=== PATIENT | male | born 1935 | race Two or more races ===

== ENCOUNTER 2017-09-08 12:07 | Inpatient (IN) | payer MEDICARE, MEDICAID ==
[~2017-09-08] VITALS: Ht 182.9 cm; Wt 78.0 kg
[2017-09-08] MEDS ORDERED: Piperacillin/Tazobactam 3.375 GM in NS 110 ML IVPB ONE (12:30)
[2017-09-08 12:42] LABS: BASOPHILS % (AUTO) 0.6 % (0.0-2.0); EOSINOPHILS % (AUTO) 4.1 % (0.0-3.0); HEMATOCRIT 33.1 % (42.0-52.0); HEMOGLOBIN 10.4 G/DL (14.2-18.0); LYMPHOCYTES % (AUTO) 12.7 % (20.0-45.0); MEAN CORPUSCULAR VOLUME 94 FL (80-99); MONOCYTES % (AUTO) 5.7 % (1.0-10.0); NEUTROPHILS % (AUTO) 76.9 % (45.0-75.0); PLATELET COUNT 241 K/UL (150-450); RED BLOOD COUNT 3.51 M/UL (4.70-6.10); RED CELL DISTRIBUTION WIDTH 15.9 % (11.6-14.8); WHITE BLOOD COUNT 9.9 K/UL (4.8-10.8)
[2017-09-08 12:59] LABS: APPEARANCE,URINE CLOUDY; BILIRUBIN, URINE NEGATIVE (NEGATIVE); GLUCOSE, URINE (UA) NEGATIVE (NEGATIVE); KETONES,URINE NEGATIVE (NEGATIVE); LEUKOCYTE ESTERASE ,URINE 3+ (NEGATIVE); NITRITE,URINE POSITIVE (NEGATIVE); PH,URINE 8 (4.5-8.0); PROTEIN,URINE 3+ (NEGATIVE); UROBILINOGEN,URINE 1 MG/DL (0.0-1.0)
[2017-09-08 13:02] VITALS: BP 112/76
[2017-09-08 13:06] LABS: ANION GAP 10 mmol/L (5-15); BLOOD UREA NITROGEN 50 mg/dL (7-18); CALCIUM 8.8 MG/DL (8.5-10.1); CARBON DIOXIDE 27 MMOL/L (21-32); CHLORIDE 118 MMOL/L (98-107); CREATININE 0.8 MG/DL (0.55-1.30); POTASSIUM 4.3 MMOL/L (3.5-5.1); SODIUM 155 MMOL/L (136-145)
[2017-09-08 13:11] LABS: INR 1.1 (0.9-1.1)
[2017-09-08 13:14] LABS: COLOR,URINE YELLOW
[2017-09-08 13:29] LABS: ALANINE AMINOTRANSFERASE 93 U/L (12-78); ALBUMIN/GLOBULIN RATIO 0.4 (1.0-2.7); ALKALINE PHOSPHATASE 81 U/L (46-116); ASPARTATE AMINO TRANSFERASE 56 U/L (15-37); BILIRUBIN,TOTAL 0.3 MG/DL (0.2-1.0); CKMB < 0.5 NG/ML (0.0-3.6); CREATINE KINASE 49 U/L (26-308)
--- NOTE | 2017-09-08 13:52 | Emergency Room Report ---
History of Present Illness General Chief Complaint: Dyspnea/Respdistress Source: EMS Present Illness HPI Patient presents from nursing facility with possible difficulty breathing Patient himself is nonverbal History of present illness is significantly limited Unknown regarding acute fever patient has had multiple hospitalizations for CHF and nonhealing decubitus ulcer Upon arrival the patient was found to be hypoxic by paramedics Unknown regarding vomiting or diarrhea Allergies: Coded Allergies: No Known Allergies (Unverified , 09/08/17) Patient History Limited by: medical condition Past Medical History: see triage record Pertinent Family History: unable to obtain Reviewed Nursing Documentation: PMH: Agreed; PSxH: Agreed Nursing Documentation-PMH Hx Cardiac Problems: Yes - A-FIB HEART FAILURE Hx Hypertension: Yes Hx Gastrointestinal Problems: Yes - G-TUBE Hx Neurological Problems: Yes - PARKINSONS Hx Seizures: No - HYPOTHYROIDISM ANEMIA DEMENTIA BPH Review of Systems All Other Systems: limited - Other than the ones mentioned in the history of present illness all others are reviewed however they do stay limited due to the patient's mental status Physical Exam Vital Signs Date Time Temp Pulse Resp B/P (MAP) Pulse Ox O2 Delivery O2 Flow Rate FiO2 09/08/17 11:59 100.8 74 24 112/76 95 Simple Mask 15.0 100.8 Sp02 EP Interpretation: reviewed, normal General Appearance: mild distress - Appeared mildly short of breath Head: normocephalic, atraumatic Eyes: bilateral eye PERRL ENT: dry mucus membranes Neck: supple, thyroid normal Respiratory: no respiratory distress, no retraction, crackles - Both lower lobes Cardiovascular #1: regular rate, rhythm, no edema Gastrointestinal: non tender, soft - Feeding tube in place Musculoskeletal: other - Patient chronically debilitated, flexed at the legs, not following commands Neurologic: responsive - To physical stimuli Skin: other - Multiple skin breakdowns including decubitus ulcer on the right side also wounds on the lower extremity Lymphatic: no adenopathy Medical Decision Making Diagnostic Impression: Primary Impression: Sepsis Additional Impressions: UTI (urinary tract infection) CHF (congestive heart failure) Hypernatremia ER Course Patient is a fairly complex patient with multiple differential to consideration including but not limited to cardiac cardiopulmonary and vascular emergencies Patient's urine sample also shows infectious pathology Given the concerns of CHF 30 mL/kg fluid is not provided patient however is given hydration Broad-spectrum antibiotics initiated Patient also requiring diuretics for the pulmonary congestion Patient is a complex case with mixed picture of CHF and infection requiring higher level of care admission Labs Test 09/08/17 12:15 09/08/17 12:35 White Blood Count 9.9 K/UL (4.8-10.8) Red Blood Count 3.51 M/UL (4.70-6.10) Hemoglobin 10.4 G/DL (14.2-18.0) Hematocrit 33.1 % (42.0-52.0) Mean Corpuscular Volume 94 FL (80-99) Mean Corpuscular Hemoglobin 29.6 PG (27.0-31.0) Mean Corpuscular Hemoglobin Concent 31.4 G/DL (32.0-36.0) Red Cell Distribution Width 15.9 % (11.6-14.8) Platelet Count 241 K/UL (150-450) Mean Platelet Volume 8.0 FL (6.5-10.1) Neutrophils (%) (Auto) 76.9 % (45.0-75.0) Lymphocytes (%) (Auto) 12.7 % (20.0-45.0) Monocytes (%) (Auto) 5.7 % (1.0-10.0) Eosinophils (%) (Auto) 4.1 % (0.0-3.0) Basophils (%) (Auto) 0.6 % (0.0-2.0) Prothrombin Time 11.0 SEC (9.30-11.50) Prothromb Time International Ratio 1.1 (0.9-1.1) Activated Partial Thromboplast Time 27 SEC (23-33) Urine Color Yellow Urine Appearance Cloudy Urine pH 8 (4.5-8.0) Urine Specific M[place]od 1.015 (1.005-1.035) Urine Protein 3+ (NEGATIVE) Urine Glucose (UA) Negative (NEGATIVE) Urine Ketones Negative (NEGATIVE) Urine Occult Blood 2+ (NEGATIVE) Urine Nitrite Positive (NEGATIVE) Urine Bilirubin Negative (NEGATIVE) Urine Urobilinogen 1 MG/DL (0.0-1.0) Urine Leukocyte Esterase 3+ (NEGATIVE) Urine RBC 5-10 /HPF (0 - 0) Urine WBC 20-30 /HPF (0 - 0) Urine Squamous Epithelial Cells Occasional /LPF Urine Triple Phosphate Crystals Few /LPF (NONE) Urine Bacteria Moderate /HPF (NONE) Sodium Level 155 MMOL/L (136-145) Potassium Level 4.3 MMOL/L (3.5-5.1) Chloride Level 118 MMOL/L (98-107) Carbon Dioxide Level 27 MMOL/L (21-32) Anion Gap 10 mmol/L (5-15) Blood Urea Nitrogen 50 mg/dL (7-18) Creatinine 0.8 MG/DL (0.55-1.30) Estimat Glomerular Filtration Rate mL/min (>60) Glucose Level 138 MG/DL (74-106) Lactic Acid Level 1.00 mmol/L (0.4-2.0) Calcium Level 8.8 MG/DL (8.5-10.1) Total Bilirubin 0.3 MG/DL (0.2-1.0) Aspartate Amino Transf (AST/SGOT) 56 U/L (15-37) Alanine Aminotransferase (ALT/SGPT) 93 U/L (12-78) Alkaline Phosphatase 81 U/L (46-116) Total Creatine Kinase 49 U/L (26-308) Creatine Kinase MB < 0.5 NG/ML (0.0-3.6) Creatine Kinase MB Relative Index Troponin I 0.000 ng/mL (0.000-0.056) Pro-B-Type Natriuretic Peptide 229 pg/mL (0-125) Total Protein 7.7 G/DL (6.4-8.2) Albumin 2.0 G/DL (3.4-5.0) Globulin 5.7 g/dL Albumin/Globulin Ratio 0.4 (1.0-2.7) Lipase 169 U/L (73-393) Arterial Blood pH 7.530 (7.350-7.450) Arterial Blood Partial Pressure CO2 32.9 mmHg (35.0-45.0) Arterial Blood Partial Pressure O2 76.3 mmHg (75.0-100.0) Arterial Blood HCO3 27.0 mmol/L (22.0-26.0) Arterial Blood Oxygen Saturation 95.4 % (92.0-98.0) Arterial Blood Base Excess 4.4 Andrew Test Positive Rhythm Strip Diag. Results EP Interpretation: yes Rate: 78 Rhythm: NSR, no PVC's, no ectopy Chest X-Ray Diagnostic Results Chest X-Ray Diagnostic Results : Chest X-Ray Ordered: Yes # of Views/Limited/Complete: 1 View Indication: Chest Pain EP Interpretation: Yes Interpretation: no pneumothorax, other - Pulmonary congestion, no acute bony abnormalities Impression: Other - Pulmonary congestion Electronically Signed by: Laurent Goldman DO Last Vital Signs Date Time Temp Pulse Resp B/P (MAP) Pulse Ox O2 Delivery O2 Flow Rate FiO2 09/08/17 13:02 100.8 24 112/76 95 Simple Mask 15.0 100.8 09/08/17 13:02 74 Status: improved Disposition: ADMITTED INPATIENT Condition: Serious Referrals: Joanne Desir MD (PCP) Laurent Goldman DO Sep 08, 2017 13:52
[2017-09-08 14:32] VITALS: BP 126/79
[2017-09-08] MEDS ORDERED: SYNTHROID100 MCG GT (14:48)
[2017-09-08] MEDS ORDERED: FEOSOL1 TAB ORAL (14:48)
[2017-09-08] MEDS ORDERED: SYNTHROID50 MCG ORAL (14:48)
[2017-09-08] MEDS ORDERED: GABAPENTIN100 MG ORAL (14:48)
[2017-09-08] MEDS ORDERED: FOLIC ACID1 M1 PO (14:48)
[2017-09-08] MEDS ORDERED: TAMSULOSIN HCL0.4 MG GT (14:52)
[2017-09-08] MEDS ORDERED: SINEMET 25-1001 EAC1 GT ×2 (14:52→19:27)
--- NOTE | 2017-09-08 15:53 | Diagnostic Imaging Report ---
Indication: Shortness of breath Technique: One view of the chest Comparison: none Findings: Patient's chin obscures the upper mediastinum. Hazy opacities are seen in the mid and upper lungs bilaterally. The heart size is normal there are degenerative changes of the left shoulder Impression: Hazy mid and upper lung opacities bilaterally, infiltrates versus edema
[2017-09-08 16:00] VITALS: BP 141/66
[2017-09-08] MEDS ORDERED: NYSTATIN500000 UNI GT (19:27)
[2017-09-08] MEDS ORDERED: NORCO 5-325 TA1 EACH GT (19:27)
[2017-09-08] MEDS ORDERED: HEPARIN SO5000 UNIT5 SQ (19:27)
[2017-09-08] MEDS ORDERED: ASCORBIC ACID500 MG GT (19:27)
[2017-09-08] MEDS ORDERED: NAMENDA5 MG ORAL (19:27)
[2017-09-08] MEDS ORDERED: CHILDREN'S15 MG/1 M2 GT (19:27)
[2017-09-08] MEDS ORDERED: MULTIVITAMINS1 EAC8 GT (19:27)
[2017-09-08 20:00] VITALS: BP 118/64
[2017-09-08] MEDS ORDERED: Acetaminophen 650mg/20.3ml GT PRN (20:45)
[2017-09-08] MEDS ORDERED: Memantine 5 MG TAB ORAL SCH (21:00)
[2017-09-08] MEDS: Vancomycin 1250mg/D5W 250ml IVPB SCH (21:52)
[2017-09-08] MEDS: Tamsulosin 0.4mg cap ORAL SCH (21:53)
[2017-09-08] MEDS: Memantine 5 MG TAB GT SCH (21:53)
[2017-09-08] MEDS: Heparin 5000 units/ml inj SUBQ SCH (21:54)
[2017-09-08] MEDS ORDERED: Piperacillin/Tazobactam 2.25 GM in D5W 55 ML IVPB SCH (22:00)
[2017-09-08] MEDS: Piperacillin/Tazobactam 3.375 GM in D5W 110 ML IVPB SCH (23:30)
[2017-09-08] MEDS: Norco 5mg/325mg tab GT PRN (23:31)
[2017-09-09] VITALS (7 sets, daily range): BP systolic 98–119; BP diastolic 50–68
[2017-09-09 04:47] LABS: BASOPHILS % (AUTO) 0.8 % (0.0-2.0); EOSINOPHILS % (AUTO) 2.9 % (0.0-3.0); HEMATOCRIT 32.9 % (42.0-52.0); HEMOGLOBIN 10.9 G/DL (14.2-18.0); LYMPHOCYTES % (AUTO) 14.1 % (20.0-45.0); MEAN CORPUSCULAR VOLUME 95 FL (80-99); NEUTROPHILS % (AUTO) 77.2 % (45.0-75.0); PLATELET COUNT 252 K/UL (150-450); RED BLOOD COUNT 3.45 M/UL (4.70-6.10); RED CELL DISTRIBUTION WIDTH 15.7 % (11.6-14.8); WHITE BLOOD COUNT 6.5 K/UL (4.8-10.8)
[2017-09-09 04:52] LABS: BLOOD UREA NITROGEN 50 mg/dL (7-18); CALCIUM 8.7 MG/DL (8.5-10.1); CARBON DIOXIDE 29 MMOL/L (21-32); CREATININE 1.1 MG/DL (0.55-1.30)
[2017-09-09] MEDS: Piperacillin/Tazobactam 3.375 GM in D5W 110 ML IVPB SCH ×3 (05:58→22:59)
[2017-09-09 06:05] LABS: CHLORIDE 118 MMOL/L (98-107); POTASSIUM 3.9 MMOL/L (3.5-5.1); SODIUM 156 MMOL/L (136-145)
[2017-09-09] MEDS: Ascorbic Acid 500mg tab GT SCH ×2 (09:48→18:11)
[2017-09-09] MEDS: Ferrous Sulfate 300 MG/5 ML UDC GT SCH ×2 (09:48→18:11)
[2017-09-09] MEDS: Levodopa/Carbidopa 25/100 tab GT SCH ×3 (09:48→18:11)
[2017-09-09] MEDS: Multivitamins W/Minerals 15 ML UDC GT SCH (09:49)
[2017-09-09] MEDS: Gabapentin 300 MG/6 ML Soln GT SCH ×3 (09:49→18:11)
[2017-09-09] MEDS: Heparin 5000 units/ml inj SUBQ SCH ×2 (09:52→21:07)
--- NOTE | 2017-09-09 12:12 | Cardiology Report ---
APPROVED REPORT EKG Measurement Heart [id number] Sinus rhythm Low voltage QRS Abnormal ECG
[2017-09-09] MEDS: D5W w/KCl 20mEq 1,000 ML IV SCH (13:14)
[2017-09-09] MEDS ORDERED: NS 500ML ONE (13:51)
[2017-09-09] MEDS ORDERED: Tubing IV Secondary IV ONE (13:51)
--- NOTE | 2017-09-09 13:59 | Consultation ---
History of Present Illness General Chief Complaint: Dyspnea/Respdistress Reason for Consultation: multiple wounds Present Illness HPI 82[facility] resident was found to have respiratory difficulty and UTI. Currently admitted for medical care and management. On initial evaluation found to have multiple wounds. Surgery called to evaluate and assist with wound care Allergies: Coded Allergies: No Known Allergies (Unverified , 09/08/17) Medication History Scheduled Ascorbic Acid* (Ascorbic Acid*), 500 MG GT TWICE A DAY, (Reported) Carbidopa/Levodopa 25-100 Mg* (Sinemet 25-100 Mg Tablet*), 1 TAB GT THREE TIMES A DAY, (Reported) Carbidopa/Levodopa 25-100 Mg* (Sinemet 25-100 Mg Tablet*), 1 TAB GT TWICE A DAY, (Reported) Ferrous Sulfate (Ferrous Sulfate), 1 TAB ORAL TWICE A DAY, (Reported) Ferrous Sulfate (Ferrous Sulfate), 15 MG GT BID, (Reported) Gabapentin* (Gabapentin*), 100 MG ORAL THREE TIMES A DAY, (Reported) Heparin Sodium,Porcine (Heparin Sodium), 5,000 UNIT SQ EVERY 12 HOURS, (Reported ) Levothyroxine Sodium* (Synthroid*), 100 MCG GT DAILY, (Reported) Memantine Hcl* (Namenda*), 5 MG ORAL BEDTIME, (Reported) Multivitamin With Minerals (Multivitamins With Minerals*), 1 TAB GT DAILY, ( Reported) Nystatin (Nystatin), 500,000 UNIT GT TID, (Reported) Tamsulosin Hcl (Tamsulosin Hcl*), 0.4 MG GT BEDTIME, (Reported) Scheduled PRN Hydrocodone Bit/Acetaminophen 5-325* (Durant 5-325*), 1 TAB GT Q6H PRN for Moderate Pain (Pain Scale 4-6), (Reported) Miscellaneous Medications Folic Acid (Folic Acid), 1 MG PO, (Reported) Discontinued Medications Levothyroxine Sodium (Synthroid), 50 MCG ORAL DAILY, (Reported) Discontinued Reason: Medication dose changed Patient History Limited by: medical condition History Provided By: Medical Record, PMD Healthcare decision maker Resuscitation status Full Code Advanced Directive on File No Past Medical/Surgical History Past Medical/Surgical History: (1) Sacral decubitus ulcer (2) Heel ulcer (3) Wounds, multiple open, lower extremity (4) CHF (congestive heart failure) (5) Hypernatremia (6) Sepsis (7) UTI (urinary tract infection) Review of Systems ROS Narrative cannot obtain given patients medial condition Physical Exam General Appearance: no apparent distress HEENT: mucous membranes moist Neck: normal inspection Respiratory/Chest: no respiratory distress, no accessory muscle use Cardiovascular/Chest: tachycardia Abdomen: soft, no organomegaly, no mass Extremities: other - wounds Skin Exam: warm/dry Neurologic: unresponsiveness Last 24 Hour Vital Signs Date Time Temp Pulse Resp B/P (MAP) Pulse Ox O2 Delivery O2 Flow Rate FiO2 09/09/17 09:19 98.6 64 18 119/63 97 Nasal Cannula 2.0 98.6 09/09/17 08:00 62 09/09/17 04:00 99.0 62 19 98/50 96 Nasal Cannula 2.0 99.0 09/09/17 03:36 67 09/09/17 00:30 98.2 09/09/17 00:00 98.2 74 20 103/50 96 Nasal Cannula 2.0 98.2 09/08/17 23:31 98.6 09/08/17 21:00 71 09/08/17 20:00 98.6 77 20 118/64 97 Nasal Cannula 2.0 98.6 09/08/17 16:52 69 09/08/17 16:21 98.8 24 126/79 100 Simple Mask 15.0 98.8 09/08/17 16:00 98.0 20 141/66 97 Nasal Cannula 2.0 98.0 09/08/17 15:21 118 09/08/17 14:32 98.8 24 126/79 100 Simple Mask 15.0 98.8 Intake and Output 09/08/17 09/09/17 19:00 07:00 Intake Total 0 ml 570.000 ml Output Total 1000 ml Balance -1000 ml 570.000 ml Intake Oral 0 ml IV Total 360.000 ml Tube Feeding 210 ml Output Urine Total 1000 ml Laboratory Tests Test 09/09/17 03:41 White Blood Count 6.5 K/UL (4.8-10.8) Red Blood Count 3.45 M/UL (4.70-6.10) L Hemoglobin 10.9 G/DL (14.2-18.0) L Hematocrit 32.9 % (42.0-52.0) L Mean Corpuscular Volume 95 FL (80-99) Mean Corpuscular Hemoglobin 31.7 PG (27.0-31.0) H Mean Corpuscular Hemoglobin Concent 33.2 G/DL (32.0-36.0) Red Cell Distribution Width 15.7 % (11.6-14.8) H Platelet Count 252 K/UL (150-450) Mean Platelet Volume 7.2 FL (6.5-10.1) Neutrophils (%) (Auto) 77.2 % (45.0-75.0) H Lymphocytes (%) (Auto) 14.1 % (20.0-45.0) L Monocytes (%) (Auto) 5.0 % (1.0-10.0) Eosinophils (%) (Auto) 2.9 % (0.0-3.0) Basophils (%) (Auto) 0.8 % (0.0-2.0) Sodium Level 156 MMOL/L (136-145) H Potassium Level 3.9 MMOL/L (3.5-5.1) Chloride Level 118 MMOL/L (98-107) H Carbon Dioxide Level 29 MMOL/L (21-32) Blood Urea Nitrogen 50 mg/dL (7-18) H Creatinine 1.1 MG/DL (0.55-1.30) Estimat Glomerular Filtration Rate mL/min (>60) Glucose Level 129 MG/DL (74-106) H Calcium Level 8.7 MG/DL (8.5-10.1) Height (Feet): 6 Height (Inches): 0.00 Weight (Pounds): 140 Medications Current Medications Medications (Trade) Dose Ordered Sig/Adrian Route PRN Reason Start Time Stop Time Status Last Admin Dose Admin Acetaminophen (Tylenol) 650 mg Q4H PRN GT Mild Pain/Temp > 100.5 09/08/17 20:45 10/08/17 20:44 Acetaminophen/ Hydrocodone Bitart ([place] 5/325) 1 tab Q6H PRN GT Moderate Pain (Pain Scale 4-6) 09/08/17 20:15 09/15/17 20:14 09/08/17 23:31 Ascorbic Acid (Vitamin C) 500 mg TWICE A DAY GT 09/09/17 09:00 10/09/17 08:59 09/09/17 09:48 Carbidopa/Levodopa (Sinemet 25/100) 1 tab THREE TIMES A DAY GT 09/09/17 09:00 10/09/17 08:59 09/09/17 13:14 Dextrose/ Electrolytes 1,000 ml @ 75 mls/hr [id number] IV 09/09/17 11:00 10/09/17 10:59 09/09/17 13:14 Ferrous Sulfate (Feosol) 300 mg TWICE A DAY GT 09/09/17 09:00 10/09/17 08:59 09/09/17 09:48 Folic Acid (Folate) 1 mg BID GT 09/09/17 09:00 10/09/17 08:59 09/09/17 09:49 Gabapentin (Neurontin) 100 mg THREE TIMES A DAY GT 09/09/17 09:00 10/09/17 08:59 09/09/17 13:14 Heparin Sodium (Porcine) (Heparin 5000 units/ml) 5,000 units EVERY 12 HOURS SUBQ 09/08/17 21:00 10/08/17 20:59 09/09/17 09:52 Levothyroxine Sodium (Synthroid) 100 mcg ACBREAKFAST GT 09/09/17 06:30 10/09/17 08:59 09/09/17 05:59 Memantine (Namenda) 5 mg BEDTIME GT 09/08/17 21:00 10/08/17 20:59 09/08/17 21:53 Multivitamins (Multivitamins W/ Minerals 15ml Liquid) 15 ml DAILY GT 09/09/17 09:00 10/09/17 08:59 09/09/17 09:49 Piperacillin Sod/ Tazobactam Sod 3.375 gm/Dextrose 110 ml @ 27.5 mls/hr Q8H IVPB 09/08/17 22:30 09/15/17 22:29 09/09/17 13:37 Tamsulosin HCl (Flomax) 0.4 mg BEDTIME ORAL 09/08/17 21:00 10/08/17 20:59 09/08/17 21:53 Vancomycin HCl (Vanco rx to dose) 1 ea DAILY PRN MISC Per rx protocol 09/08/17 20:00 10/08/17 19:59 Vancomycin HCl/ Dextrose 250 ml @ 166.667 mls/hr Q24H IVPB 6/15/18 21:00 09/13/17 20:59 09/08/17 21:52 Assessment/Plan Problem List: (1) Wounds, multiple open, lower extremity ICD Codes: S81.809A - Unspecified open wound, unspecified lower leg, initial encounter SNOMED: 73170103 Qualifiers: (2) Sacral decubitus ulcer ICD Codes: L89.159 - Pressure ulcer of sacral region, unspecified stage SNOMED: 754490654 Qualifiers: Qualified Codes: L89.151 - Pressure ulcer of sacral region, stage 1 (3) Heel ulcer ICD Codes: L97.409 - Non-pressure chronic ulcer of unspecified heel and midfoot with unspecified severity SNOMED: 682258075 Qualifiers: Status: unchanged Assessment/Plan 82M with multiple wounds that were present on admission. Sacral decubitus ulcer stage I -keep off wound, skin protectant, foam dressing, air mattress bilateral heel ulcers - pressure ulcers -heel protectors, keep off wounds 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 no signs of infection. no odor. no need for debridement at this time. thank you for this consultation. Zafar Echeverria Sep 09, 2017 13:59
--- NOTE | 2017-09-09 16:30 | History and Physical Report ---
DATE OF ADMISSION: 09/08/2017 CHIEF COMPLAINT: Altered level of consciousness. HISTORY OF PRESENT ILLNESS: This is an 82-year-old male from [facility]. The patient was transferred to this hospital via 911 due to altered level of consciousness. His main complaint as noted by the nursing was shortness of breath. The patient has multiple medical problems as listed below. PAST MEDICAL HISTORY: 1. Organic brain syndrome. 2. Multiple decubitus ulcers, status post extensive debridement done in [facility] about a month ago. 3. Benign prostatic hypertrophy. 4. Hypothyroidism. 5. Calorie protein malnutrition. 6. Status post gastrostomy insertion. 7. Diastolic heart failure. 8. Chronic atrial fibrillation. MEDICATIONS: 1. Tube feeding. 2. Oral nystatin. 3. Sinemet. 4. Vitamin D3. 5. Multivitamins. 6. Tylenol p.r.n . 7. Bruno p.r.n. 8. Oral iron via G tube. 9. Neurontin. 10. Subcutaneous heparin. 11. Synthroid. 12. Namenda. 13. Tamsulosin. ALLERGIES: No known drug allergies. FAMILY HISTORY: Unable to obtain due to his mental status. SOCIAL HISTORY: Unable to obtain due to his mental status. REVIEW OF SYSTEMS: Unable to obtain due to his mental status. PHYSICAL EXAMINATION: GENERAL: This is an elderly cachectic male, who is in no acute distress. VITAL SIGNS: Blood pressure is 119/63, pulse 64 and regular, respirations 18, and temperature is 98.6 degrees. HEENT: The head is normocephalic and atraumatic. Pupils are equal, round, and reactive to light condition consensually. He has oral thrush. NECK: Supple. Trachea midline. There was no lymphadenopathy or thyromegaly. LUNGS: Clear to auscultation and percussion. HEART: Irregularly irregular. ABDOMEN: Soft and nontender. He has a G-tube. SKIN: He has multiple decubitus ulcers, which include stage II sacral, stage III left foot, a stage III right leg, stage IV left heel, stage III left foot and a large first 5 cm diameter greater right hip, which debrided recently at [facility] and looks essentially clean. NEUROLOGIC: The patient is alert, but disoriented. He has multiple contractures. There were no lateralizing signs. LABORATORY AND ANCILLARY DATA: His hematocrit 32.9 and WBC 6.5. Chemistry, sodium 156, chloride 118, BUN 50, creatinine 1.1, and glucose 129. Urinalysis positive nitrites, 20 to 30 white blood cells, and moderate amount of bacteria. Chest x-ray, hazy and suspected infiltrates bilaterally. ASSESSMENT: 1. Bilateral pneumonia. 2. Urosepsis. 3. Rule out infected decubitus ulcers, doubt since the wounds were debrided recently and they look clean. 4. Hypernatremia and volume repletion. 5. Organic brain syndrome. 6. Multiple decubitus ulcers, status post extensive debridement done in [facility] about a month ago. 7. Benign prostatic hypertrophy. 8. Hypothyroidism. 9. Calorie protein malnutrition. 10. Status post gastrostomy insertion. 11. Diastolic heart failure. 12. Chronic atrial fibrillation. PLAN: 1. Switch IV fluid to free water. 2. IV antibiotics. 3. General surgery to examine the wounds. 4. ID consult. Joanne Desir M.D. DR: LÁZARO JOB#: [id number] CC:
--- NOTE | 2017-09-09 16:57 | Infectious Diseases Prog Note ---
Assessment/Plan Assessment/Plan Full consult dictated: A) 1) sepsis, gram + bacteremia, ? sbe, ? skin source, gram neg uti, fevers, multiple wounds noted, ams, pneumonia 2) pmh noted 3) allergies - negative P) 1) vancomycin and zosyn 2) check cultures, labs, chest x-ray, echo 3) orders entered 4) thank you Subjective Allergies: Coded Allergies: No Known Allergies (Unverified , 09/08/17) Objective Vital Signs Last 24 Hour Vital Signs Date Time Temp Pulse Resp B/P (MAP) Pulse Ox O2 Delivery O2 Flow Rate FiO2 09/09/17 12:00 62 09/09/17 12:00 98.8 64 20 108/64 96 Nasal Cannula 2.0 98.8 09/09/17 09:19 98.6 64 18 119/63 97 Nasal Cannula 2.0 98.6 09/09/17 08:00 98.6 64 18 119/63 97 Nasal Cannula 2.0 98.6 09/09/17 08:00 62 09/09/17 04:00 99.0 62 19 98/50 96 Nasal Cannula 2.0 99.0 09/09/17 03:36 67 09/09/17 00:30 98.2 09/09/17 00:00 98.2 74 20 103/50 96 Nasal Cannula 2.0 98.2 09/08/17 23:31 98.6 09/08/17 21:00 71 09/08/17 20:00 98.6 77 20 118/64 97 Nasal Cannula 2.0 98.6 Height (Feet): 6 Height (Inches): 0.00 Weight (Pounds): 140 Microbiology Date/Time Source Procedure Growth Status 09/08/17 12:15 Blood Blood Culture - Preliminary Resulted 09/08/17 12:15 Blood Blood Culture - Preliminary Resulted 09/08/17 12:15 Urine,Clean Catch Urine Culture - Preliminary Gram Negative Bacillus 1 Resulted Laboratory Tests Test 09/09/17 03:41 White Blood Count 6.5 K/UL (4.8-10.8) Red Blood Count 3.45 M/UL (4.70-6.10) L Hemoglobin 10.9 G/DL (14.2-18.0) L Hematocrit 32.9 % (42.0-52.0) L Mean Corpuscular Volume 95 FL (80-99) Mean Corpuscular Hemoglobin 31.7 PG (27.0-31.0) H Mean Corpuscular Hemoglobin Concent 33.2 G/DL (32.0-36.0) Red Cell Distribution Width 15.7 % (11.6-14.8) H Platelet Count 252 K/UL (150-450) Mean Platelet Volume 7.2 FL (6.5-10.1) Neutrophils (%) (Auto) 77.2 % (45.0-75.0) H Lymphocytes (%) (Auto) 14.1 % (20.0-45.0) L Monocytes (%) (Auto) 5.0 % (1.0-10.0) Eosinophils (%) (Auto) 2.9 % (0.0-3.0) Basophils (%) (Auto) 0.8 % (0.0-2.0) Sodium Level 156 MMOL/L (136-145) H Potassium Level 3.9 MMOL/L (3.5-5.1) Chloride Level 118 MMOL/L (98-107) H Carbon Dioxide Level 29 MMOL/L (21-32) Blood Urea Nitrogen 50 mg/dL (7-18) H Creatinine 1.1 MG/DL (0.55-1.30) Estimat Glomerular Filtration Rate mL/min (>60) Glucose Level 129 MG/DL (74-106) H Calcium Level 8.7 MG/DL (8.5-10.1) Current Medications Medications (Trade) Dose Ordered Sig/Adrian Route PRN Reason Start Time Stop Time Status Last Admin Dose Admin Acetaminophen (Tylenol) 650 mg Q4H PRN GT Mild Pain/Temp > 100.5 09/08/17 20:45 10/08/17 20:44 Acetaminophen/ Hydrocodone Bitart ([place] 5/325) 1 tab Q6H PRN GT Moderate Pain (Pain Scale 4-6) 09/08/17 20:15 09/15/17 20:14 09/08/17 23:31 Ascorbic Acid (Vitamin C) 500 mg TWICE A DAY GT 09/09/17 09:00 10/09/17 08:59 09/09/17 09:48 Carbidopa/Levodopa (Sinemet 25/100) 1 tab THREE TIMES A DAY GT 09/09/17 09:00 10/09/17 08:59 09/09/17 13:14 Dextrose/ Electrolytes 1,000 ml @ 75 mls/hr [id number] IV 09/09/17 11:00 10/09/17 10:59 09/09/17 13:14 Ferrous Sulfate (Feosol) 300 mg TWICE A DAY GT 09/09/17 09:00 10/09/17 08:59 09/09/17 09:48 Folic Acid (Folate) 1 mg BID GT 09/09/17 09:00 10/09/17 08:59 09/09/17 09:49 Gabapentin (Neurontin) 100 mg THREE TIMES A DAY GT 09/09/17 09:00 10/09/17 08:59 09/09/17 13:14 Heparin Sodium (Porcine) (Heparin 5000 units/ml) 5,000 units EVERY 12 HOURS SUBQ 09/08/17 21:00 10/08/17 20:59 09/09/17 09:52 Levothyroxine Sodium (Synthroid) 100 mcg ACBREAKFAST GT 09/09/17 06:30 10/09/17 08:59 09/09/17 05:59 Memantine (Namenda) 5 mg BEDTIME GT 09/08/17 21:00 10/08/17 20:59 09/08/17 21:53 Multivitamins (Multivitamins W/ Minerals 15ml Liquid) 15 ml DAILY GT 09/09/17 09:00 10/09/17 08:59 09/09/17 09:49 Piperacillin Sod/ Tazobactam Sod 3.375 gm/Dextrose 110 ml @ 27.5 mls/hr Q8H IVPB 09/08/17 22:30 09/15/17 22:29 09/09/17 13:37 Tamsulosin HCl (Flomax) 0.4 mg BEDTIME ORAL 09/08/17 21:00 10/08/17 20:59 09/08/17 21:53 Vancomycin HCl (Vanco rx to dose) 1 ea DAILY PRN MISC Per rx protocol 09/08/17 20:00 10/08/17 19:59 Vancomycin HCl/ Dextrose 250 ml @ 166.667 mls/hr Q24H IVPB 09/08/17 21:00 09/13/17 20:59 09/08/17 21:52 Junior Loza MD Sep 09, 2017 16:57
[2017-09-09] MEDS: Nystatin Susp 500,000 units/5ml ORAL SCH ×2 (18:11→21:06)
--- NOTE | 2017-09-09 19:00 | Consultation ---
DATE OF CONSULTATION: 09/09/2017 INFECTIOUS DISEASES CONSULTATION CONSULTING PHYSICIAN: Junior Loza M.D. ATTENDING PHYSICIAN: Joanne Desir M.D. REFERRING PHYSICIAN: Joanne Desir M.D. REASON FOR CONSULTATION: Sepsis, gram-negative UTI, gram-positive bacteremia, possible infected wounds, pneumonia. CHIEF COMPLAINT: The patient's chief complaint coming into the hospital is sepsis. HISTORY OF PRESENT ILLNESS: The patient is an 82-year-old male, who comes to [facility] with fevers, altered mental status, and sepsis. Workup shows that he has gram-positive bacteremia. The patient has multiple wounds that were recently debrided per the records. The patient was seen by surgery and at this time conservative local care is recommended. The patient also has a gram-negative urinary tract infection and looks like he also had possible pneumonia. He is at high risk for aspiration healthcare-acquired pneumonia. Infectious Diseases consultation requested for antibiotic management. He is currently on vancomycin and Zosyn. Final cultures are pending. MAR was noted. Orders were noted. Notes were reviewed. Case was discussed with RN and communicated with microbiology. Notes and records were noted. We will continue vancomycin and Zosyn for now. PAST MEDICAL HISTORY: The patient's past medical history includes history of the following, obtained from the records. The patient has history of multiple wounds status post debridement, extensive debridement per the records. Other past medical history, he has history of gastrostomy status. The patient does have dysphagia and G-tube. He has history of Parkinson disease, weakness, poorly responsive, history of heart failure, history of atrial fibrillation, essential hypertension, BPH. He has history of dementia, history of polyneuropathy, hypothyroidism, history of anemia, history of GERD and esophagitis, history of wounds. He is anemic. He has history of organic brain syndrome, malnutrition, diastolic heart failure. MEDICATIONS: Upon reviewing the MAR, the patient is on following medications, he is on IV fluids, carbidopa, ferrous sulfate, folic acid, multivitamin, levothyroxine, gabapentin, Zosyn and vancomycin. He is on heparin, tamsulosin, memantine or Namenda, hydrocodone. Outside medications noted and reconciliated. ALLERGIES: No known drug allergies. No antibiotic allergies. SOCIAL HISTORY: Negative for smoking, alcohol, or drug abuse. FAMILY HISTORY: Noncontributory. No mention of exposure to tuberculosis or cancer. REVIEW OF SYSTEMS: CONSTITUTIONAL: The patient denies generalized fatigue and weakness. He is poorly responsive, lethargic, altered mental status. He has Roman. I do not believe he has a central line. He is not a hemodialysis patient. He has generalized weakness and fatigue, poorly responsive. HEAD AND NECK: Could not really assess. CARDIAC: No pressors. GASTROINTESTINAL: No nausea, vomiting, or diarrhea. GENITOURINARY: Has a Roman. PULMONARY: Congestion is noted. No significant secretions or hemoptysis. SKIN: He has multiple wounds. NEUROLOGIC: Seizures and generalized weakness. He came in with fevers. PHYSICAL EXAMINATION: VITAL SIGNS: T-max 100.8, currently, temperature is 98.8, pulse rate 64, respiratory rate 20, blood pressure 108/64, saturation 96% on admission. Pulse rate as high as 118 and respiratory rate as high as 24. T-max 100.8. GENERAL: Lethargic, weak, mild congestion noted. HEAD AND NECK: Oral exam, no thrush. Eye exam, no icterus. Normocephalic. Neck is supple. HEART: Occasionally regular. No obvious gallop or murmur. ABDOMEN: Soft. Positive bowel sounds. Cannot assess tenderness. He has a G-tube. LUNGS: Bilateral rhonchi and rales. SKIN: He has multiple wounds, most prominent with left foot and right hip, look fairly clean. No obvious cellulitis surrounding it. No other rash noted. MUSCULOSKELETAL: No effusions. Possible contractures. Legs are without cellulitis. PERIPHERAL VASCULAR: No cyanosis or gangrene. GENITOURINARY: Has a Roman. Urine is cloudy. LINE SITES: Without phlebitis. NEUROLOGIC: Poorly responsive, lethargic weak. LABORATORY AND DIAGNOSTIC DATA: Laboratory data follows, white count 6.5 and hemoglobin 10.9. creatinine 1.1. LFTs mildly elevated and noted. Alkaline phosphatase normal. UA had 3+ leukocyte esterase, 20 to 30 white blood cells, moderate bacteria. Chest x-ray showed hazy mid and upper lung opacities bilaterally, edema versus infiltrates. Urine culture greater than 100,000 negative rods or bacilli. Blood cultures 4/4 gram-positive cocci and clusters. ASSESSMENT: 1. The patient has gram-positive bacteremia and sepsis. He also has gram-negative urinary tract infection questionable. Questionable skin source of bacteremia versus endocarditis. The patient has fevers, multiple wounds, looks like he has an aspiration versus healthcare-acquired pneumonia versus both. He has altered mental status, encephalopathy, SIRS criteria. Continue vancomycin and Zosyn to cover sepsis, gram-negative urinary tract infection, gram-positive bacteremia, pneumonia. Check cultures, laboratories, chest x-ray. Check echocardiogram. Check surveillance blood cultures. Continue wound care per protocol and surgery. At this point, no debridement was mentioned. Continue vancomycin and Zosyn. Pending workup, urine cultures, laboratories and imaging studies. Again deferential diagnosis for sepsis includes gram-positive bacteremia, rule out endocarditis, gram-negative urinary tract infection, and possible wound source with gram-positive bacteremia. Continue Zosyn and vancomycin for now. 2. The patient has anemia. 3. History of multiple wounds status post debridement in the past. 4. The patient has history of G-tube and dysphagia. 5. Parkinson disease. 6. Dementia. 7. Aspiration risk. 8. Atrial fibrillation. 9. Hypothyroidism. 10. Hypertension. 11. BPH 12. Hypothyroidism treatment per primary. 13. Polyneuropathy. 14. GERD. 15. Esophagitis. 16. Past medical history noted. 17. No known allergies. 18. Social history is negative. 19. Family history is noncontributory. 20. MAR was noted. 21. Case discussed with RN. 22. Continue treatment per primary consultants. 23. Notes and records were noted. 24. Orders were entered. Junior Loza M.D. DR: Leni JOB#: [id number] CC:
[2017-09-09] MEDS: Tamsulosin 0.4mg cap ORAL SCH (21:06)
[2017-09-09] MEDS: Memantine 5 MG TAB GT SCH (21:06)
[2017-09-09] MEDS: Vancomycin 1250mg/D5W 250ml IVPB SCH (21:08)
--- NOTE | 2017-09-09 21:59 | Consultation ---
DATE OF CONSULTATION: 09/09/2017 ADDENDUM The most prominent wounds, when I reviewed the wounds over the right hip and left foot, again look fairly clean, however, they could be also wound infection in these areas of the right hip and left foot. Again, wound care per Surgery. It is unclear if the skin is the source of gram-positive bacteremia. We will also check out the 00:36 endocarditis and get the identification of blood cultures and also get surveillance blood cultures. Continue Zosyn and vancomycin for the other processes including sepsis, gram-negative UTI, and pneumonia. Junior Loza M.D. DR: Dahlia JOB#: [id number] CC:
[2017-09-10] VITALS: BP 111/61
[2017-09-10] MEDS: Norco 5mg/325mg tab GT PRN (00:21)
[2017-09-10] MEDS: D5W w/KCl 20mEq 1,000 ML IV SCH ×3 (00:21→21:08)
[2017-09-10 04:00] VITALS: BP 105/61
[2017-09-10 04:44] LABS: BASOPHILS % (AUTO) 0.4 % (0.0-2.0); EOSINOPHILS % (AUTO) 5.2 % (0.0-3.0); HEMATOCRIT 33.5 % (42.0-52.0); HEMOGLOBIN 10.5 G/DL (14.2-18.0); LYMPHOCYTES % (AUTO) 14.5 % (20.0-45.0); MEAN CORPUSCULAR VOLUME 94 FL (80-99); MONOCYTES % (AUTO) 3.6 % (1.0-10.0); NEUTROPHILS % (AUTO) 76.3 % (45.0-75.0); PLATELET COUNT 252 K/UL (150-450); RED BLOOD COUNT 3.56 M/UL (4.70-6.10); RED CELL DISTRIBUTION WIDTH 14.9 % (11.6-14.8); WHITE BLOOD COUNT 8.9 K/UL (4.8-10.8)
[2017-09-10] MEDS: Piperacillin/Tazobactam 3.375 GM in D5W 110 ML IVPB SCH ×2 (06:30→14:59)
[2017-09-10 08:00] VITALS: BP 130/65
[2017-09-10 08:23] LABS: ALANINE AMINOTRANSFERASE 65 U/L (12-78); ALBUMIN 1.8 G/DL (3.4-5.0); ALBUMIN/GLOBULIN RATIO 0.3 (1.0-2.7); ALKALINE PHOSPHATASE 68 U/L (46-116); ANION GAP 12 mmol/L (5-15); ASPARTATE AMINO TRANSFERASE 46 U/L (15-37); BILIRUBIN,TOTAL 0.5 MG/DL (0.2-1.0); BLOOD UREA NITROGEN 41 mg/dL (7-18); CALCIUM 8.4 MG/DL (8.5-10.1); CARBON DIOXIDE 24 MMOL/L (21-32); CHLORIDE 114 MMOL/L (98-107); CREATININE 1.1 MG/DL (0.55-1.30); POTASSIUM 3.9 MMOL/L (3.5-5.1); SODIUM 150 MMOL/L (136-145)
[2017-09-10] MEDS: Heparin 5000 units/ml inj SUBQ SCH ×2 (09:27→21:13)
[2017-09-10] MEDS: Nystatin Susp 500,000 units/5ml ORAL SCH ×4 (09:28→21:02)
[2017-09-10] MEDS: Ascorbic Acid 500mg tab GT SCH ×2 (09:28→18:10)
[2017-09-10] MEDS: Gabapentin 300 MG/6 ML Soln GT SCH ×3 (09:28→18:10)
[2017-09-10] MEDS: Multivitamins W/Minerals 15 ML UDC GT SCH (09:28)
[2017-09-10] MEDS: Ferrous Sulfate 300 MG/5 ML UDC GT SCH ×2 (09:28→18:11)
[2017-09-10] MEDS: Levodopa/Carbidopa 25/100 tab GT SCH ×3 (09:28→18:10)
--- NOTE | 2017-09-10 10:01 | Diagnostic Imaging Report ---
EXAM: XR Chest, 1 View CLINICAL HISTORY: INFECT TECHNIQUE: Frontal view of the chest. COMPARISON: Chest x-ray 09/08/17 1225 FINDINGS: Lungs: Bilateral airspace opacities and interstitial thickening, slightly worsened in the left mid to lower lung. Hypoventilatory lungs. Pleural space: Unremarkable. No pneumothorax. Heart: Unremarkable. No cardiomegaly. Mediastinum: Unremarkable. Bones/joints: Unremarkable. IMPRESSION: Bilateral airspace opacities and interstitial thickening, slightly worsened in the left mid to lower lung.
[2017-09-10 12:00] VITALS: BP 102/59
--- NOTE | 2017-09-10 12:22 | General Progress Note ---
Assessment/Plan Assessment/Plan Pre Renal Azotemia - resolving with hypotonic IVF. GPC r/o SBE!!! R/O Urosepsis. Check Renal US r/o stones. Subjective Allergies: Coded Allergies: No Known Allergies (Unverified , 09/08/17) Subjective No new c/o Objective Last 24 Hour Vital Signs Date Time Temp Pulse Resp B/P (MAP) Pulse Ox O2 Delivery O2 Flow Rate FiO2 09/10/17 08:00 99.7 65 26 130/65 96 Nasal Cannula 2.0 99.7 09/10/17 08:00 74 09/10/17 04:00 98.8 65 20 105/61 95 Nasal Cannula 2.0 98.8 09/10/17 04:00 64 09/10/17 01:20 98.0 09/10/17 00:21 98.0 09/10/17 00:00 97.9 62 21 111/61 97 Nasal Cannula 2.0 97.9 09/10/17 00:00 76 09/09/17 20:00 76 09/09/17 20:00 98.0 64 19 108/59 96 Nasal Cannula 2.0 98.0 09/09/17 16:00 61 09/09/17 16:00 97.8 63 20 114/68 96 Nasal Cannula 2.0 97.8 Intake and Output 09/09/17 09/10/17 19:00 07:00 Intake Total 1045 ml 2298.000 ml Output Total 750 ml 700 ml Balance 295 ml 1598.000 ml Free Water 200 ml 300 ml IV Total 75 ml 1258.000 ml Tube Feeding 620 ml 680 ml Other 150 ml 60 ml Output Urine Total 750 ml 700 ml # Bowel Movements 2 1 Laboratory Tests 09/10/17 04:10: White Blood Count 8.9, Red Blood Count 3.56L, Hemoglobin 10.5L, Hematocrit 33.5L , Mean Corpuscular Volume 94, Mean Corpuscular Hemoglobin 29.5, Mean Corpuscular Hemoglobin Concent 31.3L, Red Cell Distribution Width 14.9H, Platelet Count 252, Mean Platelet Volume 7.7, Neutrophils (%) (Auto) 76.3H, Lymphocytes (%) (Auto) 14.5L, Monocytes (%) (Auto) 3.6, Eosinophils (%) (Auto) 5.2H, Basophils (%) (Auto) 0.4, Sodium Level 150H, Potassium Level 3.9, Chloride Level 114H, Carbon Dioxide Level 24, Anion Gap 12, Blood Urea Nitrogen 41H, Creatinine 1.1, Estimat Glomerular Filtration Rate , Glucose Level 113H, Calcium Level 8.4L, Total Bilirubin 0.5, Aspartate Amino Transf (AST/SGOT) 46H, Alanine Aminotransferase (ALT/SGPT) 65, Alkaline Phosphatase 68, Total Protein 7.1, Albumin 1.8L, Globulin 5.3, Albumin/Globulin Ratio 0.3L Height (Feet): 6 Height (Inches): 0.00 Weight (Pounds): 140 Objective Cv RR Lungs CTA Abd SNT. BS + . PEG OK. Skin Multiple decub ulcers as documented - see H+P. None of them show signs of active infection. Multiple contractures. Joanne Desir MD Sep 10, 2017 12:22
[2017-09-10 16:00] VITALS: BP 107/50
[2017-09-10 20:00] VITALS: BP 98/32
[2017-09-10] MEDS ORDERED: Norco 5mg/325mg tab GT PRN (20:15)
[2017-09-10] MEDS ORDERED: Acetaminophen 650mg/20.3ml GT PRN (20:45)
[2017-09-10] MEDS ORDERED: Vancomycin 1250mg/D5W 250ml 250 ML IVPB SCH (21:00)
[2017-09-10] MEDS: Memantine 5 MG TAB GT SCH (21:01)
[2017-09-10] MEDS: Tamsulosin 0.4mg cap ORAL SCH (21:02)
[2017-09-10] MEDS: Piperacillin/Tazobactam 3.375 GM in NS 110 ML IVPB SCH (22:24)
[2017-09-10] MEDS ORDERED: Piperacillin/Tazobactam 3.375 GM in NS 110 ML IVPB SCH (22:30)
[2017-09-11] VITALS: BP 92/49
[2017-09-11 04:00] VITALS: BP 95/53
[2017-09-11] MEDS: Piperacillin/Tazobactam 3.375 GM in NS 110 ML IVPB SCH ×3 (07:02→23:06)
[2017-09-11 08:00] VITALS: BP 90/67
[2017-09-11] MEDS: Nystatin Susp 500,000 units/5ml ORAL SCH ×4 (09:12→21:07)
[2017-09-11] MEDS: Multivitamins W/Minerals 15 ML UDC GT SCH (09:12)
[2017-09-11] MEDS: Ferrous Sulfate 300 MG/5 ML UDC GT SCH ×2 (09:12→16:42)
[2017-09-11] MEDS: D5W w/KCl 20mEq 1,000 ML IV SCH ×2 (09:12→23:25)
[2017-09-11] MEDS: Levodopa/Carbidopa 25/100 tab GT SCH ×3 (09:13→16:42)
[2017-09-11] MEDS: Ascorbic Acid 500mg tab GT SCH ×2 (09:13→16:42)
[2017-09-11] MEDS: Heparin 5000 units/ml inj SUBQ SCH ×2 (09:15→21:09)
[2017-09-11] MEDS: Gabapentin 300 MG/6 ML Soln GT SCH ×3 (09:27→16:43)
--- NOTE | 2017-09-11 10:06 | Cardiology Report ---
APPROVED REPORT EXAM: Two-dimensional and M-mode echocardiogram with Doppler and color Doppler. INDICATION Veg[place] M-Mode DIMENSIONS IVSd1.7 (0.7-1.1cm)Left Atrium (MM)4.6 (1.6-4.0cm) LVDd3.6 (3.5-5.6cm)Aortic Root3.5 (2.0-3.7cm) PWd1.1 (0.7-1.1cm)Aortic Cusp Exc.1.8 (1.5-2.0cm) LVDs1.2 (2.5-4.0cm) PWs1.7 cm Technically difficult study because patient was contracted. Study quality precludes accurate assessment of regional wall motion. Normal left ventricular chamber size, systolic function and wall motion. Left ventricular ejection fraction estimated to be 65-70 %. Mild left ventricular hypertrophy. No evidence of pericardial effusion. Mild right ventricular enlargement. Left atrial chamber sizes is within normal limits. Right atrial chamber sizes is within normal limits. Mild focal aortic valve sclerosis with adequate cusp excursion. Thickened mitral valve leaflets with normal excursion. Mild mitral annulus and aortic root calcification. Pulmonic valve not well visualized. Normal tricuspid valve structure. Subcostal views not obtainable due to GI Tube. A color flow and spectral Doppler study was performed and revealed: Trace aortic insufficiency. Mild to moderate mitral regurgitation. Mitral diastolic velocities suggest mild left ventricular diastolic dysfunction (Grade I). Mild tricuspid regurgitation. Tricuspid systolic velocities suggests peak right ventricular systolic pressure of 37 mmHg, consistent with mild pulmonary hypertension. No pulmonic regurgitation present.
[2017-09-11 12:00] VITALS: BP 96/55
--- NOTE | 2017-09-11 14:56 | General Progress Note ---
Assessment/Plan Assessment/Plan Pre Renal Azotemia - resolving with hypotonic IVF. GPC r/o SBE!!! R/O Urosepsis. Check Renal US r/o stones. Subjective Allergies: Coded Allergies: No Known Allergies (Unverified , 09/08/17) Subjective No new c/o Objective Last 24 Hour Vital Signs Date Time Temp Pulse Resp B/P (MAP) Pulse Ox O2 Delivery O2 Flow Rate FiO2 09/11/17 12:00 98.0 63 18 96/55 97 Nasal Cannula 2.0 98.0 09/11/17 12:00 63 09/11/17 08:00 98.2 82 18 90/67 97 Nasal Cannula 2.0 98.2 09/11/17 08:00 75 09/11/17 04:00 75 09/11/17 04:00 97.8 62 20 95/53 97 Nasal Cannula 2.0 97.8 09/11/17 00:00 97.9 69 21 92/49 95 Nasal Cannula 2.0 97.9 09/10/17 20:00 73 09/10/17 20:00 98.4 68 22 98/32 95 Nasal Cannula 2.0 98.4 09/10/17 16:00 98.2 65 20 107/50 65 Nasal Cannula 2.0 98.2 09/10/17 16:00 61 Intake and Output 09/10/17 09/11/17 19:00 07:00 Intake Total 1485 ml Output Total 501 ml Balance 984 ml Free Water 300 ml Tube Feeding 825 ml Other 360 ml Output Urine Total 500 ml Stool Total 1 ml # Bowel Movements 2 Height (Feet): 6 Height (Inches): 0.00 Weight (Pounds): 140 Objective Cv RR Lungs CTA Abd SNT. BS + . PEG OK. Skin Multiple decub ulcers as documented - see H+P. None of them show signs of active infection. Multiple contractures. Joanne Desir MD Sep 11, 2017 14:56
--- NOTE | 2017-09-11 15:14 | Infectious Diseases Prog Note ---
Assessment/Plan Assessment/Plan ASSESSMENT: 1. staph aureus/conduit installer bacteremia, ? skin source, wounds noted, providencia/ enterobacter uti, sepsis, fevers, ? aspiration pna/hcap - continue zosyn and vancomycin - surveillance blood cultures negative - less likely endocarditis with staph aureus in one bottle only - monitor labs - wound care per surgery, no debridement at this time 2. The patient has anemia. 3. History of multiple wounds status post debridement in the past. 4. The patient has history of G-tube and dysphagia. 5. Parkinson disease. 6. Dementia. 7. Aspiration risk. 8. Atrial fibrillation. 9. Hypothyroidism. 10. Hypertension. 11. BPH 12. Hypothyroidism treatment per primary. 13. Polyneuropathy. 14. GERD. 15. Esophagitis. 16. Past medical history noted. 17. No known allergies. 18. Social history is negative. 19. Family history is noncontributory. 20. MAR was noted. 21. Case discussed with RN. 22. Continue treatment per primary consultants. 23. Notes and records were noted. 24. Orders were entered. Subjective Constitutional: Reports: fatigue, other - moer alert ; Denies: fever HEENT: Denies: congestion Respiratory: Denies: shortness of breath Cardiovascular: Reports: palpitations; Denies: chest pain Gastrointestinal/Abdominal: Reports: bloating, other - f; Denies: nausea, vomiting, diarrhea Genitourinary: Reports: other - + garcia Neurologic: Denies: headache Psychiatric: Denies: depression Hematologic: Denies: bleeding Musculoskeletal: Denies: pain Allergies: Coded Allergies: No Known Allergies (Unverified , 09/08/17) Objective Vital Signs Last 24 Hour Vital Signs Date Time Temp Pulse Resp B/P (MAP) Pulse Ox O2 Delivery O2 Flow Rate FiO2 09/11/17 12:00 98.0 63 18 96/55 97 Nasal Cannula 2.0 98.0 09/11/17 12:00 63 09/11/17 08:00 98.2 82 18 90/67 97 Nasal Cannula 2.0 98.2 09/11/17 08:00 75 09/11/17 04:00 75 09/11/17 04:00 97.8 62 20 95/53 97 Nasal Cannula 2.0 97.8 09/11/17 00:00 97.9 69 21 92/49 95 Nasal Cannula 2.0 97.9 6/17/18 20:00 73 09/10/17 20:00 98.4 68 22 98/32 95 Nasal Cannula 2.0 98.4 09/10/17 16:00 98.2 65 20 107/50 65 Nasal Cannula 2.0 98.2 09/10/17 16:00 61 Height (Feet): 6 Height (Inches): 0.00 Weight (Pounds): 140 General Appearance: no acute distress HEENT: normocephalic, atraumatic, anicteric, mucous membranes moist Respiratory/Chest: no respiratory distress, no accessory muscle use, crackles/ rales, rhonchi - bilaterally Cardiovascular: normal rate, regular rhythm, no gallop/murmur, no JVD Abdomen: soft, non tender, no organomegaly, non distended Genitourinary: other - + garcia - urine slt cloudy Extremities: no cyanosis Skin: no rash, ulcers, other - wounds covered Neurologic/Psychiatric: emergency manager II-XII grossly normal, alert, responsive Lymphatic: no neck adenopathy Musculoskeletal: no effusion Objective 09/10 - chest x-ray - COMPARISON: Chest x-ray 09/08/17 1225 FINDINGS: Lungs: Bilateral airspace opacities and interstitial thickening, slightly worsened in the left mid to lower lung. Hypoventilatory lungs. Pleural space: Unremarkable. No pneumothorax. Heart: Unremarkable. No cardiomegaly. Mediastinum: Unremarkable. Bones/joints: Unremarkable. IMPRESSION: Bilateral airspace opacities and interstitial thickening, slightly worsened in the left mid to lower lung. 2-D echo - no vegetation mentioned (report noted) Microbiology Date/Time Source Procedure Growth Status 09/10/17 04:15 Blood Blood Culture - Preliminary NO GROWTH AFTER 24 HOURS Resulted 09/10/17 04:10 Blood Blood Culture - Preliminary NO GROWTH AFTER 24 HOURS Resulted 09/11/17 02:30 Sputum Induced Gram Stain - Final Resulted 09/11/17 02:30 Sputum Induced Sputum Culture Pending Resulted 09/10/17 12:00 Sputum Induced Gram Stain - Final Resulted 09/10/17 12:00 Sputum Induced Sputum Culture Pending Resulted 09/09/17 03:00 Hip Right Gram Stain - Final Resulted 09/09/17 03:00 Wound Culture - Preliminary Escherichia Coli - Esbl Gram Negative Bacillus 2 Diphtheroids Resulted Labs Test 09/09/17 03:41 6/17/18 04:10 White Blood Count 6.5 K/UL (4.8-10.8) 8.9 K/UL (4.8-10.8) Red Blood Count 3.45 M/UL (4.70-6.10) 3.56 M/UL (4.70-6.10) Hemoglobin 10.9 G/DL (14.2-18.0) 10.5 G/DL (14.2-18.0) Hematocrit 32.9 % (42.0-52.0) 33.5 % (42.0-52.0) Mean Corpuscular Volume 95 FL (80-99) 94 FL (80-99) Mean Corpuscular Hemoglobin 31.7 PG (27.0-31.0) 29.5 PG (27.0-31.0) Mean Corpuscular Hemoglobin Concent 33.2 G/DL (32.0-36.0) 31.3 G/DL (32.0-36.0) Red Cell Distribution Width 15.7 % (11.6-14.8) 14.9 % (11.6-14.8) Platelet Count 252 K/UL (150-450) 252 K/UL (150-450) Mean Platelet Volume 7.2 FL (6.5-10.1) 7.7 FL (6.5-10.1) Neutrophils (%) (Auto) 77.2 % (45.0-75.0) 76.3 % (45.0-75.0) Lymphocytes (%) (Auto) 14.1 % (20.0-45.0) 14.5 % (20.0-45.0) Monocytes (%) (Auto) 5.0 % (1.0-10.0) 3.6 % (1.0-10.0) Eosinophils (%) (Auto) 2.9 % (0.0-3.0) 5.2 % (0.0-3.0) Basophils (%) (Auto) 0.8 % (0.0-2.0) 0.4 % (0.0-2.0) Sodium Level 156 MMOL/L (136-145) 150 MMOL/L (136-145) Potassium Level 3.9 MMOL/L (3.5-5.1) 3.9 MMOL/L (3.5-5.1) Chloride Level 118 MMOL/L (98-107) 114 MMOL/L (98-107) Carbon Dioxide Level 29 MMOL/L (21-32) 24 MMOL/L (21-32) Blood Urea Nitrogen 50 mg/dL (7-18) 41 mg/dL (7-18) Creatinine 1.1 MG/DL (0.55-1.30) 1.1 MG/DL (0.55-1.30) Estimat Glomerular Filtration Rate mL/min (>60) mL/min (>60) Glucose Level 129 MG/DL (74-106) 113 MG/DL (74-106) Calcium Level 8.7 MG/DL (8.5-10.1) 8.4 MG/DL (8.5-10.1) Anion Gap 12 mmol/L (5-15) Total Bilirubin 0.5 MG/DL (0.2-1.0) Aspartate Amino Transf (AST/SGOT) 46 U/L (15-37) Alanine Aminotransferase (ALT/SGPT) 65 U/L (12-78) Alkaline Phosphatase 68 U/L (46-116) Total Protein 7.1 G/DL (6.4-8.2) Albumin 1.8 G/DL (3.4-5.0) Globulin 5.3 g/dL Albumin/Globulin Ratio 0.3 (1.0-2.7) Current Medications Medications (Trade) Dose Ordered Sig/Adrian Route PRN Reason Start Time Stop Time Status Last Admin Dose Admin Acetaminophen (Tylenol) 650 mg Q4H PRN GT Mild Pain/Temp > 100.5 09/10/17 20:45 10/08/17 20:44 Acetaminophen/ Hydrocodone Bitart ([place] 5/325) 1 tab Q6H PRN GT Moderate Pain (Pain Scale 4-6) 09/10/17 20:15 09/15/17 20:14 Ascorbic Acid (Vitamin C) 500 mg TWICE A DAY GT 09/11/17 09:00 10/09/17 08:59 09/11/17 09:13 Carbidopa/Levodopa (Sinemet 25/100) 1 tab THREE TIMES A DAY GT 09/11/17 09:00 10/09/17 08:59 09/11/17 13:38 Dextrose/ Electrolytes 1,000 ml @ 75 mls/hr [id number] IV 09/10/17 21:00 10/09/17 20:59 09/11/17 09:12 Ferrous Sulfate (Feosol) 300 mg TWICE A DAY GT 09/11/17 09:00 10/09/17 08:59 09/11/17 09:12 Folic Acid (Folate) 1 mg BID GT 09/11/17 09:00 10/09/17 08:59 09/11/17 09:26 Gabapentin (Neurontin) 100 mg THREE TIMES A DAY GT 09/11/17 09:00 10/09/17 08:59 09/11/17 13:38 Heparin Sodium (Porcine) (Heparin 5000 units/ml) 5,000 units EVERY 12 HOURS SUBQ 09/10/17 21:00 10/08/17 20:59 09/11/17 09:15 Levothyroxine Sodium (Synthroid) 100 mcg ACBREAKFAST GT 09/11/17 06:30 10/09/17 08:59 09/11/17 06:18 Memantine (Namenda) 5 mg BEDTIME GT 09/10/17 21:00 10/08/17 20:59 09/10/17 21:01 Multivitamins (Multivitamins W/ Minerals 15ml Liquid) 15 ml DAILY GT 09/11/17 09:00 10/09/17 08:59 09/11/17 09:12 Nystatin (Nystatin) 5 ml QID ORAL 09/10/17 21:00 09/16/17 17:59 09/11/17 13:38 Piperacillin Sod/ Tazobactam Sod 3.375 gm/Sodium Chloride 110 ml @ 27.5 mls/hr Q8H IVPB 09/10/17 22:30 09/15/17 23:59 09/11/17 13:38 Tamsulosin HCl (Flomax) 0.4 mg BEDTIME ORAL 09/10/17 21:00 10/08/17 20:59 09/10/17 21:02 Vancomycin HCl (Vanco rx to dose) 1 ea DAILY PRN MISC Per rx protocol 09/11/17 09:00 10/08/17 19:59 Vancomycin HCl/ Dextrose 250 ml @ 166.667 mls/hr Q24H IVPB 09/10/17 21:00 09/13/17 20:59 09/10/17 21:09 Junior Loza MD Sep 11, 2017 15:14
--- NOTE | 2017-09-11 15:54 | General Surgery Progress Note ---
General Surgery-Progress Note Subjective Additional Comments no acute events. bacteremia Objective Last 24 Hour Vital Signs Date Time Temp Pulse Resp B/P (MAP) Pulse Ox O2 Delivery O2 Flow Rate FiO2 09/11/17 12:00 98.0 63 18 96/55 97 Nasal Cannula 2.0 98.0 09/11/17 12:00 63 09/11/17 08:00 98.2 82 18 90/67 97 Nasal Cannula 2.0 98.2 09/11/17 08:00 75 09/11/17 04:00 75 09/11/17 04:00 97.8 62 20 95/53 97 Nasal Cannula 2.0 97.8 09/11/17 00:00 97.9 69 21 92/49 95 Nasal Cannula 2.0 97.9 09/10/17 20:00 73 09/10/17 20:00 98.4 68 22 98/32 95 Nasal Cannula 2.0 98.4 09/10/17 16:00 98.2 65 20 107/50 65 Nasal Cannula 2.0 98.2 09/10/17 16:00 61 I&O Intake and Output 09/10/17 09/11/17 19:00 07:00 Intake Total 1485 ml Output Total 501 ml Balance 984 ml Free Water 300 ml Tube Feeding 825 ml Other 360 ml Output Urine Total 500 ml Stool Total 1 ml # Bowel Movements 2 Wound: clean Drains: none Cardiovascular: RSR Respiratory: clear Abdomen: soft, flat Extremities: edema, no tenderness Plan Problems: (1) Wounds, multiple open, lower extremity Assessment & Plan: 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 no signs of infection. no odor. no need for debridement at this time. (2) Sacral decubitus ulcer Assessment & Plan: Sacral decubitus ulcer stage I -keep off wound, skin protectant, foam dressing, air mattress all wounds present on admission. no signs of infection. no odor. no need for debridement at this time. (3) Heel ulcer Assessment & Plan: bilateral heel ulcers - pressure ulcers -heel protectors, keep off wounds all wounds present on admission. no signs of infection. no odor. no need for debridement at this time. Zafar Echeverria Sep 11, 2017 15:54
[2017-09-11 16:00] VITALS: BP 88/53
--- NOTE | 2017-09-11 19:23 | Diagnostic Imaging Report ---
Indication: Shortness of breath, abdominal pain. Abnormal LFTs. Technique: US ABD Complete Comparison: None Findings: Pancreas is obscured by overlying bowel gas. Evaluation of this area also limited due to overlying bandages. Liver appears normal ending contour. Right lobe is normal in size. No definite focal hepatic mass lesion is appreciated sonographically. Main portal vein appears patent. Some sludge is noted within the gallbladder. There is no gallbladder wall thickening or pericholecystic fluid. No biliary ductal dilatation. The common bile duct measures 6 mm. There is slightly increased renal echogenicity bilaterally. The lateral simple appearing cysts are noted in the kidneys, with a large cyst in the left kidney measuring up to 10 cm in diameter. Spleen is normal in size and appearance. Imaged portions of the abdominal aorta normal in caliber. No appreciable ascites. IMPRESSION: Limited exam with lack of visualization's of the pancreas and left hepatic lobe overlying bowel gas and bandages. * Gallbladder sludge. No associated gallbladder wall thickening or pericholecystic fluid. * Question mild increased renal echogenicity. Correlate for medical renal disease. * Bilateral simple appearing renal cysts.
[2017-09-11 20:00] VITALS: BP 103/54
[2017-09-11] MEDS ORDERED: Vancomycin 1250mg/D5W 250ml 250 ML IVPB SCH (21:00)
[2017-09-11] MEDS: Memantine 5 MG TAB GT SCH (21:07)
[2017-09-11] MEDS: Tamsulosin 0.4mg cap ORAL SCH (21:07)
[2017-09-11] MEDS ORDERED: Vancomycin 1.5 GM/D5W 250ML IVPB SCH (22:00)
[2017-09-12] VITALS: BP 115/69
[2017-09-12 04:00] VITALS: BP 111/67
[2017-09-12] MEDS: Piperacillin/Tazobactam 3.375 GM in NS 110 ML IVPB SCH ×3 (06:33→23:22)
[2017-09-12 07:08] LABS: BASOPHILS % (AUTO) 0.3 % (0.0-2.0); EOSINOPHILS % (AUTO) 5.5 % (0.0-3.0); HEMATOCRIT 27.2 % (42.0-52.0); HEMOGLOBIN 8.7 G/DL (14.2-18.0); LYMPHOCYTES % (AUTO) 13.1 % (20.0-45.0); MEAN CORPUSCULAR VOLUME 92 FL (80-99); MONOCYTES % (AUTO) 4.4 % (1.0-10.0); NEUTROPHILS % (AUTO) 76.7 % (45.0-75.0); PLATELET COUNT 232 K/UL (150-450); RED BLOOD COUNT 2.95 M/UL (4.70-6.10); RED CELL DISTRIBUTION WIDTH 14.5 % (11.6-14.8)
[2017-09-12 07:23] LABS: ANION GAP 6 mmol/L (5-15); BLOOD UREA NITROGEN 20 mg/dL (7-18); CALCIUM 8.2 MG/DL (8.5-10.1); CARBON DIOXIDE 27 MMOL/L (21-32); CHLORIDE 106 MMOL/L (98-107); CREATININE 0.9 MG/DL (0.55-1.30); POTASSIUM 4.1 MMOL/L (3.5-5.1); SODIUM 139 MMOL/L (136-145)
[2017-09-12 08:00] VITALS: BP 118/65
[2017-09-12] MEDS: Ferrous Sulfate 300 MG/5 ML UDC GT SCH ×2 (08:35→17:29)
[2017-09-12] MEDS: Levodopa/Carbidopa 25/100 tab GT SCH ×3 (08:35→17:29)
[2017-09-12] MEDS: Nystatin Susp 500,000 units/5ml ORAL SCH ×4 (08:36→21:25)
[2017-09-12] MEDS: Ascorbic Acid 500mg tab GT SCH ×2 (08:36→17:29)
[2017-09-12] MEDS: Multivitamins W/Minerals 15 ML UDC GT SCH (08:36)
[2017-09-12] MEDS: Heparin 5000 units/ml inj SUBQ SCH ×2 (08:37→21:27)
[2017-09-12] MEDS: Gabapentin 300 MG/6 ML Soln GT SCH ×3 (08:40→17:30)
--- NOTE | 2017-09-12 09:44 | General Surgery Progress Note ---
General Surgery-Progress Note Subjective Additional Comments no acute events. ultrasound with gallbladder sludge but no thickening or perichole fluid. wounds stable Objective Last 24 Hour Vital Signs Date Time Temp Pulse Resp B/P (MAP) Pulse Ox O2 Delivery O2 Flow Rate FiO2 09/12/17 08:00 98.2 61 19 118/65 99 Nasal Cannula 2.0 98.2 09/12/17 04:00 98.2 71 19 111/67 98 Nasal Cannula 2.0 98.2 09/12/17 04:00 68 09/12/17 00:00 70 09/12/17 00:00 98.9 72 17 115/69 99 Nasal Cannula 2.0 98.9 09/11/17 20:00 60 09/11/17 20:00 98.3 60 17 103/54 99 Nasal Cannula 2.0 98.3 09/11/17 19:04 68 22 Nasal Cannula 2.0 28 09/11/17 19:04 Nasal Cannula 2.0 28 09/11/17 16:00 98.1 69 16 88/53 96 Nasal Cannula 2.0 98.1 09/11/17 16:00 65 09/11/17 12:00 98.0 63 18 96/55 97 Nasal Cannula 2.0 98.0 09/11/17 12:00 63 I&O Intake and Output 09/11/17 09/12/17 19:00 07:00 Intake Total 750 ml Output Total 950 ml 2000 ml Balance -200 ml -2000 ml IV Total 750 ml Output Urine Total 950 ml 2000 ml # Bowel Movements 1 Cardiovascular: RSR Respiratory: clear Abdomen: soft, flat, present bowel sounds Extremities: other - see wound care photos Laboratory Tests Test 09/11/17 20:00 09/12/17 06:00 Vancomycin Level Trough 13.0 ug/mL (5.0-12.0) H White Blood Count 9.0 K/UL (4.8-10.8) Red Blood Count 2.95 M/UL (4.70-6.10) L Hemoglobin 8.7 G/DL (14.2-18.0) L Hematocrit 27.2 % (42.0-52.0) L Mean Corpuscular Volume 92 FL (80-99) Mean Corpuscular Hemoglobin 29.7 PG (27.0-31.0) Mean Corpuscular Hemoglobin Concent 32.1 G/DL (32.0-36.0) Red Cell Distribution Width 14.5 % (11.6-14.8) Platelet Count 232 K/UL (150-450) Mean Platelet Volume 7.9 FL (6.5-10.1) Neutrophils (%) (Auto) 76.7 % (45.0-75.0) H Lymphocytes (%) (Auto) 13.1 % (20.0-45.0) L Monocytes (%) (Auto) 4.4 % (1.0-10.0) Eosinophils (%) (Auto) 5.5 % (0.0-3.0) H Basophils (%) (Auto) 0.3 % (0.0-2.0) Sodium Level 139 MMOL/L (136-145) Potassium Level 4.1 MMOL/L (3.5-5.1) Chloride Level 106 MMOL/L (98-107) Carbon Dioxide Level 27 MMOL/L (21-32) Anion Gap 6 mmol/L (5-15) Blood Urea Nitrogen 20 mg/dL (7-18) H Creatinine 0.9 MG/DL (0.55-1.30) Estimat Glomerular Filtration Rate mL/min (>60) Glucose Level 163 MG/DL (74-106) H Calcium Level 8.2 MG/DL (8.5-10.1) L Plan Problems: (1) Wounds, multiple open, lower extremity Assessment & Plan: 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 no signs of infection. no odor. no need for debridement at this time. (2) Sacral decubitus ulcer Assessment & Plan: Sacral decubitus ulcer stage I -keep off wound, skin protectant, foam dressing, air mattress all wounds present on admission. no signs of infection. no odor. no need for debridement at this time. (3) Heel ulcer Assessment & Plan: bilateral heel ulcers - pressure ulcers -heel protectors, keep off wounds all wounds present on admission. no signs of infection. no odor. no need for debridement at this time. Additional Comments from report, wounds have recently had excisional debridement at outside facility. currently wounds clean and not likely to be etiology of bacteremia Zafar Echeverria Sep 12, 2017 09:44
--- NOTE | 2017-09-12 11:26 | General Progress Note ---
Assessment/Plan Assessment/Plan Pre Renal Azotemia - resolving with hypotonic IVF. GPC r/o SBE!!! R/O Urosepsis. Check Renal US r/o stones. Subjective Allergies: Coded Allergies: No Known Allergies (Unverified , 09/08/17) Subjective No new c/o Objective Last 24 Hour Vital Signs Date Time Temp Pulse Resp B/P (MAP) Pulse Ox O2 Delivery O2 Flow Rate FiO2 09/12/17 08:00 98.2 61 19 118/65 99 Nasal Cannula 2.0 98.2 09/12/17 08:00 61 09/12/17 04:00 98.2 71 19 111/67 98 Nasal Cannula 2.0 98.2 09/12/17 04:00 68 09/12/17 00:00 70 09/12/17 00:00 98.9 72 17 115/69 99 Nasal Cannula 2.0 98.9 09/11/17 20:00 60 09/11/17 20:00 98.3 60 17 103/54 99 Nasal Cannula 2.0 98.3 09/11/17 19:04 68 22 Nasal Cannula 2.0 28 09/11/17 19:04 Nasal Cannula 2.0 28 09/11/17 16:00 98.1 69 16 88/53 96 Nasal Cannula 2.0 98.1 09/11/17 16:00 65 09/11/17 12:00 98.0 63 18 96/55 97 Nasal Cannula 2.0 98.0 09/11/17 12:00 63 Intake and Output 09/11/17 09/12/17 19:00 07:00 Intake Total 750 ml Output Total 950 ml 2000 ml Balance -200 ml -2000 ml IV Total 750 ml Output Urine Total 950 ml 2000 ml # Bowel Movements 1 Laboratory Tests 09/11/17 20:00: Vancomycin Level Trough 13.0H 09/12/17 06:00: White Blood Count 9.0, Red Blood Count 2.95L, Hemoglobin 8.7L, Hematocrit 27.2L , Mean Corpuscular Volume 92, Mean Corpuscular Hemoglobin 29.7, Mean Corpuscular Hemoglobin Concent 32.1, Red Cell Distribution Width 14.5, Platelet Count 232, Mean Platelet Volume 7.9, Neutrophils (%) (Auto) 76.7H, Lymphocytes ( %) (Auto) 13.1L, Monocytes (%) (Auto) 4.4, Eosinophils (%) (Auto) 5.5H, Basophils (%) (Auto) 0.3, Sodium Level 139, Potassium Level 4.1, Chloride Level 106, Carbon Dioxide Level 27, Anion Gap 6, Blood Urea Nitrogen 20H, Creatinine 0.9, Estimat Glomerular Filtration Rate , Glucose Level 163H, Calcium Level 8.2L Height (Feet): 6 Height (Inches): 0.00 Weight (Pounds): 140 Objective Cv RR Lungs CTA Abd SNT. BS + . PEG OK. Skin Multiple decub ulcers as documented - see H+P. None of them show signs of active infection. Multiple contractures. Joanne Desir MD Sep 12, 2017 11:26
[2017-09-12 12:00] VITALS: BP 94/59
[2017-09-12] MEDS: D5W w/KCl 20mEq 1,000 ML IV SCH (13:31)
[2017-09-12 16:00] VITALS: BP 117/62
[2017-09-12 20:00] VITALS: BP 125/72
[2017-09-12] MEDS: Tamsulosin 0.4mg cap ORAL SCH (21:24)
[2017-09-12] MEDS: Vancomycin 1.5 GM/D5W 250ML IVPB SCH (21:25)
[2017-09-12] MEDS: Memantine 5 MG TAB GT SCH (21:25)
[2017-09-13] VITALS: BP 120/73
[2017-09-13] MEDS: D5W w/KCl 20mEq 1,000 ML IV SCH ×2 (01:40→15:27)
[2017-09-13 04:00] VITALS: BP 106/61
[2017-09-13] MEDS: Piperacillin/Tazobactam 3.375 GM in NS 110 ML IVPB SCH ×2 (05:30→14:15)
[2017-09-13 06:37] LABS: BASOPHILS % (AUTO) 0.4 % (0.0-2.0); EOSINOPHILS % (AUTO) 4.7 % (0.0-3.0); HEMATOCRIT 30.6 % (42.0-52.0); HEMOGLOBIN 9.9 G/DL (14.2-18.0); LYMPHOCYTES % (AUTO) 15.8 % (20.0-45.0); MEAN CORPUSCULAR VOLUME 92 FL (80-99); MONOCYTES % (AUTO) 4.7 % (1.0-10.0); NEUTROPHILS % (AUTO) 74.4 % (45.0-75.0); PLATELET COUNT 231 K/UL (150-450); RED BLOOD COUNT 3.31 M/UL (4.70-6.10); RED CELL DISTRIBUTION WIDTH 14.3 % (11.6-14.8)
[2017-09-13 06:50] LABS: ANION GAP 3 mmol/L (5-15); BLOOD UREA NITROGEN 15 mg/dL (7-18); CALCIUM 8.5 MG/DL (8.5-10.1); CARBON DIOXIDE 28 MMOL/L (21-32); CHLORIDE 106 MMOL/L (98-107); CREATININE 0.9 MG/DL (0.55-1.30); POTASSIUM 3.8 MMOL/L (3.5-5.1); SODIUM 137 MMOL/L (136-145)
[2017-09-13 08:00] VITALS: BP 124/70
[2017-09-13] MEDS: Nystatin Susp 500,000 units/5ml ORAL SCH ×4 (09:17→20:59)
[2017-09-13] MEDS: Multivitamins W/Minerals 15 ML UDC GT SCH (09:17)
[2017-09-13] MEDS: Ferrous Sulfate 300 MG/5 ML UDC GT SCH ×2 (09:17→18:33)
[2017-09-13] MEDS: Ascorbic Acid 500mg tab GT SCH ×2 (09:17→18:33)
[2017-09-13] MEDS: Levodopa/Carbidopa 25/100 tab GT SCH ×3 (09:17→18:33)
[2017-09-13] MEDS: Heparin 5000 units/ml inj SUBQ SCH ×2 (09:18→21:01)
[2017-09-13] MEDS: Gabapentin 300 MG/6 ML Soln GT SCH ×3 (09:38→18:33)
--- NOTE | 2017-09-13 10:07 | Diagnostic Imaging Report ---
Indication: Shortness of breath Technique: One view of the chest Comparison: 09/10/2017 Findings: Interim development of infiltrates in the right mid and lower lung periphery and left retrocardiac region. Of previously demonstrated left midlung periphery infiltrates appear improved, as this previously demonstrated right perihilar disease. The heart is upper limits of normal in size. There are degenerative changes of both shoulders Impression: Shifting infiltrates or edema, as described
[2017-09-13 12:00] VITALS: BP 113/85
--- NOTE | 2017-09-13 14:15 | Infectious Diseases Prog Note ---
Assessment/Plan Assessment/Plan ASSESSMENT: 1. 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 skin source, wounds noted, providencia/ enterobacter uti, sepsis, fevers, ? aspiration pna/hcap, sc-nf - continue zosyn and vancomycin - day # 5 abx - will need 2 weeks of iv vancomycin followed by 2 weeks keflex po - give zosyn for 10 days total - surveillance blood cultures negative - less likely endocarditis with staph aureus in one bottle only - monitor labs and chest x-ray - wound care per surgery, no debridement at this time 2. The patient has anemia. 3. History of multiple wounds status post debridement in the past. 4. The patient has history of G-tube and dysphagia. 5. Parkinson disease. 6. Dementia. 7. Aspiration risk. 8. Atrial fibrillation. 9. Hypothyroidism. 10. Hypertension. 11. BPH 12. Hypothyroidism treatment per primary. 13. Polyneuropathy. 14. GERD. 15. Esophagitis. 16. Past medical history noted. 17. No known allergies. 18. Social history is negative. 19. Family history is noncontributory. 20. MAR was noted. 21. Case discussed with RN. 22. Continue treatment per primary consultants. 23. Notes and records were noted. 24. Orders were entered. Subjective Constitutional: Reports: fatigue, other - more alert ; Denies: fever HEENT: Denies: congestion Respiratory: Denies: shortness of breath Cardiovascular: Denies: chest pain Gastrointestinal/Abdominal: Denies: nausea, vomiting, diarrhea Genitourinary: Reports: other - + garcia Neurologic: Denies: headache Psychiatric: Denies: depression Skin: Denies: rash Hematologic: Denies: bleeding Musculoskeletal: Denies: pain Allergies: Coded Allergies: No Known Allergies (Unverified , 09/08/17) Objective Vital Signs Last 24 Hour Vital Signs Date Time Temp Pulse Resp B/P (MAP) Pulse Ox O2 Delivery O2 Flow Rate FiO2 09/13/17 12:00 97.5 67 22 113/85 93 Nasal Cannula 2.0 97.5 09/13/17 12:00 65 09/13/17 08:00 97.7 70 24 124/70 96 Nasal Cannula 2.0 97.7 09/13/17 08:00 64 09/13/17 04:00 58 09/13/17 04:00 97.4 60 20 106/61 98 97.4 09/13/17 00:00 97.9 67 20 120/73 98 97.9 09/13/17 00:00 61 09/12/17 20:00 97.9 60 18 125/72 99 97.9 09/12/17 20:00 60 09/12/17 19:46 Nasal Cannula 2.0 28 09/12/17 19:45 63 18 Nasal Cannula 2.0 28 09/12/17 16:00 59 09/12/17 16:00 97.6 67 18 117/62 94 97.6 Height (Feet): 6 Height (Inches): 0.00 Weight (Pounds): 172 General Appearance: no acute distress HEENT: normocephalic, atraumatic, anicteric, mucous membranes moist, EOMI, pharynx normal, supple, no JVD Respiratory/Chest: crackles/rales, rhonchi - bilaterally Cardiovascular: normal rate, regular rhythm, no gallop/murmur, no JVD Abdomen: normal bowel sounds, soft, non tender, no organomegaly, non distended Genitourinary: other - + garcia - urine cloudy Extremities: no cyanosis Skin: no rash 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 Hypoventilatory lungs. Pleural space: Unremarkable. No pneumothorax. Heart: Unremarkable. No cardiomegaly. Mediastinum: Unremarkable. Bones/joints: Unremarkable. IMPRESSION: Bilateral airspace opacities and interstitial thickening, slightly worsened in the left mid to lower lung. 2-D echo - no vegetation mentioned (report noted) 09/13/17 - Procedure: XRAY Chest 1v Indication: Shortness of breath Technique: One view of the chest Comparison: 09/10/2017 Findings: Interim development of infiltrates in the right mid and lower lung periphery and left retrocardiac region. Of previously demonstrated left midlung periphery infiltrates appear improved, as this previously demonstrated right perihilar disease. The heart is upper limits of normal in size. There are degenerative changes of both shoulders Impression: Shifting infiltrates or edema, as described Microbiology Date/Time Source Procedure Growth Status 09/10/17 04:15 Blood Blood Culture - Preliminary NO GROWTH AFTER 72 HOURS Resulted 09/11/17 02:30 Sputum Induced Gram Stain - Final Complete 09/11/17 02:30 Sputum Induced Sputum Culture - Final NORMAL UPPER RESPIRATORY LOBO PRESENT Complete 09/08/17 12:15 Urine,Clean Catch Urine Culture - Final Providencia Rettgeri Enterobacter Cloacae Complex Complete 09/09/17 03:00 Hip Right Gram Stain - Final Complete 09/09/17 03:00 Wound Culture - Final Escherichia Coli - Esbl Proteus Mirabilis Diphtheroids Complete Microbiology Date/Time Source Procedure Growth Status 09/11/17 02:30 Sputum Induced Gram Stain - Final Complete 09/11/17 02:30 Sputum Induced Sputum Culture - Final NORMAL UPPER RESPIRATORY LOBO PRESENT Complete Laboratory Tests Test 09/13/17 06:05 White Blood Count 7.0 K/UL (4.8-10.8) Red Blood Count 3.31 M/UL (4.70-6.10) L Hemoglobin 9.9 G/DL (14.2-18.0) L Hematocrit 30.6 % (42.0-52.0) L Mean Corpuscular Volume 92 FL (80-99) Mean Corpuscular Hemoglobin 29.9 PG (27.0-31.0) Mean Corpuscular Hemoglobin Concent 32.4 G/DL (32.0-36.0) Red Cell Distribution Width 14.3 % (11.6-14.8) Platelet Count 231 K/UL (150-450) Mean Platelet Volume 7.8 FL (6.5-10.1) Neutrophils (%) (Auto) 74.4 % (45.0-75.0) Lymphocytes (%) (Auto) 15.8 % (20.0-45.0) L Monocytes (%) (Auto) 4.7 % (1.0-10.0) Eosinophils (%) (Auto) 4.7 % (0.0-3.0) H Basophils (%) (Auto) 0.4 % (0.0-2.0) Sodium Level 137 MMOL/L (136-145) Potassium Level 3.8 MMOL/L (3.5-5.1) Chloride Level 106 MMOL/L (98-107) Carbon Dioxide Level 28 MMOL/L (21-32) Anion Gap 3 mmol/L (5-15) L Blood Urea Nitrogen 15 mg/dL (7-18) Creatinine 0.9 MG/DL (0.55-1.30) Estimat Glomerular Filtration Rate mL/min (>60) Glucose Level 141 MG/DL (74-106) H Calcium Level 8.5 MG/DL (8.5-10.1) Current Medications Medications (Trade) Dose Ordered Sig/Adrian Route PRN Reason Start Time Stop Time Status Last Admin Dose Admin Acetaminophen (Tylenol) 650 mg Q4H PRN GT Mild Pain/Temp > 100.5 09/10/17 20:45 10/08/17 20:44 Acetaminophen/ Hydrocodone Bitart ([place] 5/325) 1 tab Q6H PRN GT Moderate Pain (Pain Scale 4-6) 09/10/17 20:15 09/15/17 20:14 Ascorbic Acid (Vitamin C) 500 mg TWICE A DAY GT 09/11/17 09:00 10/09/17 08:59 09/13/17 09:17 Carbidopa/Levodopa (Sinemet 25/100) 1 tab THREE TIMES A DAY GT 09/11/17 09:00 10/09/17 08:59 09/13/17 12:55 Dextrose/ Electrolytes 1,000 ml @ 75 mls/hr [id number] IV 09/10/17 21:00 10/09/17 20:59 09/13/17 01:40 Ferrous Sulfate (Feosol) 300 mg TWICE A DAY GT 09/11/17 09:00 10/09/17 08:59 09/13/17 09:17 Folic Acid (Folate) 1 mg BID GT 09/11/17 09:00 10/09/17 08:59 09/13/17 09:17 Gabapentin (Neurontin) 100 mg THREE TIMES A DAY GT 09/11/17 09:00 10/09/17 08:59 09/13/17 12:55 Heparin Sodium (Porcine) (Heparin 5000 units/ml) 5,000 units EVERY 12 HOURS SUBQ 09/10/17 21:00 10/08/17 20:59 09/13/17 09:18 Levothyroxine Sodium (Synthroid) 100 mcg ACBREAKFAST GT 09/11/17 06:30 10/09/17 08:59 09/13/17 05:30 Memantine (Namenda) 5 mg BEDTIME GT 09/10/17 21:00 10/08/17 20:59 09/12/17 21:25 Multivitamins (Multivitamins W/ Minerals 15ml Liquid) 15 ml DAILY GT 09/11/17 09:00 10/09/17 08:59 09/13/17 09:17 Nystatin (Nystatin) 5 ml QID ORAL 09/10/17 21:00 09/16/17 17:59 09/13/17 12:55 Piperacillin Sod/ Tazobactam Sod 3.375 gm/Sodium Chloride 110 ml @ 27.5 mls/hr Q8H IVPB 09/10/17 22:30 09/15/17 23:59 09/13/17 05:30 Tamsulosin HCl (Flomax) 0.4 mg BEDTIME ORAL 09/10/17 21:00 10/08/17 20:59 09/12/17 21:24 Vancomycin HCl (Vanco rx to dose) 1 ea DAILY PRN MISC Per rx protocol 09/11/17 09:00 10/08/17 19:59 09/11/17 23:03 Vancomycin HCl/ Dextrose 250 ml @ 125 mls/hr Q24H IVPB 09/12/17 21:00 09/17/17 20:59 09/12/17 21:25 Junior Loza MD Sep 13, 2017 14:15
[2017-09-13 16:00] VITALS: BP 121/62
--- NOTE | 2017-09-13 18:18 | General Progress Note ---
Assessment/Plan Assessment/Plan Pre Renal Azotemia - resolving with hypotonic IVF. GPC r/o SBE!!! R/O Urosepsis. Check Renal US no stones Subjective Allergies: Coded Allergies: No Known Allergies (Unverified , 09/08/17) Subjective No new c/o Objective Last 24 Hour Vital Signs Date Time Temp Pulse Resp B/P (MAP) Pulse Ox O2 Delivery O2 Flow Rate FiO2 09/13/17 16:00 97.7 68 20 121/62 98 Nasal Cannula 2.0 97.7 09/13/17 16:00 67 09/13/17 12:00 97.5 67 22 113/85 93 Nasal Cannula 2.0 97.5 09/13/17 12:00 65 09/13/17 08:00 97.7 70 24 124/70 96 Nasal Cannula 2.0 97.7 09/13/17 08:00 64 09/13/17 04:00 58 09/13/17 04:00 97.4 60 20 106/61 98 97.4 09/13/17 00:00 97.9 67 20 120/73 98 97.9 09/13/17 00:00 61 09/12/17 20:00 97.9 60 18 125/72 99 97.9 09/12/17 20:00 60 09/12/17 19:46 Nasal Cannula 2.0 28 09/12/17 19:45 63 18 Nasal Cannula 2.0 28 Intake and Output 09/12/17 09/13/17 19:00 07:00 Intake Total 1165.0 ml 950 ml Output Total 2500 ml Balance 1165.0 ml -1550 ml Free Water 80 ml IV Total 465.0 ml 900 ml Tube Feeding 620 ml 50 ml Output Urine Total 2500 ml Laboratory Tests 09/13/17 06:05: White Blood Count 7.0, Red Blood Count 3.31L, Hemoglobin 9.9L, Hematocrit 30.6L , Mean Corpuscular Volume 92, Mean Corpuscular Hemoglobin 29.9, Mean Corpuscular Hemoglobin Concent 32.4, Red Cell Distribution Width 14.3, Platelet Count 231, Mean Platelet Volume 7.8, Neutrophils (%) (Auto) 74.4, Lymphocytes (% ) (Auto) 15.8L, Monocytes (%) (Auto) 4.7, Eosinophils (%) (Auto) 4.7H, Basophils (%) (Auto) 0.4, Sodium Level 137, Potassium Level 3.8, Chloride Level 106, Carbon Dioxide Level 28, Anion Gap 3L, Blood Urea Nitrogen 15, Creatinine 0.9, Estimat Glomerular Filtration Rate , Glucose Level 141H, Calcium Level 8.5 Height (Feet): 6 Height (Inches): 0.00 Weight (Pounds): 172 Objective Cv RR Lungs CTA Abd SNT. BS + . PEG OK. Skin Multiple decub ulcers as documented - see H+P. None of them show signs of active infection. Multiple contractures. Joanne Desir MD Sep 13, 2017 18:18
[2017-09-13 20:00] VITALS: BP 114/64
[2017-09-13] MEDS: Memantine 5 MG TAB GT SCH (20:58)
[2017-09-13] MEDS: Tamsulosin 0.4mg cap ORAL SCH (20:58)
[2017-09-13] MEDS: Vancomycin 1.5 GM/D5W 250ML IVPB SCH (20:59)
[2017-09-13] MEDS ORDERED: Piperacillin/Tazobactam 3.375 GM in NS 110 ML IVPB SCH (22:30)
[2017-09-14] VITALS: BP 110/69
[2017-09-14] MEDS: Piperacillin/Tazobactam 3.375 GM in NS 110 ML IVPB SCH ×2 (00:23→08:30)
[2017-09-14 04:00] VITALS: BP 108/57
[2017-09-14] MEDS: D5W w/KCl 20mEq 1,000 ML IV SCH (05:01)
[2017-09-14 07:47] LABS: BASOPHILS % (AUTO) 0.2 % (0.0-2.0); EOSINOPHILS % (AUTO) 3.2 % (0.0-3.0); HEMATOCRIT 27.8 % (42.0-52.0); HEMOGLOBIN 9.1 G/DL (14.2-18.0); LYMPHOCYTES % (AUTO) 16.5 % (20.0-45.0); MEAN CORPUSCULAR VOLUME 93 FL (80-99); MONOCYTES % (AUTO) 5.2 % (1.0-10.0); NEUTROPHILS % (AUTO) 74.8 % (45.0-75.0); PLATELET COUNT 224 K/UL (150-450); RED BLOOD COUNT 2.99 M/UL (4.70-6.10); RED CELL DISTRIBUTION WIDTH 14.4 % (11.6-14.8); WHITE BLOOD COUNT 7.2 K/UL (4.8-10.8)
[2017-09-14 08:00] VITALS: BP 109/56
[2017-09-14 08:19] LABS: ANION GAP 8 mmol/L (5-15); BLOOD UREA NITROGEN 12 mg/dL (7-18); CALCIUM 8.4 MG/DL (8.5-10.1); CARBON DIOXIDE 23 MMOL/L (21-32); CHLORIDE 106 MMOL/L (98-107); CREATININE 0.8 MG/DL (0.55-1.30); POTASSIUM 3.9 MMOL/L (3.5-5.1); SODIUM 137 MMOL/L (136-145)
[2017-09-14] MEDS: Nystatin Susp 500,000 units/5ml ORAL SCH ×2 (08:19→13:11)
[2017-09-14] MEDS: Ferrous Sulfate 300 MG/5 ML UDC GT SCH (08:19)
[2017-09-14] MEDS: Levodopa/Carbidopa 25/100 tab GT SCH ×2 (08:20→13:11)
[2017-09-14] MEDS: Ascorbic Acid 500mg tab GT SCH (08:20)
[2017-09-14] MEDS: Multivitamins W/Minerals 15 ML UDC GT SCH (08:20)
[2017-09-14] MEDS: Heparin 5000 units/ml inj SUBQ SCH (08:21)
[2017-09-14] MEDS: Gabapentin 300 MG/6 ML Soln GT SCH ×2 (08:32→13:11)
[2017-09-14 11:45] VITALS: BP 109/54
--- NOTE | 2017-09-14 13:46 | General Progress Note ---
Assessment/Plan Assessment/Plan Pre Renal Azotemia - resolved with hypotonic IVF. GPC on IV Abx. Resolving. DC to SNF. Subjective Allergies: Coded Allergies: No Known Allergies (Unverified , 09/08/17) Subjective No new c/o Objective Last 24 Hour Vital Signs Date Time Temp Pulse Resp B/P (MAP) Pulse Ox O2 Delivery O2 Flow Rate FiO2 09/14/17 11:45 97.9 62 22 109/54 95 Nasal Cannula 2.0 97.9 09/14/17 08:00 61 09/14/17 08:00 96.4 61 20 109/56 95 Nasal Cannula 2.0 96.4 09/14/17 04:00 98.1 60 20 108/57 94 Nasal Cannula 2.0 98.1 09/14/17 04:00 61 09/14/17 00:00 65 09/14/17 00:00 98.2 64 20 110/69 94 Nasal Cannula 2.0 98.2 09/13/17 20:50 96 Nasal Cannula 2.0 28 09/13/17 20:50 Nasal Cannula 2.0 28 09/13/17 20:00 63 09/13/17 20:00 97.5 61 24 114/64 95 Nasal Cannula 2.0 97.5 09/13/17 18:45 136 09/13/17 16:00 97.7 68 20 121/62 98 Nasal Cannula 2.0 97.7 09/13/17 16:00 67 Intake and Output 09/13/17 09/14/17 19:00 07:00 Intake Total 975 ml 1859.0 ml Output Total 1300 ml 1600 ml Balance -325 ml 259.0 ml Free Water 100 ml 200 ml IV Total 525 ml 1259.0 ml Tube Feeding 350 ml 400 ml Output Urine Total 1300 ml 1600 ml # Bowel Movements 1 1 Laboratory Tests 09/13/17 21:20: Vancomycin Level Trough 14.2H 09/14/17 06:00: White Blood Count 7.2, Red Blood Count 2.99L, Hemoglobin 9.1L, Hematocrit 27.8L , Mean Corpuscular Volume 93, Mean Corpuscular Hemoglobin 30.4, Mean Corpuscular Hemoglobin Concent 32.7, Red Cell Distribution Width 14.4, Platelet Count 224, Mean Platelet Volume 7.4, Neutrophils (%) (Auto) 74.8, Lymphocytes (% ) (Auto) 16.5L, Monocytes (%) (Auto) 5.2, Eosinophils (%) (Auto) 3.2H, Basophils (%) (Auto) 0.2, Sodium Level 137, Potassium Level 3.9, Chloride Level 106, Carbon Dioxide Level 23, Anion Gap 8, Blood Urea Nitrogen 12, Creatinine 0.8, Estimat Glomerular Filtration Rate , Glucose Level 128H, Calcium Level 8.4L Height (Feet): 6 Height (Inches): 0.00 Weight (Pounds): 172 Objective Cv RR Lungs CTA Abd SNT. BS + . PEG OK. Skin Multiple decub ulcers as documented - see H+P. None of them show signs of active infection. Multiple contractures. Joanne Desir MD Sep 14, 2017 13:46
[2017-09-14] MEDS ORDERED: FLOMAX0.4 MG ORAL (13:51)
[2017-09-14] MEDS ORDERED: Levodopa/Carbidopa 25/100 GT (13:51)
[2017-09-14] MEDS ORDERED: SYNTHROID100 MCG GT (13:51)
[2017-09-14] MEDS ORDERED: NYSTATIN100000 UN1 ORAL (13:51)
[2017-09-14] MEDS ORDERED: NAMENDA10 MG GT (13:51)
[2017-09-14] MEDS ORDERED: ASCORBIC ACID500 M4 GT (13:51)
[2017-09-14] MEDS ORDERED: FERROUS SU300 MG/5 M GT (13:51)
[2017-09-14] MEDS ORDERED: Acetaminophen GT (13:51)
[2017-09-14] MEDS ORDERED: NORCO 5-325 TA1 EACH GT (13:51)
[2017-09-14] MEDS ORDERED: HEPARIN SO5000 UNIT2 SUBQ (13:51)
[2017-09-14] MEDS ORDERED: MULTIVITAM9 MG/15 M1 GT (13:51)
--- NOTE | 2017-09-14 15:36 | General Surgery Progress Note ---
General Surgery-Progress Note Subjective Additional Comments no acute events. Objective Last 24 Hour Vital Signs Date Time Temp Pulse Resp B/P (MAP) Pulse Ox O2 Delivery O2 Flow Rate FiO2 09/14/17 11:45 97.9 62 22 109/54 95 Nasal Cannula 2.0 97.9 09/14/17 08:00 61 09/14/17 08:00 96.4 61 20 109/56 95 Nasal Cannula 2.0 96.4 09/14/17 04:00 98.1 60 20 108/57 94 Nasal Cannula 2.0 98.1 09/14/17 04:00 61 09/14/17 00:00 65 09/14/17 00:00 98.2 64 20 110/69 94 Nasal Cannula 2.0 98.2 09/13/17 20:50 96 Nasal Cannula 2.0 28 09/13/17 20:50 Nasal Cannula 2.0 28 09/13/17 20:00 63 09/13/17 20:00 97.5 61 24 114/64 95 Nasal Cannula 2.0 97.5 09/13/17 18:45 136 09/13/17 16:00 97.7 68 20 121/62 98 Nasal Cannula 2.0 97.7 09/13/17 16:00 67 I&O Intake and Output 09/13/17 09/14/17 19:00 07:00 Intake Total 975 ml 1859.0 ml Output Total 1300 ml 1600 ml Balance -325 ml 259.0 ml Free Water 100 ml 200 ml IV Total 525 ml 1259.0 ml Tube Feeding 350 ml 400 ml Output Urine Total 1300 ml 1600 ml # Bowel Movements 1 1 Wound: clean, dry Drains: none Cardiovascular: RSR Respiratory: clear Abdomen: soft, flat, present bowel sounds Extremities: other - see photos Laboratory Tests Test 09/13/17 21:20 09/14/17 06:00 Vancomycin Level Trough 14.2 ug/mL (5.0-12.0) H White Blood Count 7.2 K/UL (4.8-10.8) Red Blood Count 2.99 M/UL (4.70-6.10) L Hemoglobin 9.1 G/DL (14.2-18.0) L Hematocrit 27.8 % (42.0-52.0) L Mean Corpuscular Volume 93 FL (80-99) Mean Corpuscular Hemoglobin 30.4 PG (27.0-31.0) Mean Corpuscular Hemoglobin Concent 32.7 G/DL (32.0-36.0) Red Cell Distribution Width 14.4 % (11.6-14.8) Platelet Count 224 K/UL (150-450) Mean Platelet Volume 7.4 FL (6.5-10.1) Neutrophils (%) (Auto) 74.8 % (45.0-75.0) Lymphocytes (%) (Auto) 16.5 % (20.0-45.0) L Monocytes (%) (Auto) 5.2 % (1.0-10.0) Eosinophils (%) (Auto) 3.2 % (0.0-3.0) H Basophils (%) (Auto) 0.2 % (0.0-2.0) Sodium Level 137 MMOL/L (136-145) Potassium Level 3.9 MMOL/L (3.5-5.1) Chloride Level 106 MMOL/L (98-107) Carbon Dioxide Level 23 MMOL/L (21-32) Anion Gap 8 mmol/L (5-15) Blood Urea Nitrogen 12 mg/dL (7-18) Creatinine 0.8 MG/DL (0.55-1.30) Estimat Glomerular Filtration Rate mL/min (>60) Glucose Level 128 MG/DL (74-106) H Calcium Level 8.4 MG/DL (8.5-10.1) L Plan Problems: (1) Wounds, multiple open, lower extremity Assessment & Plan: 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 no signs of infection. no odor. no need for debridement at this time. (2) Sacral decubitus ulcer Assessment & Plan: Sacral decubitus ulcer stage I -keep off wound, skin protectant, foam dressing, air mattress all wounds present on admission. no signs of infection. no odor. no need for debridement at this time. (3) Heel ulcer Assessment & Plan: bilateral heel ulcers - pressure ulcers -heel protectors, keep off wounds all wounds present on admission. no signs of infection. no odor. no need for debridement at this time. Zafar Echeverria Sep 14, 2017 15:36
[2017-09-14 16:00] VITALS: BP 115/57
--- NOTE | 2017-09-15 10:43 | Discharge Summary ---
Discharge Summary Discharge Summary _ DATE OF ADMISSION: 09/08/2017 DATE OF DISCHARGE: 09/14/2017 REASON FOR ADMISSION: 82 years old male, [facility], with past medical history significant for hypertension ,Parkinson disease, dysphagia, G-tube , dementia, BPH chronic atrial fibrillation, heart failure, hypothyroidism, was sent from the [facility] facility for evaluation due to difficulty breathing. Patient was found in emergency department to be hypoxic and initially required placement on 15 L oxygen via face mask. v\ Vital signs were significant for fever. No leukocytosis Urinalysis was consistent with UTI Anemia noted with hemoglobin 10.4 hematocrit 33.1. BUN 50 ,creatinine 0.8, lactic acid 1.0 Troponin negative , [id number] Sodium 155 EKG revealed normal sinus rhythm, no acute ischemic changes. Chest x-ray showed hazy mid and upper lung opacities bilaterally, infiltrates versus edema. Patient admitted with diagnosis of sepsis, bilateral pneumonia, UTI , congestive heart failure, hypernatremia secondary to volume repletion , multiply pressure ulcers present on admission, rule out infective decubitus ulcers. CONSULTANTS: ID specialist surgery Dr. Echeverria [facility] COURSE: Patient admitted. Infectious disease, consult was requested. p Patient was started on IV fluids and empiric antibiotics. With hypotonic solution , hypernatremia resolved along with prerenal azotemia. Sodium prior to discharge 137, BUN12, creatinine 0.8 . Infectious disease specialist closely followed. Blood culture revealed Staph aureus, Staph epidermidis and staph warneri . Surveillance blood cultures were negative Per infectious disease specialist, unlikely endocarditis given that Staph aureus was only in one bottle. Echocardiogram revealed no evidence of vegetation, ejection fraction of 65-70% and [id number] mitral regurgitation Urine culture grew Providencia and Enterobacter. Repeated blood culture were negative. Sputum culture was negative. IV antibiotics administered as per infectious disease doctor recommendations. Patient with high aspiration risk, likely aspiration pneumonia, even though sputum culture was negative. Patient will need to continue antibiotics in the [facility] facility to complete the course as per ID recommendations. Supplemental oxygen titrated to keep pulse oximetry above 92%. Patient was able to be weaned from the face mask Prior to discharge, patient was on the oxygen via nasal cannula, pulse oximetry was stable. Pulmonary toilet provided as needed with bronchodilator. Patient was followed up with chest x-ray. Strict aspiration precautions were maintained. Patient was able to tolerate tube feeding. Surgeon closely followed for multiply pressure ulcers present for admission, including left lower extremity ulcer stage IV, sacral decubitus stage I, bilateral heel ulcer. Wound culture revealed Escherichia coli ESBL and Proteus, likely colonized since there was no evidence of infection Patient recently was debrided. According to the surgeon , no surgical intervention was necessary at this time , and there was no acute evidence of infection. SNF medications resumed ,including Sinemet, levothyroxine, Namenda, Flomax. DVT prophylaxis provided. Hemoglobin and hematocrit were closely monitored. Iron supplement and folic acid were continued. Blood pressure was closely monitored , no need for antihypertensive at this time . Patient remained normotensive. Patient clinically stabilized . No fever, no leukocytosis, pulse oximetry stable on oxygen 2 L via nasal cannula, no signs of respiratory distress , Patient was stable for discharge to back to [facility] facility for continuation of care FINAL DIAGNOSES: Sepsis Bacteremia with Staph aureus. 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 Dysphagia G-tube Aspiration risk Parkinson disease Dementia Anemia History of hypertension BPH Hypothyroidism DISCHARGE MEDICATIONS: See Medication Reconciliation list. DISCHARGE INSTRUCTIONS: Patient was discharged to [facility] facility. Follow up with medical doctor at the facility. I have been assigned to dictate discharge summary for this account. I was not involved in the patient's management. Chela Banuelos NP Sep 15, 2017 10:43
== END 2017-09-14 18:35 | DRG 871 ==
LOC: EDBD 12:07 → EMR 12:40 → 2W 12:50 → EDBEDREQ 13:48 → 2W 17:00 → 2E 09-10 19:00
DX: A41.9 Sepsis, unspecified organism (principal); L89.893 Pressure ulcer of other site, stage 3; L89.624 Pressure ulcer of left heel, stage 4; J69.0 Pneumonitis due to inhalation of food and vomit; N39.0 Urinary tract infection, site not specified; E46 Unspecified protein-calorie malnutrition; Z43.1 Encounter for attention to gastrostomy; I50.30 Unspecified diastolic (congestive) heart failure; E87.1 Hypo-osmolality and hyponatremia; Z68.1 Body mass index [BMI] 19.9 or less, adult; L89.152 Pressure ulcer of sacral region, stage 2; L89.211 Pressure ulcer of right hip, stage 1; F09 Unspecified mental disorder due to known physiological condition; N40.0 Benign prostatic hyperplasia without lower urinary tract symptoms; E03.9 Hypothyroidism, unspecified; I48.2 Chronic atrial fibrillation; I11.0 Hypertensive heart disease with heart failure; D64.9 Anemia, unspecified; B96.89 Other specified bacterial agents as the cause of diseases classified elsewhere; E86.0 Dehydration; G20 Parkinson's disease; F02.80 Dementia in other diseases classified elsewhere, unspecified severity, without behavioral disturbance, psychotic disturbance, mood disturbance, and anxiety; G62.9 Polyneuropathy, unspecified; K21.9 Gastro-esophageal reflux disease without esophagitis; K20.9 Esophagitis, unspecified
CPT/HCPCS: 36415; 36600; 71045; 76700; 80048; 80053; 80202; 81003; 82550; 82553; 82803; 83605; 83690; 83880; 84484; 85025; 85610; 85730; 87040; 87070; 87081; 87086; 87181; 87205; 93005; 93306; 94664; 94760; 99285

== ENCOUNTER 2017-12-11 00:50 | Inpatient (IN) | payer MEDICARE, MEDICAID ==
[~2017-12-11] VITALS: Ht 177.8 cm; Wt 73.0 kg
[~2017-12-11 00:50] MED LIST: ASCORBIC ACID500 M4 GT; ASCORBIC ACID500 MG GT; Acetaminophen GT; CHILDREN'S15 MG/1 M2 GT; FEOSOL1 TAB ORAL; FERROUS SU300 MG/5 M GT; FLOMAX0.4 MG ORAL; FOLIC ACID1 M1 PO; GABAPENTIN100 MG ORAL; HEPARIN SO5000 UNIT2 SUBQ; HEPARIN SO5000 UNIT5 SQ; Levodopa/Carbidopa 25/100 GT; MULTIVITAM9 MG/15 M1 GT; MULTIVITAMINS1 EAC8 GT; NAMENDA10 MG GT; NAMENDA5 MG ORAL; NORCO 5-325 TA1 EACH GT; NYSTATIN100000 UN1 ORAL; NYSTATIN500000 UNI GT; SINEMET 25-1001 EAC1 GT; SYNTHROID100 MCG GT; SYNTHROID50 MCG ORAL; TAMSULOSIN HCL0.4 MG GT
[2017-12-11 01:10] VITALS: BP 116/71
[2017-12-11 01:55] LABS: BASOPHILS % (AUTO) 0.6 % (0.0-2.0); EOSINOPHILS % (AUTO) 2.3 % (0.0-3.0); HEMATOCRIT 32.5 % (42.0-52.0); HEMOGLOBIN 10.8 G/DL (14.2-18.0); LYMPHOCYTES % (AUTO) 16.5 % (20.0-45.0); MEAN CORPUSCULAR VOLUME 92 FL (80-99); MONOCYTES % (AUTO) 7.6 % (1.0-10.0); PLATELET COUNT 252 K/UL (150-450); RED BLOOD COUNT 3.55 M/UL (4.70-6.10); RED CELL DISTRIBUTION WIDTH 13.8 % (11.6-14.8)
[2017-12-11 01:56] LABS: APPEARANCE,URINE CLOUDY; BILIRUBIN, URINE NEGATIVE (NEGATIVE); GLUCOSE, URINE (UA) NEGATIVE (NEGATIVE); KETONES,URINE NEGATIVE (NEGATIVE); LEUKOCYTE ESTERASE ,URINE 3+ (NEGATIVE); NITRITE,URINE POSITIVE (NEGATIVE); PH,URINE 7 (4.5-8.0); PROTEIN,URINE 2+ (NEGATIVE); UROBILINOGEN,URINE NORMAL MG/DL (0.0-1.0)
[2017-12-11 02:00] LABS: COLOR,URINE YELLOW
[2017-12-11 02:02] LABS: INR 1.1 (0.9-1.1)
[2017-12-11 02:03] LABS: ANION GAP 5 mmol/L (5-15); BLOOD UREA NITROGEN 29 mg/dL (7-18); CARBON DIOXIDE 30 MMOL/L (21-32); CHLORIDE 102 MMOL/L (98-107); CREATININE 0.8 MG/DL (0.55-1.30); POTASSIUM 4.3 MMOL/L (3.5-5.1); SODIUM 137 MMOL/L (136-145)
[2017-12-11 02:14] LABS: ALANINE AMINOTRANSFERASE 19 U/L (12-78); ALBUMIN 2.8 G/DL (3.4-5.0); ALBUMIN/GLOBULIN RATIO 0.6 (1.0-2.7); ALKALINE PHOSPHATASE 74 U/L (46-116); ASPARTATE AMINO TRANSFERASE 18 U/L (15-37); BILIRUBIN,TOTAL 0.4 MG/DL (0.2-1.0); CREATINE KINASE 32 U/L (26-308)
--- NOTE | 2017-12-11 02:22 | Emergency Room Report ---
History of Present Illness General Chief Complaint: Male Urogenital Problems Source: Patient, EMS Present Illness HPI Patient presents with turbid urine and penile swelling. It's uncertain how long this is been going on. He also complains about a cough. Denies any chest pain. He denies any fevers or chills. EMS states that he has dementia and has asked them the same question 5 times. The patient has an indwelling Roman. The patient denies other symptoms although complains about some pain in his lower back from being on a hard bed. G tube. Parkinson's. Prior A fib Allergies: Coded Allergies: No Known Allergies (Unverified , 09/08/17) Patient History Limited by: medical condition Past Medical History: see triage record, old chart reviewed Social History: Denies: smoking, alcohol use Social History Narrative from SNF - born in [facility] Reviewed Nursing Documentation: PMH: Agreed; PSxH: Agreed Nursing Documentation-PMH Hx Cardiac Problems: Yes - HF,A-FIB Hx Hypertension: Yes Hx Cancer: No Hx Gastrointestinal Problems: Yes - G-tube,BPH History Of Psychiatric Problem: Yes Hx Neurological Problems: Yes - Parkinsons,dEMENTIA Hx Dementia: Yes Hx Parkinson's Disease: Yes Hx Seizures: No - HYPOTHYROIDISM ANEMIA DEMENTIA BPH Review of Systems All Other Systems: limited - dementia - denies most Physical Exam Vital Signs Date Time Temp Pulse Resp B/P (MAP) Pulse Ox O2 Delivery O2 Flow Rate FiO2 12/11/17 00:54 98.3 65 20 105/62 95 Room Air 98.2 Sp02 EP Interpretation: reviewed, abnormal - interpreted as slightly low by me General Appearance: no apparent distress, alert, non-toxic, Chronically Ill Head: normocephalic Eyes: bilateral eye normal inspection, bilateral eye PERRL ENT: moist mucus membranes Neck: supple Respiratory: lungs clear, normal breath sounds, no respiratory distress Cardiovascular #1: regular rate, rhythm, edema - pedal L Cardiovascular #2: 2+ radial (R) Gastrointestinal: normal inspection, normal bowel sounds, non tender, no mass, non-distended, other - g tube Genitourinary: no CVA tenderness, other - swelling of penis, min blood at meatus, hypospadeus, turbid urine Musculoskeletal: back normal, no calf tenderness, other - LE rigidity with flexor contractures Neurologic: alert, motor weakness - LE with rigidity, UE moves bilat arms, oriented - X2 Psychiatric: other - poor recent memory, distant memory good Skin: warm/dry, other - decubiti - Stage 4 R hip, bilateral heals Medical Decision Making Diagnostic Impression: Primary Impression: NSTEMI (non-ST elevated myocardial infarction) Additional Impressions: UTI (urinary tract infection) Qualified Codes: N39.0 - Urinary tract infection, site not specified; R31.9 - Hematuria, unspecified lung infiltrates Parkinson's disease Dementia Qualified Codes: F02.80 - Dementia in other diseases classified elsewhere without behavioral disturbance Decubitus ulcer of right hip, stage 4 multiple pressure ulcer wounds Balanitis Gastrostomy tube in place ER Course Patient presents with pedal pain and dysuria. Patient has indwelling Roman. Differential includes UTI, pyelonephritis, balanitis, Pankaj's gangrene ( doubted) amongst others. In addition to that he's complaining about a cough and we need to exclude acute myocardial infarction, pneumonia and bronchitis. He is in no respiratory distress at this time however needs to get evaluated with EKG, chest x-ray and labs. The urine is turbid and antibiotics will be started. EKG with sinus rhythm and first-degree AV block no injury, chest x-ray patchy infiltrates bilaterally slightly different than Marita x-ray. Labs with normal white count and CMP. Troponin is elevated. Aspirin is given. Due to HR and BP, nitrates and metoprolol held. Because of the pulmonary infiltrates Levaquin is added. Because of the positive troponin the patient was admitted to stepdown unit. Dr. Greene was contacted and the patient was discussed. Patient improved but serious. Laboratory Tests Test 12/11/17 01:35 White Blood Count 9.0 K/UL (4.8-10.8) Red Blood Count 3.55 M/UL (4.70-6.10) L Hemoglobin 10.8 G/DL (14.2-18.0) L Hematocrit 32.5 % (42.0-52.0) L Mean Corpuscular Volume 92 FL (80-99) Mean Corpuscular Hemoglobin 30.5 PG (27.0-31.0) Mean Corpuscular Hemoglobin Concent 33.3 G/DL (32.0-36.0) Red Cell Distribution Width 13.8 % (11.6-14.8) Platelet Count 252 K/UL (150-450) Mean Platelet Volume 7.2 FL (6.5-10.1) Neutrophils (%) (Auto) 73.0 % (45.0-75.0) Lymphocytes (%) (Auto) 16.5 % (20.0-45.0) L Monocytes (%) (Auto) 7.6 % (1.0-10.0) Eosinophils (%) (Auto) 2.3 % (0.0-3.0) Basophils (%) (Auto) 0.6 % (0.0-2.0) Prothrombin Time 11.4 SEC (9.30-11.50) Prothrombin Time INR 1.1 (0.9-1.1) PTT 30 SEC (23-33) Urine Color Yellow Urine Appearance Cloudy Urine pH 7 (4.5-8.0) Urine Specific [place] 1.010 (1.005-1.035) Urine Protein 2+ (NEGATIVE) H Urine Glucose (UA) Negative (NEGATIVE) Urine Ketones Negative (NEGATIVE) Urine Blood 5+ (NEGATIVE) H Urine Nitrite Positive (NEGATIVE) H Urine Bilirubin Negative (NEGATIVE) Urine Urobilinogen Normal MG/DL (0.0-1.0) Urine Leukocyte Esterase 3+ (NEGATIVE) H Urine RBC 5-10 /HPF (0 - 0) H Urine WBC Tntc /HPF (0 - 0) H Urine Squamous Epithelial Cells Occasional /LPF Urine Bacteria Moderate /HPF (NONE) H Urine Mucus Few /LPF (NONE/OCC) H Sodium Level 137 MMOL/L (136-145) Potassium Level 4.3 MMOL/L (3.5-5.1) Chloride Level 102 MMOL/L (98-107) Carbon Dioxide Level 30 MMOL/L (21-32) Anion Gap 5 mmol/L (5-15) Blood Urea Nitrogen 29 mg/dL (7-18) H Creatinine 0.8 MG/DL (0.55-1.30) Estimate Glomerular Filtration Rate mL/min (>60) Glucose Level 101 MG/DL (74-106) Lactic Acid Level 0.80 mmol/L (0.4-2.0) Calcium Level 9.0 MG/DL (8.5-10.1) Total Bilirubin 0.4 MG/DL (0.2-1.0) Aspartate Amino Transferase (AST) 18 U/L (15-37) Alanine Aminotransferase (ALT) 19 U/L (12-78) Alkaline Phosphatase 74 U/L (46-116) Total Creatine Kinase 32 U/L (26-308) Troponin I 0.148 ng/mL (0.000-0.056) Pro-B-Type Natriuretic Peptide 154 pg/mL (0-125) H Total Protein 7.4 G/DL (6.4-8.2) Albumin 2.8 G/DL (3.4-5.0) L Globulin 4.6 g/dL Albumin/Globulin Ratio 0.6 (1.0-2.7) L Lipase 148 U/L (73-393) EKG Diagnostic Results Rate: normal Rhythm: NSR ST Segments: no acute changes ASA given to the pt in ED: Yes Rhythm Strip Diag. Results EP Interpretation: yes Rhythm: NSR, no PVC's, no ectopy Chest X-Ray Diagnostic Results Chest X-Ray Diagnostic Results : Chest X-Ray Ordered: Yes # of Views/Limited/Complete: 1 View Indication: Other EP Interpretation: Yes Interpretation: no effusion, no pneumothorax, other - patchy infiltrates bilaterally Impression: Other Electronically Signed by: Electronically signed by Julio Baker MD Last Vital Signs Date Time Temp Pulse Resp B/P (MAP) Pulse Ox O2 Delivery O2 Flow Rate FiO2 12/11/17 01:10 98.2 68 20 116/71 95 Room Air 98.2 Status: improved Disposition: ADMITTED INPATIENT Condition: Serious Referrals: Joanne Desir MD (PCP) Julio Baker M.D. Dec 11, 2017 02:21
[2017-12-11] MEDS ORDERED: Piperacillin/Tazobactam 3.375 GM in NS 110 ML IVPB ONE (02:30)
[2017-12-11 07:05] VITALS: BP 154/83
[2017-12-11] MEDS ORDERED: ACETAMINOPHEN325 M1 ORAL (09:16)
[2017-12-11] MEDS ORDERED: Norco 5mg/325mg tab GT PRN (11:45)
[2017-12-11 12:00] VITALS: BP 141/93
--- NOTE | 2017-12-11 12:28 | Diagnostic Imaging Report ---
Indication: Altered level of consciousness Technique: XRAY Chest 1v Comparison: 09/13/2017 Findings: Low lung volumes. Heart size and mediastinal contours are stable. There is central pulmonary vascular congestion with patchy bilateral airspace opacities, with a right infrahilar opacity and right mid/upper lung opacity. There is a somewhat linear left basilar opacity. Costophrenic sulci appear sharp. There is osteopenia, scoliosis and degenerative change of the spine. Healed rib fractures again noted. Generative change of the shoulders noted. IMPRESSION: Hazy bilateral airspace opacities, infiltrates versus edema. Clinical correlation/follow-up recommended. This corresponds with the preliminary interpretation of the treating ER clinician, as documented in the electronic medical record. Study obtained via the emergency department however patient admitted to the hospital at time of dictation of the final report.
[2017-12-11] MEDS ORDERED: Acetaminophen 650mg/20.3ml GT PRN (13:00)
[2017-12-11] MEDS: Levodopa/Carbidopa 25/100 tab GT SCH ×2 (13:58→17:55)
[2017-12-11] MEDS: Potassium Chloride 20 MEQ in 1/2 NS 1000ml 1,000 ML IV SCH (13:59)
[2017-12-11] MEDS ORDERED: Piperacillin/Tazobactam 2.25 GM in D5W 55 ML IVPB SCH (14:00)
[2017-12-11] MEDS: Piperacillin/Tazobactam 3.375 GM in D5W 110 ML IVPB SCH ×2 (15:31→21:10)
[2017-12-11 16:00] VITALS: BP 137/79
[2017-12-11] MEDS ORDERED: NS 500ML ONE (17:51)
[2017-12-11] MEDS ORDERED: Tubing IV Secondary IV ONE (17:51)
[2017-12-11] MEDS: Ascorbic Acid 500mg tab GT SCH (17:55)
[2017-12-11] MEDS: Ferrous Sulfate 300 MG/5 ML UDC GT SCH (17:55)
[2017-12-11 20:00] VITALS: BP 145/78
[2017-12-11] MEDS: Tamsulosin 0.4mg cap ORAL SCH (21:09)
[2017-12-11] MEDS: Memantine 5 MG TAB ORAL SCH (21:09)
[2017-12-11] MEDS: Heparin 5000 units/ml inj SUBQ SCH (21:13)
--- NOTE | 2017-12-11 22:30 | History and Physical Report ---
DATE OF ADMISSION: 12/11/2017 CHIEF COMPLAINT: Scrotal edema. HISTORY OF PRESENT ILLNESS: This is an 82-year-old male from a [place] [facility], who was sent to the hospital due worsening scrotal edema. The patient is nonverbal and unable to give any detailed information. PAST MEDICAL HISTORY: 1. Organic brain syndrome. 2. Multiple decubitus ulcers including sacral ulcers, heel ulcers and hip ulcers. 3. Parkinson disease. 4. Anemia of chronic disease. 5. Hypothyroidism. 6. Status post gastrostomy tube. MEDICATIONS: Tylenol p.r.n., ascorbic acid, multivitamins, Sinemet, oral iron, folic acid, Neurontin, subcutaneous heparin, Synthroid, Namenda, nystatin, tamsulosin, and Flomax. ALLERGIES: No known drug allergies. FAMILY HISTORY: Unable to obtain secondary to mental status. SOCIAL HISTORY: Unable to obtain secondary to mental status. REVIEW OF SYSTEMS: Unable to obtain secondary to mental status. PHYSICAL EXAMINATION: GENERAL: This is an elderly male who is in no acute distress. VITAL SIGNS: Blood pressure 141/93, pulse 55 and regular, respirations 20, and temperature 97.8 degrees. HEENT: The head is normocephalic and atraumatic. Pupils are equal, round, and reactive to light and accommodation consensually. SKIN: He has multiple decubitus ulcers on his hip, sacral area and heels. NECK: Supple. Trachea midline. There was no lymphadenopathy or thyromegaly. LUNGS: Clear to auscultation and percussion. HEART: Regular rate and rhythm without rubs, murmurs, or gallops. ABDOMEN: Soft and nontender. Bowel sounds are active. Scrotal area, he has large scrotal edema. NEUROLOGICAL: He is confused. There were no gross focal findings. LABORATORY AND ANCILLARY DATA: CBC, hemoglobin 10.8, otherwise within normal limits. Serum chemistry, albumin 2.8. Troponin level 0.148, otherwise within normal limits. Urinalysis, 2+ protein, 5 to 10 rbc's, and too numerous to count white blood cells. Chest x-ray showed hazy bilateral opacities, infiltrates versus edema. ASSESSMENT: 1. Multifactorial scrotal edema, most likely due to malnutrition as well as proteinuria as well as decubitus position. 2. UTI. 3. Pneumonia. 4. Organic brain syndrome. 5. Multiple decubitus ulcers including sacral ulcers, heel ulcers and hip ulcers. 6. Parkinson disease. 7. Anemia of chronic disease. 8. Hypothyroidism. 9. Status post gastrostomy tube. PLAN: 1. Continue [facility] medications. 2. IV antibiotics. 3. Consider Cardiology consult. 4. Consider Urology consult. Joanne Desir M.D. DR: LÁZARO JOB#: [id number] CC:
[2017-12-12] VITALS: BP 125/73
--- NOTE | 2017-12-12 01:29 | Diagnostic Imaging Report ---
APPROVED REPORT CPT Code: 37580 Present Symptoms Comments: BILATERAL LEGS PAIN. RIGHT LEG: Venous imaging reveals a patent deep venous system. There is no evidence of thrombus within the femoral, popliteal or tibial segments. The greater saphenous vein is also within normal limits. Doppler indicates normal spontaneous flow within these segments. LEFT LEG: Venous imaging reveals a patent deep venous system. There is no evidence of thrombus within the femoral, popliteal veins. The greater saphenous vein is also within normal limits. Doppler indicates normal spontaneous flow within these segments.Calf veins not visualized due to patient's contracture position.
[2017-12-12 04:00] VITALS: BP 127/89
[2017-12-12] MEDS: Piperacillin/Tazobactam 3.375 GM in D5W 110 ML IVPB SCH ×3 (05:41→21:13)
[2017-12-12 08:00] VITALS: BP 136/62
[2017-12-12] MEDS: Ferrous Sulfate 300 MG/5 ML UDC GT SCH ×2 (08:29→17:57)
[2017-12-12] MEDS: Multivitamins W/Minerals 15 ML UDC GT SCH (08:29)
[2017-12-12] MEDS: Levodopa/Carbidopa 25/100 tab GT SCH ×3 (08:30→17:57)
[2017-12-12] MEDS: Ascorbic Acid 500mg tab GT SCH ×2 (08:31→17:57)
[2017-12-12] MEDS: Heparin 5000 units/ml inj SUBQ SCH ×2 (08:33→21:11)
--- NOTE | 2017-12-12 09:33 | General Progress Note ---
Assessment/Plan Assessment/Plan Improved AMS Urosepsis - Urine C+S GNR - on IV Abx. NSTEMI -min. Check 2D Echo. Decubs - GS to advise. Subjective Allergies: Coded Allergies: No Known Allergies (Unverified , 09/08/17) Subjective More alert Objective Last 24 Hour Vital Signs Date Time Temp Pulse Resp B/P (MAP) Pulse Ox O2 Delivery O2 Flow Rate FiO2 12/12/17 09:15 62 12/12/17 08:30 60 136/62 12/12/17 08:00 97.9 60 16 136/62 (86) 98 97.9 12/12/17 04:44 62 12/12/17 04:00 Nasal Cannula 2.0 12/12/17 04:00 98.2 85 20 127/89 (102) 98 98.2 12/12/17 00:00 98.8 60 16 125/73 (90) 97 98.8 12/12/17 00:00 Room Air 12/11/17 23:43 65 12/11/17 20:00 60 12/11/17 20:00 98.1 58 18 145/78 (100) 98 98.1 12/11/17 20:00 Room Air 12/11/17 16:00 98.2 60 20 137/79 (98) 99 98.2 12/11/17 16:00 59 12/11/17 16:00 Room Air 12/11/17 12:00 97.8 68 20 141/93 (109) 97 97.8 12/11/17 12:00 55 12/11/17 12:00 Room Air Intake and Output 12/11/17 12/12/17 18:59 06:59 Intake Total 338.75 ml 908.25 ml Output Total 1000 ml 1850 ml Balance -661.25 ml -941.75 ml Free Water 30 ml 30 ml IV Total 268.75 ml 606.25 ml Tube Feeding 40 ml 272 ml Output Urine Total 1000 ml 1850 ml Laboratory Tests 12/12/17 04:28: Troponin I 0.089H Height (Feet): 5 Height (Inches): 10.00 Weight (Pounds): 160 Objective CV RR Lungs CTA Abd SNT. BS + E No CCE Skin - multiple decubs Joanne Desir MD Dec 12, 2017 09:33
[2017-12-12] MEDS: Potassium Chloride 20 MEQ in 1/2 NS 1000ml 1,000 ML IV SCH (09:56)
[2017-12-12 12:00] VITALS: BP 127/67
--- NOTE | 2017-12-12 12:56 | Cardiology Report ---
APPROVED REPORT EXAM: Two-dimensional and M-mode echocardiogram with Doppler and color Doppler. INDICATION Congestive Heart Failure M-Mode DIMENSIONS IVSd2.2 (0.7-1.1cm)Left Atrium (MM)4.5 (1.6-4.0cm) LVDd4.5 (3.5-5.6cm)Aortic Root3.5 (2.0-3.7cm) PWd2.2 (0.7-1.1cm)Aortic Cusp Exc.1.9 (1.5-2.0cm) IVSs2.1 cm LVDs3.2 (2.5-4.0cm) PWs2.3 cm Technically difficult study due to poor acoustical windows . Normal left ventricular chamber size, systolic function and wall motion to extent visualized. Left ventricular ejection fraction estimated to be 60-65 %. No evidence of left ventricular hypertrophy. No evidence of pericardial effusion. Mild left atrial enlargement. Right cardiac chamber sizes are within normal limits. Focal aortic valve sclerosis with adequate cusp excursion. Thickened mitral valve leaflets with normal excursion. Mitral annulus and aortic root calcification. Pulmonic valve not well visualized. Normal tricuspid valve structure. Sbcostal views are not obtained due to IG- tube . A color flow and spectral Doppler study was performed and revealed: Mild aortic regurgitation. Mild mitral regurgitation. Mitral diastolic velocities suggest reduced left ventricular relaxation c/w mild LV diastolic dysfunction (Grade I ) Mild tricuspid regurgitation. Tricuspid systolic velocities suggests peak right ventricular systolic pressure of 26 mmHg.
--- NOTE | 2017-12-12 14:24 | Cardiology Report ---
APPROVED REPORT EKG Measurement Heart [id number] MD [id number] Sinus rhythm with 1st degree AV block Otherwise normal ECG
[2017-12-12 15:46] VITALS: BP 116/68
--- NOTE | 2017-12-12 17:07 | Consultation ---
History of Present Illness General Date patient seen: Dec 12, 2017 Chief Complaint: Male Urogenital Problems Reason for Consultation: hip wound Present Illness HPI 82M multiple medical comorbidities admitted from SNF for care of worsening scrotal edema. Upon admission noted to have right hip wound stage IV that would need evaluation and care. Surgery called to evaluate. patient seen, chart reviewed, patient examined. Allergies: Coded Allergies: No Known Allergies (Unverified , 09/08/17) Medication History Scheduled Ascorbic Acid* (Ascorbic Acid*), 500 MG GT TWICE A DAY, (Reported) Ascorbic Acid* (Ascorbic Acid*), 500 MG GT TWICE A DAY Carbidopa/Levodopa 25-100 Mg* (Sinemet 25-100 Mg Tablet*), 1 TAB GT THREE TIMES A DAY, (Reported) Carbidopa/Levodopa 25-100 Mg* (Sinemet 25-100 Mg Tablet*), 1 TAB GT TWICE A DAY, (Reported) Ferrous Sulfate (Ferrous Sulfate), 1 TAB ORAL TWICE A DAY, (Reported) Ferrous Sulfate (Ferrous Sulfate), 15 MG GT BID, (Reported) Ferrous Sulfate (Ferrous Sulfate), 300 MG GT TWICE A DAY Gabapentin* (Gabapentin*), 100 MG ORAL THREE TIMES A DAY, (Reported) Heparin Sod (Porcine) (Heparin Sodium*), 5,000 UNITS SUBQ EVERY 12 HOURS Heparin Sodium,Porcine (Heparin Sodium), 5,000 UNIT SQ EVERY 12 HOURS, (Reported ) Levothyroxine Sodium* (Synthroid*), 100 MCG GT DAILY, (Reported) Levothyroxine Sodium* (Synthroid*), 100 MCG GT ACBREAKFAST Memantine Hcl* (Namenda*), 5 MG ORAL BEDTIME, (Reported) Memantine Hcl* (Namenda*), 5 MG GT BEDTIME Multivitamin With Minerals (Multivitamins With Minerals*), 1 TAB GT DAILY, ( Reported) Multivits W-Min/Ferrous Gluc (Multivitamin-Mineral Liquid), 15 ML GT DAILY Nystatin (Nystatin), 500,000 UNIT GT TID, (Reported) Nystatin* (Nystatin*), 5 ML ORAL QID Tamsulosin HCl (Flomax), 0.4 MG ORAL BEDTIME Tamsulosin Hcl (Tamsulosin Hcl*), 0.4 MG GT BEDTIME, (Reported) [Levodopa/Carbidopa 25/100], 1 TAB GT THREE TIMES A DAY Scheduled PRN Hydrocodone Bit/Acetaminophen 5-325* ([place] 5-325*), 1 TAB GT Q6H PRN for Moderate Pain (Pain Scale 4-6), (Reported) Hydrocodone Bit/Acetaminophen 5-325* ([place] 5-325*), 1 TAB GT Q6H PRN [Acetaminophen], 650 MG GT Q4H PRN Miscellaneous Medications Folic Acid (Folic Acid), 1 MG PO, (Reported) Discontinued Medications Acetaminophen* (Acetaminophen 325MG Tablet*), 650 MG ORAL Q4H, (Reported) Discontinued Reason: Medication dose changed Patient History History Provided By: Medical Record, PMD Healthcare decision maker Resuscitation status Full Code Advanced Directive on File No Past Medical/Surgical History Past Medical/Surgical History: (1) Heel ulcer (2) Sacral decubitus ulcer (3) Wounds, multiple open, lower extremity (4) multiple pressure ulcer wounds (5) Balanitis (6) Decubitus ulcer of right hip, stage 4 (7) Gastrostomy tube in place (8) Dementia (9) UTI (urinary tract infection) (10) Parkinson's disease (11) NSTEMI (non-ST elevated myocardial infarction) Review of Systems All Other Systems: negative except mentioned in HPI Physical Exam General Appearance: no apparent distress Lines, tubes and drains: other HEENT: atraumatic Neck: supple Respiratory/Chest: lungs clear, normal breath sounds, no respiratory distress, no accessory muscle use Cardiovascular/Chest: normal rate, regular rhythm Abdomen: soft, no organomegaly, no mass Extremities: other Skin Exam: other Last 24 Hour Vital Signs Date Time Temp Pulse Resp B/P (MAP) Pulse Ox O2 Delivery O2 Flow Rate FiO2 12/12/17 16:09 59 12/12/17 15:46 98.2 59 18 116/68 (84) 98 98.2 12/12/17 12:00 Nasal Cannula 2.0 12/12/17 12:00 97.7 63 19 127/67 (87) 98 97.7 12/12/17 12:00 59 12/12/17 09:15 62 12/12/17 08:30 60 136/62 12/12/17 08:00 Nasal Cannula 2.0 12/12/17 08:00 97.9 60 16 136/62 (86) 98 97.9 12/12/17 04:44 62 12/12/17 04:00 Nasal Cannula 2.0 12/12/17 04:00 98.2 85 20 127/89 (102) 98 98.2 12/12/17 00:00 98.8 60 16 125/73 (90) 97 98.8 12/12/17 00:00 Room Air 12/11/17 23:43 65 12/11/17 20:00 60 12/11/17 20:00 98.1 58 18 145/78 (100) 98 98.1 12/11/17 20:00 Room Air Intake and Output 12/11/17 12/12/17 19:00 07:00 Intake Total 403.25 ml 991.25 ml Output Total 1000 ml 1850 ml Balance -596.75 ml -858.75 ml Free Water 60 ml 30 ml IV Total 301.25 ml 651.25 ml Tube Feeding 42 ml 310 ml Output Urine Total 1000 ml 1850 ml Laboratory Tests Test 12/12/17 04:28 Troponin I 0.089 ng/mL (0.000-0.056) Height (Feet): 5 Height (Inches): 10.00 Weight (Pounds): 160 Medications Current Medications Medications (Trade) Dose Ordered Sig/Adrian Route PRN Reason Start Time Stop Time Status Last Admin Dose Admin Acetaminophen (Tylenol) 650 mg Q4H PRN GT Mild Pain (Pain Scale 1-3) 12/11/17 13:00 01/10/18 12:59 Acetaminophen/ Hydrocodone Bitart ([place] 5/325) 1 tab Q6H PRN GT Moderate Pain (Pain Scale 4-6) 12/11/17 11:45 12/18/17 11:44 Amlodipine Besylate (Norvasc) 5 mg DAILY GT 12/12/17 09:00 01/11/18 08:59 12/12/17 08:30 Ascorbic Acid (Vitamin C) 500 mg TWICE A DAY GT 12/11/17 18:00 01/10/18 17:59 12/12/17 08:31 Carbidopa/Levodopa (Sinemet 25/100) 1 tab THREE TIMES A DAY GT 12/11/17 13:00 01/10/18 12:59 12/12/17 12:14 Ferrous Sulfate (Feosol) 300 mg TWICE A DAY GT 12/11/17 18:00 01/10/18 17:59 12/12/17 08:29 Heparin Sodium (Porcine) (Heparin 5000 units/ml) 5,000 units EVERY 12 HOURS SUBQ 12/11/17 21:00 01/10/18 20:59 12/12/17 08:33 Levofloxacin 50 ml @ 50 mls/hr Q24H IVPB 12/12/17 10:00 12/19/17 09:59 12/12/17 09:57 Memantine (Namenda) 5 mg BEDTIME ORAL 12/11/17 21:00 01/10/18 20:59 12/11/17 21:09 Multivitamins (Multivitamins W/ Minerals 15ml Liquid) 15 ml DAILY GT 12/12/17 09:00 01/11/18 08:59 12/12/17 08:29 Piperacillin Sod/ Tazobactam Sod 3.375 gm/Dextrose 110 ml @ 27.5 mls/hr EVERY 8 HOURS IVPB 12/11/17 14:00 12/16/17 13:59 12/12/17 14:31 Potassium Chloride 20 meq/ Sodium Chloride 1,010 ml @ 50 mls/hr [id number] IV 12/11/17 13:00 01/10/18 12:59 12/12/17 09:56 Tamsulosin HCl (Flomax) 0.4 mg BEDTIME ORAL 12/11/17 21:00 01/10/18 20:59 12/11/17 21:09 Assessment/Plan Problem List: (1) Decubitus ulcer of right hip, stage 4 Assessment & Plan: Stage IV full thickness pressure injury R hip (L)3.5cm x (W) 3.7cm x(D)1cm with undermining 2-5o'clock by 3cm at 20'clock ,Tunneling @6o' clock by 5.4cm Wound bed granular with trace Biofilm and moist. Brown borders.Periwound intact without erythema or induration. Partial thickness pressure injury medial R heel .Wound bed pink but edges of partial thickness pressure injury dry .Periwound is intact but boggy. Both heels non-blanchable and boggy.Pt verbalized tenderness when both heels minimally palpated. Dry scab noted to L malleolus without erythema to borders or josé luis-area. Dry scab noted to lateral L foot without erythema to josé luis-area. Sacrum and L hip without redness or signs of skin breakdown. R elbow red and dry without tenderness when palpated. Erythema and swelling noted to scrotum. All wounds present upon admission and will be cared for during entire hospital stay. Cleanse wound R Hip with Saline. Loosely pack with Hydrogel impregnated soft shyann .Cavilon Wipes to Borders and cover with Biatain drsg Daily and prn. Cleanse Medial R heel with Saline.Cavilon wipe to borders and cover with Biatain drsg daily and prn. Cavilon wipe to Both Heels daily. Surface Support Mattress overlay on bed. Off-load Heels with Pillow. Turn L Side to Back at least every 2hours as tolerated. Maintain Biatain Foam drsg to L Hipm and change PRN. ICD Codes: L89.214 - Pressure ulcer of right hip, stage 4 SNOMED: [id number], [id number] Status: stable Zafar Echeverria Dec 12, 2017 17:07
[2017-12-12 20:00] VITALS: BP 125/65
[2017-12-12] MEDS: Tamsulosin 0.4mg cap ORAL SCH (21:11)
[2017-12-12] MEDS: Memantine 5 MG TAB ORAL SCH (21:11)
[2017-12-13] VITALS: BP 130/66
[2017-12-13 04:00] VITALS: BP 118/67
[2017-12-13] MEDS: Piperacillin/Tazobactam 3.375 GM in D5W 110 ML IVPB SCH ×3 (05:39→21:11)
[2017-12-13] MEDS: Potassium Chloride 20 MEQ in 1/2 NS 1000ml 1,000 ML IV SCH (05:39)
[2017-12-13 08:00] VITALS: BP 140/69
[2017-12-13] MEDS: Ferrous Sulfate 300 MG/5 ML UDC GT SCH ×2 (08:37→17:30)
[2017-12-13] MEDS: Levodopa/Carbidopa 25/100 tab GT SCH ×3 (08:37→17:29)
[2017-12-13] MEDS: Ascorbic Acid 500mg tab GT SCH ×2 (08:37→17:29)
[2017-12-13] MEDS: Multivitamins W/Minerals 15 ML UDC GT SCH (08:37)
[2017-12-13] MEDS: Heparin 5000 units/ml inj SUBQ SCH ×2 (08:39→21:11)
--- NOTE | 2017-12-13 09:40 | General Progress Note ---
Assessment/Plan Assessment/Plan 1) Decubiti ulcers 2) UTI due to citrobacter 3) Parkinson 4) Dementia Plan: Change Levaquin to Cetriaxone ? need for debridment of decubiti wounds Subjective Allergies: Coded Allergies: No Known Allergies (Unverified , 09/08/17) Subjective He is not in distress, no c/p or sob Objective Last 24 Hour Vital Signs Date Time Temp Pulse Resp B/P (MAP) Pulse Ox O2 Delivery O2 Flow Rate FiO2 12/13/17 08:37 56 140/69 12/13/17 08:00 98.1 56 20 140/69 (92) 100 98.1 12/13/17 08:00 Nasal Cannula 2.0 12/13/17 08:00 54 12/13/17 04:29 53 12/13/17 04:00 97.7 59 20 118/67 (84) 98 97.7 12/13/17 04:00 Nasal Cannula 2.0 12/13/17 00:00 98.0 57 17 130/66 (87) 98 98.0 12/13/17 00:00 Nasal Cannula 2.0 12/12/17 23:33 57 12/12/17 20:00 98.1 57 16 125/65 (85) 98 98.1 12/12/17 20:00 Nasal Cannula 2.0 12/12/17 19:27 58 12/12/17 16:09 59 12/12/17 16:00 Nasal Cannula 2.0 12/12/17 15:46 98.2 59 18 116/68 (84) 98 98.2 12/12/17 12:00 Nasal Cannula 2.0 12/12/17 12:00 97.7 63 19 127/67 (87) 98 97.7 12/12/17 12:00 59 Intake and Output 12/12/17 12/13/17 19:00 07:00 Intake Total 1338.75 ml 1294.5 ml Output Total 650 ml 1550 ml Balance 688.75 ml -255.5 ml Free Water 90 ml 30 ml IV Total 828.75 ml 714.5 ml Tube Feeding 420 ml 550 ml Output Urine Total 650 ml 1550 ml # Bowel Movements 2 Height (Feet): 5 Height (Inches): 10.00 Weight (Pounds): 161 General Appearance: WD/WN, no apparent distress, alert EENT: PERRL/EOMI Neck: non-tender Cardiovascular: normal rate, regular rhythm Respiratory/Chest: lungs clear Abdomen: normal bowel sounds, non tender Neurologic: electro mechanical technologist II-XII grossly normal, disoriented Eliud Torres MD Dec 13, 2017 09:40
[2017-12-13] MEDS ORDERED: cefTRIAXone 1 GM in D5W 55 ML IVPB SCH (09:45)
[2017-12-13 12:00] VITALS: BP 126/70
[2017-12-13 16:00] VITALS: BP 107/61
[2017-12-13] MEDS ORDERED: Acetaminophen 650mg/20.3ml GT PRN (17:00)
[2017-12-13] MEDS ORDERED: 1/2NS w/KCl 20mEq 1000ml 1,000 ML IV SCH (17:30)
[2017-12-13] MEDS ORDERED: Norco 5mg/325mg tab GT PRN (17:45)
[2017-12-13 20:00] VITALS: BP 103/56
[2017-12-13] MEDS ORDERED: Memantine 5 MG TAB ORAL SCH (21:00)
[2017-12-13] MEDS ORDERED: Tamsulosin 0.4mg cap ORAL SCH (21:00)
[2017-12-14] VITALS: BP 113/67
[2017-12-14 04:00] VITALS: BP 125/71
[2017-12-14] MEDS: Piperacillin/Tazobactam 3.375 GM in D5W 110 ML IVPB SCH (06:22)
[2017-12-14 08:00] VITALS: BP 123/64
--- NOTE | 2017-12-14 08:31 | General Progress Note ---
Assessment/Plan Assessment/Plan Improved AMS Urosepsis - Urine C+S Citrobacter - on IV Abx. NSTEMI -min. Check 2D Echo. Decubs - GS to advise noted No need for surgery. DC to SNF. Subjective Allergies: Coded Allergies: No Known Allergies (Unverified , 09/08/17) Subjective More alert Objective Last 24 Hour Vital Signs Date Time Temp Pulse Resp B/P (MAP) Pulse Ox O2 Delivery O2 Flow Rate FiO2 12/14/17 08:00 98.1 52 20 123/64 (83) 95 98.1 12/14/17 04:00 52 12/14/17 04:00 97.7 51 20 125/71 (89) 95 97.7 12/14/17 00:00 99.5 52 20 113/67 (82) 97 99.5 12/14/17 00:00 53 12/13/17 21:00 Nasal Cannula 2.0 12/13/17 20:00 58 12/13/17 20:00 97.0 55 20 103/56 (72) 98 97.0 12/13/17 16:00 59 12/13/17 16:00 97.7 68 18 107/61 (76) 100 97.7 12/13/17 16:00 Nasal Cannula 2.0 12/13/17 12:00 56 12/13/17 12:00 98.2 57 20 126/70 (88) 100 98.2 12/13/17 12:00 Nasal Cannula 2.0 12/13/17 08:37 56 140/69 Intake and Output 12/13/17 12/14/17 19:00 07:00 Intake Total 1283.5 ml 1387.4 ml Output Total 1000 ml 1000 ml Balance 283.5 ml 387.4 ml Free Water 120 ml 150 ml IV Total 503.5 ml 727.4 ml Tube Feeding 660 ml 510 ml Output Urine Total 1000 ml 1000 ml # Bowel Movements 3 Height (Feet): 5 Height (Inches): 10.00 Weight (Pounds): 161 Objective CV RR Lungs CTA Abd SNT. BS + E No CCE Skin - multiple decubs Joanne Desir MD Dec 14, 2017 08:31
[2017-12-14] MEDS ORDERED: Multivitamins W/Minerals 15 ML UDC GT SCH (09:00)
[2017-12-14] MEDS: Ascorbic Acid 500mg tab GT SCH (09:20)
[2017-12-14] MEDS: Ferrous Sulfate 300 MG/5 ML UDC GT SCH (09:20)
[2017-12-14] MEDS: Levodopa/Carbidopa 25/100 tab GT SCH (09:20)
[2017-12-14] MEDS: Heparin 5000 units/ml inj SUBQ SCH (09:23)
[2017-12-14 12:00] VITALS: BP 127/71
[2017-12-14] MEDS ORDERED: NS 500ML ONE (14:29)
--- NOTE | 2017-12-15 12:24 | Discharge Summary ---
Discharge Summary Discharge Summary _ DATE OF ADMISSION: 12/11/2017 DATE OF DISCHARGE: 12/14/2017 CONSULTANTS: Dr. Zafar Echeverria BRIEF HOSPITAL COURSE: Patient is an 82-year-old male from [facility] was sent to the hospital due to worsening scrotal edema. Patient was nonverbal and unable to give any detailed information. He has medical history significant for organic brain syndrome, multiple decubiti ulcers in the sacral, heel and hip region, history of Parkinson's disease, hypothyroidism, anemia of chronic disease, status post G -tube. On evaluation at ED, vital signs were stable. Blood work showed normal white count and CMP. Troponin was elevated to 0.148. EKG was in normal sinus rhythm with no acute ST segment changes. He was given aspirin. Urinalysis showed 2+ protein, 5+ blood, positive nitrite, 3+ leukocyte esterase, 5-10 RBC, too many to count WBC, moderate bacteria. Chest x-ray showed patchy infiltrates bilaterally. He was then admitted for evaluation of multifactorial scrotal edema, most likely due to malnutrition as well as proteinuria and decubitus position. assisted medications were continued. He was started on Zosyn and Levaquin. He was placed on heparin for DVT prophylaxis. Venous duplex of lower extremity was negative for acute DVT. He had an echocardiogram that showed normal ejection fraction. Cardiac troponins down trended. He came in with multiple decubiti pressure ulcer. Surgery was called in to assess and evaluate the wounds. Patient came in with stage IV right hip full thickness pressure injury; partial thickness pressure injury right medial heel; dry scab left malleolus; dry scab lateral left foot; right elbow redness and erythema and swelling noted on the scrotum. He was given wound care. He was given support mattress overlay. With frequent offloading and turning/ positioning. Urine culture showed growth of Citrobacter. Antibiotic was switched to ceftriaxone. Blood culture with coagulase staph possibly contaminant. He was eventually cleared for discharge back to [facility]. FINAL DIAGNOSES: Sepsis secondary to urine infection Citrobacter UTI Non-ST elevated [place] Decubitus pressure ulcer, present on admission Parkinson's Dementia DISPOSITION: Patient was discharged to [facility]. DISCHARGE MEDICATIONS: Refer to Discharge Medication List. I have been assigned to dictate discharge summary on this account, and I was not involved in the patient's management. Rocio Lyn NP Dec 15, 2017 12:24
== END 2017-12-14 14:30 | DRG 280 ==
LOC: EDBD 00:50 → EDUNIT# 00:50 → EMR 01:09 → 2W 02:05 → EDBEDREQSVC 02:20 → EDBEDREQ 02:20 → 2E 12-13 16:20
DX: I21.4 Non-ST elevation (NSTEMI) myocardial infarction (principal); L89.214 Pressure ulcer of right hip, stage 4; N39.0 Urinary tract infection, site not specified; E46 Unspecified protein-calorie malnutrition; G20 Parkinson's disease; E03.9 Hypothyroidism, unspecified; Z68.23 Body mass index [BMI] 23.0-23.9, adult; F09 Unspecified mental disorder due to known physiological condition; Z93.1 Gastrostomy status; D63.8 Anemia in other chronic diseases classified elsewhere; B96.89 Other specified bacterial agents as the cause of diseases classified elsewhere; F02.80 Dementia in other diseases classified elsewhere, unspecified severity, without behavioral disturbance, psychotic disturbance, mood disturbance, and anxiety; N50.89 Other specified disorders of the male genital organs; L89.612 Pressure ulcer of right heel, stage 2; L89.159 Pressure ulcer of sacral region, unspecified stage
CPT/HCPCS: 36415; 51702; 71045; 80053; 81003; 82550; 83605; 83690; 83880; 84484; 85025; 85610; 85730; 87040; 87070; 87081; 87086; 87181; 87205; 93005; 93306; 93970; 96365; 96367; 99285

== ENCOUNTER 2018-01-24 18:53 | Inpatient (IN) | payer MEDICARE, MEDICAID ==
[~2018-01-24] VITALS: Ht 175.3 cm; Wt 71.7 kg
[2018-01-24 18:53] VITALS: BP 134/73
[~2018-01-24 18:53] MED LIST changes: +ACETAMINOPHEN325 M1 ORAL; +GABAPENTIN100 MG GT; -GABAPENTIN100 MG ORAL
[2018-01-24] MEDS ORDERED: ISOSOURCE GT (19:02)
[2018-01-24] MEDS ORDERED: ACETAMINOPHEN325 M1 GT (19:02)
[2018-01-24] MEDS ORDERED: PRO-STAT LIQUID30 ML GT (19:02)
[2018-01-24] MEDS ORDERED: FEROSUL220 MG/5 M GT (19:02)
--- NOTE | 2018-01-24 19:22 | Emergency Room Report ---
History of Present Illness General Chief Complaint: General Complaint Source: Patient, Medical Record, EMS Present Illness HPI Patient sent in for evaluation of right hip decubitus. Apparently he's been bleeding and also had some drainage. The patient denies any pain there. He has dementia. Said strokes in the past and is unable to communicate. He denies almost all symptomatology. The POLT has full CPR/treatment. He was seen in November for UTI with an indwelling Roman. The patient suffers from Parkinson's disease. He's also had paroxysmal atrial fibrillation, hypothyroidism, anemia, contractions and weakness. Allergies: Coded Allergies: No Known Allergies (Unverified , 09/08/17) Patient History Past Medical History: see triage record Social History Narrative [facility] - He was born in [facility] Reviewed Nursing Documentation: PMH: Agreed; PSxH: Agreed Nursing Documentation-PMH Past Medical History: No History, Except For Hx Hypertension: Yes Hx Cancer: No Hx Gastrointestinal Problems: No - g-tube, BPH Hx Neurological Problems: Yes - POLYNEUROPATHY (UNSPECIFIED), OTHER D/O PNS Hx Dementia: Yes Hx Parkinson's Disease: Yes Hx Seizures: No - HYPOTHYROIDISM ANEMIA DEMENTIA BPH Review of Systems All Other Systems: negative except mentioned in HPI Physical Exam Vital Signs Date Time Temp Pulse Resp B/P (MAP) Pulse Ox O2 Delivery O2 Flow Rate FiO2 01/24/18 18:50 99.1 64 18 134/73 97 Room Air Sp02 EP Interpretation: reviewed, normal General Appearance: no apparent distress, GCS 15, other - flat affect, Chronically Ill Head: normocephalic Eyes: bilateral eye normal inspection, bilateral eye PERRL ENT: moist mucus membranes Neck: supple Respiratory: lungs clear, normal breath sounds Cardiovascular #1: regular rate, rhythm Cardiovascular #2: 2+ radial (R) Gastrointestinal: normal inspection, normal bowel sounds, non tender, no mass, non-distended Musculoskeletal: back normal, other - flexor contractions L hand > R hand. Atrophy LE. Neurologic: alert, clam digger III-XII nml as tested, DTRs symmetric, sensory intact, motor weakness - LE > UE, other - cogwheel, oriented - X2 Psychiatric: depressed affect Skin: warm/dry, other - stage 3 decubitus R hip Medical Decision Making Diagnostic Impression: Primary Impression: UTI (urinary tract infection) Qualified Codes: N39.0 - Urinary tract infection, site not specified Additional Impressions: Decubitus ulcer, stage 3 Qualified Codes: L89.213 - Pressure ulcer of right hip, stage 3 Parkinsons ER Course Patient presents with evaluation of hip decubitus. Differential includes cellulitis, chronically inflamed decubitus, other possible infectious source. The patient is afebrile and in no distress at this time. Labs and EKG will be obtained. A wound culture will be obtained. EKG without injury. CXR clear. CBC with elevated WBC. UA with pyuria. Antibiotics begun. Patient more conversant. States he has had multiple UTIs in the past. Discussed with Dr. Desir who requests admission. Admit medical floor. Laboratory Tests Test 01/24/18 20:05 White Blood Count 14.0 K/UL (4.8-10.8) H Red Blood Count 4.19 M/UL (4.70-6.10) L Hemoglobin 12.8 G/DL (14.2-18.0) L Hematocrit 38.6 % (42.0-52.0) L Mean Corpuscular Volume 92 FL (80-99) Mean Corpuscular Hemoglobin 30.5 PG (27.0-31.0) Mean Corpuscular Hemoglobin Concent 33.1 G/DL (32.0-36.0) Red Cell Distribution Width 12.9 % (11.6-14.8) Platelet Count 302 K/UL (150-450) Mean Platelet Volume 6.3 FL (6.5-10.1) L Neutrophils (%) (Auto) 83.9 % (45.0-75.0) H Lymphocytes (%) (Auto) 9.4 % (20.0-45.0) L Monocytes (%) (Auto) 4.2 % (1.0-10.0) Eosinophils (%) (Auto) 2.1 % (0.0-3.0) Basophils (%) (Auto) 0.4 % (0.0-2.0) Prothrombin Time 10.4 SEC (9.30-11.50) Prothrombin Time INR 1.0 (0.9-1.1) PTT 29 SEC (23-33) Urine Color Brown Urine Appearance Cloudy Urine pH 8 (4.5-8.0) Urine Specific [place] 1.010 (1.005-1.035) Urine Protein 3+ (NEGATIVE) H Urine Glucose (UA) Negative (NEGATIVE) Urine Ketones 1+ (NEGATIVE) H Urine Blood 5+ (NEGATIVE) H Urine Nitrite Positive (NEGATIVE) H Urine Bilirubin Negative (NEGATIVE) Urine Urobilinogen 1 MG/DL (0.0-1.0) H Urine Leukocyte Esterase 3+ (NEGATIVE) H Urine RBC 5-10 /HPF (0 - 0) H Urine WBC Tntc /HPF (0 - 0) H Urine Squamous Epithelial Cells None /LPF (NONE/OCC) Urine Bacteria Many /HPF (NONE) H Sodium Level 142 MMOL/L (136-145) Potassium Level 4.1 MMOL/L (3.5-5.1) Chloride Level 105 MMOL/L (98-107) Carbon Dioxide Level 31 MMOL/L (21-32) Anion Gap 6 mmol/L (5-15) Blood Urea Nitrogen 40 mg/dL (7-18) H Creatinine 1.0 MG/DL (0.55-1.30) Estimate Glomerular Filtration Rate mL/min (>60) Glucose Level 95 MG/DL (74-106) Lactic Acid Level 1.70 mmol/L (0.4-2.0) Calcium Level 9.5 MG/DL (8.5-10.1) Magnesium Level 2.1 MG/DL (1.8-2.4) Total Bilirubin 0.3 MG/DL (0.2-1.0) Aspartate Amino Transferase (AST) 17 U/L (15-37) Alanine Aminotransferase (ALT) 22 U/L (12-78) Alkaline Phosphatase 87 U/L (46-116) Total Creatine Kinase 21 U/L (26-308) L Troponin I 0.000 ng/mL (0.000-0.056) Pro-B-Type Natriuretic Peptide 291 pg/mL (0-125) H Total Protein 8.6 G/DL (6.4-8.2) H Albumin 2.9 G/DL (3.4-5.0) L Globulin 5.7 g/dL Albumin/Globulin Ratio 0.5 (1.0-2.7) L EKG Diagnostic Results Rate: normal Rhythm: NSR ST Segments: no acute changes Rhythm Strip Diag. Results EP Interpretation: yes Rhythm: NSR, no PVC's, no ectopy Chest X-Ray Diagnostic Results Chest X-Ray Diagnostic Results : Chest X-Ray Ordered: Yes # of Views/Limited/Complete: 1 View Indication: Other EP Interpretation: Yes Interpretation: no consolidation, no effusion, no pneumothorax Impression: No acute disease Electronically Signed by: Wilfredo Baker MD Last Vital Signs Date Time Temp Pulse Resp B/P (MAP) Pulse Ox O2 Delivery O2 Flow Rate FiO2 01/24/18 19:45 99.2 67 20 134/65 98 Room Air 67 Status: improved Disposition: ADMITTED INPATIENT Condition: Serious Julio Baker MD Jan 24, 2018 19:22
[2018-01-24 19:45] VITALS: BP 134/65
[2018-01-24 20:45] LABS: APPEARANCE,URINE CLOUDY; BILIRUBIN, URINE NEGATIVE (NEGATIVE); COLOR,URINE BROWN; GLUCOSE, URINE (UA) NEGATIVE (NEGATIVE); KETONES,URINE 1+ (NEGATIVE); LEUKOCYTE ESTERASE ,URINE 3+ (NEGATIVE); NITRITE,URINE POSITIVE (NEGATIVE); PH,URINE 8 (4.5-8.0); PROTEIN,URINE 3+ (NEGATIVE); UROBILINOGEN,URINE 1 MG/DL (0.0-1.0)
[2018-01-24 20:46] LABS: BASOPHILS % (AUTO) 0.4 % (0.0-2.0); EOSINOPHILS % (AUTO) 2.1 % (0.0-3.0); HEMATOCRIT 38.6 % (42.0-52.0); HEMOGLOBIN 12.8 G/DL (14.2-18.0); LYMPHOCYTES % (AUTO) 9.4 % (20.0-45.0); MEAN CORPUSCULAR VOLUME 92 FL (80-99); MONOCYTES % (AUTO) 4.2 % (1.0-10.0); NEUTROPHILS % (AUTO) 83.9 % (45.0-75.0); PLATELET COUNT 302 K/UL (150-450); RED BLOOD COUNT 4.19 M/UL (4.70-6.10); RED CELL DISTRIBUTION WIDTH 12.9 % (11.6-14.8)
[2018-01-24 20:55] LABS: ANION GAP 6 mmol/L (5-15); BLOOD UREA NITROGEN 40 mg/dL (7-18); CALCIUM 9.5 MG/DL (8.5-10.1); CARBON DIOXIDE 31 MMOL/L (21-32); CHLORIDE 105 MMOL/L (98-107); POTASSIUM 4.1 MMOL/L (3.5-5.1); SODIUM 142 MMOL/L (136-145)
[2018-01-24 21:05] LABS: ALANINE AMINOTRANSFERASE 22 U/L (12-78); ALBUMIN 2.9 G/DL (3.4-5.0); ALBUMIN/GLOBULIN RATIO 0.5 (1.0-2.7); ALKALINE PHOSPHATASE 87 U/L (46-116); ASPARTATE AMINO TRANSFERASE 17 U/L (15-37); BILIRUBIN,TOTAL 0.3 MG/DL (0.2-1.0); CREATINE KINASE 21 U/L (26-308)
[2018-01-24] MEDS ORDERED: cefTRIAXone 1 GM in NS 55 ML IVPB ONE (21:45)
[2018-01-25] VITALS (7 sets, daily range): BP systolic 105–142; BP diastolic 59–77
[2018-01-25] MEDS ORDERED: Acetaminophen 650mg/20.3ml GT PRN (00:45)
[2018-01-25] MEDS ORDERED: Norco 5mg/325mg tab GT PRN (00:45)
[2018-01-25] MEDS: 1/2NS w/KCl 20mEq 1000ml 1,000 ML IV SCH ×2 (02:23→17:13)
[2018-01-25] MEDS: Vancomycin 1gm in D5W 275ml IVPB SCH ×2 (02:24→14:18)
[2018-01-25] MEDS ORDERED: Piperacillin/Tazobactam 2.25 GM in D5W 55 ML IVPB SCH (06:00)
[2018-01-25 07:37] LABS: BASOPHILS % (AUTO) 0.6 % (0.0-2.0); EOSINOPHILS % (AUTO) 1.8 % (0.0-3.0); HEMATOCRIT 35.5 % (42.0-52.0); HEMOGLOBIN 11.5 G/DL (14.2-18.0); LYMPHOCYTES % (AUTO) 11.3 % (20.0-45.0); MEAN CORPUSCULAR VOLUME 93 FL (80-99); NEUTROPHILS % (AUTO) 81.3 % (45.0-75.0); PLATELET COUNT 227 K/UL (150-450); RED BLOOD COUNT 3.81 M/UL (4.70-6.10); RED CELL DISTRIBUTION WIDTH 13.6 % (11.6-14.8); WHITE BLOOD COUNT 11.6 K/UL (4.8-10.8)
[2018-01-25 07:49] LABS: ANION GAP 8 mmol/L (5-15); BLOOD UREA NITROGEN 33 mg/dL (7-18); CALCIUM 8.8 MG/DL (8.5-10.1); CARBON DIOXIDE 26 MMOL/L (21-32); CHLORIDE 108 MMOL/L (98-107); CREATININE 0.9 MG/DL (0.55-1.30); POTASSIUM 4.2 MMOL/L (3.5-5.1); SODIUM 142 MMOL/L (136-145)
--- NOTE | 2018-01-25 09:13 | Diagnostic Imaging Report ---
Indication: Chest pain Technique: One view of the chest Comparison: 12/11/2017 Findings: Bilateral mostly interstitial disease appears overall similar to the previous study. There may be a patchy opacity in the right lower lung periphery which is not evident previously. The left costophrenic sulcus is not well-demonstrated, small effusion not excludable. The heart is mildly enlarged. Impression: Bilateral mostly interstitial disease with small right peripheral airspace opacity. This could represent mild pulmonary edema. However, a chronic component is also possible.
[2018-01-25] MEDS: Ferrous Sulfate 300 MG/5 ML UDC GT SCH ×2 (09:49→18:05)
[2018-01-25] MEDS: Levodopa/Carbidopa 25/100 tab GT SCH ×3 (09:49→18:05)
[2018-01-25] MEDS: Multivitamins W/Minerals 15 ML UDC GT SCH (09:49)
[2018-01-25] MEDS: Ascorbic Acid 500mg tab GT SCH ×2 (09:49→18:05)
[2018-01-25] MEDS: Zoysn 3.37gm in NS 100ML IVPB SCH ×2 (09:50→18:05)
[2018-01-25] MEDS: Heparin 5000 units/ml inj SUBQ SCH ×2 (09:51→21:04)
--- NOTE | 2018-01-25 16:04 | Consultation ---
History of Present Illness General Date patient seen: Jan 25, 2018 Chief Complaint: General Complaint Reason for Consultation: Right hip ulceration/ leukocytosis Present Illness HPI 82 year old male with multiple medical comorbidities who is a senior care resident presented with worsening right hip ulceration with drainage, leukocytosis. Patient prior stoke and currently sometimes responsive. PEG tube for feeds. Cannot recall information regarding wound. From report wound recently with more foul odor output and possibly blood. Admitted for care and management. surgery called to evaluate and assist with care/management. patient seen, chart reviewed, patient examined. Allergies: Coded Allergies: No Known Allergies (Unverified , 09/08/17) Medication History Scheduled Amino Acids/Protein Hydrolys (Pro-Stat Liquid), 30 ML GT DAILY, (Reported) Ascorbic Acid* (Ascorbic Acid*), 500 MG GT TWICE A DAY, (Reported) Ascorbic Acid* (Ascorbic Acid*), 500 MG GT TWICE A DAY Carbidopa/Levodopa 25-100 Mg* (Sinemet 25-100 Mg Tablet*), 1 TAB GT THREE TIMES A DAY, (Reported) Carbidopa/Levodopa 25-100 Mg* (Sinemet 25-100 Mg Tablet*), 1 TAB GT TID, ( Reported) Ferrous Sulfate (Ferrous Sulfate), 1 TAB ORAL TWICE A DAY, (Reported) Ferrous Sulfate (Ferrous Sulfate), 15 MG GT BID, (Reported) Ferrous Sulfate (Ferrous Sulfate), 300 MG GT TWICE A DAY Ferrous Sulfate (Ferosul), 7.5 ML GT BID, (Reported) Folic Acid (Folic Acid), 1 MG PO DAILY, (Reported) Gabapentin* (Gabapentin*), 100 MG GT THREE TIMES A DAY, (Reported) Heparin Sod (Porcine) (Heparin Sodium*), 5,000 UNITS SUBQ EVERY 12 HOURS Heparin Sodium,Porcine (Heparin Sodium), 5,000 UNIT SQ EVERY 12 HOURS, (Reported ) Levothyroxine Sodium* (Synthroid*), 100 MCG GT DAILY, (Reported) Levothyroxine Sodium* (Synthroid*), 100 MCG GT ACBREAKFAST Memantine Hcl* (Namenda*), 5 MG ORAL BEDTIME, (Reported) Memantine Hcl* (Namenda*), 5 MG GT BEDTIME Multivitamin With Minerals (Multivitamins With Minerals*), 1 TAB GT DAILY, ( Reported) Multivits W-Min/Ferrous Gluc (Multivitamin-Mineral Liquid), 15 ML GT DAILY Nystatin (Nystatin), 500,000 UNIT GT TID, (Reported) Nystatin* (Nystatin*), 5 ML ORAL QID Tamsulosin HCl (Flomax), 0.4 MG ORAL BEDTIME Tamsulosin Hcl (Tamsulosin Hcl*), 0.4 MG GT BEDTIME, (Reported) [Levodopa/Carbidopa 25/100], 1 TAB GT THREE TIMES A DAY Scheduled PRN Acetaminophen* (Acetaminophen 325MG Tablet*), 650 MG GT Q4H PRN for For Pain, ( Reported) Hydrocodone Bit/Acetaminophen 5-325* ([place] 5-325*), 1 TAB GT Q6H PRN for Moderate Pain (Pain Scale 4-6), (Reported) Hydrocodone Bit/Acetaminophen 5-325* ([place] 5-325*), 1 TAB GT Q6H PRN [Acetaminophen], 650 MG GT Q4H PRN Miscellaneous Medications Lactose-Reduced Food/Fiber (Isosource 1.5 Pietro Liquid), 240 ML GT, (Reported) Patient History Limited by: medical condition History Provided By: Patient, Medical Record, PMD Healthcare decision maker Resuscitation status Full Code Advanced Directive on File Yes Past Medical/Surgical History Past Medical/Surgical History: (1) Heel ulcer (2) Sacral decubitus ulcer (3) Wounds, multiple open, lower extremity (4) Parkinsons (5) UTI (urinary tract infection) (6) The administrative codes within the IMO content you are accessing may have as of 12/25/2017. Please contact your IT Dept/Help Desk and request the latest Regulatory release be installed. IT Dept/Help Desk- Please refer to our FAQ page ([email or web address]) or contact [employer] Customer Support at [email or web address] (7) Decubitus ulcer, stage 3 (8) Encounter for generalized patient complaints Review of Systems All Other Systems: negative except mentioned in HPI Physical Exam General Appearance: no apparent distress, alert Lines, tubes and drains: peripheral HEENT: atraumatic, mucous membranes moist Neck: normal inspection Respiratory/Chest: normal breath sounds, no respiratory distress, no accessory muscle use Cardiovascular/Chest: regular rhythm Abdomen: soft, no organomegaly, no mass, feeding tube Extremities: other Skin Exam: other Neurologic: alert Last 24 Hour Vital Signs Date Time Temp Pulse Resp B/P (MAP) Pulse Ox O2 Delivery O2 Flow Rate FiO2 01/25/18 12:00 98.7 60 20 105/59 (74) 95 01/25/18 09:00 Room Air 01/25/18 08:00 97.7 64 19 115/66 (82) 94 01/25/18 04:00 98.5 74 20 136/77 (96) 98 01/25/18 01:53 Room Air 01/25/18 00:30 99.9 68 20 138/72 (94) 97 01/25/18 00:10 99.2 67 20 134/65 98 Room Air 67 01/24/18 19:45 99.2 67 20 134/65 98 Room Air 67 01/24/18 19:04 64 18 01/24/18 18:53 99.1 64 18 134/73 97 Room Air 01/24/18 18:50 99.1 64 18 134/73 97 Room Air Intake and Output 01/24/18 01/25/18 19:00 07:00 Intake Total 1170.000 ml Output Total 0 ml Balance 1170.000 ml Intake Free Water 250 ml IV Total 500.000 ml Tube Feeding 420 ml Output Urine Total 0 ml # Bowel Movements 1 Laboratory Tests Test 01/24/18 20:05 01/25/18 07:05 White Blood Count 14.0 K/UL (4.8-10.8) H 11.6 K/UL (4.8-10.8) H Red Blood Count 4.19 M/UL (4.70-6.10) L 3.81 M/UL (4.70-6.10) L Hemoglobin 12.8 G/DL (14.2-18.0) L 11.5 G/DL (14.2-18.0) L Hematocrit 38.6 % (42.0-52.0) L 35.5 % (42.0-52.0) L Mean Corpuscular Volume 92 FL (80-99) 93 FL (80-99) Mean Corpuscular Hemoglobin 30.5 PG (27.0-31.0) 30.2 PG (27.0-31.0) Mean Corpuscular Hemoglobin Concent 33.1 G/DL (32.0-36.0) 32.4 G/DL (32.0-36.0) Red Cell Distribution Width 12.9 % (11.6-14.8) 13.6 % (11.6-14.8) Platelet Count 302 K/UL (150-450) 227 K/UL (150-450) Mean Platelet Volume 6.3 FL (6.5-10.1) L 7.4 FL (6.5-10.1) Neutrophils (%) (Auto) 83.9 % (45.0-75.0) H 81.3 % (45.0-75.0) H Lymphocytes (%) (Auto) 9.4 % (20.0-45.0) L 11.3 % (20.0-45.0) L Monocytes (%) (Auto) 4.2 % (1.0-10.0) 5.0 % (1.0-10.0) Eosinophils (%) (Auto) 2.1 % (0.0-3.0) 1.8 % (0.0-3.0) Basophils (%) (Auto) 0.4 % (0.0-2.0) 0.6 % (0.0-2.0) Prothrombin Time 10.4 SEC (9.30-11.50) Prothromb Time International Ratio 1.0 (0.9-1.1) Activated Partial Thromboplast Time 29 SEC (23-33) Urine Color Brown Urine Appearance Cloudy Urine pH 8 (4.5-8.0) Urine Specific [place] 1.010 (1.005-1.035) Urine Protein 3+ (NEGATIVE) H Urine Glucose (UA) Negative (NEGATIVE) Urine Ketones 1+ (NEGATIVE) H Urine Blood 5+ (NEGATIVE) H Urine Nitrite Positive (NEGATIVE) H Urine Bilirubin Negative (NEGATIVE) Urine Urobilinogen 1 MG/DL (0.0-1.0) H Urine Leukocyte Esterase 3+ (NEGATIVE) H Urine RBC 5-10 /HPF (0 - 0) H Urine WBC Tntc /HPF (0 - 0) H Urine Squamous Epithelial Cells None /LPF (NONE/OCC) Urine Bacteria Many /HPF (NONE) H Sodium Level 142 MMOL/L (136-145) 142 MMOL/L (136-145) Potassium Level 4.1 MMOL/L (3.5-5.1) 4.2 MMOL/L (3.5-5.1) Chloride Level 105 MMOL/L (98-107) 108 MMOL/L (98-107) H Carbon Dioxide Level 31 MMOL/L (21-32) 26 MMOL/L (21-32) Anion Gap 6 mmol/L (5-15) 8 mmol/L (5-15) Blood Urea Nitrogen 40 mg/dL (7-18) H 33 mg/dL (7-18) H Creatinine 1.0 MG/DL (0.55-1.30) 0.9 MG/DL (0.55-1.30) Estimat Glomerular Filtration Rate mL/min (>60) mL/min (>60) Glucose Level 95 MG/DL (74-106) 121 MG/DL (74-106) H Lactic Acid Level 1.70 mmol/L (0.4-2.0) Calcium Level 9.5 MG/DL (8.5-10.1) 8.8 MG/DL (8.5-10.1) Magnesium Level 2.1 MG/DL (1.8-2.4) 1.9 MG/DL (1.8-2.4) Total Bilirubin 0.3 MG/DL (0.2-1.0) Aspartate Amino Transf (AST/SGOT) 17 U/L (15-37) Alanine Aminotransferase (ALT/SGPT) 22 U/L (12-78) Alkaline Phosphatase 87 U/L (46-116) Total Creatine Kinase 21 U/L (26-308) L Troponin I 0.000 ng/mL (0.000-0.056) Pro-B-Type Natriuretic Peptide 291 pg/mL (0-125) H Total Protein 8.6 G/DL (6.4-8.2) H Albumin 2.9 G/DL (3.4-5.0) L Globulin 5.7 g/dL Albumin/Globulin Ratio 0.5 (1.0-2.7) L Microbiology Date/Time Source Procedure Growth Status 01/24/18 20:05 Urine,Clean Catch Urine Culture - Preliminary Gram Negative Bacillus 1 Resulted 01/25/18 01:00 Hip Right Gram Stain - Final Resulted 01/25/18 01:00 Hip Right Wound Culture Pending Resulted 01/24/18 23:30 Rectum Received Height (Feet): 5 Height (Inches): 9.00 Weight (Pounds): 158 Medications Current Medications Medications (Trade) Dose Ordered Sig/Adrian Route PRN Reason Start Time Stop Time Status Last Admin Dose Admin Acetaminophen (Tylenol) 650 mg Q4H PRN GT Mild Pain/Temp > 100.5 01/25/18 00:45 02/24/18 00:44 Acetaminophen/ Hydrocodone Bitart ([place] 5/325) 1 tab Q6H PRN GT For Pain 01/25/18 00:45 02/01/18 00:44 Ascorbic Acid (Vitamin C) 500 mg TWICE A DAY GT 01/25/18 09:00 02/24/18 08:59 01/25/18 09:49 Carbidopa/Levodopa (Sinemet 25/100) 1 tab TID GT 01/25/18 09:00 02/24/18 08:59 01/25/18 14:18 Ferrous Sulfate (Feosol) 300 mg BID GT 01/25/18 09:00 02/24/18 08:59 01/25/18 09:49 Folic Acid (Folate) 1 mg DAILY GT 01/25/18 09:00 02/24/18 08:59 01/25/18 09:53 Gabapentin (Neurontin) 100 mg THREE TIMES A DAY GT 01/25/18 09:00 02/24/18 08:59 01/25/18 14:18 Heparin Sodium (Porcine) (Heparin 5000 units/ml) 5,000 units EVERY 12 HOURS SUBQ 01/25/18 09:00 02/24/18 08:59 01/25/18 09:51 Levothyroxine Sodium (Synthroid) 100 mcg ACBREAKFAST GT 01/25/18 06:30 02/24/18 06:29 01/25/18 06:33 Memantine (Namenda) 5 mg BEDTIME GT 01/25/18 21:00 02/24/18 20:59 Multivitamins (Multivitamins W/ Minerals 15ml Liquid) 15 ml DAILY GT 01/25/18 09:00 02/24/18 08:59 01/25/18 09:49 Piperacillin Sod/ Tazobactam Sod 3.375 gm/Sodium Chloride 110 ml @ 27.5 mls/hr Q8H IVPB 01/25/18 10:00 02/01/18 09:59 01/25/18 09:50 Sodium 1,000 ml @ 75 mls/hr [id number] IV 01/25/18 00:45 02/24/18 00:44 01/25/18 02:23 Tamsulosin HCl (Flomax) 0.4 mg BEDTIME ORAL 01/25/18 21:00 02/24/18 20:59 Vancomycin HCl (Vanco rx to dose) 1 ea DAILY PRN MISC Per rx protocol 01/25/18 00:45 02/24/18 00:44 Vancomycin HCl 1 gm/Dextrose 275 ml @ 183.708 mls/hr Q12H IVPB 01/25/18 02:00 01/30/18 01:59 01/25/18 14:18 Assessment/Plan Problem List: (1) Leukocytosis ICD Codes: D72.829 - Elevated white blood cell count, unspecified SNOMED: [id number], [id number] Qualifiers: Qualified Codes: D72.829 - Elevated white blood cell count, unspecified (2) Decubitus ulcer Assessment & Plan: Pt presents with full thickness pressure injury to R hip (L) 4cm x (W)2.8cm x (D)2cm with tunneling 1-5 by 8cm at 4o'clock.wound bed pink with trace slough ,(+) maceration at borders.Small amt non-odorous serous exudate. DTPI noted to L lateral Malleolus (L)3cm x (W)3.2cm.Wound bed maroon with red borders. DTPI noted to lateral L foot (L)1cm x (W)1.2cm wound purple centrally with red borders.Wound bed is boggy. L heel boggy with non-blanchable erythema. DTPI noted to medial R heel.Wound fluctuant with maroon discoloration centrally with red borders.Non-blanchable erythema noted to R heel and lateral aspect and site is fluctuant. Pt has F/c cath and tear noted to meatus without exudate. Tx.Plan: Cleanse with Saline.Loosely pack with hydrogel impregnated Kerlix.Cavilon wipe to borders and cover with Optifoam Drsg Daily and prn. Apply Cavilon wipes to areas of pressure, L lat malleolus,Lateral L foot and bilat heels .Change every 7 days and prn. Air Fluidized mattress. Reposition L side to Back at least every 2hours or as tolerated. Off-load heels with pillow Pillow between knees. ICD Codes: L89.90 - Pressure ulcer of unspecified site, unspecified stage SNOMED: [id number] Qualifiers: Qualified Codes: L89.214 - Pressure ulcer of right hip, stage 4 Status: stable Zafar Echeverria Jan 25, 2018 16:04
[2018-01-25] MEDS: Memantine 5 MG TAB GT SCH (20:55)
[2018-01-25] MEDS: Tamsulosin 0.4mg cap ORAL SCH (20:55)
--- NOTE | 2018-01-25 23:00 | History and Physical Report ---
DATE OF ADMISSION: 01/24/2018 CHIEF COMPLAINT: Altered level of consciousness and right hip decubitus ulcer, out of control. HISTORY OF PRESENT ILLNESS: This is an 82-year-old male from a [facility], who has right hip decubitus ulcer. The patient was admitted to this hospital previously, who is bleeding from his right hip pain and drainage from the right hip decubitus ulcer. PAST MEDICAL HISTORY: 1. Organic brain syndrome. 2. Parkinson disease. 3. Paroxysmal atrial fibrillation. 4. Hypothyroidism. 5. Anemia of chronic disease. 6. Multiple decubitus ulcers. MEDICATIONS: Tylenol, vitamin C, oral iron, folic acid, Neurontin, heparin subcutaneous, [place] p.r.n., carbidopa, Synthroid, Namenda, and Flomax. ALLERGIES: No known drug allergies. FAMILY HISTORY: Unable to obtain due to mental status. SOCIAL HISTORY: Unable to obtain due to mental status. REVIEW OF SYSTEMS: Unable to obtain due to mental status. PHYSICAL EXAMINATION: GENERAL: This is an elderly male, who is in no acute distress. VITAL SIGNS: Blood pressure 115/64, pulse 60 and regular, respirations 20, and temperature 98.7 Fahrenheit axillary. HEENT: Head is normocephalic and atraumatic. Pupils are equal, round, and reactive to light and accommodation consensually. NECK: Supple. Trachea midline. There was no lymphadenopathy or thyromegaly. LUNGS: Clear to auscultation and percussion. HEART: Regular rate and rhythm without rubs, murmurs, or gallops. ABDOMEN: Soft and nontender. Bowel sounds were active. SKIN: He has multiple decubitus ulcers mainly in the sacral area, ankle areas, and hip areas. NEUROLOGIC: He is confused. He has increased tone in all four extremities. He has tremor. LABORATORY AND ANCILLARY DATA: CBC initially, white count 14,000, today 11,600, and hematocrit 35.5. Serum chemistry essentially BUN 33, glucose 121, otherwise within normal limits. Urinalysis, positive nitrites, sediment shows 5 to 10 rbc's, too numerous to count white blood cells, and many bacteria. IMAGING STUDIES: Chest x-ray, bilateral interstitial disease. ASSESSMENT: Recurrent septicemia with multiple sources including urinary tract infection, pneumonia, and infected decubitus ulcers. PLAN: 1. Polymicrobial coverage with broad-spectrum IV antibiotics. 2. Wound debridement by General Surgery. 3. Continue skilled nursing medications. Joanne Desir M.D. DR: BRANDON JOB#: [id number] CC:
[2018-01-26] MEDS: Zoysn 3.37gm in NS 100ML IVPB SCH ×3 (01:51→17:38)
[2018-01-26] MEDS: Vancomycin 1gm in D5W 275ml IVPB SCH ×2 (01:51→14:51)
[2018-01-26] MEDS: 1/2NS w/KCl 20mEq 1000ml 1,000 ML IV SCH ×2 (03:15→14:50)
[2018-01-26 04:00] VITALS: BP 127/77
[2018-01-26 06:43] LABS: BASOPHILS % (AUTO) 0.4 % (0.0-2.0); EOSINOPHILS % (AUTO) 5.5 % (0.0-3.0); HEMATOCRIT 31.3 % (42.0-52.0); HEMOGLOBIN 10.3 G/DL (14.2-18.0); LYMPHOCYTES % (AUTO) 17.3 % (20.0-45.0); MEAN CORPUSCULAR VOLUME 91 FL (80-99); NEUTROPHILS % (AUTO) 69.8 % (45.0-75.0); PLATELET COUNT 246 K/UL (150-450); RED BLOOD COUNT 3.43 M/UL (4.70-6.10); RED CELL DISTRIBUTION WIDTH 13.1 % (11.6-14.8); WHITE BLOOD COUNT 8.6 K/UL (4.8-10.8)
[2018-01-26 06:47] LABS: ALANINE AMINOTRANSFERASE 23 U/L (12-78); ALBUMIN 2.2 G/DL (3.4-5.0); ALBUMIN/GLOBULIN RATIO 0.5 (1.0-2.7); ALKALINE PHOSPHATASE 67 U/L (46-116); ANION GAP 8 mmol/L (5-15); ASPARTATE AMINO TRANSFERASE 16 U/L (15-37); BILIRUBIN,TOTAL 0.4 MG/DL (0.2-1.0); BLOOD UREA NITROGEN 26 mg/dL (7-18); CALCIUM 8.6 MG/DL (8.5-10.1); CARBON DIOXIDE 26 MMOL/L (21-32); CHLORIDE 106 MMOL/L (98-107); CREATININE 0.9 MG/DL (0.55-1.30); INR 1.1 (0.9-1.1); POTASSIUM 3.6 MMOL/L (3.5-5.1); SODIUM 140 MMOL/L (136-145)
[2018-01-26 08:00] VITALS: BP 128/69
--- NOTE | 2018-01-26 08:05 | General Progress Note ---
Assessment/Plan Assessment/Plan R/O infected decubs - Dr. Echeverria to advise. R/O Urosepsis - follow cultures. On empiric IV Abx, IVF. Subjective Allergies: Coded Allergies: No Known Allergies (Unverified , 09/08/17) Subjective No new c/o Objective Last 24 Hour Vital Signs Date Time Temp Pulse Resp B/P (MAP) Pulse Ox O2 Delivery O2 Flow Rate FiO2 01/26/18 04:00 99.3 92 20 127/77 (94) 95 01/25/18 23:36 98.9 59 20 126/66 (86) 96 01/25/18 21:00 Room Air 01/25/18 20:00 97.8 83 18 142/68 (92) 96 01/25/18 16:00 98.7 60 20 115/64 (81) 96 01/25/18 12:00 98.7 60 20 105/59 (74) 95 01/25/18 09:00 Room Air Intake and Output 01/25/18 01/26/18 18:59 06:59 Intake Total 1680.000 ml 1464.916 ml Output Total 1000 ml 450 ml Balance 680.000 ml 1014.916 ml Intake Free Water 300 ml 560 ml IV Total 610.000 ml 449.916 ml Tube Feeding 770 ml 455 ml Output Urine Total 1000 ml 450 ml Laboratory Tests 01/26/18 05:20: White Blood Count 8.6, Red Blood Count 3.43L, Hemoglobin 10.3L, Hematocrit 31.3L , Mean Corpuscular Volume 91, Mean Corpuscular Hemoglobin 30.1, Mean Corpuscular Hemoglobin Concent 33.0, Red Cell Distribution Width 13.1, Platelet Count 246, Mean Platelet Volume 6.5, Neutrophils (%) (Auto) 69.8, Lymphocytes (% ) (Auto) 17.3L, Monocytes (%) (Auto) 7.0, Eosinophils (%) (Auto) 5.5H, Basophils (%) (Auto) 0.4, Erythrocyte Sedimentation Rate [Pending], Prothrombin Time 11.4, Prothromb Time International Ratio 1.1, Activated Partial Thromboplast Time 33, Sodium Level 140, Potassium Level 3.6, Chloride Level 106 , Carbon Dioxide Level 26, Anion Gap 8, Blood Urea Nitrogen 26H, Creatinine 0.9 , Estimat Glomerular Filtration Rate , Glucose Level 132H, Calcium Level 8.6, Total Bilirubin 0.4, Aspartate Amino Transf (AST/SGOT) 16, Alanine Aminotransferase (ALT/SGPT) 23, Alkaline Phosphatase 67, C-Reactive Protein, Quantitative 7.3H, Total Protein 6.6, Albumin 2.2L, Globulin 4.4, Albumin/ Globulin Ratio 0.5L Height (Feet): 5 Height (Inches): 9.00 Weight (Pounds): 158 Objective CV RR Lungs CTA Abd SNT. BS + E no CCE Skin - multiple decubs Joanne Desir MD Jan 26, 2018 08:05
[2018-01-26] MEDS: Ferrous Sulfate 300 MG/5 ML UDC GT SCH ×2 (09:07→17:38)
[2018-01-26] MEDS: Ascorbic Acid 500mg tab GT SCH ×2 (09:07→17:38)
[2018-01-26] MEDS: Heparin 5000 units/ml inj SUBQ SCH ×2 (09:07→21:03)
[2018-01-26] MEDS: Levodopa/Carbidopa 25/100 tab GT SCH ×3 (09:08→17:38)
[2018-01-26] MEDS: Multivitamins W/Minerals 15 ML UDC GT SCH (09:08)
--- NOTE | 2018-01-26 11:15 | Consultation ---
DATE OF CONSULTATION: 01/26/2018 INFECTIOUS DISEASES CONSULTATION: CONSULTING PHYSICIAN: Luis Bravo M.D. REFERRING PHYSICIAN: Joanne Desir M.D. REASON FOR CONSULTATION: Urinary tract infection. HISTORY OF PRESENTING ILLNESS: This is an 82-year-old gentleman with history of Parkinson disease, hypothyroidism, and decubitus ulcers who was transferred from a [facility] facility with a right hip decubitus ulcer drainage. He was also found to have a urinary tract infection and an Infectious Diseases consultation has been obtained for antibiotics. PAST MEDICAL HISTORY: 1. History of Parkinson disease. 2. Organic brain syndrome. 3. Atrial fibrillation. 4. Hypothyroidism. 5. Anemia. 6. Decubitus ulcers. SOCIAL HISTORY: Unknown. FAMILY HISTORY: Unknown. REVIEW OF SYSTEMS: Unable to obtain currently. MEDICATIONS: As an inpatient, he is on Namenda, Flomax, Zosyn, ascorbic acid, Sinemet, gabapentin, subcutaneous heparin, multivitamin, ferrous sulfate, folic acid, levothyroxine, IV vancomycin, [place], and Tylenol. ALLERGIES: No known drug allergies. PHYSICAL EXAMINATION: VITAL SIGNS: Temperature of 97.3, T-max of 99.9, pulse of 54, respiratory rate of 19, blood pressure 128/69, and O2 saturation of 96%. HEENT: Pupils equally reactive to light and accommodation. Mouth appears clean without thrush. NECK: Supple. No adenopathy. No JVD. CARDIOVASCULAR: Regular rate and rhythm. No murmurs. LUNGS: Clear to auscultation bilaterally. No crackles. No wheezes. ABDOMEN: Soft and nontender. No organomegaly. EXTREMITIES: No cyanosis, no clubbing, no edema. Right hip decubitus ulcer noted, which is clean. LABORATORY AND DIAGNOSTIC DATA: White count of 14 on 01/24/2018, white count of 8.6 today, hemoglobin 10.3, hematocrit 31.3, MCV 91, and platelet count of 246 with neutrophils of 69%. Sodium 140, potassium 3.6, chloride 106, bicarb 26, BUN 26, creatinine 0.9, glucose 132, and calcium 8.6. Total bilirubin 0.4, AST 16, ALT 23, and alkaline phosphatase 67. C-reactive protein 7.3. Total protein 6.6. Albumin 2.2. UA showing too numerous to count white cells. Urine culture is growing E. coli, which is piperacillin/tazobactam susceptible, ertapenem susceptible, gentamicin susceptible, Tigecycline susceptible. Wound cultures are pending from the right hip. Chest x-ray showing bilateral mostly interstitial disease with small right basilar airspace opacity, could represent mild pulmonary edema. ASSESSMENT: This is an 82-year-old gentleman with history of dementia and Parkinson disease who comes in with. 1. Urinary tract infection with E. coli. 2. Right hip decubitus ulcer appears to be clean. 3. Parkinson disease. 4. Dementia. PLAN: 1. Continue IV vancomycin and Zosyn. 2. Plan has been seen by Surgery. 3. We will follow up cultures and adjust antibiotics accordingly. I would like to thank, Dr. Deisr, for this consultation. Luis Bravo M.D. DR: JUAN JOB#: [id number] CC: Joanne Desir M.D.; Fax#: [phone]
--- NOTE | 2018-01-26 11:19 | Diagnostic Imaging Report ---
Indication:Elevated Bun and Creatinine. Technique: Grayscale and duplex Doppler imaging of the kidneys performed. Comparison: None Findings: Kidneys a slightly echogenic. There is mild right hydronephrosis demonstrated. There are multiple cysts within both kidneys the largest is exophytic lateral to the left kidney measuring 8 to 9 cm. There is thickening of the wall the urinary bladder. Correlate for cystitis. The Roman balloon is noted and appears fairly low in location, partially within the prostate gland. If the patient has had a prior TURP the balloon may be within the TURP defect. Prostate is mildly enlarged with a 60 cc volume. Incidental gallstones demonstrated. The right kidney measures 11.8 cm. Left kidney is 13.7 cm in length. IMPRESSION: Mild right hydronephrosis. Slightly increased cortical echogenicity of the kidneys. Medical renal disease may be present. Bilateral renal cysts. Query positioning of the Roman balloon which may partially be within the prostate gland. Query previous TURP. Thickening of the bladder wall consistent with cystitis. Correlate clinically
--- NOTE | 2018-01-26 11:42 | General Surgery Progress Note ---
General Surgery-Progress Note Subjective Symptoms: improved Additional Comments leukocytosis resolved. stable otherwise Objective Last 24 Hour Vital Signs Date Time Temp Pulse Resp B/P (MAP) Pulse Ox O2 Delivery O2 Flow Rate FiO2 01/26/18 09:00 Room Air 01/26/18 08:00 97.3 54 19 128/69 (88) 96 01/26/18 04:00 99.3 92 20 127/77 (94) 95 01/25/18 23:36 98.9 59 20 126/66 (86) 96 01/25/18 21:00 Room Air 01/25/18 20:00 97.8 83 18 142/68 (92) 96 01/25/18 16:00 98.7 60 20 115/64 (81) 96 01/25/18 12:00 98.7 60 20 105/59 (74) 95 I&O Intake and Output 01/25/18 01/26/18 19:00 07:00 Intake Total 1675.000 ml 1429.916 ml Output Total 1000 ml 450 ml Balance 675.000 ml 979.916 ml Intake Free Water 300 ml 560 ml IV Total 535.000 ml 449.916 ml Tube Feeding 840 ml 420 ml Output Urine Total 1000 ml 450 ml Dressing: saturated Wound: other Drains: other Cardiovascular: RSR Respiratory: clear Abdomen: soft, flat, non-tender, present bowel sounds Extremities: edema, no cyanosis Laboratory Tests Test 01/26/18 05:20 White Blood Count 8.6 K/UL (4.8-10.8) Red Blood Count 3.43 M/UL (4.70-6.10) L Hemoglobin 10.3 G/DL (14.2-18.0) L Hematocrit 31.3 % (42.0-52.0) L Mean Corpuscular Volume 91 FL (80-99) Mean Corpuscular Hemoglobin 30.1 PG (27.0-31.0) Mean Corpuscular Hemoglobin Concent 33.0 G/DL (32.0-36.0) Red Cell Distribution Width 13.1 % (11.6-14.8) Platelet Count 246 K/UL (150-450) Mean Platelet Volume 6.5 FL (6.5-10.1) Neutrophils (%) (Auto) 69.8 % (45.0-75.0) Lymphocytes (%) (Auto) 17.3 % (20.0-45.0) L Monocytes (%) (Auto) 7.0 % (1.0-10.0) Eosinophils (%) (Auto) 5.5 % (0.0-3.0) H Basophils (%) (Auto) 0.4 % (0.0-2.0) Erythrocyte Sedimentation Rate 94 MM/HR (0-20) H Prothrombin Time 11.4 SEC (9.30-11.50) Prothromb Time International Ratio 1.1 (0.9-1.1) Activated Partial Thromboplast Time 33 SEC (23-33) Sodium Level 140 MMOL/L (136-145) Potassium Level 3.6 MMOL/L (3.5-5.1) Chloride Level 106 MMOL/L (98-107) Carbon Dioxide Level 26 MMOL/L (21-32) Anion Gap 8 mmol/L (5-15) Blood Urea Nitrogen 26 mg/dL (7-18) H Creatinine 0.9 MG/DL (0.55-1.30) Estimat Glomerular Filtration Rate mL/min (>60) Glucose Level 132 MG/DL (74-106) H Calcium Level 8.6 MG/DL (8.5-10.1) Total Bilirubin 0.4 MG/DL (0.2-1.0) Aspartate Amino Transf (AST/SGOT) 16 U/L (15-37) Alanine Aminotransferase (ALT/SGPT) 23 U/L (12-78) Alkaline Phosphatase 67 U/L (46-116) C-Reactive Protein, Quantitative 7.3 mg/dL (0.00-0.90) H Total Protein 6.6 G/DL (6.4-8.2) Albumin 2.2 G/DL (3.4-5.0) L Globulin 4.4 g/dL Albumin/Globulin Ratio 0.5 (1.0-2.7) L Plan Problems: (1) Leukocytosis Assessment & Plan: leukocytosis resolved possibly related to ulcer will monitor for now cont with wound care as below (2) Decubitus ulcer Assessment & Plan: Pt presents with full thickness pressure injury to R hip (L) 4cm x (W)2.8cm x (D)2cm with tunneling 1-5 by 8cm at 4o'clock.wound bed pink with trace slough ,(+) maceration at borders.Small amt non-odorous serous exudate. DTPI noted to L lateral Malleolus (L)3cm x (W)3.2cm.Wound bed maroon with red borders. DTPI noted to lateral L foot (L)1cm x (W)1.2cm wound purple centrally with red borders.Wound bed is boggy. L heel boggy with non-blanchable erythema. DTPI noted to medial R heel.Wound fluctuant with maroon discoloration centrally with red borders.Non-blanchable erythema noted to R heel and lateral aspect and site is fluctuant. Pt has F/c cath and tear noted to meatus without exudate. Tx.Plan: Cleanse with Saline.Loosely pack with hydrogel impregnated Kerlix.Cavilon wipe to borders and cover with Optifoam Drsg Daily and prn. Apply Cavilon wipes to areas of pressure, L lat malleolus,Lateral L foot and bilat heels .Change every 7 days and prn. Air Fluidized mattress. Reposition L side to Back at least every 2hours or as tolerated. Off-load heels with pillow Pillow between knees. Zafar Echeverria Jan 26, 2018 11:42
[2018-01-26 12:00] VITALS: BP 121/71
[2018-01-26 16:00] VITALS: BP 136/73
[2018-01-26 20:00] VITALS: BP_SYST 116; BP_SYST 126; BP_DIAS 65; BP_DIAS 85
[2018-01-26] MEDS: Tamsulosin 0.4mg cap ORAL SCH (21:03)
[2018-01-26] MEDS: Memantine 5 MG TAB GT SCH (21:03)
[2018-01-27] VITALS: BP 129/69
[2018-01-27] MEDS: Vancomycin 1gm in D5W 275ml IVPB SCH ×2 (01:17→14:06)
[2018-01-27] MEDS: Zoysn 3.37gm in NS 100ML IVPB SCH ×3 (02:42→18:10)
[2018-01-27 04:00] VITALS: BP 123/57
[2018-01-27] MEDS: 1/2NS w/KCl 20mEq 1000ml 1,000 ML IV SCH ×2 (05:26→18:11)
[2018-01-27 08:00] VITALS: BP 150/69
[2018-01-27] MEDS: Levodopa/Carbidopa 25/100 tab GT SCH ×3 (09:24→18:10)
[2018-01-27] MEDS: Multivitamins W/Minerals 15 ML UDC GT SCH (09:24)
[2018-01-27] MEDS: Ferrous Sulfate 300 MG/5 ML UDC GT SCH ×2 (09:24→18:10)
[2018-01-27] MEDS: Ascorbic Acid 500mg tab GT SCH ×2 (09:24→18:10)
[2018-01-27] MEDS: Heparin 5000 units/ml inj SUBQ SCH ×2 (09:26→21:10)
--- NOTE | 2018-01-27 09:30 | General Surgery Progress Note ---
General Surgery-Progress Note Subjective Symptoms: improved, tolerating diet, BM Additional Comments no acute events. comfortable Objective Last 24 Hour Vital Signs Date Time Temp Pulse Resp B/P (MAP) Pulse Ox O2 Delivery O2 Flow Rate FiO2 01/27/18 08:00 96.0 51 19 150/69 (96) 96 01/27/18 04:00 98.1 53 19 123/57 (79) 96 01/27/18 00:00 97.9 52 19 129/69 (89) 96 01/26/18 21:00 Room Air 01/26/18 20:00 96.9 54 19 116/65 (82) 99 01/26/18 16:00 96.8 56 20 136/73 (94) 97 01/26/18 12:00 97.2 55 21 121/71 (88) 97 I&O Intake and Output 01/26/18 01/27/18 18:59 06:59 Intake Total 1990.000 ml 1417.500 ml Output Total 1100 ml 1900 ml Balance 890.000 ml -482.500 ml Intake Free Water 500 ml 500 ml IV Total 685.000 ml 357.500 ml Tube Feeding 805 ml 560 ml Output Urine Total 1100 ml 1900 ml # Bowel Movements 1 1 Dressing: saturated Wound: other Drains: other Cardiovascular: RSR Respiratory: clear Abdomen: soft, flat, non-tender, present bowel sounds Extremities: other Laboratory Tests Test 01/26/18 13:20 Vancomycin Level Trough 14.2 ug/mL (5.0-12.0) H Plan Problems: (1) Leukocytosis Assessment & Plan: leukocytosis resolved possibly related to ulcer will monitor for now cont with wound care as below (2) Decubitus ulcer Assessment & Plan: Pt presents with full thickness pressure injury to R hip (L) 4cm x (W)2.8cm x (D)2cm with tunneling 1-5 by 8cm at 4o'clock.wound bed pink with trace slough ,(+) maceration at borders.Small amt non-odorous serous exudate. DTPI noted to L lateral Malleolus (L)3cm x (W)3.2cm.Wound bed maroon with red borders. DTPI noted to lateral L foot (L)1cm x (W)1.2cm wound purple centrally with red borders.Wound bed is boggy. L heel boggy with non-blanchable erythema. DTPI noted to medial R heel.Wound fluctuant with maroon discoloration centrally with red borders.Non-blanchable erythema noted to R heel and lateral aspect and site is fluctuant. Pt has F/c cath and tear noted to meatus without exudate. Tx.Plan: Cleanse with Saline.Loosely pack with hydrogel impregnated Kerlix.Cavilon wipe to borders and cover with Optifoam Drsg Daily and prn. Apply Cavilon wipes to areas of pressure, L lat malleolus,Lateral L foot and bilat heels .Change every 7 days and prn. Air Fluidized mattress. Reposition L side to Back at least every 2hours or as tolerated. Off-load heels with pillow Pillow between knees. Zafar Echeverria Jan 27, 2018 09:30
[2018-01-27 12:00] VITALS: BP 131/69
[2018-01-27] MEDS ORDERED: Sterile Water Irrig 1000ml IRRIG ONE (13:12)
--- NOTE | 2018-01-27 14:50 | General Progress Note ---
Assessment/Plan Assessment/Plan R/O infected decubs - Dr. Echeverria to advise. R/O Urosepsis - follow cultures. On empiric IV Abx, IVF. Subjective Allergies: Coded Allergies: No Known Allergies (Unverified , 09/08/17) Subjective No new c/o Objective Last 24 Hour Vital Signs Date Time Temp Pulse Resp B/P (MAP) Pulse Ox O2 Delivery O2 Flow Rate FiO2 01/27/18 12:00 97.7 56 21 131/69 (89) 96 01/27/18 09:00 Room Air 01/27/18 08:00 96.0 51 19 150/69 (96) 96 01/27/18 04:00 98.1 53 19 123/57 (79) 96 01/27/18 00:00 97.9 52 19 129/69 (89) 96 01/26/18 21:00 Room Air 01/26/18 20:00 96.9 54 19 116/65 (82) 99 01/26/18 16:00 96.8 56 20 136/73 (94) 97 Intake and Output 01/26/18 01/27/18 19:00 07:00 Intake Total 1950.000 ml 1347.500 ml Output Total 1100 ml 1900 ml Balance 850.000 ml -552.500 ml Intake Free Water 500 ml 500 ml IV Total 610.000 ml 357.500 ml Tube Feeding 840 ml 490 ml Output Urine Total 1100 ml 1900 ml # Bowel Movements 1 1 Height (Feet): 5 Height (Inches): 9.00 Weight (Pounds): 158 Objective CV RR Lungs CTA Abd SNT. BS + E no CCE Skin - multiple decubs Joanne Desir MD Jan 27, 2018 14:50
[2018-01-27 15:50] VITALS: BP_SYST 140; BP_DIAS 69; BP_DIAS 70
[2018-01-27 20:00] VITALS: BP 108/69
[2018-01-27] MEDS: Tamsulosin 0.4mg cap ORAL SCH (21:10)
[2018-01-27] MEDS: Memantine 5 MG TAB GT SCH (21:10)
[2018-01-28] VITALS: BP 139/82
[2018-01-28] MEDS: Vancomycin 1gm in D5W 275ml IVPB SCH (01:38)
[2018-01-28] MEDS: Zoysn 3.37gm in NS 100ML IVPB SCH ×2 (02:12→10:34)
[2018-01-28 04:00] VITALS: BP 138/73
[2018-01-28 08:00] VITALS: BP 119/68
[2018-01-28] MEDS ORDERED: Tubing IV Secondary IV ONE (08:42)
[2018-01-28] MEDS ORDERED: NS 275ml ONE (08:42)
[2018-01-28] MEDS: 1/2NS w/KCl 20mEq 1000ml 1,000 ML IV SCH ×2 (08:45→21:04)
--- NOTE | 2018-01-28 10:22 | Infectious Diseases Prog Note ---
Assessment/Plan Assessment/Plan A; E. coli UTI R hip pressure ulcer Anemia Parkinson's disease Dementia P; Continue Zosyn Discontinue Vancomycin Subjective ROS Limited/Unobtainable: Yes Respiratory: Reports: no symptoms Gastrointestinal/Abdominal: Reports: no symptoms Musculoskeletal: Reports: no symptoms Allergies: Coded Allergies: No Known Allergies (Unverified , 09/08/17) Objective Vital Signs Last 24 Hour Vital Signs Date Time Temp Pulse Resp B/P (MAP) Pulse Ox O2 Delivery O2 Flow Rate FiO2 01/28/18 08:00 97.6 57 16 119/68 (85) 97 01/28/18 04:00 96.3 55 20 138/73 (94) 98 01/28/18 00:00 97.7 74 18 139/82 (101) 96 01/27/18 21:00 Room Air 01/27/18 20:00 97.3 60 18 108/69 (82) 95 01/27/18 15:50 96.4 54 18 140/70 (93) 95 01/27/18 15:50 96.4 54 21 140/69 (92) 96 01/27/18 12:00 97.7 56 21 131/69 (89) 96 Height (Feet): 5 Height (Inches): 9.00 Weight (Pounds): 158 HEENT: mucous membranes moist Respiratory/Chest: lungs clear Cardiovascular: normal rate Abdomen: soft, non tender, other - GT feeding Extremities: no edema Skin: ulcers, other - R hip Neurologic/Psychiatric: alert, responsive Current Medications Medications (Trade) Dose Ordered Sig/Adrian Route PRN Reason Start Time Stop Time Status Last Admin Dose Admin Acetaminophen (Tylenol) 650 mg Q4H PRN GT Mild Pain/Temp > 100.5 01/25/18 00:45 02/24/18 00:44 Acetaminophen/ Hydrocodone Bitart ([place] 5/325) 1 tab Q6H PRN GT For Pain 01/25/18 00:45 02/01/18 00:44 01/28/18 06:26 Ascorbic Acid (Vitamin C) 500 mg TWICE A DAY GT 01/25/18 09:00 02/24/18 08:59 01/27/18 18:10 Carbidopa/Levodopa (Sinemet 25/100) 1 tab TID GT 01/25/18 09:00 02/24/18 08:59 01/27/18 18:10 Ferrous Sulfate (Feosol) 300 mg BID GT 01/25/18 09:00 02/24/18 08:59 01/27/18 18:10 Folic Acid (Folate) 1 mg DAILY GT 01/25/18 09:00 02/24/18 08:59 01/27/18 09:24 Gabapentin (Neurontin) 100 mg THREE TIMES A DAY GT 01/25/18 09:00 02/24/18 08:59 01/27/18 18:10 Heparin Sodium (Porcine) (Heparin 5000 units/ml) 5,000 units EVERY 12 HOURS SUBQ 01/25/18 09:00 02/24/18 08:59 01/27/18 21:10 Levothyroxine Sodium (Synthroid) 100 mcg ACBREAKFAST GT 01/25/18 06:30 02/24/18 06:29 01/28/18 06:25 Memantine (Namenda) 5 mg BEDTIME GT 01/25/18 21:00 02/24/18 20:59 01/27/18 21:10 Multivitamins (Multivitamins W/ Minerals 15ml Liquid) 15 ml DAILY GT 01/25/18 09:00 02/24/18 08:59 01/27/18 09:24 Piperacillin Sod/ Tazobactam Sod 3.375 gm/Sodium Chloride 110 ml @ 27.5 mls/hr Q8H IVPB 01/25/18 10:00 02/01/18 09:59 01/28/18 02:12 Sodium 1,000 ml @ 75 mls/hr [id number] IV 01/25/18 00:45 02/24/18 00:44 01/27/18 18:11 Tamsulosin HCl (Flomax) 0.4 mg BEDTIME ORAL 01/25/18 21:00 02/24/18 20:59 01/27/18 21:10 Vancomycin HCl (Vanco rx to dose) 1 ea DAILY PRN MISC Per rx protocol 01/25/18 00:45 02/24/18 00:44 Vancomycin HCl 1 gm/Dextrose 275 ml @ 183.708 mls/hr Q12H IVPB 01/25/18 02:00 01/30/18 01:59 01/28/18 01:38 Bj Moya MD Jan 28, 2018 10:22
[2018-01-28] MEDS: Ascorbic Acid 500mg tab GT SCH ×2 (10:29→17:40)
[2018-01-28] MEDS: Multivitamins W/Minerals 15 ML UDC GT SCH (10:29)
[2018-01-28] MEDS: Ferrous Sulfate 300 MG/5 ML UDC GT SCH ×2 (10:29→17:40)
[2018-01-28] MEDS: Levodopa/Carbidopa 25/100 tab GT SCH ×3 (10:29→17:40)
[2018-01-28] MEDS: Heparin 5000 units/ml inj SUBQ SCH ×2 (10:33→21:01)
[2018-01-28 12:00] VITALS: BP 123/72
--- NOTE | 2018-01-28 12:27 | General Progress Note ---
Assessment/Plan Assessment/Plan R/O infected decubs - Dr. Echeverria rec. noted. E. Coli UTI on Zosy. DC to SNF. Subjective Allergies: Coded Allergies: No Known Allergies (Unverified , 09/08/17) Subjective No new c/o Objective Last 24 Hour Vital Signs Date Time Temp Pulse Resp B/P (MAP) Pulse Ox O2 Delivery O2 Flow Rate FiO2 01/28/18 12:00 97.2 62 19 123/72 (89) 96 01/28/18 09:00 Room Air 01/28/18 08:00 97.6 57 16 119/68 (85) 97 01/28/18 04:00 96.3 55 20 138/73 (94) 98 01/28/18 00:00 97.7 74 18 139/82 (101) 96 01/27/18 21:00 Room Air 01/27/18 20:00 97.3 60 18 108/69 (82) 95 01/27/18 15:50 96.4 54 18 140/70 (93) 95 01/27/18 15:50 96.4 54 21 140/69 (92) 96 Intake and Output 01/27/18 01/28/18 18:59 06:59 Intake Total 770 ml 390 ml Output Total 1600 ml 500 ml Balance -830 ml -110 ml Intake Free Water 250 ml Tube Feeding 770 ml 140 ml Output Urine Total 1600 ml 500 ml # Bowel Movements 2 1 Height (Feet): 5 Height (Inches): 9.00 Weight (Pounds): 158 Objective CV RR Lungs CTA Abd SNT. BS + E no CCE Skin - multiple decubs Joanne Desir MD Jan 28, 2018 12:27
--- NOTE | 2018-01-28 12:37 | General Surgery Progress Note ---
General Surgery-Progress Note Subjective Additional Comments no acute events. wound cultures noted. on IV Abx Objective Last 24 Hour Vital Signs Date Time Temp Pulse Resp B/P (MAP) Pulse Ox O2 Delivery O2 Flow Rate FiO2 01/28/18 12:00 97.2 62 19 123/72 (89) 96 01/28/18 09:00 Room Air 01/28/18 08:00 97.6 57 16 119/68 (85) 97 01/28/18 04:00 96.3 55 20 138/73 (94) 98 01/28/18 00:00 97.7 74 18 139/82 (101) 96 01/27/18 21:00 Room Air 01/27/18 20:00 97.3 60 18 108/69 (82) 95 01/27/18 15:50 96.4 54 18 140/70 (93) 95 01/27/18 15:50 96.4 54 21 140/69 (92) 96 I&O Intake and Output 01/27/18 01/28/18 18:59 06:59 Intake Total 770 ml 390 ml Output Total 1600 ml 500 ml Balance -830 ml -110 ml Intake Free Water 250 ml Tube Feeding 770 ml 140 ml Output Urine Total 1600 ml 500 ml # Bowel Movements 2 1 Dressing: saturated Wound: other Drains: other Cardiovascular: RSR Respiratory: clear Abdomen: soft, distended, present bowel sounds Extremities: other Plan Problems: (1) Leukocytosis Assessment & Plan: leukocytosis resolved possibly related to ulcer will monitor for now cont with wound care as below (2) Decubitus ulcer Assessment & Plan: Pt presents with full thickness pressure injury to R hip (L) 4cm x (W)2.8cm x (D)2cm with tunneling 1-5 by 8cm at 4o'clock.wound bed pink with trace slough ,(+) maceration at borders.Small amt non-odorous serous exudate. DTPI noted to L lateral Malleolus (L)3cm x (W)3.2cm.Wound bed maroon with red borders. DTPI noted to lateral L foot (L)1cm x (W)1.2cm wound purple centrally with red borders.Wound bed is boggy. L heel boggy with non-blanchable erythema. DTPI noted to medial R heel.Wound fluctuant with maroon discoloration centrally with red borders.Non-blanchable erythema noted to R heel and lateral aspect and site is fluctuant. Pt has F/c cath and tear noted to meatus without exudate. Tx.Plan: Cleanse with Saline.Loosely pack with hydrogel impregnated Kerlix.Cavilon wipe to borders and cover with Optifoam Drsg Daily and prn. Apply Cavilon wipes to areas of pressure, L lat malleolus,Lateral L foot and bilat heels .Change every 7 days and prn. Air Fluidized mattress. Reposition L side to Back at least every 2hours or as tolerated. Off-load heels with pillow Pillow between knees. Zafar Echeverria Jan 28, 2018 12:37
[2018-01-28] MEDS ORDERED: INVANZ1 GM IVPB (15:07)
[2018-01-28 16:00] VITALS: BP 133/79
[2018-01-28] MEDS ORDERED: Ertapenem 1 GM in NS 55 ML IVPB SCH (18:00)
[2018-01-28 20:00] VITALS: BP 111/69
[2018-01-28] MEDS: Tamsulosin 0.4mg cap ORAL SCH (20:59)
[2018-01-28] MEDS: Memantine 5 MG TAB GT SCH (20:59)
[2018-01-29] VITALS: BP 149/71
[2018-01-29 04:00] VITALS: BP 121/62
[2018-01-29 08:00] VITALS: BP 123/66
[2018-01-29] MEDS: Multivitamins W/Minerals 15 ML UDC GT SCH (09:57)
[2018-01-29] MEDS: Ferrous Sulfate 300 MG/5 ML UDC GT SCH (09:57)
[2018-01-29] MEDS: Levodopa/Carbidopa 25/100 tab GT SCH (09:57)
[2018-01-29] MEDS: Heparin 5000 units/ml inj SUBQ SCH (09:59)
[2018-01-29] MEDS: Ascorbic Acid 500mg tab GT SCH (10:01)
--- NOTE | 2018-01-29 11:18 | Infectious Diseases Prog Note ---
Assessment/Plan Assessment/Plan antibiotics ; ertapenem A 1. e.coli UTI 2. right hip decubitus ulcer 3. atrial fibrillation 4. leucocytosis resolved P 1. continue ertapenem 2 more days 2. will follow up cultures Subjective ROS Limited/Unobtainable: Yes Allergies: Coded Allergies: No Known Allergies (Unverified , 09/08/17) Objective Vital Signs Last 24 Hour Vital Signs Date Time Temp Pulse Resp B/P (MAP) Pulse Ox O2 Delivery O2 Flow Rate FiO2 01/29/18 08:00 98.3 67 18 123/66 (85) 97 01/29/18 04:00 97.2 65 17 121/62 (81) 96 01/29/18 00:00 96.8 62 17 149/71 (97) 97 01/28/18 21:00 Room Air 01/28/18 20:00 97.0 65 17 111/69 (83) 95 01/28/18 16:00 97.2 63 16 133/79 (97) 97 01/28/18 12:00 97.2 62 19 123/72 (89) 96 Height (Feet): 5 Height (Inches): 9.00 Weight (Pounds): 158 Respiratory/Chest: lungs clear Cardiovascular: normal rate, regular rhythm, no gallop/murmur Abdomen: soft, non tender, other - GT Extremities: no edema Current Medications Medications (Trade) Dose Ordered Sig/Adrian Route PRN Reason Start Time Stop Time Status Last Admin Dose Admin Acetaminophen (Tylenol) 650 mg Q4H PRN GT Mild Pain/Temp > 100.5 01/25/18 00:45 02/24/18 00:44 Acetaminophen/ Hydrocodone Bitart ([place] 5/325) 1 tab Q6H PRN GT For Pain 01/25/18 00:45 02/01/18 00:44 01/28/18 06:26 Ascorbic Acid (Vitamin C) 500 mg TWICE A DAY GT 01/25/18 09:00 02/24/18 08:59 01/29/18 10:01 Carbidopa/Levodopa (Sinemet 25/100) 1 tab TID GT 01/25/18 09:00 02/24/18 08:59 01/29/18 09:57 Ertapenem 1 gm/ Sodium Chloride 55 ml @ 110 mls/hr Q24H IVPB 01/28/18 18:00 02/02/18 17:59 01/28/18 17:40 Ferrous Sulfate (Feosol) 300 mg BID GT 01/25/18 09:00 02/24/18 08:59 01/29/18 09:57 Folic Acid (Folate) 1 mg DAILY GT 01/25/18 09:00 02/24/18 08:59 01/29/18 09:57 Gabapentin (Neurontin) 100 mg THREE TIMES A DAY GT 01/25/18 09:00 02/24/18 08:59 01/29/18 09:57 Heparin Sodium (Porcine) (Heparin 5000 units/ml) 5,000 units EVERY 12 HOURS SUBQ 01/25/18 09:00 02/24/18 08:59 01/29/18 09:59 Levothyroxine Sodium (Synthroid) 100 mcg ACBREAKFAST GT 01/25/18 06:30 02/24/18 06:29 01/29/18 06:01 Memantine (Namenda) 5 mg BEDTIME GT 01/25/18 21:00 02/24/18 20:59 01/28/18 20:59 Multivitamins (Multivitamins W/ Minerals 15ml Liquid) 15 ml DAILY GT 01/25/18 09:00 02/24/18 08:59 01/29/18 09:57 Sodium 1,000 ml @ 75 mls/hr [id number] IV 01/25/18 00:45 02/24/18 00:44 01/28/18 21:04 Tamsulosin HCl (Flomax) 0.4 mg BEDTIME ORAL 01/25/18 21:00 02/24/18 20:59 01/28/18 20:59 Luis Bravo MD Jan 29, 2018 11:18
[2018-01-29] MEDS: 1/2NS w/KCl 20mEq 1000ml 1,000 ML IV SCH (11:25)
[2018-01-29 11:35] VITALS: BP 120/63
--- NOTE | 2018-01-31 12:21 | Discharge Summary ---
Discharge Summary Discharge Summary _ DATE OF ADMISSION: 01/24/2018 DATE OF DISCHARGE: 01/29/2018 REASON FOR ADMISSION: 82 years old male with past medical history of Parkinson disease, paroxysmal atrial fibrillation, hypothyroidism, BPH, anemia of chronic disease, organic brain syndrome, multiply decubitus ulcers, resented for evaluation of right hip decubitus ulcer. Patient was noted to have some drainage and bleeding from the right hip decubitus. Upon evaluation vital signs were stable. Laboratory workup revealed leukocytosis WBC 14; hemoglobin 12.8 and hematocrit 30.6 BUN 40 , creatine 1. Urinalysis with evidence of UTI. Chest x-ray revealed bilateral interstitial disease with small right peripheral airspace opacity; possibly representing mild pulmonary edema. Chronic compartment was also possible. Patient admitted with diagnosis of recurrent septicemia with multiply sources including UTI, pneumonia, multiply decubitus ulcers. CONSULTANTS: ID specialist Dr. Bravo surgery Dr. Echeverria [facility] COURSE: Patient admitted. Patient started on the IV fluids and broad-spectrum antibiotics. ID specialist and surgery consults requested. Urine culture revealed Escherichia coli. Blood culture were negative. Antibiotic regimen optimized as per infectious disease specialist recommendations. Patient will need to complete additional 2 days of Ertapenem at the [facility] facility as per ID recommendations. Leukocytosis resolved, no fevers. Surgeon seen and evaluated patient. Wound care provided as per surgical recommendation. No need for acute surgical intervention at this time. Renal parameters and electrolytes were closely monitored. Renal ultrasound revealed slightly increased cortical echogenicity of the kidneys, possible medical renal disease. Bilateral renal cysts. Electrolytes were closely monitored and corrected as needed. Nephrotoxins were avoided. Prior to discharge BUN down to 26 from 40 , creatine 0.9. Home medications were resumed, including Sinemet ,Flomax, levothyroxine, and iron supplement. DVT prophylaxis provided. Bowel regimen instituted. Strict aspiration precautions were maintained G tube feeding was continued with close monitoring of patient's tolerance. Nutritional recommendation implemented in plan of care. Patient clinically stabilized. Leukocytosis resolved . Patient was stable for discharge back to [facility] facility for continuation of care. FINAL DIAGNOSES: UTI with Escherichia coli Right hip decubitus ulcer stage III, present on admission Leukocytosis- resolved Parkinson disease Dementia DISCHARGE MEDICATIONS: See Medication Reconciliation list. DISCHARGE INSTRUCTIONS: Patient was discharged to the [facility] facility. Follow up with medical doctor at the facility. I have been assigned to dictate discharge summary for this account. I was not involved in the patient's management. Chela Banuelos NP Jan 31, 2018 12:21
== END 2018-01-29 12:11 | DRG 689 ==
LOC: EDBD 18:53 → EMR 19:18 → EDBEDREQ 21:36 → 4E 21:52 → EDBEDREQ 22:10 → 4E 01-25 22:15
DX: N39.0 Urinary tract infection, site not specified (principal); L89.213 Pressure ulcer of right hip, stage 3; F09 Unspecified mental disorder due to known physiological condition; G20 Parkinson's disease; I48.0 Paroxysmal atrial fibrillation; E03.9 Hypothyroidism, unspecified; B96.20 Unspecified Escherichia coli [E. coli] as the cause of diseases classified elsewhere; F02.80 Dementia in other diseases classified elsewhere, unspecified severity, without behavioral disturbance, psychotic disturbance, mood disturbance, and anxiety; D63.8 Anemia in other chronic diseases classified elsewhere
CPT/HCPCS: 36415; 71045; 76770; 80048; 80053; 80202; 81003; 82550; 83605; 83735; 83880; 84484; 85025; 85610; 85651; 85730; 86140; 87070; 87081; 87086; 87181; 87205; 93005; 96365; 96367; 99285

== ENCOUNTER 2018-05-11 15:37 | Inpatient (IN) | payer MEDICARE, MEDICAID ==
[~2018-05-11] VITALS: Ht 172.7 cm; Wt 87.1 kg
[~2018-05-11 15:37] MED LIST changes: +ACETAMINOPHEN325 M1 GT; +FEROSUL220 MG/5 M GT; +INVANZ1 GM IVPB; +ISOSOURCE GT; +PRO-STAT LIQUID30 ML GT
[2018-05-11 15:48] VITALS: BP 116/69
--- NOTE | 2018-05-11 15:48 | NUR ---
ED Nurse Note: Pt brought in by ambulance from [facility] due to Jaundice x 1 day. No hx of liver problems. Pt is non verbal and EMS states its the pt's baseline. Pt is awake but non verbal, unable to follow commands. G tube in place. No signs of infection. Noted wound dressing on right buttock. Also noted contractures on all extremities. Skin is hot to touch.
--- NOTE | 2018-05-11 15:48 | NUR ---
ED Nurse Note: Noted wound dressing on right buttocks. ER camera unavailable at this time.
--- NOTE | 2018-05-11 16:00 | NUR ---
ED Nurse Note: Rectal temp 100.3, Dr Villanueva notified.
--- NOTE | 2018-05-11 16:22 | Emergency Room Report ---
History of Present Illness General Chief Complaint: General Complaint Source: Patient, Medical Record Present Illness HPI Patient is a 82-year-old male brought in by EMS from nursing facility. Patient was noted to have increased generalized weakness. Patient reportedly had become more jaundiced. He was noted to be warm to the touch. Patient had prior history of dementia. Patient reportedly was at his baseline mental status. Patient was noted to have some jaundice. Allergies: Coded Allergies: No Known Allergies (Unverified , 09/08/17) Patient History Reviewed Nursing Documentation: PMH: Agreed; PSxH: Agreed Nursing Documentation-PMH Past Medical History: No History, Except For Hx Hypertension: Yes Hx Cancer: No Hx Gastrointestinal Problems: No - g-tube, BPH Hx Neurological Problems: Yes - POLYNEUROPATHY (UNSPECIFIED), OTHER D/O PNS Hx Dementia: Yes Hx Parkinson's Disease: Yes Hx Seizures: No - HYPOTHYROIDISM ANEMIA DEMENTIA BPH Review of Systems All Other Systems: limited - by mental status Physical Exam Vital Signs Date Time Temp Pulse Resp B/P (MAP) Pulse Ox O2 Delivery O2 Flow Rate FiO2 05/11/18 15:38 98.6 67 21 116/69 94 Nasal Cannula 4.0 General Appearance: lethargic, Chronically Ill Eyes: bilateral eye other ENT: dry mucus membranes Neck: limited range of motion Respiratory: normal inspection, lungs clear Cardiovascular #1: normal inspection Gastrointestinal: other - gtube, nondistended Neurologic: motor weakness, other - contracted aphasic Psychiatric: depressed affect Medical Decision Making Diagnostic Impression: Primary Impression: Altered mental status Additional Impressions: Decubitus skin ulcer Urinary tract infection Cholelithiasis ER Course Patient presented for generalized weakness. Differential diagnosis included was not limited to anemia, urinary tract infection, electrolyte abnormality, hypothyroidism, myocardial infarction, myasthenia gravis, dehydration, among others. Because of complexity of patient's case laboratory testing and imaging studies were ordered.Patient was noted to have been prior history of some baseline dementia. Patient was noted to have some fever as well as increased jaundice. Patient was given IV antibiotics. CT imaging of the abdomen and pelvis showed cholelithiasis with a mildly distended gallbladder and nonspecific mild prominence of the gallbladder wall there is a left inguinal hernia containing nonobstructed sigmoid colon Dr. De Anda is contacted for inpatient management Labs Test 05/11/18 16:35 Urine Color Yellow Urine Appearance Slightly cloudy Urine pH 6 (4.5-8.0) Urine Specific [place] 1.010 (1.005-1.035) Urine Protein 3+ (NEGATIVE) Urine Glucose (UA) Negative (NEGATIVE) Urine Ketones Negative (NEGATIVE) Urine Blood 5+ (NEGATIVE) Urine Nitrite Negative (NEGATIVE) Urine Bilirubin 1+ (NEGATIVE) Urine Urobilinogen 1 MG/DL (0.0-1.0) Urine Leukocyte Esterase 3+ (NEGATIVE) EKG Diagnostic Results Rate: normal - 66 Rhythm: NSR ST Segments: no acute changes Last Vital Signs Date Time Temp Pulse Resp B/P (MAP) Pulse Ox O2 Delivery O2 Flow Rate FiO2 05/11/18 15:48 67 21 Nasal Cannula 2.0 05/11/18 15:48 100.3 116/69 98 Status: unchanged Disposition: ADMITTED INPATIENT Condition: Serious Theo Villanueva MD May 11, 2018 16:22
--- NOTE | 2018-05-11 16:57 | NUR ---
ED Nurse Note: Urine sent.
[2018-05-11 17:14] LABS: APPEARANCE,URINE SLIGHTLY CLOUDY; BILIRUBIN, URINE 1+ (NEGATIVE); GLUCOSE, URINE (UA) NEGATIVE (NEGATIVE); KETONES,URINE NEGATIVE (NEGATIVE); LEUKOCYTE ESTERASE ,URINE 3+ (NEGATIVE); NITRITE,URINE NEGATIVE (NEGATIVE); PH,URINE 6 (4.5-8.0); PROTEIN,URINE 3+ (NEGATIVE); UROBILINOGEN,URINE 1 MG/DL (0.0-1.0)
[2018-05-11] MEDS: Ampicillin/Sulbactam Sod 3 GM in NS 110 ML IV SCH ×2 (17:14→22:25)
[2018-05-11 17:15] LABS: COLOR,URINE YELLOW
[2018-05-11 17:24] LABS: ANION GAP 9 mmol/L (5-15); BLOOD UREA NITROGEN 45 mg/dL (7-18); CALCIUM 8.9 MG/DL (8.5-10.1); CARBON DIOXIDE 28 MMOL/L (21-32); CHLORIDE 105 MMOL/L (98-107); CREATININE 1.2 MG/DL (0.55-1.30); POTASSIUM 3.9 MMOL/L (3.5-5.1); SODIUM 142 MMOL/L (136-145)
[2018-05-11 17:25] LABS: BASOPHILS % (AUTO) 0.6 % (0.0-2.0); EOSINOPHILS % (AUTO) 1.1 % (0.0-3.0); HEMATOCRIT 35.6 % (42.0-52.0); HEMOGLOBIN 11.7 G/DL (14.2-18.0); LYMPHOCYTES % (AUTO) 8.1 % (20.0-45.0); MEAN CORPUSCULAR VOLUME 94 FL (80-99); MONOCYTES % (AUTO) 7.3 % (1.0-10.0); PLATELET COUNT 169 K/UL (150-450); RED BLOOD COUNT 3.78 M/UL (4.70-6.10); RED CELL DISTRIBUTION WIDTH 14.1 % (11.6-14.8); WHITE BLOOD COUNT 9.4 K/UL (4.8-10.8)
[2018-05-11 17:38] LABS: ALANINE AMINOTRANSFERASE 175 U/L (12-78); ALBUMIN 2.3 G/DL (3.4-5.0); ALBUMIN/GLOBULIN RATIO 0.5 (1.0-2.7); ALKALINE PHOSPHATASE 320 U/L (46-116); ASPARTATE AMINO TRANSFERASE 72 U/L (15-37); BILIRUBIN,TOTAL 3.6 MG/DL (0.2-1.0); CKMB < 0.5 NG/ML (0.0-3.6); CREATINE KINASE 9 U/L (26-308); PHOSPHORUS 2.8 MG/DL (2.5-4.9)
[2018-05-11 17:39] LABS: BILIRUBIN,DIRECT 3.1 MG/DL (0.0-0.3)
--- NOTE | 2018-05-11 19:20 | NUR ---
HAND-OFF: Report given to Michelle MARQUEZ.
[2018-05-11 19:45] VITALS: BP 104/53
--- NOTE | 2018-05-11 19:46 | NUR ---
ED Nurse Note: temp was checked and revealed 98.9F. asa given per suppository. pt noted to have wound on the right pelvic area. pt vital sign with in normal limit. pt is non verbal. will continue to monitor
--- NOTE | 2018-05-11 20:35 | NUR ---
ED Nurse Note: admitting md called to notify for admitting order to [phone] and has no avail. tried 3 time but still no avail. will follow up.
--- NOTE | 2018-05-11 21:30 | NUR ---
ED Nurse Note: plating technician on bedside.
[2018-05-11 21:32] VITALS: BP 103/60
[2018-05-11 22:36] VITALS: BP 98/65
--- NOTE | 2018-05-11 23:02 | NUR ---
ED Nurse Note: pt was admitted to hospital. report given to stephie kohler
[2018-05-11] MEDS ORDERED: ZOFRAN4 M1 GT (23:14)
[2018-05-11 23:15] VITALS: BP 144/68
--- NOTE | 2018-05-11 23:15 | NUR ---
NURSE NOTES: Received report from Michelle RN, pt. brought up by trav from ER, pt. is Alert to name- able to nod his head for communication, cardiac monitoring placed on pt.- and pt. is sinus rhythm on monitor, no signs or symptoms of acute cardiac or respiratory distress noted, bed in lowest position and call light within easy reach, bed alarm on, side rails up x's3 and safety brakes engaged, pt. appears to be sating well on 2L NC at 99%- no distress noted, pt. comfort measures done, pt. appears to be resting comfortably, G tube intact and clamped, full body assessment done- open wound noted to Rt. side hip area- cleansed wound and dressing applied, pt. teaching done and pt. oriented to room, Rt. arm 20G IV intact and patent, safety measures continued, will continue with plan of care.
--- NOTE | 2018-05-11 23:55 | NUR ---
NURSE NOTES: paged DR. Desir for admission orders- waiting for call back from doctor.
[2018-05-12] VITALS: BP 144/68
--- NOTE | 2018-05-12 01:40 | NUR ---
NURSE NOTES: left msg for DR. Desir for admission orders again-waiting for call back from doctor.
--- NOTE | 2018-05-12 02:04 | NUR ---
Notifed, powerhouse engineer Ty- unable to reach doctor for admission orders- per Ty to page doctor three times in a row- left msg for DR. Desir for admission orders again-waiting for call back from doctor.
[2018-05-12] MEDS ORDERED: Acetaminophen 650mg/20.3ml GT PRN ×2 (03:45→14:30)
[2018-05-12] MEDS ORDERED: Zosyn 3.375gm inj ONE (04:16)
[2018-05-12] MEDS: Piperacillin/Tazobactam 3.375 GM in D5W 110 ML IVPB SCH ×3 (05:26→21:59)
--- NOTE | 2018-05-12 07:00 | NUR ---
HAND-OFF: Report given to melina Díaz, pt. remains stable and no signs of distress noted. Aware to f/u on prison meds. Addendum: 05/12/18 at 0712 by ADEBAYO PEÑA RN RN hand off nurse aware to follow up on wound care nurse to be assigned.
[2018-05-12] MEDS: Heparin 5000 units/ml inj SUBQ SCH ×2 (08:19→22:00)
--- NOTE | 2018-05-12 09:23 | NUR ---
NURSE NOTES: Dr. Desir at nurse station, inquired from MD if they would like to start patient on tube feeding. Dr. Desir ordered to keep patient NPO as that patient per Dr. Desir may have "obstructive jaundice". Noted. Will keep patient NPO until further instructions. Patient is currently on IV fluids for hydration. Noted. Will continue to monitor patient.
[2018-05-12 09:32] LABS: BASOPHILS % (AUTO) 0.5 % (0.0-2.0); EOSINOPHILS % (AUTO) 2.6 % (0.0-3.0); HEMATOCRIT 36.5 % (42.0-52.0); HEMOGLOBIN 11.8 G/DL (14.2-18.0); LYMPHOCYTES % (AUTO) 10.7 % (20.0-45.0); MEAN CORPUSCULAR VOLUME 96 FL (80-99); NEUTROPHILS % (AUTO) 79.2 % (45.0-75.0); PLATELET COUNT 187 K/UL (150-450); RED BLOOD COUNT 3.81 M/UL (4.70-6.10); RED CELL DISTRIBUTION WIDTH 14.6 % (11.6-14.8); WHITE BLOOD COUNT 8.7 K/UL (4.8-10.8)
[2018-05-12 10:15] LABS: ALANINE AMINOTRANSFERASE 162 U/L (12-78); ALBUMIN 2.3 G/DL (3.4-5.0); ALKALINE PHOSPHATASE 312 U/L (46-116); ANION GAP 8 mmol/L (5-15); ASPARTATE AMINO TRANSFERASE 65 U/L (15-37); BILIRUBIN,DIRECT 3.7 MG/DL (0.0-0.3); BILIRUBIN,TOTAL 4.2 MG/DL (0.2-1.0); BLOOD UREA NITROGEN 48 mg/dL (7-18); CARBON DIOXIDE 30 MMOL/L (21-32); CHLORIDE 107 MMOL/L (98-107); CREATININE 1.1 MG/DL (0.55-1.30); POTASSIUM 3.6 MMOL/L (3.5-5.1); SODIUM 145 MMOL/L (136-145)
--- NOTE | 2018-05-12 11:21 | NUR ---
CASE MANAGEMENT: INITIAL REVIEW 82 YO M TINY FROM [facility] CC: JAUNDICE PMHx: HTN. GTUBE. BPH. DEMENTIA. SI:SEPSIS. T 98.6 HR 67 RR 21 B/P 116/69 SATS 94% ON 4L/NC BUN 45 GLU 117 TBILI 3.6 DBILI 3.1 AST 72 ALT 175 ALP 320 TOTAL CK: 9 TROPONIN 0.261 IS: UNASYN IV X1 PATIENT ADMITTED TO [facility] 05/11/2018 @ 1810 DCP: PATIENT TO BE DISCHARGED TO SNF ONCE MEDICALLY CLEARED. PLAN OF CARE: WOUND CARE IV ANTIBx
[2018-05-12 12:00] VITALS: BP 110/52
--- NOTE | 2018-05-12 12:45 | NUR ---
NURSE NOTES: Dr. Colin at nurse station, reviewed patient's abdominal ultra sound and abdominal CT. Dr. Colin acknowledged and ordered MRI abdomen no contrast. Order entered, noted, and carried out. Will continue to monitor patient.
[2018-05-12] MEDS ORDERED: Norco 5mg/325mg tab GT PRN (14:30)
--- NOTE | 2018-05-12 14:46 | NUR ---
NURSE NOTES: Contacted and informed Dr. Colin that per MRI departmen STAT MRI abdomen no contrast cannot be done over the weekend as that no one will be able to come in and do it. Dr. Colin acknowledged and ordered to change status to ROUTINE MRI abdomen no contrast and is okay for MRI abdomen no contrast to be done on 05/14/18. Noted. Order entered, noted, and carried out. Will continue to monitor patient.
--- NOTE | 2018-05-12 14:52 | NUR ---
NURSE NOTES: Called and informed client technical professional that Dr. Colin has changed STAT MRI abdomen no contrast to ROUTINE MRI abdomen no contrast and can be done on 05/14/18. client technical professional acknowledged. Will continue to monitor patient.
[2018-05-12 16:00] VITALS: BP 117/61
--- NOTE | 2018-05-12 16:30 | Consultation ---
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 In ED noted to have elevated lft's. Admitted for care and management. surgery called to evaluate. patient seen, chart reviewed, patient examined. Allergies: Coded Allergies: No Known Allergies (Unverified , 09/08/17) Medication History Scheduled Amino Acids/Protein Hydrolys (Pro-Stat Liquid), 30 ML GT DAILY, (Reported) Ascorbic Acid* (Ascorbic Acid*), 500 MG GT TWICE A DAY Carbidopa/Levodopa 25-100 Mg* (Sinemet 25-100 Mg Tablet*), 1 TAB GT TID, ( Reported) Ertapenem Sodium* (INVanz*), 1 GM IVPB Q24H, (Reported) Ferrous Sulfate (Ferrous Sulfate), 1 TAB ORAL TWICE A DAY, (Reported) Ferrous Sulfate (Ferrous Sulfate), 300 MG GT TWICE A DAY Folic Acid (Folic Acid), 1 MG PO DAILY, (Reported) Heparin Sod (Porcine) (Heparin Sodium*), 5,000 UNITS SUBQ EVERY 12 HOURS Levothyroxine Sodium* (Synthroid*), 100 MCG GT ACBREAKFAST Memantine Hcl* (Namenda*), 5 MG ORAL BEDTIME, (Reported) Memantine Hcl* (Namenda*), 5 MG GT BEDTIME Multivits W-Min/Ferrous Gluc (Multivitamin-Mineral Liquid), 15 ML GT DAILY Nystatin* (Nystatin*), 5 ML ORAL QID Tamsulosin HCl (Flomax), 0.4 MG ORAL BEDTIME [Levodopa/Carbidopa 25/100], 1 TAB GT THREE TIMES A DAY Scheduled PRN Acetaminophen* (Acetaminophen 325MG Tablet*), 650 MG GT Q4H PRN for For Pain, ( Reported) Hydrocodone Bit/Acetaminophen 5-325* (Bush 5-325*), 1 TAB GT Q6H PRN Ondansetron (Zofran), 4 MG GT Q6H PRN for Nausea & Vomiting, (Reported) [Acetaminophen], 650 MG GT Q4H PRN Miscellaneous Medications Lactose-Reduced Food/Fiber (Isosource 1.5 Pietro Liquid), 240 ML GT, (Reported) Patient History Limited by: medical condition History Provided By: Medical Record, PMD Healthcare decision maker Resuscitation status Advanced Directive on File Past Medical/Surgical History Past Medical/Surgical History: (1) Encounter for generalized patient complaints (2) The administrative codes within the IMO content you are accessing may have as of 12/25/2017. Please contact your IT Dept/Help Desk and request the latest Regulatory release be installed. IT Dept/Help Desk- Please refer to our FAQ page ([email or web address] or contact [facility] Customer Support at [email or web address] (3) Heel ulcer (4) Sacral decubitus ulcer (5) Wounds, multiple open, lower extremity (6) Leukocytosis (7) Decubitus ulcer (8) Sepsis (9) Cholelithiasis (10) Urinary tract infection (11) Decubitus skin ulcer (12) Altered mental status Review of Systems ROS Narrative cannot obtain Physical Exam General Appearance: no apparent distress Lines, tubes and drains: peripheral HEENT: normocephalic, mucous membranes moist Neck: normal inspection Respiratory/Chest: no respiratory distress, no accessory muscle use Cardiovascular/Chest: regular rhythm Abdomen: soft, no organomegaly, no mass Extremities: normal inspection Skin Exam: other Neurologic: other Last 24 Hour Vital Signs Date Time Temp Pulse Resp B/P (MAP) Pulse Ox O2 Delivery O2 Flow Rate FiO2 05/12/18 12:00 58 05/12/18 12:00 Nasal Cannula 2.0 05/12/18 12:00 98.2 64 16 110/52 (71) 96 64 05/12/18 08:00 56 05/12/18 08:00 Nasal Cannula 2.0 05/12/18 04:00 58 05/12/18 04:00 Nasal Cannula 2.0 05/12/18 00:00 59 05/12/18 00:00 97.9 64 20 144/68 (93) 95 64 05/12/18 00:00 Nasal Cannula 2.0 05/11/18 23:15 Nasal Cannula 2.0 05/11/18 23:15 97.9 64 20 144/68 (93) 95 64 05/11/18 23:02 98.0 66 20 98/65 98 Nasal Cannula 2.0 66 05/11/18 22:36 98.0 66 20 98/65 98 Nasal Cannula 2.0 05/11/18 21:32 99.0 65 23 103/60 99 Nasal Cannula 2.0 05/11/18 19:45 98.9 60 22 104/53 99 Room Air Intake and Output 05/11/18 05/12/18 18:59 06:59 Intake Total 110 ml 262.5 ml Output Total 200 ml Balance 110 ml 62.5 ml Intake IV Total 110 ml 262.5 ml Output Urine Total 200 ml # Voids 1 1 # Bowel Movements 2 Laboratory Tests Test 05/11/18 16:35 05/12/18 06:56 White Blood Count 9.4 K/UL (4.8-10.8) 8.7 K/UL (4.8-10.8) Red Blood Count 3.78 M/UL (4.70-6.10) L 3.81 M/UL (4.70-6.10) L Hemoglobin 11.7 G/DL (14.2-18.0) L 11.8 G/DL (14.2-18.0) L Hematocrit 35.6 % (42.0-52.0) L 36.5 % (42.0-52.0) L Mean Corpuscular Volume 94 FL (80-99) 96 FL (80-99) Mean Corpuscular Hemoglobin 31.0 PG (27.0-31.0) 31.1 PG (27.0-31.0) H Mean Corpuscular Hemoglobin Concent 32.9 G/DL (32.0-36.0) 32.4 G/DL (32.0-36.0) Red Cell Distribution Width 14.1 % (11.6-14.8) 14.6 % (11.6-14.8) Platelet Count 169 K/UL (150-450) 187 K/UL (150-450) Mean Platelet Volume 7.0 FL (6.5-10.1) 7.6 FL (6.5-10.1) Neutrophils (%) (Auto) 83.0 % (45.0-75.0) H 79.2 % (45.0-75.0) H Lymphocytes (%) (Auto) 8.1 % (20.0-45.0) L 10.7 % (20.0-45.0) L Monocytes (%) (Auto) 7.3 % (1.0-10.0) 7.0 % (1.0-10.0) Eosinophils (%) (Auto) 1.1 % (0.0-3.0) 2.6 % (0.0-3.0) Basophils (%) (Auto) 0.6 % (0.0-2.0) 0.5 % (0.0-2.0) Urine Color Yellow Urine Appearance Slightly cloudy Urine pH 6 (4.5-8.0) Urine Specific [place] 1.010 (1.005-1.035) Urine Protein 3+ (NEGATIVE) H Urine Glucose (UA) Negative (NEGATIVE) Urine Ketones Negative (NEGATIVE) Urine Blood 5+ (NEGATIVE) H Urine Nitrite Negative (NEGATIVE) Urine Bilirubin 1+ (NEGATIVE) H Urine Ictotest Positive (NEGATIVE) Urine Urobilinogen 1 MG/DL (0.0-1.0) H Urine Leukocyte Esterase 3+ (NEGATIVE) H Urine RBC 5-10 /HPF (0 - 0) H Urine WBC 5-10 /HPF (0 - 0) H Urine Squamous Epithelial Cells Few /LPF (NONE/OCC) Urine Bacteria Many /HPF (NONE) H Sodium Level 142 MMOL/L (136-145) 145 MMOL/L (136-145) Potassium Level 3.9 MMOL/L (3.5-5.1) 3.6 MMOL/L (3.5-5.1) Chloride Level 105 MMOL/L (98-107) 107 MMOL/L (98-107) Carbon Dioxide Level 28 MMOL/L (21-32) 30 MMOL/L (21-32) Anion Gap 9 mmol/L (5-15) 8 mmol/L (5-15) Blood Urea Nitrogen 45 mg/dL (7-18) H 48 mg/dL (7-18) H Creatinine 1.2 MG/DL (0.55-1.30) 1.1 MG/DL (0.55-1.30) Estimat Glomerular Filtration Rate mL/min (>60) mL/min (>60) Glucose Level 117 MG/DL (74-106) H 78 MG/DL (74-106) Lactic Acid Level 1.10 mmol/L (0.4-2.0) Calcium Level 8.9 MG/DL (8.5-10.1) 9.0 MG/DL (8.5-10.1) Phosphorus Level 2.8 MG/DL (2.5-4.9) Magnesium Level 2.1 MG/DL (1.8-2.4) Total Bilirubin 3.6 MG/DL (0.2-1.0) H 4.2 MG/DL (0.2-1.0) H Direct Bilirubin 3.1 MG/DL (0.0-0.3) H 3.7 MG/DL (0.0-0.3) H Aspartate Amino Transf (AST/SGOT) 72 U/L (15-37) H 65 U/L (15-37) H Alanine Aminotransferase (ALT/SGPT) 175 U/L (12-78) H 162 U/L (12-78) H Alkaline Phosphatase 320 U/L (46-116) H 312 U/L (46-116) H Total Creatine Kinase 9 U/L (26-308) L Creatine Kinase MB < 0.5 NG/ML (0.0-3.6) Creatine Kinase MB Relative Index Troponin I 0.261 ng/mL (0.000-0.056) Total Protein 7.3 G/DL (6.4-8.2) 7.3 G/DL (6.4-8.2) Albumin 2.3 G/DL (3.4-5.0) L 2.3 G/DL (3.4-5.0) L Globulin 5.0 g/dL Albumin/Globulin Ratio 0.5 (1.0-2.7) L Height (Feet): 5 Height (Inches): 8.00 Weight (Pounds): 160 Medications Current Medications Medications (Trade) Dose Ordered Sig/Adrian Route PRN Reason Start Time Stop Time Status Last Admin Dose Admin Acetaminophen (Tylenol) 650 mg Q4H PRN GT Mild Pain/Temp > 100.5 05/12/18 14:30 06/11/18 14:29 Acetaminophen/ Hydrocodone Bitart (Bush 5/325) 1 tab Q6H PRN GT PAIN 4-10 05/12/18 14:30 05/19/18 14:29 Carbidopa/Levodopa (Sinemet 25/100) 1 tab Q8HR GT 05/12/18 22:00 06/11/18 21:59 Ferrous Sulfate (Feosol) 300 mg THREE TIMES A DAY GT 05/12/18 18:00 06/11/18 17:59 Folic Acid (Folate) 1 mg DAILY GT 05/13/18 09:00 06/12/18 08:59 Heparin Sodium (Porcine) (Heparin 5000 units/ml) 5,000 units EVERY 12 HOURS SUBQ 05/12/18 09:00 06/11/18 08:59 05/12/18 08:19 Levothyroxine Sodium (Synthroid) 100 mcg DAILY@0630 GT 05/13/18 06:30 06/12/18 06:29 Ondansetron HCl (Zofran) 4 mg Q6H PRN IVP Nausea & Vomiting 05/12/18 14:30 06/11/18 14:29 Piperacillin Sod/ Tazobactam Sod 3.375 gm/Dextrose 110 ml @ 27.5 mls/hr Q8HR IVPB 05/12/18 14:00 05/19/18 05:59 05/12/18 13:31 Sodium Chloride 1,000 ml @ 65 mls/hr [id number] IV 05/12/18 03:45 06/11/18 03:44 05/12/18 04:09 Tamsulosin HCl (Flomax) 0.4 mg BEDTIME ORAL 05/12/18 21:00 06/11/18 20:59 UNV Assessment/Plan Problem List: (1) Obstructive jaundice Assessment & Plan: Hx of cholelithiasis now with jaundice lfts elevated -npo -iv fluids -iv abx -US ordered -MRCP ordered -trend labs will follow with recs. thank you ICD Codes: K83.8 - Other specified diseases of biliary tract SNOMED: 44331515 (2) Sacral decubitus ulcer Assessment & Plan: R hip (L)3cm x (W)3cm x (D)2cm with tunneling full thickness wound bed pink with trace slough ,(+) maceration at borders.Small amt non-odorous serous exudate. DTPI noted to L lateral Malleolus lateral L foot medial R heel Tx.Plan: Cleanse right hip wound with Saline.Loosely pack with hydrogel impregnated Kerlix.Cavilon wipe to borders and cover with Optifoam Drsg Daily and prn. Apply Cavilon wipes to areas of pressure, L lat malleolus,Lateral L foot and bilat heels .Change every 7 days and prn. Air Fluidized mattress. Reposition L side to Back at least every 2hours or as tolerated. Off-load heels with pillow Pillow between knees. ICD Codes: L89.159 - Pressure ulcer of sacral region, unspecified stage SNOMED: 400336790 Zafar Echeverria May 12, 2018 16:30
[2018-05-12] MEDS: Ferrous Sulfate 300 MG/5 ML UDC GT SCH (17:48)
--- NOTE | 2018-05-12 18:26 | NUR ---
NURSE NOTES: Called [facility], spoke with RN taking care of patient. Per registered nurse, patient refused pneumonia vaccine and flu vaccine in facility. Noted. Will continue to monitor patient.
--- NOTE | 2018-05-12 18:41 | NUR ---
NURSE NOTES: Called and informed Dr. Desir that patient is noted to have 75cc urine output for shift, bladder scan revealed [address] Desir acknowledged and ordered D5 0.45% NS 100 cc/hr IV. Also informed Dr. Desir that pharmacy recommended changing Tamsulosin 0.4 mg QD GT to Finasteride 5 mg GT QD as that Finasteride may be crushed and administered via G-tube per pharmacy. Dr. Desir acknowledged and discontinued Tamsulosin 0.4 mg QD GT to Finasteride 5 mg QD GT. Orders entered, noted, and carried out. Will continue to monitor patient.
[2018-05-12] MEDS: D5 1/2NS 1,000 ML IV SCH (18:46)
--- NOTE | 2018-05-12 19:22 | NUR ---
HAND-OFF: Report given to JIMMY Donahue.
--- NOTE | 2018-05-12 19:42 | NUR ---
NURSE NOTES: Received report from Harjit Goodman RN. Pt in bed asleep but awoken upon hearing voices during bedside report. No distress noted. IVF running at prescribed rate. Day shift RN endorsed NPO status until Monday05/14/18 per MD, when MRI Abdomen is to be performed. Will continue to monitor.
--- NOTE | 2018-05-12 19:45 | History and Physical Report ---
DATE OF ADMISSION: 05/11/2018 CHIEF COMPLAINT: Altered level of consciousness. HISTORY OF PRESENT ILLNESS: This is an 82-year-old male, who I saw yesterday at the half-way facility. The nursing staff luba my attention to this patient, who became unresponsive and pale as well as jaundiced. I instructed the nursing staff to send the patient immediately to this hospital ER. The patient of course is unable to give any further information. PAST MEDICAL HISTORY: 1. Organic brain syndrome. 2. Parkinson disease. 3. Stage IV sacral decubitus ulcer. 4. Chronic kidney disease. 5. Hypothyroidism. 6. Malnutrition. 7. COPD. 8. Benign prostatic hypertrophy. HOME MEDICATIONS: Tylenol, captopril, Sinemet, sodium docusate, folic acid, tube feeding, polyethylene glycol, DuoNeb. The tube feeding is Isosource, Synthroid, Maalox, multivitamins, Namenda, [place] p.r.n., Pro-Stat powder, Protonix, Fleet Enema, Carafate, vitamin C, zinc sulfate, Zofran p.r.n. ALLERGIES: No known drug allergies. FAMILY HISTORY: Unable to obtain due to mental status. SOCIAL HISTORY: Unable to obtain due to mental status. REVIEW OF SYSTEMS: Unable to obtain due to mental status. PHYSICAL EXAMINATION: GENERAL: This is an elderly male, who is in no acute distress. VITAL SIGNS: Blood pressure 144/68, pulse 64 regular, respirations 20, temperature 98, O2 saturation 95% on 2 liters/minute nasal cannula. HEENT: Head is normocephalic and atraumatic. Pupils are equal, round, and reactive to light and accommodation consensually. NECK: Supple. Trachea midline. There was no lymphadenopathy or thyromegaly. LUNGS: Bilateral rhonchi. HEART: Regular rate and rhythm without rubs, murmurs, or gallops. ABDOMEN: Soft. Bowel sounds were active. He has a G-tube. EXTREMITIES: He has bilateral heel ulcers. SKIN: He has huge stage IV sacral decubitus. NEUROLOGICAL: He is obtunded. He has increased alpha rigidity in all four extremities. LABORATORY AND ANCILLARY DATA: CBC; hemoglobin 11.8, otherwise within normal limits. Chemistry, electrolytes within normal limits. BUN 48, creatinine 1.1, direct bilirubin 3.7, total bilirubin 4.2, elevated liver enzymes noted. AST 65, ALT is 162, alkaline phosphatase 312. CT imaging of the abdomen and pelvis showed cholelithiasis with mildly extended gallbladder, nonspecific and mild prominence of the gallbladder wall. There is a left inguinal hernia containing non-obstructed sigmoid colon. ASSESSMENT: 1. Obstructive jaundice, etiology unclear. Rule out malignancy, rule out other etiologies. 2. Organic brain syndrome. 2. Parkinson disease. 3. Stage IV sacral decubitus ulcer. 4. Chronic kidney disease. 5. Hypothyroidism. 6. Malnutrition. 7. COPD. 8. Benign prostatic hypertrophy. PLAN: 1. Obtain MRI of the abdomen. 2. Obtain MRCP. 3. GI consult. 4. General surgery consult. Joanne Desir M.D. DR: SHELLY JOB#: [id number] CC: ROSITA
[2018-05-12 20:00] VITALS: BP 114/66
--- NOTE | 2018-05-12 20:00 | Consultation ---
DATE OF CONSULTATION: 05/12/2018 CONSULTING PHYSICIAN: Aldo Colin M.D. CHIEF COMPLAINT: Abdominal pain, . HISTORY OF PRESENT ILLNESS: Most of history is per chart. This is an 82-year-old [facility] patient, came to the hospital with possible sepsis and jaundice. PAST MEDICAL HISTORY: 1. Organic brain syndrome. 2. Parkinson disease. 3. Paroxysmal atrial fibrillation. 4. Hypothyroidism. 5. Chronic anemia. 6. Multiple ulcerations. ALLERGIES: No known drug allergies. MEDICATIONS: Please see medication reconciliation list. SOCIAL HISTORY: He currently lives in a [facility]iary. No recent history of tobacco, alcohol, or drug abuse. FAMILY HISTORY: Noncontributory. REVIEW OF SYSTEMS: Unable to obtain. PHYSICAL EXAMINATION: VITAL SIGNS: Temperature 97.9, pulse 64, respirations 20, and blood pressure is 144/68. HEENT: Normocephalic and atraumatic. Mild pale conjunctivae. Mild scleral icterus. NECK: Supple. No evidence of lymphadenopathy. CARDIOVASCULAR: Regular rhythm. Plus S1 and S2. ABDOMEN: Soft, nontender. No rebound. No guarding. No peritoneal sign. EXTREMITIES: No cyanosis, no clubbing, no edema. LABORATORY DATA: White count is 8.7, hemoglobin 11.8, hematocrit 36, platelet count is 187,000. Chem-7; sodium 145 potassium 3.6, bilirubin 4.2, direct is 3.7. AST 65, ALT 162, alkaline phosphatase is 312. Abdominal ultrasound showed gallstones, but no obvious cholecystitis, no dilated common bile duct. CT also showed no obvious dilated common bile duct. No pancreatic mass. CT was done without contrast. ASSESSMENT AND PLAN: An 82-year-old male with jaundice, elevated bilirubin, gallstones. There is a question for CBD stones causing the jaundice and sepsis, plan to order an MRCP. MRCP shows common bile duct stone or stricture. We will consider doing ERCP on Monday. Otherwise, the patient might benefit from the endoscopic ultrasound for evaluation because of abnormal liver function test. Meanwhile, the patient to be kept NPO, IV fluids for hydration, antibiotics, follow laboratories, order tumor markers for tomorrow. Aldo Nila Colin DR: FRANSISCO JOB#: [id number] CC:
[2018-05-12] MEDS ORDERED: Tamsulosin 0.4mg cap ORAL SCH (21:00)
[2018-05-12] MEDS: Levodopa/Carbidopa 25/100 tab GT SCH (21:59)
[2018-05-13] VITALS: BP 129/71
[2018-05-13 04:00] VITALS: BP 141/79
[2018-05-13] MEDS: D5 1/2NS 1,000 ML IV SCH ×2 (05:48→14:45)
[2018-05-13] MEDS: Piperacillin/Tazobactam 3.375 GM in D5W 110 ML IVPB SCH (05:48)
[2018-05-13] MEDS: Levodopa/Carbidopa 25/100 tab GT SCH ×3 (05:48→20:58)
--- NOTE | 2018-05-13 07:00 | NUR ---
NURSE NOTES: Pt transfer from [facility], awake/alert in bed, breathing easily on 4 lpm nasal cannula, denies SOB and denies pain at this time. Pt is verbal but delayed. Vital signs stable with SR at 56 on monitor. IV access right forearm with D5 1/2 NS running at 100 ml/hr. Condom cath placed draining clear yellow urine to collection bag at foot of bed. BLE severe contractions. G-tube present, clamped. Oral care/rinse done. Bed left in low position, exit alarm set, side rails up x 3 and call light left near pt's hand.
[2018-05-13 07:56] LABS: BASOPHILS % (AUTO) 0.7 % (0.0-2.0); EOSINOPHILS % (AUTO) 3.8 % (0.0-3.0); HEMOGLOBIN 11.1 G/DL (14.2-18.0); LYMPHOCYTES % (AUTO) 10.3 % (20.0-45.0); MEAN CORPUSCULAR VOLUME 96 FL (80-99); MONOCYTES % (AUTO) 5.3 % (1.0-10.0); PLATELET COUNT 211 K/UL (150-450); RED BLOOD COUNT 3.64 M/UL (4.70-6.10); RED CELL DISTRIBUTION WIDTH 14.6 % (11.6-14.8); WHITE BLOOD COUNT 7.8 K/UL (4.8-10.8)
[2018-05-13 08:00] VITALS: BP 118/64
--- NOTE | 2018-05-13 08:12 | NUR ---
HAND-OFF: Report given to Tab Chisholm RN. Pt stable. Pt transferred from [facility] to tele. Pt belongings list reviewed and signed. Endorsed to machinist 2nd shift RN that pt spoke and asked for orange juice because he was thirsty.
[2018-05-13 08:49] LABS: ALANINE AMINOTRANSFERASE 34 U/L (12-78); ALBUMIN 2.2 G/DL (3.4-5.0); ALBUMIN/GLOBULIN RATIO 0.4 (1.0-2.7); ALKALINE PHOSPHATASE 310 U/L (46-116); ANION GAP 8 mmol/L (5-15); ASPARTATE AMINO TRANSFERASE 54 U/L (15-37); BILIRUBIN,TOTAL 3.8 MG/DL (0.2-1.0); BLOOD UREA NITROGEN 41 mg/dL (7-18); CALCIUM 8.8 MG/DL (8.5-10.1); CARBON DIOXIDE 28 MMOL/L (21-32); CHLORIDE 106 MMOL/L (98-107); CREATININE 1.2 MG/DL (0.55-1.30); POTASSIUM 3.1 MMOL/L (3.5-5.1); SODIUM 142 MMOL/L (136-145)
[2018-05-13 08:51] LABS: BILIRUBIN,DIRECT 3.2 MG/DL (0.0-0.3)
[2018-05-13 08:58] LABS: AMMONIA 57 umol/L (11-32); AMYLASE 72 U/L (25-115)
[2018-05-13] MEDS: Ferrous Sulfate 300 MG/5 ML UDC GT SCH ×3 (09:25→17:54)
[2018-05-13] MEDS: Heparin 5000 units/ml inj SUBQ SCH ×2 (09:26→20:58)
--- NOTE | 2018-05-13 11:50 | General Progress Note ---
Assessment/Plan Problem List: (1) juandice (2) Cholelithiasis ICD Codes: K80.20 - Calculus of gallbladder without cholecystitis without obstruction SNOMED: 061223757 (3) Altered mental status ICD Codes: R41.82 - Altered mental status, unspecified SNOMED: 929169650 Assessment/Plan fu labs npo ivf abx pending MRCP depending on MRCP finding will plan ERCP or EUS fu tumor markers Subjective ROS Limited/Unobtainable: No Allergies: Coded Allergies: No Known Allergies (Unverified , 09/08/17) Objective Last 24 Hour Vital Signs Date Time Temp Pulse Resp B/P (MAP) Pulse Ox O2 Delivery O2 Flow Rate FiO2 05/13/18 09:00 Nasal Cannula 2.0 05/13/18 08:00 97.9 55 20 118/64 (82) 100 05/13/18 08:00 53 05/13/18 04:00 98.1 54 20 141/79 (99) 99 05/13/18 04:00 55 05/13/18 00:00 98.0 56 20 129/71 (90) 99 05/13/18 00:00 56 05/12/18 21:00 Nasal Cannula 2.0 05/12/18 20:00 98.0 60 20 114/66 (82) 98 05/12/18 20:00 54 05/12/18 16:00 98.9 60 24 117/61 (79) 94 60 05/12/18 16:00 56 05/12/18 16:00 Nasal Cannula 2.0 05/12/18 12:00 58 05/12/18 12:00 Nasal Cannula 2.0 05/12/18 12:00 98.2 64 16 110/52 (71) 96 64 Intake and Output 05/12/18 05/13/18 19:00 07:00 Output Total 75 ml 175 ml Balance -75 ml -175 ml Output Urine Total 75 ml 175 ml # Bowel Movements 3 Laboratory Tests 05/13/18 05:26: White Blood Count 7.8, Red Blood Count 3.64L, Hemoglobin 11.1L, Hematocrit 35.0L , Mean Corpuscular Volume 96, Mean Corpuscular Hemoglobin 30.5, Mean Corpuscular Hemoglobin Concent 31.8L, Red Cell Distribution Width 14.6, Platelet Count 211, Mean Platelet Volume 7.0, Neutrophils (%) (Auto) 80.0H, Lymphocytes (%) (Auto) 10.3L, Monocytes (%) (Auto) 5.3, Eosinophils (%) (Auto) 3.8H, Basophils (%) (Auto) 0.7, Prothrombin Time 10.1, Prothromb Time International Ratio 1.0, Sodium Level 142, Potassium Level 3.1L, Chloride Level 106, Carbon Dioxide Level 28, Anion Gap 8, Blood Urea Nitrogen 41H, Creatinine 1.2, Estimat Glomerular Filtration Rate , Glucose Level 129H, Calcium Level 8.8 , Total Bilirubin 3.8H, Direct Bilirubin 3.2H, Aspartate Amino Transf (AST/SGOT ) 54H, Alanine Aminotransferase (ALT/SGPT) 34, Alkaline Phosphatase 310H, Ammonia 57H, Troponin I 0.065H, Total Protein 7.3, Albumin 2.2L, Globulin 5.1, Albumin/Globulin Ratio 0.4L, Amylase Level 72, Lipase 179, CA 19-9 Antigen [ Pending] Height (Feet): 5 Height (Inches): 8.00 Weight (Pounds): 160 General Appearance: no apparent distress EENT: normal ENT inspection Neck: supple Cardiovascular: normal rate Respiratory/Chest: decreased breath sounds Abdomen: normal bowel sounds, non tender, soft Extremities: non-tender Aldo Colin MD May 13, 2018 11:50
[2018-05-13 12:00] VITALS: BP 128/70
--- NOTE | 2018-05-13 13:05 | General Progress Note ---
Assessment/Plan Assessment/Plan Obstructive Jaundice, m/p Pancreatic Tumor - w/u in progress. Urinary ESBL, infected decubiti ID Consult Hypokalemia check Mg Subjective Allergies: Coded Allergies: No Known Allergies (Unverified , 09/08/17) Subjective Confused Objective Last 24 Hour Vital Signs Date Time Temp Pulse Resp B/P (MAP) Pulse Ox O2 Delivery O2 Flow Rate FiO2 05/13/18 09:00 Nasal Cannula 2.0 05/13/18 08:00 97.9 55 20 118/64 (82) 100 05/13/18 08:00 53 05/13/18 04:00 98.1 54 20 141/79 (99) 99 05/13/18 04:00 55 05/13/18 00:00 98.0 56 20 129/71 (90) 99 05/13/18 00:00 56 05/12/18 21:00 Nasal Cannula 2.0 05/12/18 20:00 98.0 60 20 114/66 (82) 98 05/12/18 20:00 54 05/12/18 16:00 98.9 60 24 117/61 (79) 94 60 05/12/18 16:00 56 05/12/18 16:00 Nasal Cannula 2.0 Intake and Output 05/12/18 05/13/18 18:59 06:59 Output Total 75 ml 175 ml Balance -75 ml -175 ml Output Urine Total 75 ml 175 ml # Bowel Movements 3 Laboratory Tests 05/13/18 05:26: White Blood Count 7.8, Red Blood Count 3.64L, Hemoglobin 11.1L, Hematocrit 35.0L , Mean Corpuscular Volume 96, Mean Corpuscular Hemoglobin 30.5, Mean Corpuscular Hemoglobin Concent 31.8L, Red Cell Distribution Width 14.6, Platelet Count 211, Mean Platelet Volume 7.0, Neutrophils (%) (Auto) 80.0H, Lymphocytes (%) (Auto) 10.3L, Monocytes (%) (Auto) 5.3, Eosinophils (%) (Auto) 3.8H, Basophils (%) (Auto) 0.7, Prothrombin Time 10.1, Prothromb Time International Ratio 1.0, Sodium Level 142, Potassium Level 3.1L, Chloride Level 106, Carbon Dioxide Level 28, Anion Gap 8, Blood Urea Nitrogen 41H, Creatinine 1.2, Estimat Glomerular Filtration Rate , Glucose Level 129H, Calcium Level 8.8 , Total Bilirubin 3.8H, Direct Bilirubin 3.2H, Aspartate Amino Transf (AST/SGOT ) 54H, Alanine Aminotransferase (ALT/SGPT) 34, Alkaline Phosphatase 310H, Ammonia 57H, Troponin I 0.065H, Total Protein 7.3, Albumin 2.2L, Globulin 5.1, Albumin/Globulin Ratio 0.4L, Amylase Level 72, Lipase 179, CA 19-9 Antigen [ Pending] Height (Feet): 5 Height (Inches): 8.00 Weight (Pounds): 160 Objective Icteric CV RR Lungs B Ronchi Skin Sacral decub stage 4. B heel decubs. Abd SNT. BS + E No CCE Joanne Desir MD May 13, 2018 13:05
--- NOTE | 2018-05-13 13:32 | Infectious Diseases Prog Note ---
Assessment/Plan Assessment/Plan Full consult dictated: A) 1) esbl e.coli uti, fevers, complicated uti 2) possible cholecystitis/cholangitis, elevated lft's noted 3) right hip wound, ? infected, ? osteomyelitis 4) allergies - nkda 5) pmh noted P) 1) meropenem and vancomycin 2) f/u on cultures, labs and imaging 3) surgery f/u 4) d/w Dr. Desir 5) thank you Subjective Allergies: Coded Allergies: No Known Allergies (Unverified , 09/08/17) Objective Vital Signs Last 24 Hour Vital Signs Date Time Temp Pulse Resp B/P (MAP) Pulse Ox O2 Delivery O2 Flow Rate FiO2 05/13/18 09:00 Nasal Cannula 2.0 05/13/18 08:00 97.9 55 20 118/64 (82) 100 05/13/18 08:00 53 05/13/18 04:00 98.1 54 20 141/79 (99) 99 05/13/18 04:00 55 05/13/18 00:00 98.0 56 20 129/71 (90) 99 05/13/18 00:00 56 05/12/18 21:00 Nasal Cannula 2.0 05/12/18 20:00 98.0 60 20 114/66 (82) 98 05/12/18 20:00 54 05/12/18 16:00 98.9 60 24 117/61 (79) 94 60 05/12/18 16:00 56 05/12/18 16:00 Nasal Cannula 2.0 Height (Feet): 5 Height (Inches): 8.00 Weight (Pounds): 160 Microbiology Date/Time Source Procedure Growth Status 05/11/18 16:45 Blood Blood Culture - Preliminary NO GROWTH AFTER 24 HOURS Resulted 05/11/18 16:35 Blood Blood Culture - Preliminary NO GROWTH AFTER 24 HOURS Resulted 05/11/18 16:10 Nasal Nares MRSA Culture - Final NO METHICILLIN RESISTANT STAPH AUREUS... Complete 05/11/18 16:35 Urine,Clean Catch Urine Culture - Final Escherichia Coli - Esbl Complete 05/12/18 07:10 Hip Right Gram Stain - Final Resulted 05/12/18 07:10 Wound Culture - Preliminary Strep Species, Beta Hemolytic Resulted Laboratory Tests Test 05/13/18 05:26 White Blood Count 7.8 K/UL (4.8-10.8) Red Blood Count 3.64 M/UL (4.70-6.10) L Hemoglobin 11.1 G/DL (14.2-18.0) L Hematocrit 35.0 % (42.0-52.0) L Mean Corpuscular Volume 96 FL (80-99) Mean Corpuscular Hemoglobin 30.5 PG (27.0-31.0) Mean Corpuscular Hemoglobin Concent 31.8 G/DL (32.0-36.0) L Red Cell Distribution Width 14.6 % (11.6-14.8) Platelet Count 211 K/UL (150-450) Mean Platelet Volume 7.0 FL (6.5-10.1) Neutrophils (%) (Auto) 80.0 % (45.0-75.0) H Lymphocytes (%) (Auto) 10.3 % (20.0-45.0) L Monocytes (%) (Auto) 5.3 % (1.0-10.0) Eosinophils (%) (Auto) 3.8 % (0.0-3.0) H Basophils (%) (Auto) 0.7 % (0.0-2.0) Prothrombin Time 10.1 SEC (9.30-11.50) Prothromb Time International Ratio 1.0 (0.9-1.1) Sodium Level 142 MMOL/L (136-145) Potassium Level 3.1 MMOL/L (3.5-5.1) L Chloride Level 106 MMOL/L (98-107) Carbon Dioxide Level 28 MMOL/L (21-32) Anion Gap 8 mmol/L (5-15) Blood Urea Nitrogen 41 mg/dL (7-18) H Creatinine 1.2 MG/DL (0.55-1.30) Estimat Glomerular Filtration Rate mL/min (>60) Glucose Level 129 MG/DL (74-106) H Calcium Level 8.8 MG/DL (8.5-10.1) Magnesium Level Pending Total Bilirubin 3.8 MG/DL (0.2-1.0) H Direct Bilirubin 3.2 MG/DL (0.0-0.3) H Aspartate Amino Transf (AST/SGOT) 54 U/L (15-37) H Alanine Aminotransferase (ALT/SGPT) 34 U/L (12-78) Alkaline Phosphatase 310 U/L (46-116) H Ammonia 57 umol/L (11-32) H Troponin I 0.065 ng/mL (0.000-0.056) Total Protein 7.3 G/DL (6.4-8.2) Albumin 2.2 G/DL (3.4-5.0) L Globulin 5.1 g/dL Albumin/Globulin Ratio 0.4 (1.0-2.7) L Amylase Level 72 U/L (25-115) Lipase 179 U/L (73-393) CA 19-9 Antigen Pending Current Medications Medications (Trade) Dose Ordered Sig/Adrian Route PRN Reason Start Time Stop Time Status Last Admin Dose Admin Acetaminophen (Tylenol) 650 mg Q4H PRN GT Mild Pain/Temp > 100.5 05/12/18 14:30 06/11/18 14:29 Acetaminophen/ Hydrocodone Bitart ([place] 5/325) 1 tab Q6H PRN GT PAIN 4-10 05/12/18 14:30 05/19/18 14:29 Carbidopa/Levodopa (Sinemet 25/100) 1 tab Q8HR GT 05/12/18 22:00 06/11/18 21:59 05/13/18 05:48 Dextrose/Sodium Chloride 1,000 ml @ 100 mls/hr Q10H IV 05/12/18 18:45 06/11/18 18:44 05/13/18 05:48 Ferrous Sulfate (Feosol) 300 mg THREE TIMES A DAY GT 05/12/18 18:00 06/11/18 17:59 05/13/18 09:25 Finasteride (Proscar) 5 mg DAILY ORAL 05/13/18 09:00 06/12/18 08:59 05/13/18 09:25 Folic Acid (Folate) 1 mg DAILY GT 05/13/18 09:00 06/12/18 08:59 05/13/18 09:25 Heparin Sodium (Porcine) (Heparin 5000 units/ml) 5,000 units EVERY 12 HOURS SUBQ 05/12/18 09:00 06/11/18 08:59 05/13/18 09:26 Levothyroxine Sodium (Synthroid) 100 mcg DAILY@0630 GT 05/13/18 06:30 06/12/18 06:29 05/13/18 05:48 Ondansetron HCl (Zofran) 4 mg Q6H PRN IVP Nausea & Vomiting 05/12/18 14:30 06/11/18 14:29 Piperacillin Sod/ Tazobactam Sod 3.375 gm/Dextrose 110 ml @ 27.5 mls/hr Q8HR IVPB 05/12/18 14:00 05/19/18 05:59 05/13/18 05:48 Potassium Chloride (K-Dur) 40 meq ONCE ORAL 05/13/18 14:00 05/13/18 15:00 Junior Loza MD May 13, 2018 13:32
--- NOTE | 2018-05-13 15:43 | Surgery Progress Note ---
Surgery Progress Note Subjective Additional Comments no acute events. Objective Last 24 Hour Vital Signs Date Time Temp Pulse Resp B/P (MAP) Pulse Ox O2 Delivery O2 Flow Rate FiO2 05/13/18 09:00 Nasal Cannula 2.0 05/13/18 08:00 97.9 55 20 118/64 (82) 100 05/13/18 08:00 53 05/13/18 04:00 98.1 54 20 141/79 (99) 99 05/13/18 04:00 55 05/13/18 00:00 98.0 56 20 129/71 (90) 99 05/13/18 00:00 56 05/12/18 21:00 Nasal Cannula 2.0 05/12/18 20:00 98.0 60 20 114/66 (82) 98 05/12/18 20:00 54 05/12/18 16:00 98.9 60 24 117/61 (79) 94 60 05/12/18 16:00 56 05/12/18 16:00 Nasal Cannula 2.0 I&O Intake and Output 05/12/18 05/13/18 18:59 06:59 Output Total 75 ml 175 ml Balance -75 ml -175 ml Output Urine Total 75 ml 175 ml # Bowel Movements 3 Dressing: other Wound: other Drains: none Cardiovascular: RSR Respiratory: clear Abdomen: soft, tenderness, present bowel sounds Extremities: other Laboratory Tests Test 05/13/18 05:26 White Blood Count 7.8 K/UL (4.8-10.8) Red Blood Count 3.64 M/UL (4.70-6.10) L Hemoglobin 11.1 G/DL (14.2-18.0) L Hematocrit 35.0 % (42.0-52.0) L Mean Corpuscular Volume 96 FL (80-99) Mean Corpuscular Hemoglobin 30.5 PG (27.0-31.0) Mean Corpuscular Hemoglobin Concent 31.8 G/DL (32.0-36.0) L Red Cell Distribution Width 14.6 % (11.6-14.8) Platelet Count 211 K/UL (150-450) Mean Platelet Volume 7.0 FL (6.5-10.1) Neutrophils (%) (Auto) 80.0 % (45.0-75.0) H Lymphocytes (%) (Auto) 10.3 % (20.0-45.0) L Monocytes (%) (Auto) 5.3 % (1.0-10.0) Eosinophils (%) (Auto) 3.8 % (0.0-3.0) H Basophils (%) (Auto) 0.7 % (0.0-2.0) Prothrombin Time 10.1 SEC (9.30-11.50) Prothromb Time International Ratio 1.0 (0.9-1.1) Sodium Level 142 MMOL/L (136-145) Potassium Level 3.1 MMOL/L (3.5-5.1) L Chloride Level 106 MMOL/L (98-107) Carbon Dioxide Level 28 MMOL/L (21-32) Anion Gap 8 mmol/L (5-15) Blood Urea Nitrogen 41 mg/dL (7-18) H Creatinine 1.2 MG/DL (0.55-1.30) Estimat Glomerular Filtration Rate mL/min (>60) Glucose Level 129 MG/DL (74-106) H Calcium Level 8.8 MG/DL (8.5-10.1) Magnesium Level 2.3 MG/DL (1.8-2.4) Total Bilirubin 3.8 MG/DL (0.2-1.0) H Direct Bilirubin 3.2 MG/DL (0.0-0.3) H Aspartate Amino Transf (AST/SGOT) 54 U/L (15-37) H Alanine Aminotransferase (ALT/SGPT) 34 U/L (12-78) Alkaline Phosphatase 310 U/L (46-116) H Ammonia 57 umol/L (11-32) H Troponin I 0.065 ng/mL (0.000-0.056) Total Protein 7.3 G/DL (6.4-8.2) Albumin 2.2 G/DL (3.4-5.0) L Globulin 5.1 g/dL Albumin/Globulin Ratio 0.4 (1.0-2.7) L Amylase Level 72 U/L (25-115) Lipase 179 U/L (73-393) CA 19-9 Antigen Pending Plan Problems: (1) Obstructive jaundice Assessment & Plan: Hx of cholelithiasis now with jaundice lfts elevated -npo -iv fluids -iv abx -US ordered -MRCP ordered -trend labs will follow with recs. thank you (2) Sacral decubitus ulcer Assessment & Plan: R hip (L)3cm x (W)3cm x (D)2cm with tunneling full thickness wound bed pink with trace slough ,(+) maceration at borders.Small amt non-odorous serous exudate. DTPI noted to L lateral Malleolus lateral L foot medial R heel Tx.Plan: Cleanse right hip wound with Saline.Loosely pack with hydrogel impregnated Kerlix.Cavilon wipe to borders and cover with Optifoam Drsg Daily and prn. Apply Cavilon wipes to areas of pressure, L lat malleolus,Lateral L foot and bilat heels .Change every 7 days and prn. Air Fluidized mattress. Reposition L side to Back at least every 2hours or as tolerated. Off-load heels with pillow Pillow between knees. Zafar Echeverria May 13, 2018 15:43
[2018-05-13 16:00] VITALS: BP 132/70
--- NOTE | 2018-05-13 16:29 | Cardiology Report ---
APPROVED REPORT EKG Measurement Heart [id number] [place] [id number] [id number] Normal sinus rhythm Cannot rule out Inferior infarct, age undetermined Abnormal ECG
[2018-05-13] MEDS: Vancomycin 1250mg/D5W 275ml IVPB SCH (16:46)
[2018-05-13] MEDS ORDERED: 1/2 NS 1000ml IV ONE (17:20)
[2018-05-13] MEDS ORDERED: Tubing IV Secondary IV ONE (17:20)
[2018-05-13] MEDS ORDERED: D5 1/2NS 1000ml IV ONE (17:20)
[2018-05-13] MEDS ORDERED: Sterile Water Irrig 1000ml IRRIG ONE (17:21)
--- NOTE | 2018-05-13 18:45 | Consultation ---
DATE OF CONSULTATION: 05/13/2018 INFECTIOUS DISEASE CONSULTATION: CONSULTING PHYSICIAN: Junior Loza M.D. ATTENDING PHYSICIAN: Joanne Desir M.D. REFERRING PHYSICIAN: Joanne Desir M.D. REASON FOR CONSULTATION: ESBL E. coli UTI, possible cholecystitis/cholangitis, fevers, possible right hip infected wound. CHIEF COMPLAINT: The patient's chief complaint coming into the hospital is sepsis. HISTORY OF PRESENT ILLNESS: This is a very pleasant 82-year-old male who comes in to [facility] with being jaundiced and pale. The patient was noted to be febrile, had a temperature 100.3. Of concern, the patient was septic because of the fevers. The patient also was noted to have elevated total bilirubin and LFTs including alkaline phosphatase. The patient had a positive urinalysis and has urinary tract infection, which is turned out to be ESBL E. coli urinary tract infection. Likely complicated UTI and fevers. The patient also has right hip wound, possibly infected, wound culture grown out Streptococcus species. Imaging x-rays were ordered. There was concern that the patient could have some type of cholecystitis or cholangitis and the patient is followed by Surgery and MRCP and ultrasound have been ordered of the abdomen. Case discussed with Dr. De Anda. Infectious Disease consultation requested for antibiotic management. The patient will be placed on meropenem and Vanco. MAR was noted. Orders were noted. Notes and records were reviewed. REVIEW OF SYSTEMS: CONSTITUTIONAL: The patient is alert and responsive, but has generalized weakness. He did come in with fever. Currently has no fever, chills. No night sweats, but he has generalized fatigue, weakness, and fevers. Of note, he does have a right hip wound. HEAD AND NECK: No head pain or neck pain. CARDIAC: No chest pain. GASTROINTESTINAL: No nausea, vomiting, abdominal pain, or diarrhea. GENITOURINARY: The patient has a Roman. PULMONARY: No significant congestion, shortness of breath, hemoptysis, or secretions. SKIN: No rash or itching. EXTREMITIES: No extremity pain. NEUROLOGIC: No seizures. PAST MEDICAL HISTORY: Includes following, the patient has a past medical history of organic brain syndrome, history of Parkinson disease, history of stage IV sacral more right hip wound. He has history of chronic kidney disease, history of hypothyroidism, history of malnutrition, history of COPD, history of BPH. He has a history of hypertension. No history of diabetes. He has history of G-tube, history of dementia, anemia. ALLERGIES: No known drug allergies. No antibiotic allergies. SOCIAL HISTORY: Negative for smoking, alcohol, or drug abuse. FAMILY HISTORY: Noncontributory. Negative for exposure to tuberculosis or cancer. MEDICATIONS: Upon reviewing the MAR, the patient is on following medications. The patient is on potassium, folic acid, finasteride, levothyroxine, carbidopa, IV fluids, ferrous sulfate, acetaminophen, hydrocodone, Zofran. He was on Zosyn. I put him on meropenem and Vanco. He is on heparin. Outside medications noted and reconciliated. PHYSICAL EXAMINATION: VITAL SIGNS: Temperature is 97.9, pulse rate is 55, respiratory rate is 20, blood pressure is 118/64, saturation is 99 to 100%. T-max is 100.3. GENERAL: Responsive. No acute distress. HEAD AND NECK: Oral exam, no thrush. Eye exam, he does have icterus. Normocephalic. Neck is supple. No JVD. He has jaundice. HEART: Regular. No gallop or murmur. ABDOMEN: Soft. Positive bowel sounds. Nontender. LUNGS: Few bilateral rhonchi. No definite rales. SKIN: No rash or dermatitis. Right hip wound reviewed noted. There is some slough. MUSCULOSKELETAL: No effusion. Legs without cellulitis. PERIPHERAL VASCULAR: No cyanosis or gangrene. GENITOURINARY: Has a Roman. Urine is slightly cloudy. LINE SITES: Without phlebitis. NEUROLOGIC: General weakness. Responsive. LABORATORY DATA: As follows, urinalysis, the patient has 3+ leukocyte esterase, many bacteria, and 5 to 10 white blood cells. Creatinine is 1.2. LFTs, total bilirubin was 3.8, AST 54, ALT 34, alkaline phosphatase 310. White count 7.8, hemoglobin 11.1, platelet count is 211. Cultures, right hip wound culture grew out strep species, beta hemolytic. Blood cultures are negative. MRSA screen is negative. Urine culture with ESBL E. coli and was greater than 100,000. Imaging is pending including MRCP, ultrasound abdomen, and also chest x-ray. I have ordered also x-ray of the right hip. All are pending. Lactic acid is also within normal limits. ASSESSMENT AND PLAN: 1. The patient has ESBL E. coli complicated UTI, possible sepsis fevers. The patient has elevated LFTs, possible cholecystitis/cholangitis. The patient also has right hip wound, possibly infected, possible osteo. At this time, we will continue meropenem and vancomycin. This will cover gram-negative and anaerobes and also MRSA. The meropenem is a drug of choice for ESBL organisms. Continue meropenem and vancomycin for ESBL E. coli UTI, fever, sepsis, complicated UTI, also possible cholecystitis/cholangitis, and possible infected right hip with osteo. Check x-ray of the right hip. Check GI imaging including MRCP and ultrasound. Surgery is following. I would check followup labs. Watch the patient clinically. Monitor for fevers. I will check x-ray of the right hip to rule out osteo. Continue wound care protocol. 2. The patient has a history of organic brain syndrome. 3. Parkinson's. 4. Dementia. 5. Chronic kidney disease. 6. Hypothyroidism. 7. Malnutrition. 8. COPD. 9. BPH. 10. Hypertension. 11. Anemia. 12. No known family history. 13. Family history noncontributory. 14. Social history negative for smoking, alcohol, or drug abuse. 15. MAR is noted. 16. Case discussed with RN. 17. Continue treatment per primary consultants. 18. Notes and records were noted. 19. Orders were entered. Junior Loza M.D. DR: TAMMY JOB#: [id number] CC:
--- NOTE | 2018-05-13 19:00 | NUR ---
HAND-OFF: Report given to JIMMY Ayala.
[2018-05-13 20:00] VITALS: BP 136/70
--- NOTE | 2018-05-13 20:30 | NUR ---
received endorsement form Arjun Barth. pt in bed resting nonverbal. no sob or acute distress noted. pt s/s pain or disconfort at this moment. safety precautions on place. will continue to monitor pt.
[2018-05-14] VITALS: BP 139/69
[2018-05-14] MEDS: D5 1/2NS 1,000 ML IV SCH ×3 (00:21→20:57)
--- NOTE | 2018-05-14 00:31 | NUR ---
NURSE NOTES: pt sleeping with no s/s of acute distress. will continue to monitor.
[2018-05-14 04:00] VITALS: BP 126/66
--- NOTE | 2018-05-14 04:21 | NUR ---
NURSE NOTES: pt in bed resting. no s/s of acute distress will continue to monitor.
[2018-05-14] MEDS: Levodopa/Carbidopa 25/100 tab GT SCH ×3 (05:40→21:04)
[2018-05-14 07:19] LABS: BASOPHILS % (AUTO) 0.9 % (0.0-2.0); EOSINOPHILS % (AUTO) 3.4 % (0.0-3.0); HEMATOCRIT 37.2 % (42.0-52.0); HEMOGLOBIN 12.1 G/DL (14.2-18.0); LYMPHOCYTES % (AUTO) 8.2 % (20.0-45.0); MEAN CORPUSCULAR VOLUME 96 FL (80-99); MONOCYTES % (AUTO) 4.3 % (1.0-10.0); NEUTROPHILS % (AUTO) 83.2 % (45.0-75.0); PLATELET COUNT 218 K/UL (150-450); RED BLOOD COUNT 3.88 M/UL (4.70-6.10); RED CELL DISTRIBUTION WIDTH 14.3 % (11.6-14.8); WHITE BLOOD COUNT 8.8 K/UL (4.8-10.8)
--- NOTE | 2018-05-14 07:28 | NUR ---
HAND-OFF: Report given to Hanane MARQUEZ. pt in bed resting. no acute distress during my shift. all needs met during my shift.
[2018-05-14 07:39] LABS: ALANINE AMINOTRANSFERASE 44 U/L (12-78); ALBUMIN 2.1 G/DL (3.4-5.0); ALBUMIN/GLOBULIN RATIO 0.4 (1.0-2.7); ALKALINE PHOSPHATASE 309 U/L (46-116); ANION GAP 8 mmol/L (5-15); ASPARTATE AMINO TRANSFERASE 43 U/L (15-37); BLOOD UREA NITROGEN 23 mg/dL (7-18); CALCIUM 8.4 MG/DL (8.5-10.1); CARBON DIOXIDE 27 MMOL/L (21-32); CHLORIDE 106 MMOL/L (98-107); POTASSIUM 3.3 MMOL/L (3.5-5.1); SODIUM 140 MMOL/L (136-145)
--- NOTE | 2018-05-14 07:39 | NUR ---
NURSE NOTES: Received report from Lucy. pt sitting in bed resting Aox3 delayed speech. IV on FA 20g running with D5 1/2ns 100ml/ hr. Not in acute distress on satellite project site monitor SB. Bed locked and in lowest position, call light within reach will continue plan of care
[2018-05-14 07:41] LABS: BILIRUBIN,DIRECT 2.5 MG/DL (0.0-0.3)
[2018-05-14 08:00] VITALS: BP 128/70
[2018-05-14] MEDS: Heparin 5000 units/ml inj SUBQ SCH ×2 (09:00→20:31)
--- NOTE | 2018-05-14 09:35 | General Progress Note ---
Assessment/Plan Assessment/Plan Obstructive Jaundice, m/p Pancreatic Tumor - w/u in progress. MRCP/ERCP pending. Urinary ESBL, infected decubiti. Polymicrobial complicated sepsis. ID following. Hypokalemia check Mg Subjective Allergies: Coded Allergies: No Known Allergies (Unverified , 09/08/17) Subjective Confused Objective Last 24 Hour Vital Signs Date Time Temp Pulse Resp B/P (MAP) Pulse Ox O2 Delivery O2 Flow Rate FiO2 05/14/18 09:12 Nasal Cannula 2.0 05/14/18 04:00 54 05/14/18 04:00 97.5 55 20 126/66 (86) 98 05/14/18 00:00 52 05/14/18 00:00 97.2 54 20 139/69 (92) 94 05/13/18 21:00 Nasal Cannula 2.0 05/13/18 20:00 53 05/13/18 20:00 97.7 54 20 136/70 (92) 93 05/13/18 16:00 56 05/13/18 16:00 97.3 56 20 132/70 (90) 100 05/13/18 12:00 54 05/13/18 12:00 98.2 54 20 128/70 (89) 99 Intake and Output 05/13/18 05/14/18 19:00 07:00 Intake Total 100 ml 1165 ml Output Total 1 ml 600 ml Balance 99 ml 565 ml Intake IV Total 100 ml 1165 ml Output Urine Total 1 ml 600 ml # Bowel Movements 2 2 Laboratory Tests 05/14/18 04:30: Stool Occult Blood Positive 05/14/18 06:50: White Blood Count 8.8, Red Blood Count 3.88L, Hemoglobin 12.1L, Hematocrit 37.2L , Mean Corpuscular Volume 96, Mean Corpuscular Hemoglobin 31.2H, Mean Corpuscular Hemoglobin Concent 32.6, Red Cell Distribution Width 14.3, Platelet Count 218, Mean Platelet Volume 7.4, Neutrophils (%) (Auto) 83.2H, Lymphocytes ( %) (Auto) 8.2L, Monocytes (%) (Auto) 4.3, Eosinophils (%) (Auto) 3.4H, Basophils (%) (Auto) 0.9, Sodium Level 140, Potassium Level 3.3L, Chloride Level 106, Carbon Dioxide Level 27, Anion Gap 8, Blood Urea Nitrogen 23H, Creatinine 1.0, Estimat Glomerular Filtration Rate , Glucose Level 129H, Calcium Level 8.4L, Total Bilirubin 3.0H, Direct Bilirubin 2.5H, Aspartate Amino Transf (AST/SGOT) 43H, Alanine Aminotransferase (ALT/SGPT) 44, Alkaline Phosphatase 309H, Total Protein 7.1, Albumin 2.1L, Globulin 5.0, Albumin/ Globulin Ratio 0.4L Height (Feet): 5 Height (Inches): 8.00 Weight (Pounds): 160 Objective Icteric CV RR Lungs B Ronchi Skin Sacral decub stage 4. B heel decubs. Abd SNT. BS + E No CCE Joanne Desir MD May 14, 2018 09:35
--- NOTE | 2018-05-14 09:54 | GI Progress Note ---
Assessment/Plan Problems: (1) Anemia ICD Codes: D64.9 - Anemia, unspecified SNOMED: 188458696 (2) Cholelithiasis ICD Codes: K80.20 - Calculus of gallbladder without cholecystitis without obstruction SNOMED: 661052808 (3) Obstructive jaundice ICD Codes: K83.8 - Other specified diseases of biliary tract SNOMED: 15029565 Status: unchanged Status Narrative Discussed with Dr. Colin Assessment/Plan Occult blood stool positive MRCP taken, pending results Will consider ERCP if necessary Swallow evaluation anemia work up monitor H&H, prn transfusions bowel regime ppi fu labs trend LFTs, The patient was seen and examined at bedside and all new and available data was reviewed in the patients chart. I agree with the above findings, impression and plan. (Patient seen earlier today. Signature stamp does not reflect patient encounter time.). - Aldo Colin MD Subjective Gastrointestinal/Abdominal: Reports: no symptoms Subjective Limited Objective Last 24 Hour Vital Signs Date Time Temp Pulse Resp B/P (MAP) Pulse Ox O2 Delivery O2 Flow Rate FiO2 05/14/18 09:12 Nasal Cannula 2.0 05/14/18 04:00 54 05/14/18 04:00 97.5 55 20 126/66 (86) 98 05/14/18 00:00 52 05/14/18 00:00 97.2 54 20 139/69 (92) 94 05/13/18 21:00 Nasal Cannula 2.0 05/13/18 20:00 53 05/13/18 20:00 97.7 54 20 136/70 (92) 93 05/13/18 16:00 56 05/13/18 16:00 97.3 56 20 132/70 (90) 100 05/13/18 12:00 54 05/13/18 12:00 98.2 54 20 128/70 (89) 99 Intake and Output 05/13/18 05/14/18 19:00 07:00 Intake Total 100 ml 1165 ml Output Total 1 ml 600 ml Balance 99 ml 565 ml Intake IV Total 100 ml 1165 ml Output Urine Total 1 ml 600 ml # Bowel Movements 2 2 Laboratory Tests Test 05/14/18 04:30 05/14/18 06:50 Stool Occult Blood Positive (NEGATIVE) White Blood Count 8.8 K/UL (4.8-10.8) Red Blood Count 3.88 M/UL (4.70-6.10) L Hemoglobin 12.1 G/DL (14.2-18.0) L Hematocrit 37.2 % (42.0-52.0) L Mean Corpuscular Volume 96 FL (80-99) Mean Corpuscular Hemoglobin 31.2 PG (27.0-31.0) H Mean Corpuscular Hemoglobin Concent 32.6 G/DL (32.0-36.0) Red Cell Distribution Width 14.3 % (11.6-14.8) Platelet Count 218 K/UL (150-450) Mean Platelet Volume 7.4 FL (6.5-10.1) Neutrophils (%) (Auto) 83.2 % (45.0-75.0) H Lymphocytes (%) (Auto) 8.2 % (20.0-45.0) L Monocytes (%) (Auto) 4.3 % (1.0-10.0) Eosinophils (%) (Auto) 3.4 % (0.0-3.0) H Basophils (%) (Auto) 0.9 % (0.0-2.0) Sodium Level 140 MMOL/L (136-145) Potassium Level 3.3 MMOL/L (3.5-5.1) L Chloride Level 106 MMOL/L (98-107) Carbon Dioxide Level 27 MMOL/L (21-32) Anion Gap 8 mmol/L (5-15) Blood Urea Nitrogen 23 mg/dL (7-18) H Creatinine 1.0 MG/DL (0.55-1.30) Estimat Glomerular Filtration Rate mL/min (>60) Glucose Level 129 MG/DL (74-106) H Calcium Level 8.4 MG/DL (8.5-10.1) L Total Bilirubin 3.0 MG/DL (0.2-1.0) H Direct Bilirubin 2.5 MG/DL (0.0-0.3) H Aspartate Amino Transf (AST/SGOT) 43 U/L (15-37) H Alanine Aminotransferase (ALT/SGPT) 44 U/L (12-78) Alkaline Phosphatase 309 U/L (46-116) H Total Protein 7.1 G/DL (6.4-8.2) Albumin 2.1 G/DL (3.4-5.0) L Globulin 5.0 g/dL Albumin/Globulin Ratio 0.4 (1.0-2.7) L Height (Feet): 5 Height (Inches): 8.00 Weight (Pounds): 160 General Appearance: no apparent distress Cardiovascular: normal rate Respiratory/Chest: normal breath sounds, no respiratory distress Abdominal Exam: normal bowel sounds, non tender, soft Extremities: non-tender Cait Calderon NP May 14, 2018 09:54
[2018-05-14] MEDS: Ferrous Sulfate 300 MG/5 ML UDC GT SCH ×3 (11:13→17:06)
--- NOTE | 2018-05-14 11:28 | Diagnostic Imaging Report ---
Indication: Abdominal pain Technique: MRI of the abdomen was performed in a 1.5 Betty magnet. Pulse sequences obtained include coronal and axial T2 single shot fast spin echo breathhold and respiratory gated coronal T2 3-D M.R.C.P.; this data set was displayed in different projections or MIPs. In addition, multiple coronal oblique thin T2 weighted, fat saturated SE sequences obtained through the CBD. Comparison: None Findings: There is extensive breathing motion limiting evaluation. Gallstones are demonstrated within the distended gallbladder. There is no biliary ductal dilatation identified. No obvious choledocholithiasis identified. There is a 1 cm cystic focus within the body of the pancreas best seen on T2-weighted images. There are multiple cysts within both kidneys of varying size. The largest cyst is the lateral left kidney measuring close to 10 cm. Hiatal hernia is noted. There is a suggestion of a basilar pulmonary parenchymal infiltrates or atelectasis. Gastrostomy tube noted. Umbilical hernia noted. IMPRESSION: Limited study due to breathing motion. No evidence of choledocholithiasis or biliary ductal dilatation. Multiple gallstones. Incidental 1 cm cystic focus in the body of the pancreas, nonspecific and not adequately evaluated on this study. Multiple bilateral renal cysts. Suggestion of basilar infiltrates versus atelectasis. Hiatal hernia. Gastrostomy Small umbilical hernia
--- NOTE | 2018-05-14 11:38 | NUR ---
RD ASSESSMENT & RECOMMENDATIONS SEE CARE ACTIVITY FOR COMPLETE ASSESSMENT DAILY ESTIMATED NEEDS: Needs based on Wounds, bed bound/ 71.6kg 27-32 kcals/kg 6085-1930 total kcals 1.25-2 g protein/kg 90-144 g total protein 25-30 mL/kg 4688-6562 total fluid mLs NUTRITION DIAGNOSIS: 1) Swallowing difficulty r/t dysphagia as evidenced by pt is PEG dep. 2) Increased kcal and protein needs r/t wound healing as evidenced by pt w/ full thickness wound @ sacrum and DTI wounds @ L lateral Malleolus lateral L foot medial R heel. CURRENT TF:NPO ENTERAL NUTRITION RECOMMENDATIONS: Osmolite 1.5 @65ml x22 hrs + PROSOURCE x1 daily to provide 1430ml, 2145 kcal, 90g prot + 11g prot, 1090ml free H2O * Initiate Osmolite 1.5 @ 25ml/hr x 6 hrs * Advance 10ml q 4-6 hrs as tolerated to goal rate. * Add Prosource x1 daily to better meet est prot needs * Flush per MD/ HOB over 30 degrees ADDITIONAL RECOMMENDATIONS: * Recalibrate bed scale wt for accurate CBW * WOUND CARE: Add PORTIA BID and Vit C 500mg BID * Monitor lytes, replete as needed * Oral grat as appropriate per BINDERY SUPERVISOR-> pt on oral grat one meal a day [employer] . .
[2018-05-14 12:00] VITALS: BP 125/66
--- NOTE | 2018-05-14 13:05 | NUR ---
NURSE NOTES: Notified Dr. 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
--- NOTE | 2018-05-14 14:49 | NUR ---
NURSE NOTES:WOUND CARE NOTES:Pt presents with multiple pressure injuries present on admission. Small slit noted to cleft of R ear. Small amt sanguineous exudate noted(L)0.8cm x (W)0.5cm. Erythema noted to cleft of L ear. Full thickness pressure injury R hip.Base of wound granular, with undermining.Small amt non-odorous serous exudate. (L)2.5cm x(W)1cm x (D)0.9cm undermining 2-5 by 4.7cm @3o'clock. Non-blanchable erythema L lateral malleolus without induration or fluctuance.Historical scarring also noted at site. Non-blanchable erythema without fluctuance Lateral L foot. Historical scar noted at site. Sacrum pink and blanchable. Both heels are boggy but easily blanches. Tx.Plan:Cleanse R hip wound with Saline.Loosely pack with Hydrogel impregnated gauze.Cavilon Skin Barrier periwound. Cover with Optifoam drsg Daily and prn. Cleanse R ear with saline. Cover with gauze.Change daily and prn. Apply Cavilon Skin Barrier to L lateral malleolus and lateral L foot.Cover with Optifoam drsg Daily and prn. Apply Cavilon Skin Barrier to R and L heels .Cover with Optifoam drsgs .Change every 7 days and prn. Off-load heels with pillow. Place Pillow between knees. APM/SERG mattress. Reposition at least every 2 hours or as tolerated.
[2018-05-14] MEDS: Vancomycin 1250mg/D5W 275ml IVPB SCH (15:25)
--- NOTE | 2018-05-14 15:53 | Diagnostic Imaging Report ---
Indications: hip pain Findings: Two views of the right hip were obtained. There is a right dynamic hip screw. Bones are severely osteopenic. Extensive heterotopic ossification noted adjacent to the right hip joint. Stool noted distending the rectum. No acute fractures appreciated. Extensive calcification of the femoral artery noted. IMPRESSION: Limited evaluation. No definite acute fracture appreciated.
[2018-05-14 16:00] VITALS: BP 102/57
--- NOTE | 2018-05-14 16:11 | Surgery Progress Note ---
Surgery Progress Note Subjective Additional Comments no acute events. MRCP noted. labs improved Objective Last 24 Hour Vital Signs Date Time Temp Pulse Resp B/P (MAP) Pulse Ox O2 Delivery O2 Flow Rate FiO2 05/14/18 12:00 97.5 71 16 125/66 (85) 97 05/14/18 12:00 65 05/14/18 09:12 Nasal Cannula 2.0 05/14/18 08:00 97.9 57 16 128/70 (89) 97 05/14/18 08:00 58 05/14/18 04:00 54 05/14/18 04:00 97.5 55 20 126/66 (86) 98 05/14/18 00:00 52 05/14/18 00:00 97.2 54 20 139/69 (92) 94 05/13/18 21:00 Nasal Cannula 2.0 05/13/18 20:00 53 05/13/18 20:00 97.7 54 20 136/70 (92) 93 I&O Intake and Output 05/13/18 05/14/18 19:00 07:00 Intake Total 100 ml 1165 ml Output Total 1 ml 600 ml Balance 99 ml 565 ml Intake IV Total 100 ml 1165 ml Output Urine Total 1 ml 600 ml # Bowel Movements 2 2 Dressing: other Wound: other Drains: other Cardiovascular: RSR Respiratory: clear Abdomen: soft, non-tender, present bowel sounds, non-distended Extremities: other Laboratory Tests Test 05/14/18 04:30 05/14/18 06:50 Stool Occult Blood Positive (NEGATIVE) White Blood Count 8.8 K/UL (4.8-10.8) Red Blood Count 3.88 M/UL (4.70-6.10) L Hemoglobin 12.1 G/DL (14.2-18.0) L Hematocrit 37.2 % (42.0-52.0) L Mean Corpuscular Volume 96 FL (80-99) Mean Corpuscular Hemoglobin 31.2 PG (27.0-31.0) H Mean Corpuscular Hemoglobin Concent 32.6 G/DL (32.0-36.0) Red Cell Distribution Width 14.3 % (11.6-14.8) Platelet Count 218 K/UL (150-450) Mean Platelet Volume 7.4 FL (6.5-10.1) Neutrophils (%) (Auto) 83.2 % (45.0-75.0) H Lymphocytes (%) (Auto) 8.2 % (20.0-45.0) L Monocytes (%) (Auto) 4.3 % (1.0-10.0) Eosinophils (%) (Auto) 3.4 % (0.0-3.0) H Basophils (%) (Auto) 0.9 % (0.0-2.0) Sodium Level 140 MMOL/L (136-145) Potassium Level 3.3 MMOL/L (3.5-5.1) L Chloride Level 106 MMOL/L (98-107) Carbon Dioxide Level 27 MMOL/L (21-32) Anion Gap 8 mmol/L (5-15) Blood Urea Nitrogen 23 mg/dL (7-18) H Creatinine 1.0 MG/DL (0.55-1.30) Estimat Glomerular Filtration Rate mL/min (>60) Glucose Level 129 MG/DL (74-106) H Calcium Level 8.4 MG/DL (8.5-10.1) L Total Bilirubin 3.0 MG/DL (0.2-1.0) H Direct Bilirubin 2.5 MG/DL (0.0-0.3) H Aspartate Amino Transf (AST/SGOT) 43 U/L (15-37) H Alanine Aminotransferase (ALT/SGPT) 44 U/L (12-78) Alkaline Phosphatase 309 U/L (46-116) H Total Protein 7.1 G/DL (6.4-8.2) Albumin 2.1 G/DL (3.4-5.0) L Globulin 5.0 g/dL Albumin/Globulin Ratio 0.4 (1.0-2.7) L Plan Problems: (1) Obstructive jaundice Assessment & Plan: Hx of cholelithiasis now with jaundice lfts elevated MRCP without cbd stone but pancreatic cystic lesion noted -npo -iv fluids -iv abx -defer to GI for ERCP vs EUS? outpatient? -trend labs will follow with recs. thank you (2) Sacral decubitus ulcer Assessment & Plan: Pt presents with multiple pressure injuries present on admission. Small slit noted to cleft of R ear. Small amt sanguineous exudate noted(L)0.8cm x (W)0.5cm. Erythema noted to cleft of L ear. Full thickness pressure injury R hip.Base of wound granular, with undermining.Small amt non-odorous serous exudate. (L)2.5cm x(W)1cm x (D)0.9cm undermining 2-5 by 4.7cm @3o'clock. Non-blanchable erythema L lateral malleolus without induration or fluctuance.Historical scarring also noted at site. Non-blanchable erythema without fluctuance Lateral L foot. Historical scar noted at site. Sacrum pink and blanchable. Both heels are boggy but easily blanches. Tx.Plan: Cleanse R hip wound with Saline.Loosely pack with Hydrogel impregnated gauze.Cavilon Skin Barrier periwound. Cover with Optifoam drsg Daily and prn. Cleanse R ear with saline. Cover with gauze.Change daily and prn. Apply Cavilon Skin Barrier to L lateral malleolus and lateral L foot.Cover with Optifoam drsg Daily and prn. Apply Cavilon Skin Barrier to R and L heels .Cover with Optifoam drsgs .Change every 7 days and prn. Off-load heels with pillow. Place Pillow between knees. APM/SERG mattress. Reposition at least every 2 hours or as tolerated. Zafar Echeverria May 14, 2018 16:11
--- NOTE | 2018-05-14 17:10 | NUR ---
NURSE NOTES: feeding pump was just delivered, feeding started @ low dose of 30ml per hour. will continue to monitor.
--- NOTE | 2018-05-14 19:24 | NUR ---
HAND-OFF: Report given to nirav kohler.
--- NOTE | 2018-05-14 19:25 | NUR ---
NURSE NOTES: Received endorsement from JIMMY Koo pt in bed watching. no sob. no s/s of pain noted. bed at the lowest position, bed side rail upx3, call aid within reach. will continue hourly rounding.
[2018-05-14 20:00] VITALS: BP 110/67
[2018-05-15] VITALS: BP 108/62
--- NOTE | 2018-05-15 02:00 | NUR ---
NURSE NOTES: PT IN BED RESTING NO S/S OF ACUTE DISTRESS. BED AT LOWEST POSSITION, CALL AID WITHIN REACH, SIDE RAIL UPX3. WILL CONTINUE TO MONITOR.
[2018-05-15] MEDS: Piperacillin/Tazobactam 3.375 GM in D5W 110 ML IVPB SCH (03:47)
[2018-05-15 04:00] VITALS: BP 132/72
[2018-05-15] MEDS: Levodopa/Carbidopa 25/100 tab GT SCH ×3 (06:08→22:03)
[2018-05-15] MEDS: D5 1/2NS 1,000 ML IV SCH ×2 (06:18→15:41)
--- NOTE | 2018-05-15 07:20 | NUR ---
NURSE NOTES: received patient report from nirav kohler. patient is on bed asleep. not in acute distress. feeding is currently on hold per protocol for the synthroid. IV fluid running at prescribed rate. no arrythmias reported during the night. will continue to monitor.
--- NOTE | 2018-05-15 07:20 | NUR ---
HAND-OFF: Report given to Arjun Verde. pt in bed resting comfortably stable condition.all needs met during my shift.. Addendum: 05/15/18 at 0748 by PETER STOUT RN RN Report given to ARJUN Koo.
[2018-05-15 07:54] LABS: BASOPHILS % (AUTO) 0.8 % (0.0-2.0); EOSINOPHILS % (AUTO) 2.6 % (0.0-3.0); HEMATOCRIT 34.3 % (42.0-52.0); LYMPHOCYTES % (AUTO) 10.7 % (20.0-45.0); MEAN CORPUSCULAR VOLUME 96 FL (80-99); MONOCYTES % (AUTO) 5.8 % (1.0-10.0); NEUTROPHILS % (AUTO) 80.2 % (45.0-75.0); PLATELET COUNT 229 K/UL (150-450); RED BLOOD COUNT 3.58 M/UL (4.70-6.10); WHITE BLOOD COUNT 8.5 K/UL (4.8-10.8)
[2018-05-15 08:00] VITALS: BP 136/71
[2018-05-15 08:28] LABS: ALANINE AMINOTRANSFERASE 21 U/L (12-78); ALBUMIN 1.9 G/DL (3.4-5.0); ALBUMIN/GLOBULIN RATIO 0.4 (1.0-2.7); ALKALINE PHOSPHATASE 296 U/L (46-116); ANION GAP 9 mmol/L (5-15); ASPARTATE AMINO TRANSFERASE 44 U/L (15-37); BILIRUBIN,TOTAL 2.1 MG/DL (0.2-1.0); BLOOD UREA NITROGEN 17 mg/dL (7-18); CALCIUM 8.2 MG/DL (8.5-10.1); CARBON DIOXIDE 25 MMOL/L (21-32); CHLORIDE 106 MMOL/L (98-107); POTASSIUM 3.2 MMOL/L (3.5-5.1); SODIUM 140 MMOL/L (136-145)
[2018-05-15 08:29] LABS: BILIRUBIN,DIRECT 1.6 MG/DL (0.0-0.3)
[2018-05-15] MEDS: Ferrous Sulfate 300 MG/5 ML UDC GT SCH ×3 (08:33→17:16)
[2018-05-15] MEDS: Heparin 5000 units/ml inj SUBQ SCH ×2 (08:33→20:32)
--- NOTE | 2018-05-15 10:57 | GI Progress Note ---
Assessment/Plan Problems: (1) Anemia ICD Codes: D64.9 - Anemia, unspecified SNOMED: 860617735 (2) Cholelithiasis ICD Codes: K80.20 - Calculus of gallbladder without cholecystitis without obstruction SNOMED: 742339868 (3) Obstructive jaundice ICD Codes: K83.8 - Other specified diseases of biliary tract SNOMED: 30550891 Status: unchanged Status Narrative Discussed with Dr. Colin. Assessment/Plan Occult blood stool positive MRCP reviewed -No evidence of choledocholithiasis or biliary ductal dilatation. -Multiple gallstones. -Incidental 1 cm cystic focus in the body of the pancreas, nonspecific and not adequately evaluated on this study. EUS tentatively scheduled for tomorrow pending bioethics for no consent. - NPO @ [place]. Swallow evaluation anemia work up monitor H&H, prn transfusions bowel regime ppi fu labs trend LFTs, The patient was seen and examined at bedside and all new and available data was reviewed in the patients chart. I agree with the above findings, impression and plan. (Patient seen earlier today. Signature stamp does not reflect patient encounter time.). - Aldo Colin MD Subjective Subjective Limited Objective Last 24 Hour Vital Signs Date Time Temp Pulse Resp B/P (MAP) Pulse Ox O2 Delivery O2 Flow Rate FiO2 05/15/18 08:00 55 05/15/18 08:00 Nasal Cannula 2.0 05/15/18 08:00 98.2 55 22 136/71 (92) 97 05/15/18 04:00 98.0 58 18 132/72 (92) 98 05/15/18 04:00 99 05/15/18 00:00 58 05/15/18 00:00 97.6 63 18 108/62 (77) 95 05/14/18 21:00 Nasal Cannula 2.0 05/14/18 20:00 58 05/14/18 20:00 98.1 61 18 110/67 (81) 96 05/14/18 16:00 97.9 58 16 102/57 (72) 98 05/14/18 15:52 58 05/14/18 12:00 97.5 71 16 125/66 (85) 97 05/14/18 12:00 65 Intake and Output 05/14/18 05/15/18 19:00 07:00 Intake Total 1356.666 ml 1781 ml Output Total 600 ml Balance 1356.666 ml 1181 ml Intake Free Water 100 ml IV Total 1266.666 ml 1331 ml Tube Feeding 90 ml 350 ml Output Urine Total 600 ml # Voids 2 # Bowel Movements 1 3 Laboratory Tests Test 05/15/18 07:03 White Blood Count 8.5 K/UL (4.8-10.8) Red Blood Count 3.58 M/UL (4.70-6.10) L Hemoglobin 11.0 G/DL (14.2-18.0) L Hematocrit 34.3 % (42.0-52.0) L Mean Corpuscular Volume 96 FL (80-99) Mean Corpuscular Hemoglobin 30.7 PG (27.0-31.0) Mean Corpuscular Hemoglobin Concent 32.0 G/DL (32.0-36.0) Red Cell Distribution Width 14.0 % (11.6-14.8) Platelet Count 229 K/UL (150-450) Mean Platelet Volume 7.0 FL (6.5-10.1) Neutrophils (%) (Auto) 80.2 % (45.0-75.0) H Lymphocytes (%) (Auto) 10.7 % (20.0-45.0) L Monocytes (%) (Auto) 5.8 % (1.0-10.0) Eosinophils (%) (Auto) 2.6 % (0.0-3.0) Basophils (%) (Auto) 0.8 % (0.0-2.0) Sodium Level 140 MMOL/L (136-145) Potassium Level 3.2 MMOL/L (3.5-5.1) L Chloride Level 106 MMOL/L (98-107) Carbon Dioxide Level 25 MMOL/L (21-32) Anion Gap 9 mmol/L (5-15) Blood Urea Nitrogen 17 mg/dL (7-18) Creatinine 1.0 MG/DL (0.55-1.30) Estimat Glomerular Filtration Rate mL/min (>60) Glucose Level 118 MG/DL (74-106) H Calcium Level 8.2 MG/DL (8.5-10.1) L Total Bilirubin 2.1 MG/DL (0.2-1.0) H Direct Bilirubin 1.6 MG/DL (0.0-0.3) H Aspartate Amino Transf (AST/SGOT) 44 U/L (15-37) H Alanine Aminotransferase (ALT/SGPT) 21 U/L (12-78) Alkaline Phosphatase 296 U/L (46-116) H Total Protein 6.5 G/DL (6.4-8.2) Albumin 1.9 G/DL (3.4-5.0) L Globulin 4.6 g/dL Albumin/Globulin Ratio 0.4 (1.0-2.7) L Height (Feet): 5 Height (Inches): 8.00 Weight (Pounds): 160 General Appearance: no apparent distress Cardiovascular: normal rate Respiratory/Chest: normal breath sounds, no respiratory distress Abdominal Exam: normal bowel sounds, non tender, soft Extremities: non-tender Cait Calderon NP May 15, 2018 10:57
[2018-05-15 12:00] VITALS: BP 145/80
--- NOTE | 2018-05-15 12:06 | General Progress Note ---
Assessment/Plan Assessment/Plan Obstructive Jaundice, m/p Pancreatic Tumor - w/u in progress. MRI ----stones Urinary ESBL, infected decubiti. Polymicrobial complicated sepsis. ID following. Hypokalemia check Mg. Needs stone removal procedure. Subjective Allergies: Coded Allergies: No Known Allergies (Unverified , 09/08/17) Subjective Confused Objective Last 24 Hour Vital Signs Date Time Temp Pulse Resp B/P (MAP) Pulse Ox O2 Delivery O2 Flow Rate FiO2 05/15/18 08:00 55 05/15/18 08:00 Nasal Cannula 2.0 05/15/18 08:00 98.2 55 22 136/71 (92) 97 05/15/18 04:00 98.0 58 18 132/72 (92) 98 05/15/18 04:00 99 05/15/18 00:00 58 05/15/18 00:00 97.6 63 18 108/62 (77) 95 05/14/18 21:00 Nasal Cannula 2.0 05/14/18 20:00 58 05/14/18 20:00 98.1 61 18 110/67 (81) 96 05/14/18 16:00 97.9 58 16 102/57 (72) 98 05/14/18 15:52 58 Intake and Output 05/14/18 05/15/18 19:00 07:00 Intake Total 1356.666 ml 1781 ml Output Total 600 ml Balance 1356.666 ml 1181 ml Intake Free Water 100 ml IV Total 1266.666 ml 1331 ml Tube Feeding 90 ml 350 ml Output Urine Total 600 ml # Voids 2 # Bowel Movements 1 3 Laboratory Tests 05/15/18 07:03: White Blood Count 8.5, Red Blood Count 3.58L, Hemoglobin 11.0L, Hematocrit 34.3L , Mean Corpuscular Volume 96, Mean Corpuscular Hemoglobin 30.7, Mean Corpuscular Hemoglobin Concent 32.0, Red Cell Distribution Width 14.0, Platelet Count 229, Mean Platelet Volume 7.0, Neutrophils (%) (Auto) 80.2H, Lymphocytes ( %) (Auto) 10.7L, Monocytes (%) (Auto) 5.8, Eosinophils (%) (Auto) 2.6, Basophils (%) (Auto) 0.8, Sodium Level 140, Potassium Level 3.2L, Chloride Level 106, Carbon Dioxide Level 25, Anion Gap 9, Blood Urea Nitrogen 17, Creatinine 1.0, Estimat Glomerular Filtration Rate , Glucose Level 118H, Calcium Level 8.2L, Total Bilirubin 2.1H, Direct Bilirubin 1.6H, Aspartate Amino Transf (AST/SGOT) 44H, Alanine Aminotransferase (ALT/SGPT) 21, Alkaline Phosphatase 296H, Total Protein 6.5, Albumin 1.9L, Globulin 4.6, Albumin/ Globulin Ratio 0.4L Height (Feet): 5 Height (Inches): 8.00 Weight (Pounds): 160 Objective Icteric CV RR Lungs B Ronchi Skin Sacral decub stage 4. B heel decubs. Abd SNT. BS + E No CCE Joanne Desir MD May 15, 2018 12:06
--- NOTE | 2018-05-15 14:11 | NUR ---
ST NOTE: BEDSIDE SWALLOW EVAL RECEIVED BEDSIDE SWALLOW EVAL ORDER CHART REVIEWED PRIOR THE EVALUATION (PT SEEN IN EARLY IN AM) PT IS A 82-YEAR-OLD MALE WHO WAS ADMITTED DUE TO SEPSIS. DYSPHAGIA RISK FACTORS: HEART FAILURE, PARKINSON'S DZ, GERD, COPD, ORGANIC BRAIN SYNDROME. PER ABDOMEN MRI: BASILAR INFILTRATES VS ATELECTASIS PLOF: PER CHART, PT IS WITH G-TUBE FEEDING AND ALSO PT IS ON PUREE W/NECTAR THICK LIQUIDS. PER PT'S POLST: PT IS FULL CODE AND FULL TREATMENT; AND OKAY FOR ARTIFICIAL FEEDING, INCLUDING FEEDING TUBES IF INDICATED. CURRENT STATUS: PT SEEN AT BEDSIDE IN AM. ALERT, COOPERATIVE, ABLE TO FOLLOW SOME SIMPLE DIRECTIONS. PT WITH NC(2L). SOFT VOICE WAS NOTED. CURRENTLY, PT IS RECEIVING TUBE FEEDING. GIVEN PO TRIALS: ICE-CHIPS X 1 AND NECTAR THICK(1/2 TSP) X 1 INITIAL IMPRESSION: PROBABLE MODERATE OR WORSENED OROPHARYNGEAL DYSPHAGIA MILDLY TO MODERATELY INCREASED ORAL TRANSIT TIME AND OROPHARYNGEAL TRANSIT TIME, FAIR LARYNGEAL ELEVATION, NO OVERT S/S OF ASPIRATION. DUE TO PT HAS H/O PARKINSON'S DZ, COPD AND ORGANIC BRAIN SYNDROME, PT HAS HIGH RISK FOR ASPIRATION. RECOMMENDATIONS: 1. HOLD PO FOR NOW, NPO 2. CONTINUE LONG-TERM NONORAL FEEDING MEANS TO MEET NUTRITION AND HYDRATION NEEDS. 3. VIDEOSWALLOW STUDY IP OR OP(DO NOT HOLD UP THE DISCHARGE. D/W LIBORIO MARQUEZ. POSTED NPO SIGN.
[2018-05-15] MEDS: Vancomycin 1250mg/D5W 275ml IVPB SCH (15:38)
--- NOTE | 2018-05-15 15:43 | Infectious Diseases Prog Note ---
Assessment/Plan Assessment/Plan ASSESSMENT AND PLAN: 1. esbl e.coli uti, mrsa right hip wound infection, cholelithiasis/GS, mri noted , right hip x-ray without osteomyelitis - meropenem and vancomycin - day # 3 - surgery and GI mgt and f/u, f/u on GI imaging - wound care per surgery and protocol - monitor labs 2. history of organic brain syndrome. 3. Parkinson's. 4. Dementia. 5. Chronic kidney disease. 6. Hypothyroidism. 7. Malnutrition. 8. COPD. 9. BPH. 10. Hypertension. 11. Anemia. 12. No known family history. 13. Family history noncontributory. 14. Social history negative for smoking, alcohol, or drug abuse. 15. MAR is noted. 16. Case discussed with RN. 17. Continue treatment per primary consultants. 18. Notes and records were noted. 19. Orders were entered. 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 Subjective Constitutional: Reports: fatigue; Denies: fever HEENT: Denies: congestion Respiratory: Denies: shortness of breath Cardiovascular: Denies: chest pain Gastrointestinal/Abdominal: Denies: nausea, vomiting, diarrhea Genitourinary: Reports: other - + garcia - urine slt cloudy Neurologic: Reports: other - + generalized weakness ; Denies: headache Psychiatric: Denies: depression Skin: Denies: rash Hematologic: Denies: bleeding Musculoskeletal: Denies: pain Allergies: Coded Allergies: No Known Allergies (Unverified , 09/08/17) Objective Vital Signs Last 24 Hour Vital Signs Date Time Temp Pulse Resp B/P (MAP) Pulse Ox O2 Delivery O2 Flow Rate FiO2 05/15/18 08:00 55 05/15/18 08:00 Nasal Cannula 2.0 05/15/18 08:00 98.2 55 22 136/71 (92) 97 05/15/18 04:00 98.0 58 18 132/72 (92) 98 05/15/18 04:00 99 05/15/18 00:00 58 05/15/18 00:00 97.6 63 18 108/62 (77) 95 05/14/18 21:00 Nasal Cannula 2.0 05/14/18 20:00 58 05/14/18 20:00 98.1 61 18 110/67 (81) 96 05/14/18 16:00 97.9 58 16 102/57 (72) 98 05/14/18 15:52 58 Height (Feet): 5 Height (Inches): 8.00 Weight (Pounds): 160 General Appearance: no acute distress HEENT: normocephalic, atraumatic, anicteric, mucous membranes moist, EOMI, supple, no JVD Respiratory/Chest: crackles/rales, rhonchi - bilaterally Cardiovascular: normal rate, regular rhythm, no gallop/murmur, no JVD Abdomen: normal bowel sounds, soft, non tender, no organomegaly, non distended Genitourinary: other - + garcia - urine slt cloudy Extremities: no cyanosis Skin: no rash, ulcers - wounds - covered Neurologic/Psychiatric: life support technician II-XII grossly normal, alert, responsive Lymphatic: no neck adenopathy Musculoskeletal: no effusion Objective x-ray - no osteomyelitis mentioned, report noted MRI abdomen - report noted Laboratory Tests Test 05/15/18 07:03 White Blood Count 8.5 K/UL (4.8-10.8) Red Blood Count 3.58 M/UL (4.70-6.10) L Hemoglobin 11.0 G/DL (14.2-18.0) L Hematocrit 34.3 % (42.0-52.0) L Mean Corpuscular Volume 96 FL (80-99) Mean Corpuscular Hemoglobin 30.7 PG (27.0-31.0) Mean Corpuscular Hemoglobin Concent 32.0 G/DL (32.0-36.0) Red Cell Distribution Width 14.0 % (11.6-14.8) Platelet Count 229 K/UL (150-450) Mean Platelet Volume 7.0 FL (6.5-10.1) Neutrophils (%) (Auto) 80.2 % (45.0-75.0) H Lymphocytes (%) (Auto) 10.7 % (20.0-45.0) L Monocytes (%) (Auto) 5.8 % (1.0-10.0) Eosinophils (%) (Auto) 2.6 % (0.0-3.0) Basophils (%) (Auto) 0.8 % (0.0-2.0) Sodium Level 140 MMOL/L (136-145) Potassium Level 3.2 MMOL/L (3.5-5.1) L Chloride Level 106 MMOL/L (98-107) Carbon Dioxide Level 25 MMOL/L (21-32) Anion Gap 9 mmol/L (5-15) Blood Urea Nitrogen 17 mg/dL (7-18) Creatinine 1.0 MG/DL (0.55-1.30) Estimat Glomerular Filtration Rate mL/min (>60) Glucose Level 118 MG/DL (74-106) H Calcium Level 8.2 MG/DL (8.5-10.1) L Total Bilirubin 2.1 MG/DL (0.2-1.0) H Direct Bilirubin 1.6 MG/DL (0.0-0.3) H Aspartate Amino Transf (AST/SGOT) 44 U/L (15-37) H Alanine Aminotransferase (ALT/SGPT) 21 U/L (12-78) Alkaline Phosphatase 296 U/L (46-116) H Total Protein 6.5 G/DL (6.4-8.2) Albumin 1.9 G/DL (3.4-5.0) L Globulin 4.6 g/dL Albumin/Globulin Ratio 0.4 (1.0-2.7) L Current Medications Medications (Trade) Dose Ordered Sig/Adrian Route PRN Reason Start Time Stop Time Status Last Admin Dose Admin Acetaminophen (Tylenol) 650 mg Q4H PRN GT Mild Pain/Temp > 100.5 05/12/18 14:30 06/11/18 14:29 Acetaminophen/ Hydrocodone Bitart (Crawford 5/325) 1 tab Q6H PRN GT PAIN 4-10 05/12/18 14:30 05/19/18 14:29 Carbidopa/Levodopa (Sinemet 25/100) 1 tab Q8HR GT 05/12/18 22:00 06/11/18 21:59 05/15/18 14:55 Dextrose/Sodium Chloride 1,000 ml @ 100 mls/hr Q10H IV 05/12/18 18:45 06/11/18 18:44 05/15/18 06:18 Ferrous Sulfate (Feosol) 300 mg THREE TIMES A DAY GT 05/12/18 18:00 06/11/18 17:59 05/15/18 14:55 Finasteride (Proscar) 5 mg DAILY ORAL 05/13/18 09:00 06/12/18 08:59 05/15/18 08:33 Folic Acid (Folate) 1 mg DAILY GT 05/13/18 09:00 06/12/18 08:59 05/15/18 08:33 Heparin Sodium (Porcine) (Heparin 5000 units/ml) 5,000 units EVERY 12 HOURS SUBQ 05/12/18 09:00 06/11/18 08:59 05/13/18 20:58 Levothyroxine Sodium (Synthroid) 100 mcg DAILY@0630 GT 05/13/18 06:30 06/12/18 06:29 05/15/18 06:07 Meropenem 1 gm/ Sodium Chloride 100 ml @ 200 mls/hr Q8HR IVPB 05/14/18 14:00 05/19/18 13:59 05/15/18 14:55 Ondansetron HCl (Zofran) 4 mg Q6H PRN IVP Nausea & Vomiting 05/12/18 14:30 06/11/18 14:29 Vancomycin HCl (Vanco rx to dose) 1 ea DAILY PRN MISC Per rx protocol 05/13/18 13:30 06/12/18 13:29 Vancomycin HCl/ Dextrose 275 ml @ 183.333 mls/hr Q24H IVPB 05/13/18 15:00 05/18/18 14:59 05/14/18 15:25 Junior Loza MD May 15, 2018 15:43
[2018-05-15 16:00] VITALS: BP 117/59
--- NOTE | 2018-05-15 16:44 | NUR ---
Social Service Note SENA spoke with Dr. Cruz bioethics inspector process regarding consult. Bioethics not required at this time. Patient has a POLST indicating full treatment signed by patient in 2017. to document procedure, risk, benefits and possible outcomes and sign consent. SENA informed Dr. Colin and Rosales NDIAYE.
--- NOTE | 2018-05-15 18:18 | Surgery Progress Note ---
Surgery Progress Note Subjective Additional Comments possible EUS tomorrow. pending bioethics. labs improving Objective Last 24 Hour Vital Signs Date Time Temp Pulse Resp B/P (MAP) Pulse Ox O2 Delivery O2 Flow Rate FiO2 05/15/18 12:00 98.2 56 21 145/80 (101) 96 05/15/18 08:00 55 05/15/18 08:00 Nasal Cannula 2.0 05/15/18 08:00 98.2 55 22 136/71 (92) 97 05/15/18 04:00 98.0 58 18 132/72 (92) 98 05/15/18 04:00 99 05/15/18 00:00 58 05/15/18 00:00 97.6 63 18 108/62 (77) 95 05/14/18 21:00 Nasal Cannula 2.0 05/14/18 20:00 58 05/14/18 20:00 98.1 61 18 110/67 (81) 96 I&O Intake and Output 05/14/18 05/15/18 19:00 07:00 Intake Total 1356.666 ml 1781 ml Output Total 600 ml Balance 1356.666 ml 1181 ml Intake Free Water 100 ml IV Total 1266.666 ml 1331 ml Tube Feeding 90 ml 350 ml Output Urine Total 600 ml # Voids 2 # Bowel Movements 1 3 Dressing: other Wound: other Drains: other Cardiovascular: RSR Respiratory: clear Abdomen: soft, present bowel sounds, non-distended Extremities: other Laboratory Tests Test 05/15/18 07:03 White Blood Count 8.5 K/UL (4.8-10.8) Red Blood Count 3.58 M/UL (4.70-6.10) L Hemoglobin 11.0 G/DL (14.2-18.0) L Hematocrit 34.3 % (42.0-52.0) L Mean Corpuscular Volume 96 FL (80-99) Mean Corpuscular Hemoglobin 30.7 PG (27.0-31.0) Mean Corpuscular Hemoglobin Concent 32.0 G/DL (32.0-36.0) Red Cell Distribution Width 14.0 % (11.6-14.8) Platelet Count 229 K/UL (150-450) Mean Platelet Volume 7.0 FL (6.5-10.1) Neutrophils (%) (Auto) 80.2 % (45.0-75.0) H Lymphocytes (%) (Auto) 10.7 % (20.0-45.0) L Monocytes (%) (Auto) 5.8 % (1.0-10.0) Eosinophils (%) (Auto) 2.6 % (0.0-3.0) Basophils (%) (Auto) 0.8 % (0.0-2.0) Sodium Level 140 MMOL/L (136-145) Potassium Level 3.2 MMOL/L (3.5-5.1) L Chloride Level 106 MMOL/L (98-107) Carbon Dioxide Level 25 MMOL/L (21-32) Anion Gap 9 mmol/L (5-15) Blood Urea Nitrogen 17 mg/dL (7-18) Creatinine 1.0 MG/DL (0.55-1.30) Estimat Glomerular Filtration Rate mL/min (>60) Glucose Level 118 MG/DL (74-106) H Calcium Level 8.2 MG/DL (8.5-10.1) L Total Bilirubin 2.1 MG/DL (0.2-1.0) H Direct Bilirubin 1.6 MG/DL (0.0-0.3) H Aspartate Amino Transf (AST/SGOT) 44 U/L (15-37) H Alanine Aminotransferase (ALT/SGPT) 21 U/L (12-78) Alkaline Phosphatase 296 U/L (46-116) H Total Protein 6.5 G/DL (6.4-8.2) Albumin 1.9 G/DL (3.4-5.0) L Globulin 4.6 g/dL Albumin/Globulin Ratio 0.4 (1.0-2.7) L Plan Problems: (1) Obstructive jaundice Assessment & Plan: Hx of cholelithiasis now with jaundice lfts elevated MRCP without cbd stone but pancreatic cystic lesion noted -npo -iv fluids -iv abx -defer to GI for ERCP vs EUS; EUS pending bioethics review -trend labs will follow with recs. thank you (2) Sacral decubitus ulcer Assessment & Plan: Pt presents with multiple pressure injuries present on admission. Small slit noted to cleft of R ear. Small amt sanguineous exudate noted(L)0.8cm x (W)0.5cm. Erythema noted to cleft of L ear. Full thickness pressure injury R hip.Base of wound granular, with undermining.Small amt non-odorous serous exudate. (L)2.5cm x(W)1cm x (D)0.9cm undermining 2-5 by 4.7cm @3o'clock. Non-blanchable erythema L lateral malleolus without induration or fluctuance.Historical scarring also noted at site. Non-blanchable erythema without fluctuance Lateral L foot. Historical scar noted at site. Sacrum pink and blanchable. Both heels are boggy but easily blanches. Tx.Plan: Cleanse R hip wound with Saline.Loosely pack with Hydrogel impregnated gauze.Cavilon Skin Barrier periwound. Cover with Optifoam drsg Daily and prn. Cleanse R ear with saline. Cover with gauze.Change daily and prn. Apply Cavilon Skin Barrier to L lateral malleolus and lateral L foot.Cover with Optifoam drsg Daily and prn. Apply Cavilon Skin Barrier to R and L heels .Cover with Optifoam drsgs .Change every 7 days and prn. Off-load heels with pillow. Place Pillow between knees. APM/SERG mattress. Reposition at least every 2 hours or as tolerated. Zafar Echeverria May 15, 2018 18:18
--- NOTE | 2018-05-15 19:48 | NUR ---
HAND-OFF: Report given to yordan kohler.
[2018-05-15 20:00] VITALS: BP 100/62
--- NOTE | 2018-05-15 20:20 | NUR ---
NURSE NOTES: Report received from JIMMY Koo. Pt is lying comfortably in semi fowlers with no signs of distress. Pt is awake and alert, showing no signs of pain/ SOB. IV site is patent, intact, and running fluids at prescribed rate. Respirations are even and unlabored on 4 L NC. G-tube is in place, patent, and running feeding at prescribed rate. Bed is at lowest position, brakes engaged, siderails x2, bed alarm on, and call light within reach. Pt is in stable condition at this time; will continue to monitor.
--- NOTE | 2018-05-15 22:22 | NUR ---
NURSE NOTES: G-tube residual 110 ml. Feeding stopped. Will re-check residual and start feeding again when appropriate.
[2018-05-16] VITALS: BP 111/59
--- NOTE | 2018-05-16 00:35 | NUR ---
NURSE NOTES: Will keep feeding on hold because pt might be going for EGD tomorrow pending bioethics committee.
[2018-05-16] MEDS: D5 1/2NS 1,000 ML IV SCH ×4 (01:48→23:30)
[2018-05-16 04:00] VITALS: BP 139/60
[2018-05-16] MEDS: Levodopa/Carbidopa 25/100 tab GT SCH ×3 (05:52→23:28)
--- NOTE | 2018-05-16 07:01 | NUR ---
HAND-OFF: Report given to JIMMY Esteban. Pt is in stable condition; plan of care endorsed.
[2018-05-16 08:00] VITALS: BP 146/76
[2018-05-16] MEDS: Heparin 5000 units/ml inj SUBQ SCH ×2 (09:00→21:00)
[2018-05-16 09:17] LABS: BASOPHILS % (AUTO) 0.5 % (0.0-2.0); HEMATOCRIT 32.7 % (42.0-52.0); HEMOGLOBIN 10.7 G/DL (14.2-18.0); LYMPHOCYTES % (AUTO) 11.6 % (20.0-45.0); MEAN CORPUSCULAR VOLUME 94 FL (80-99); MONOCYTES % (AUTO) 4.1 % (1.0-10.0); NEUTROPHILS % (AUTO) 79.8 % (45.0-75.0); PLATELET COUNT 236 K/UL (150-450); RED BLOOD COUNT 3.46 M/UL (4.70-6.10); WHITE BLOOD COUNT 7.9 K/UL (4.8-10.8)
[2018-05-16 09:31] LABS: ANION GAP 8 mmol/L (5-15); BLOOD UREA NITROGEN 11 mg/dL (7-18); CALCIUM 7.9 MG/DL (8.5-10.1); CARBON DIOXIDE 25 MMOL/L (21-32); CHLORIDE 105 MMOL/L (98-107); CREATININE 0.9 MG/DL (0.55-1.30); POTASSIUM 2.9 MMOL/L (3.5-5.1); SODIUM 138 MMOL/L (136-145)
--- NOTE | 2018-05-16 10:22 | NUR ---
CASE MANAGEMENT:REVIEW 05/16/18 SI: SEPSIS. OBSTRUCTIVE JAUNDICE. CYSTIC LESION SACRAL DECUB ULCER 97.0 54 16 139/60 95% ON 2L/NC K-2.9 CA-7.9 IS: IV MEROPENEM Q8HRS IV VANCOMYCIN Q24 IVF@100/HR : TELEMETRY STATUS DCP: FROM [facility]
--- NOTE | 2018-05-16 10:23 | Anethesia Preoperative Eval ---
Anesthesia Pre-op PMH/ROS General Date of Evaluation: May 16, 2018 Anesthesiologist: Chau ASA Score: ASA 3 Mallampati Score Class I : Soft palate, uvula, fauces, pillars visible Class II: Soft palate, uvula, fauces visible Class III: Soft palate, base of uvula visible Class IV: Only hard plate visible Mallampati Classification: Class III Surgeon: Cristi Surgical Procedure: EUS Anesthesia History: none Family History: no anesthesia problems Allergies: Coded Allergies: No Known Allergies (Unverified , 09/08/17) Medications: see eMAR Patient NPO?: Yes NPO Date: May 15, 2018 NPO Time: 22:00 Past Medical History Cardiovascular: Reports: HTN, arrhythmia - afib, other - CHF; Denies: CAD, RI, valve dz Pulmonary: Denies: asthma, COPD, BERTHA, other Gastrointestinal/Genitourinary: Reports: other - BPH; Denies: GERD, CRI, ESRD Neurologic/Psychiatric: Reports: dementia, other - parkinsons,seizures; Denies: CVA, depression/anxiety, TIA Endocrine: Reports: hypothyroidism; Denies: DM, steroids, other HEENT: Denies: cataract (L), cataract (R), glaucoma, TABLE MOUNTAIN (L), TABLE MOUNTAIN (R), other Hematology/Immune: Reports: anemia; Denies: DVT, bleeding disorder, other Musculoskeletal/Integumentary: Denies: OA, RA, DJD, DDD, edema, other Anesthesia Pre-op Phys. Exam Physician Exam Last Vital Signs Date Time Temp Pulse Resp B/P (MAP) Pulse Ox O2 Delivery O2 Flow Rate FiO2 05/16/18 04:00 56 05/16/18 04:00 97.0 16 139/60 (86) 95 05/15/18 23:56 Nasal Cannula 2.0 28 Constitutional: NAD Cardiovascular: RRR Respiratory: CTA Airway Exam Mallampati Score: Class III MO: limited ROM: limited Anesthesia Pre-op A/P Labs Hematology Test 05/16/18 07:37 White Blood Count 7.9 K/UL (4.8-10.8) Red Blood Count 3.46 M/UL (4.70-6.10) L Hemoglobin 10.7 G/DL (14.2-18.0) L Hematocrit 32.7 % (42.0-52.0) L Mean Corpuscular Volume 94 FL (80-99) Mean Corpuscular Hemoglobin 31.0 PG (27.0-31.0) Mean Corpuscular Hemoglobin Concent 32.8 G/DL (32.0-36.0) Red Cell Distribution Width 14.0 % (11.6-14.8) Platelet Count 236 K/UL (150-450) Mean Platelet Volume 6.7 FL (6.5-10.1) Neutrophils (%) (Auto) 79.8 % (45.0-75.0) H Lymphocytes (%) (Auto) 11.6 % (20.0-45.0) L Monocytes (%) (Auto) 4.1 % (1.0-10.0) Eosinophils (%) (Auto) 4.0 % (0.0-3.0) H Basophils (%) (Auto) 0.5 % (0.0-2.0) Coagulation Test 05/16/18 07:37 Prothrombin Time 10.7 SEC (9.30-11.50) Prothromb Time International Ratio 1.0 (0.9-1.1) Activated Partial Thromboplast Time 31 SEC (23-33) Chemistry Test 05/16/18 07:37 Sodium Level 138 MMOL/L (136-145) Potassium Level 2.9 MMOL/L (3.5-5.1) L Chloride Level 105 MMOL/L (98-107) Carbon Dioxide Level 25 MMOL/L (21-32) Anion Gap 8 mmol/L (5-15) Blood Urea Nitrogen 11 mg/dL (7-18) Creatinine 0.9 MG/DL (0.55-1.30) Estimat Glomerular Filtration Rate mL/min (>60) Glucose Level 112 MG/DL (74-106) H Calcium Level 7.9 MG/DL (8.5-10.1) L Studies Pre-op Studies: EKG - sr Risk Assessment & Plan Assessment: ASA III Plan: MAC Status Change Before Surgery: No Pre-Antibiotics Drug: N/A Noelle Guerrero MD May 16, 2018 10:23
[2018-05-16] MEDS: LR 1000ml 1,000 ML IVLG SCH ×2 (10:24→14:10)
--- NOTE | 2018-05-16 10:27 | NUR ---
DISCHARGE PLANNING PATIENT IS FROM [facility] MESSAGE LEFT FOR DR MUSE REGARDING DISCHARGE PLANNING
[2018-05-16] MEDS ORDERED: DiphenhydrAMINE 50mg/ml Inj IVP PRN (10:30)
[2018-05-16] MEDS: Ferrous Sulfate 300 MG/5 ML UDC GT SCH ×3 (10:40→17:26)
[2018-05-16 12:00] VITALS: BP 160/88
--- NOTE | 2018-05-16 13:38 | General Progress Note ---
Assessment/Plan Problem List: (1) juandice (2) Cholelithiasis ICD Codes: K80.20 - Calculus of gallbladder without cholecystitis without obstruction SNOMED: 871954830 (3) Altered mental status ICD Codes: R41.82 - Altered mental status, unspecified SNOMED: 845493738 Assessment/Plan fu labs abx MRCP>> NO cbd stone fu tumor markers replace K given improving LFTS and no dilated CBD on ERCP will hold ERCP needs out patient fu EUS for panc cyst Subjective ROS Limited/Unobtainable: No Allergies: Coded Allergies: No Known Allergies (Unverified , 09/08/17) Objective Last 24 Hour Vital Signs Date Time Temp Pulse Resp B/P (MAP) Pulse Ox O2 Delivery O2 Flow Rate FiO2 05/16/18 12:00 97.9 56 20 160/88 (112) 94 05/16/18 09:00 Nasal Cannula 2.0 05/16/18 08:00 97.3 53 20 146/76 (99) 94 05/16/18 04:00 56 05/16/18 04:00 97.0 54 16 139/60 (86) 95 05/16/18 00:00 97.9 56 20 111/59 (76) 96 05/15/18 23:56 Nasal Cannula 2.0 28 05/15/18 23:55 96 Nasal Cannula 2.0 28 05/15/18 23:30 56 05/15/18 21:00 Nasal Cannula 4.0 05/15/18 20:00 97.7 60 20 100/62 (75) 97 05/15/18 20:00 58 05/15/18 16:00 98.1 65 21 117/59 (78) 96 05/15/18 16:00 64 Intake and Output 05/15/18 05/16/18 19:00 07:00 Intake Total 2436.666 ml 100 ml Balance 2436.666 ml 100 ml Intake Free Water 100 ml IV Total 1666.666 ml 100 ml Tube Feeding 670 ml # Voids 3 # Bowel Movements 1 Laboratory Tests 05/16/18 07:37: White Blood Count 7.9, Red Blood Count 3.46L, Hemoglobin 10.7L, Hematocrit 32.7L , Mean Corpuscular Volume 94, Mean Corpuscular Hemoglobin 31.0, Mean Corpuscular Hemoglobin Concent 32.8, Red Cell Distribution Width 14.0, Platelet Count 236, Mean Platelet Volume 6.7, Neutrophils (%) (Auto) 79.8H, Lymphocytes ( %) (Auto) 11.6L, Monocytes (%) (Auto) 4.1, Eosinophils (%) (Auto) 4.0H, Basophils (%) (Auto) 0.5, Prothrombin Time 10.7, Prothromb Time International Ratio 1.0, Activated Partial Thromboplast Time 31, Sodium Level 138, Potassium Level 2.9L, Chloride Level 105, Carbon Dioxide Level 25, Anion Gap 8, Blood Urea Nitrogen 11, Creatinine 0.9, Estimat Glomerular Filtration Rate , Glucose Level 112H, Calcium Level 7.9L Height (Feet): 5 Height (Inches): 8.00 Weight (Pounds): 192 General Appearance: no apparent distress EENT: normal ENT inspection Neck: supple Cardiovascular: normal rate Respiratory/Chest: decreased breath sounds Abdomen: normal bowel sounds, non tender, soft Extremities: non-tender Aldo Colin MD May 16, 2018 13:38
--- NOTE | 2018-05-16 13:40 | NUR ---
NURSE NOTES: Procedure for today has been cancelled. Per Dr. Colin, he will resume feedings.
--- NOTE | 2018-05-16 14:00 | General Progress Note ---
Assessment/Plan Assessment/Plan Obstructive Jaundice resolving. MRI - evidence of previous stones? Needs Lap Kristine? To [facility]. Urinary ESBL, infected decubiti. Polymicrobial complicated sepsis. ID following. Hypokalemia check Mg.+ correct Subjective Allergies: Coded Allergies: No Known Allergies (Unverified , 09/08/17) Subjective Confused Objective Last 24 Hour Vital Signs Date Time Temp Pulse Resp B/P (MAP) Pulse Ox O2 Delivery O2 Flow Rate FiO2 05/16/18 12:00 97.9 56 20 160/88 (112) 94 05/16/18 09:00 Nasal Cannula 2.0 05/16/18 08:00 97.3 53 20 146/76 (99) 94 05/16/18 04:00 56 05/16/18 04:00 97.0 54 16 139/60 (86) 95 05/16/18 00:00 97.9 56 20 111/59 (76) 96 05/15/18 23:56 Nasal Cannula 2.0 28 05/15/18 23:55 96 Nasal Cannula 2.0 28 05/15/18 23:30 56 05/15/18 21:00 Nasal Cannula 4.0 05/15/18 20:00 97.7 60 20 100/62 (75) 97 05/15/18 20:00 58 05/15/18 16:00 98.1 65 21 117/59 (78) 96 05/15/18 16:00 64 Intake and Output 05/15/18 05/16/18 18:59 06:59 Intake Total 2474.666 ml 100 ml Balance 2474.666 ml 100 ml Intake Free Water 100 ml IV Total 1704.666 ml 100 ml Tube Feeding 670 ml # Voids 3 # Bowel Movements 1 Laboratory Tests 05/16/18 07:37: White Blood Count 7.9, Red Blood Count 3.46L, Hemoglobin 10.7L, Hematocrit 32.7L , Mean Corpuscular Volume 94, Mean Corpuscular Hemoglobin 31.0, Mean Corpuscular Hemoglobin Concent 32.8, Red Cell Distribution Width 14.0, Platelet Count 236, Mean Platelet Volume 6.7, Neutrophils (%) (Auto) 79.8H, Lymphocytes ( %) (Auto) 11.6L, Monocytes (%) (Auto) 4.1, Eosinophils (%) (Auto) 4.0H, Basophils (%) (Auto) 0.5, Prothrombin Time 10.7, Prothromb Time International Ratio 1.0, Activated Partial Thromboplast Time 31, Sodium Level 138, Potassium Level 2.9L, Chloride Level 105, Carbon Dioxide Level 25, Anion Gap 8, Blood Urea Nitrogen 11, Creatinine 0.9, Estimat Glomerular Filtration Rate , Glucose Level 112H, Calcium Level 7.9L Height (Feet): 5 Height (Inches): 8.00 Weight (Pounds): 192 Objective Icteric CV RR Lungs B Ronchi Skin Sacral decub stage 4. B heel decubs. Abd SNT. BS + E No CCE Joanne Desir MD May 16, 2018 14:00
--- NOTE | 2018-05-16 14:14 | Surgery Progress Note ---
Surgery Progress Note Subjective Additional Comments improving. no acute events. stable. Objective Last 24 Hour Vital Signs Date Time Temp Pulse Resp B/P (MAP) Pulse Ox O2 Delivery O2 Flow Rate FiO2 05/16/18 12:00 97.9 56 20 160/88 (112) 94 05/16/18 09:00 Nasal Cannula 2.0 05/16/18 08:00 97.3 53 20 146/76 (99) 94 05/16/18 04:00 56 05/16/18 04:00 97.0 54 16 139/60 (86) 95 05/16/18 00:00 97.9 56 20 111/59 (76) 96 05/15/18 23:56 Nasal Cannula 2.0 28 05/15/18 23:55 96 Nasal Cannula 2.0 28 05/15/18 23:30 56 05/15/18 21:00 Nasal Cannula 4.0 05/15/18 20:00 97.7 60 20 100/62 (75) 97 05/15/18 20:00 58 05/15/18 16:00 98.1 65 21 117/59 (78) 96 05/15/18 16:00 64 I&O Intake and Output 05/15/18 05/16/18 19:00 07:00 Intake Total 2436.666 ml 100 ml Balance 2436.666 ml 100 ml Intake Free Water 100 ml IV Total 1666.666 ml 100 ml Tube Feeding 670 ml # Voids 3 # Bowel Movements 1 Dressing: other Wound: other Drains: other Cardiovascular: RSR Respiratory: clear Abdomen: soft, non-tender, present bowel sounds Extremities: other Laboratory Tests Test 05/16/18 07:37 White Blood Count 7.9 K/UL (4.8-10.8) Red Blood Count 3.46 M/UL (4.70-6.10) L Hemoglobin 10.7 G/DL (14.2-18.0) L Hematocrit 32.7 % (42.0-52.0) L Mean Corpuscular Volume 94 FL (80-99) Mean Corpuscular Hemoglobin 31.0 PG (27.0-31.0) Mean Corpuscular Hemoglobin Concent 32.8 G/DL (32.0-36.0) Red Cell Distribution Width 14.0 % (11.6-14.8) Platelet Count 236 K/UL (150-450) Mean Platelet Volume 6.7 FL (6.5-10.1) Neutrophils (%) (Auto) 79.8 % (45.0-75.0) H Lymphocytes (%) (Auto) 11.6 % (20.0-45.0) L Monocytes (%) (Auto) 4.1 % (1.0-10.0) Eosinophils (%) (Auto) 4.0 % (0.0-3.0) H Basophils (%) (Auto) 0.5 % (0.0-2.0) Prothrombin Time 10.7 SEC (9.30-11.50) Prothromb Time International Ratio 1.0 (0.9-1.1) Activated Partial Thromboplast Time 31 SEC (23-33) Sodium Level 138 MMOL/L (136-145) Potassium Level 2.9 MMOL/L (3.5-5.1) L Chloride Level 105 MMOL/L (98-107) Carbon Dioxide Level 25 MMOL/L (21-32) Anion Gap 8 mmol/L (5-15) Blood Urea Nitrogen 11 mg/dL (7-18) Creatinine 0.9 MG/DL (0.55-1.30) Estimat Glomerular Filtration Rate mL/min (>60) Glucose Level 112 MG/DL (74-106) H Calcium Level 7.9 MG/DL (8.5-10.1) L Plan Problems: (1) Obstructive jaundice Assessment & Plan: Hx of cholelithiasis now with jaundice lfts elevated MRCP without cbd stone but pancreatic cystic lesion noted lft's improving likely choledocholithiasis which passed stone since should have cholecystectomy given recent events. patient can potentially have more harmful presentation / cholangitis in future given his baseline medical condition. has had one episode which resolved without complication but given his state would recommend cholecystectomy to prevent future complication -npo -iv fluids -iv abx -bioethics eval for lap ran -trend labs will follow with recs. thank you (2) Sacral decubitus ulcer Assessment & Plan: Pt presents with multiple pressure injuries present on admission. Small slit noted to cleft of R ear. Small amt sanguineous exudate noted(L)0.8cm x (W)0.5cm. Erythema noted to cleft of L ear. Full thickness pressure injury R hip.Base of wound granular, with undermining.Small amt non-odorous serous exudate. (L)2.5cm x(W)1cm x (D)0.9cm undermining 2-5 by 4.7cm @3o'clock. Non-blanchable erythema L lateral malleolus without induration or fluctuance.Historical scarring also noted at site. Non-blanchable erythema without fluctuance Lateral L foot. Historical scar noted at site. Sacrum pink and blanchable. Both heels are boggy but easily blanches. Tx.Plan: Cleanse R hip wound with Saline.Loosely pack with Hydrogel impregnated gauze.Cavilon Skin Barrier periwound. Cover with Optifoam drsg Daily and prn. Cleanse R ear with saline. Cover with gauze.Change daily and prn. Apply Cavilon Skin Barrier to L lateral malleolus and lateral L foot.Cover with Optifoam drsg Daily and prn. Apply Cavilon Skin Barrier to R and L heels .Cover with Optifoam drsgs .Change every 7 days and prn. Off-load heels with pillow. Place Pillow between knees. APM/SERG mattress. Reposition at least every 2 hours or as tolerated. Zafar Echeverria May 16, 2018 14:14
--- NOTE | 2018-05-16 15:38 | Pre-Procedure Note/Attestation ---
Pre-Procedure Note/Attestation Complete Prior to Procedure Planned Procedure: not applicable Procedure Narrative: laparoscopic cholecystectomy possible open Indications for Procedure Pre-Operative Diagnosis: choledocholithiasis Attestation I attest that I discussed the nature of the procedure; its benefits; risks and complications; and alternatives (and the risks and benefits of such alternatives ), prior to the procedure, with the patient (or the patient's legal outside sales account representative). I attest that, if there was a reasonable possibility of needing a blood transfusion, the patient (or the patient's legal outside sales account representative) was given the [facility] Services standardized written summary, pursuant to the Terrance Florecita Blood Safety Act ([place] Health and Safety Code # 1645, as amended). I attest that I re-evaluated the patient just prior to the surgery and that there has been no change in the patient's H&P, except as documented below: Zafar Echeverria May 16, 2018 15:38
[2018-05-16 16:00] VITALS: BP 160/82
[2018-05-16] MEDS ORDERED: SODIUM CHLORIDE IV ONE (16:00)
[2018-05-16] MEDS ORDERED: POTASSIUM CHLORIDE IV ONE (16:00)
[2018-05-16] MEDS: Vancomycin 1250mg/D5W 275ml IVPB SCH (16:42)
--- NOTE | 2018-05-16 19:37 | NUR ---
NURSE NOTES: Report received from JIMMY Esteban. Pt is lying comfortably in semi fowlers with no signs of distress. Pt is A+Ox3, showing no signs of pain/ SOB. IV site is patent, intact, and running fluids at prescribed rate. Respirations are even and unlabored on 4 L NC. G-tube is in place, patent, and running feeding at prescribed rate. Pt to be NPO at midnight. Bed is at lowest position, brakes engaged, siderails x2, bed alarm on, and call light within reach. Pt is in stable condition at this time; will continue to monitor.
[2018-05-16 20:00] VITALS: BP 149/77
--- NOTE | 2018-05-16 20:17 | NUR ---
HAND-OFF: Report given to JIMMY Davenport. Plan of care endorsed.
--- NOTE | 2018-05-16 21:30 | NUR ---
HAND-OFF: Report given to JIMMY Felix. Pt is in stable condition; plan of care endorsed.
--- NOTE | 2018-05-16 22:00 | NUR ---
NURSE NOTES: Received report from Rain Tesfaye RN. Pt s sleeping in the bed w/o distress in 2L NC, easily arousable by voice stimuli. SB 53 in the monitor. GT is patent, GT feeding is running as ordered. Pt is to be midnight NPO. Condom cath is off from pt, will be reattempt later time. P200 is applied. IV is asymptomatic for infection and IV med is running as ordered. Safety measures are applied w/ bed alarm on, bed in lowest position, side rails up x2. Call light and side table are w/in reach. Will continue plans of care.
[2018-05-17] VITALS (12 sets, daily range): BP systolic 102–162; BP diastolic 63–95
--- NOTE | 2018-05-17 01:03 | NUR ---
NURSE NOTES: Pt is sleeping in the bed , no respiratory distress in 2L NC with humidifier. GT feeding was on hold since midnight to be midnight NPO. GT is patent. Condom cath is applied and draining. Will continue to monitor.
[2018-05-17] MEDS: D5 1/2NS 1,000 ML IV SCH ×3 (05:00→19:56)
[2018-05-17] MEDS: Levodopa/Carbidopa 25/100 tab GT SCH ×3 (06:09→21:31)
[2018-05-17 07:07] LABS: BASOPHILS % (AUTO) 0.7 % (0.0-2.0); EOSINOPHILS % (AUTO) 4.9 % (0.0-3.0); HEMATOCRIT 34.9 % (42.0-52.0); HEMOGLOBIN 11.3 G/DL (14.2-18.0); MEAN CORPUSCULAR VOLUME 95 FL (80-99); MONOCYTES % (AUTO) 4.9 % (1.0-10.0); NEUTROPHILS % (AUTO) 78.6 % (45.0-75.0); PLATELET COUNT 327 K/UL (150-450); RED BLOOD COUNT 3.67 M/UL (4.70-6.10); RED CELL DISTRIBUTION WIDTH 13.7 % (11.6-14.8)
--- NOTE | 2018-05-17 07:09 | NUR ---
HAND-OFF: Report given to Rocco Valverde RN. Pt was cleaned,dried and repositioned. Pt tolerated well.
--- NOTE | 2018-05-17 07:42 | NUR ---
NURSE NOTES: Received report from Shakira Goodman RN. Pt is resting in bed. Bed is in lowest position, side rails up X2, and call light is within reach. Will continue to monitor
[2018-05-17 08:00] LABS: ALANINE AMINOTRANSFERASE 35 U/L (12-78); ALBUMIN/GLOBULIN RATIO 0.4 (1.0-2.7); ALKALINE PHOSPHATASE 306 U/L (46-116); ANION GAP 6 mmol/L (5-15); ASPARTATE AMINO TRANSFERASE 41 U/L (15-37); BILIRUBIN,TOTAL 1.6 MG/DL (0.2-1.0); BLOOD UREA NITROGEN 9 mg/dL (7-18); CALCIUM 8.2 MG/DL (8.5-10.1); CARBON DIOXIDE 30 MMOL/L (21-32); CHLORIDE 105 MMOL/L (98-107); CREATININE 0.9 MG/DL (0.55-1.30); SODIUM 140 MMOL/L (136-145)
[2018-05-17] MEDS: Ferrous Sulfate 300 MG/5 ML UDC GT SCH ×3 (08:30→17:27)
[2018-05-17] MEDS: Heparin 5000 units/ml inj SUBQ SCH ×2 (08:31→20:28)
[2018-05-17] MEDS ORDERED: Potassium Chloride 10 MEQ in NS 110 ML IVPB SCH (09:00)
[2018-05-17] MEDS ORDERED: Potassium Chloride 20 MEQ in NS 275 ML IVPB SCH (09:00)
[2018-05-17] MEDS ORDERED: Zemuron 50mg/5ml Inj IV ONE ×2 (10:14→12:11)
[2018-05-17] MEDS ORDERED: cefOXitin 1gm Inj ONE (10:14)
--- NOTE | 2018-05-17 10:30 | NUR ---
NURSE NOTES: Notified Dr. Echeverria of pts potassium. Per MD, he is "ok" with potassium level. Pt was transferred to surgery while being monitored. Unsigned consent is in patients chart. Md and OR staff aware of consent and potassium level.
[2018-05-17] MEDS ORDERED: Iothalamate Meglumine 60% 30ML INJ ONE (10:32)
[2018-05-17] MEDS ORDERED: Bupivacaine w/Epi 0.5% 30ml Vial INJ ONE (10:32)
[2018-05-17] MEDS ORDERED: fentaNYL 100 mcg/2 mL IV ONE (10:34)
[2018-05-17] MEDS ORDERED: Propofol 200mg/20ml IV ONE (10:35)
[2018-05-17] MEDS ORDERED: Lidocaine 1% MPF 10mg/ml 5ml ONE (10:35)
--- NOTE | 2018-05-17 10:35 | GI Progress Note ---
Assessment/Plan Problems: (1) Anemia ICD Codes: D64.9 - Anemia, unspecified SNOMED: 300723441 (2) Cholelithiasis ICD Codes: K80.20 - Calculus of gallbladder without cholecystitis without obstruction SNOMED: 989988616 (3) Obstructive jaundice ICD Codes: K83.8 - Other specified diseases of biliary tract SNOMED: 72683274 Status: stable Status Narrative Discussed with Dr. Colin Assessment/Plan Occult blood stool positive MRCP reviewed -No evidence of choledocholithiasis or biliary ductal dilatation. -Multiple gallstones. -Incidental 1 cm cystic focus in the body of the pancreas, nonspecific and not adequately evaluated on this study. Patient scheduled for laparoscopic cholecystectomy today EUS canceled today due to hypokalemia, okay for outpatient follow-up and procedure given improving LFTS and no dilated CBD on ERCP will hold ERCP fu tumor markers replace K anemia work up monitor H&H, prn transfusions bowel regime ppi fu labs, trend LFTs The patient was seen and examined at bedside and all new and available data was reviewed in the patients chart. I agree with the above findings, impression and plan. (Patient seen earlier today. Signature stamp does not reflect patient encounter time.). - Aldo Colin MD Subjective Subjective Limited Objective Last 24 Hour Vital Signs Date Time Temp Pulse Resp B/P (MAP) Pulse Ox O2 Delivery O2 Flow Rate FiO2 05/17/18 04:00 97.8 56 20 147/76 (99) 99 05/17/18 03:29 56 05/17/18 00:00 98.3 56 20 121/95 (104) 100 05/16/18 23:25 50 05/16/18 21:00 Nasal Cannula 4.0 05/16/18 20:00 57 05/16/18 20:00 97.1 57 20 149/77 (101) 100 05/16/18 16:00 54 05/16/18 16:00 96.8 60 20 160/82 (108) 100 05/16/18 12:00 97.9 56 20 160/88 (112) 94 05/16/18 12:00 55 Intake and Output 05/16/18 05/17/18 19:00 07:00 Intake Total 1300 ml 1340 ml Output Total 150 ml 1375 ml Balance 1150 ml -35 ml Intake Free Water 45 ml IV Total 1300 ml 1100 ml Tube Feeding 195 ml Output Urine Total 150 ml 1375 ml # Voids 1 # Bowel Movements 1 1 Laboratory Tests Test 05/16/18 14:15 05/17/18 06:10 Vancomycin Level Trough 11.0 ug/mL (5.0-12.0) White Blood Count 9.0 K/UL (4.8-10.8) Red Blood Count 3.67 M/UL (4.70-6.10) L Hemoglobin 11.3 G/DL (14.2-18.0) L Hematocrit 34.9 % (42.0-52.0) L Mean Corpuscular Volume 95 FL (80-99) Mean Corpuscular Hemoglobin 30.8 PG (27.0-31.0) Mean Corpuscular Hemoglobin Concent 32.4 G/DL (32.0-36.0) Red Cell Distribution Width 13.7 % (11.6-14.8) Platelet Count 327 K/UL (150-450) Mean Platelet Volume 6.8 FL (6.5-10.1) Neutrophils (%) (Auto) 78.6 % (45.0-75.0) H Lymphocytes (%) (Auto) 11.0 % (20.0-45.0) L Monocytes (%) (Auto) 4.9 % (1.0-10.0) Eosinophils (%) (Auto) 4.9 % (0.0-3.0) H Basophils (%) (Auto) 0.7 % (0.0-2.0) Prothrombin Time 10.7 SEC (9.30-11.50) Prothromb Time International Ratio 1.0 (0.9-1.1) Activated Partial Thromboplast Time 31 SEC (23-33) Sodium Level 140 MMOL/L (136-145) Potassium Level 3.0 MMOL/L (3.5-5.1) L Chloride Level 105 MMOL/L (98-107) Carbon Dioxide Level 30 MMOL/L (21-32) Anion Gap 6 mmol/L (5-15) Blood Urea Nitrogen 9 mg/dL (7-18) Creatinine 0.9 MG/DL (0.55-1.30) Estimat Glomerular Filtration Rate mL/min (>60) Glucose Level 113 MG/DL (74-106) H Calcium Level 8.2 MG/DL (8.5-10.1) L Total Bilirubin 1.6 MG/DL (0.2-1.0) H Direct Bilirubin 1.0 MG/DL (0.0-0.3) H Aspartate Amino Transf (AST/SGOT) 41 U/L (15-37) H Alanine Aminotransferase (ALT/SGPT) 35 U/L (12-78) Alkaline Phosphatase 306 U/L (46-116) H Total Protein 6.8 G/DL (6.4-8.2) Albumin 2.0 G/DL (3.4-5.0) L Globulin 4.8 g/dL Albumin/Globulin Ratio 0.4 (1.0-2.7) L Height (Feet): 5 Height (Inches): 8.00 Weight (Pounds): 192 General Appearance: no apparent distress, thin Cardiovascular: normal rate Respiratory/Chest: normal breath sounds, no respiratory distress Abdominal Exam: normal bowel sounds, non tender, soft Extremities: non-tender Cait Calderon NP May 17, 2018 10:35
--- NOTE | 2018-05-17 10:46 | Surgery Progress Note ---
Surgery Progress Note Subjective Additional Comments no acute events. doing well. labs noted. Objective Last 24 Hour Vital Signs Date Time Temp Pulse Resp B/P (MAP) Pulse Ox O2 Delivery O2 Flow Rate FiO2 05/17/18 04:00 97.8 56 20 147/76 (99) 99 05/17/18 03:29 56 05/17/18 00:00 98.3 56 20 121/95 (104) 100 05/16/18 23:25 50 05/16/18 21:00 Nasal Cannula 4.0 05/16/18 20:00 57 05/16/18 20:00 97.1 57 20 149/77 (101) 100 05/16/18 16:00 54 05/16/18 16:00 96.8 60 20 160/82 (108) 100 05/16/18 12:00 97.9 56 20 160/88 (112) 94 05/16/18 12:00 55 I&O Intake and Output 05/16/18 05/17/18 19:00 07:00 Intake Total 1300 ml 1340 ml Output Total 150 ml 1375 ml Balance 1150 ml -35 ml Intake Free Water 45 ml IV Total 1300 ml 1100 ml Tube Feeding 195 ml Output Urine Total 150 ml 1375 ml # Voids 1 # Bowel Movements 1 1 Drains: none Cardiovascular: RSR Respiratory: clear Abdomen: soft, non-tender, non-distended Extremities: no cyanosis, other Laboratory Tests Test 05/16/18 14:15 05/17/18 06:10 Vancomycin Level Trough 11.0 ug/mL (5.0-12.0) White Blood Count 9.0 K/UL (4.8-10.8) Red Blood Count 3.67 M/UL (4.70-6.10) L Hemoglobin 11.3 G/DL (14.2-18.0) L Hematocrit 34.9 % (42.0-52.0) L Mean Corpuscular Volume 95 FL (80-99) Mean Corpuscular Hemoglobin 30.8 PG (27.0-31.0) Mean Corpuscular Hemoglobin Concent 32.4 G/DL (32.0-36.0) Red Cell Distribution Width 13.7 % (11.6-14.8) Platelet Count 327 K/UL (150-450) Mean Platelet Volume 6.8 FL (6.5-10.1) Neutrophils (%) (Auto) 78.6 % (45.0-75.0) H Lymphocytes (%) (Auto) 11.0 % (20.0-45.0) L Monocytes (%) (Auto) 4.9 % (1.0-10.0) Eosinophils (%) (Auto) 4.9 % (0.0-3.0) H Basophils (%) (Auto) 0.7 % (0.0-2.0) Prothrombin Time 10.7 SEC (9.30-11.50) Prothromb Time International Ratio 1.0 (0.9-1.1) Activated Partial Thromboplast Time 31 SEC (23-33) Sodium Level 140 MMOL/L (136-145) Potassium Level 3.0 MMOL/L (3.5-5.1) L Chloride Level 105 MMOL/L (98-107) Carbon Dioxide Level 30 MMOL/L (21-32) Anion Gap 6 mmol/L (5-15) Blood Urea Nitrogen 9 mg/dL (7-18) Creatinine 0.9 MG/DL (0.55-1.30) Estimat Glomerular Filtration Rate mL/min (>60) Glucose Level 113 MG/DL (74-106) H Calcium Level 8.2 MG/DL (8.5-10.1) L Total Bilirubin 1.6 MG/DL (0.2-1.0) H Direct Bilirubin 1.0 MG/DL (0.0-0.3) H Aspartate Amino Transf (AST/SGOT) 41 U/L (15-37) H Alanine Aminotransferase (ALT/SGPT) 35 U/L (12-78) Alkaline Phosphatase 306 U/L (46-116) H Total Protein 6.8 G/DL (6.4-8.2) Albumin 2.0 G/DL (3.4-5.0) L Globulin 4.8 g/dL Albumin/Globulin Ratio 0.4 (1.0-2.7) L Plan Problems: (1) Obstructive jaundice Assessment & Plan: Hx of cholelithiasis now with jaundice lfts elevated MRCP without cbd stone but pancreatic cystic lesion noted lft's improving likely choledocholithiasis which passed stone since should have cholecystectomy given recent events. patient can potentially have more harmful presentation / cholangitis in future given his baseline medical condition. has had one episode which resolved without complication but given his state would recommend cholecystectomy to prevent future complication Discussed care plan with medical teams. given history, presentation, and above recommend cholecystectomy. Patient has POLST stating he would like full care and will need to respect this. surgery medically necessary and indicated. will proceed today. -npo -iv fluids -iv abx -trend labs will follow with recs. thank you (2) Sacral decubitus ulcer Assessment & Plan: Pt presents with multiple pressure injuries present on admission. Small slit noted to cleft of R ear. Small amt sanguineous exudate noted(L)0.8cm x (W)0.5cm. Erythema noted to cleft of L ear. Full thickness pressure injury R hip.Base of wound granular, with undermining.Small amt non-odorous serous exudate. (L)2.5cm x(W)1cm x (D)0.9cm undermining 2-5 by 4.7cm @3o'clock. Non-blanchable erythema L lateral malleolus without induration or fluctuance.Historical scarring also noted at site. Non-blanchable erythema without fluctuance Lateral L foot. Historical scar noted at site. Sacrum pink and blanchable. Both heels are boggy but easily blanches. Tx.Plan: Cleanse R hip wound with Saline.Loosely pack with Hydrogel impregnated gauze.Cavilon Skin Barrier periwound. Cover with Optifoam drsg Daily and prn. Cleanse R ear with saline. Cover with gauze.Change daily and prn. Apply Cavilon Skin Barrier to L lateral malleolus and lateral L foot.Cover with Optifoam drsg Daily and prn. Apply Cavilon Skin Barrier to R and L heels .Cover with Optifoam drsgs .Change every 7 days and prn. Off-load heels with pillow. Place Pillow between knees. APM/SERG mattress. Reposition at least every 2 hours or as tolerated. Zafar Echeverria May 17, 2018 10:46
[2018-05-17] MEDS ORDERED: LR 1000ml ONE (11:00)
[2018-05-17] MEDS ORDERED: NS Irrig 1000ml ONE (11:00)
[2018-05-17] MEDS ORDERED: Sterile Water Irrig 1000ml IRRIG ONE (11:00)
--- NOTE | 2018-05-17 11:22 | General Progress Note ---
Assessment/Plan Assessment/Plan Obstructive Jaundice resolving. MRI - evidence of previous stones? Needs Lap Kristine? To [facility]. Urinary ESBL, infected decubiti. Polymicrobial complicated sepsis. ID following. Pt. in OR Subjective Allergies: Coded Allergies: No Known Allergies (Unverified , 09/08/17) Subjective Confused Objective Last 24 Hour Vital Signs Date Time Temp Pulse Resp B/P (MAP) Pulse Ox O2 Delivery O2 Flow Rate FiO2 05/17/18 04:00 97.8 56 20 147/76 (99) 99 05/17/18 03:29 56 05/17/18 00:00 98.3 56 20 121/95 (104) 100 05/16/18 23:25 50 05/16/18 21:00 Nasal Cannula 4.0 05/16/18 20:00 57 05/16/18 20:00 97.1 57 20 149/77 (101) 100 05/16/18 16:00 54 05/16/18 16:00 96.8 60 20 160/82 (108) 100 05/16/18 12:00 97.9 56 20 160/88 (112) 94 05/16/18 12:00 55 Intake and Output 05/16/18 05/17/18 19:00 07:00 Intake Total 1300 ml 1340 ml Output Total 150 ml 1375 ml Balance 1150 ml -35 ml Intake Free Water 45 ml IV Total 1300 ml 1100 ml Tube Feeding 195 ml Output Urine Total 150 ml 1375 ml # Voids 1 # Bowel Movements 1 1 Laboratory Tests 05/16/18 14:15: Vancomycin Level Trough 11.0 05/17/18 06:10: White Blood Count 9.0, Red Blood Count 3.67L, Hemoglobin 11.3L, Hematocrit 34.9L , Mean Corpuscular Volume 95, Mean Corpuscular Hemoglobin 30.8, Mean Corpuscular Hemoglobin Concent 32.4, Red Cell Distribution Width 13.7, Platelet Count 327, Mean Platelet Volume 6.8, Neutrophils (%) (Auto) 78.6H, Lymphocytes ( %) (Auto) 11.0L, Monocytes (%) (Auto) 4.9, Eosinophils (%) (Auto) 4.9H, Basophils (%) (Auto) 0.7, Prothrombin Time 10.7, Prothromb Time International Ratio 1.0, Activated Partial Thromboplast Time 31, Sodium Level 140, Potassium Level 3.0L, Chloride Level 105, Carbon Dioxide Level 30, Anion Gap 6, Blood Urea Nitrogen 9, Creatinine 0.9, Estimat Glomerular Filtration Rate , Glucose Level 113H, Calcium Level 8.2L, Total Bilirubin 1.6H, Direct Bilirubin 1.0H, Aspartate Amino Transf (AST/SGOT) 41H, Alanine Aminotransferase (ALT/SGPT) 35, Alkaline Phosphatase 306H, Total Protein 6.8, Albumin 2.0L, Globulin 4.8, Albumin/Globulin Ratio 0.4L Height (Feet): 5 Height (Inches): 8.00 Weight (Pounds): 192 Objective Icteric CV RR Lungs B Ronchi Skin Sacral decub stage 4. B heel decubs. Abd SNT. BS + E No KAYLENEE Joanne Desir MD May 17, 2018 11:22
--- NOTE | 2018-05-17 12:00 | Anethesia Preoperative Eval ---
Anesthesia Pre-op PMH/ROS General Date of Evaluation: May 17, 2018 Time of Evaluation: 10:40 Anesthesiologist: Park ASA Score: ASA 4 Mallampati Score Class I : Soft palate, uvula, fauces, pillars visible Class II: Soft palate, uvula, fauces visible Class III: Soft palate, base of uvula visible Class IV: Only hard plate visible Mallampati Classification: Class III Surgeon: Shanda Diagnosis: Symptomatic cholelithiasis Surgical Procedure: Lap cholecystectomy Anesthesia History: none Family History: no anesthesia problems Allergies: Coded Allergies: No Known Allergies (Unverified , 09/08/17) Patient NPO?: Yes NPO Date: May 15, 2018 NPO Time: 22:00 Past Medical History Cardiovascular: Reports: HTN, [place] - h/o, arrhythmia; Denies: CAD, valve dz, other Pulmonary: Denies: asthma, COPD, BERTHA, other Gastrointestinal/Genitourinary: Reports: GERD, other - dysphagia, feeding tube in place; Denies: CRI, ESRD Neurologic/Psychiatric: Reports: dementia, other - Parkinsons; Denies: CVA, depression/anxiety, TIA Endocrine: Reports: hypothyroidism; Denies: DM, steroids, other Hematology/Immune: Reports: anemia - mild; Denies: DVT, bleeding disorder, other Musculoskeletal/Integumentary: Reports: other - severwe contractions, multiple decubitus wounds; Denies: OA, RA, DJD, DDD, edema Other: other - malnourished PMH Narrative: as above PSxH Narrative: see H&P Anesthesia Pre-op Phys. Exam Physician Exam Last Vital Signs Date Time Temp Pulse Resp B/P (MAP) Pulse Ox O2 Delivery O2 Flow Rate FiO2 05/17/18 04:00 97.8 56 20 147/76 (99) 99 05/16/18 21:00 Nasal Cannula 4.0 05/15/18 23:56 28 Constitutional: NAD Neurologic: other - unable to obtaine Cardiovascular: RRR Airway Exam Mallampati Score: Class III MO: limited Neck: stiff ROM: limited Teeth: missing Dentures: no upper, no lower Anesthesia Pre-op A/P Labs Hematology Test 05/17/18 06:10 White Blood Count 9.0 K/UL (4.8-10.8) Red Blood Count 3.67 M/UL (4.70-6.10) L Hemoglobin 11.3 G/DL (14.2-18.0) L Hematocrit 34.9 % (42.0-52.0) L Mean Corpuscular Volume 95 FL (80-99) Mean Corpuscular Hemoglobin 30.8 PG (27.0-31.0) Mean Corpuscular Hemoglobin Concent 32.4 G/DL (32.0-36.0) Red Cell Distribution Width 13.7 % (11.6-14.8) Platelet Count 327 K/UL (150-450) Mean Platelet Volume 6.8 FL (6.5-10.1) Neutrophils (%) (Auto) 78.6 % (45.0-75.0) H Lymphocytes (%) (Auto) 11.0 % (20.0-45.0) L Monocytes (%) (Auto) 4.9 % (1.0-10.0) Eosinophils (%) (Auto) 4.9 % (0.0-3.0) H Basophils (%) (Auto) 0.7 % (0.0-2.0) Coagulation Test 05/17/18 06:10 Prothrombin Time 10.7 SEC (9.30-11.50) Prothromb Time International Ratio 1.0 (0.9-1.1) Activated Partial Thromboplast Time 31 SEC (23-33) Chemistry Test 05/17/18 06:10 Sodium Level 140 MMOL/L (136-145) Potassium Level 3.0 MMOL/L (3.5-5.1) L Chloride Level 105 MMOL/L (98-107) Carbon Dioxide Level 30 MMOL/L (21-32) Anion Gap 6 mmol/L (5-15) Blood Urea Nitrogen 9 mg/dL (7-18) Creatinine 0.9 MG/DL (0.55-1.30) Estimat Glomerular Filtration Rate mL/min (>60) Glucose Level 113 MG/DL (74-106) H Calcium Level 8.2 MG/DL (8.5-10.1) L Total Bilirubin 1.6 MG/DL (0.2-1.0) H Direct Bilirubin 1.0 MG/DL (0.0-0.3) H Aspartate Amino Transf (AST/SGOT) 41 U/L (15-37) H Alanine Aminotransferase (ALT/SGPT) 35 U/L (12-78) Alkaline Phosphatase 306 U/L (46-116) H Total Protein 6.8 G/DL (6.4-8.2) Albumin 2.0 G/DL (3.4-5.0) L Globulin 4.8 g/dL Albumin/Globulin Ratio 0.4 (1.0-2.7) L Studies Pre-op Studies: EKG - SR Risk Assessment & Plan Assessment: ASA 4 Plan: GA with ETT Status Change Before Surgery: No - Cefoxitin Pre-Antibiotics Drug: Cefoxitin 1gr. Given Within 1 Hr of Incision: Yes Time Given: 11:15 Rufino Nick MD May 17, 2018 12:00
[2018-05-17] MEDS ORDERED: Surgicel 4in x 8in TOPIC ONE (12:15)
[2018-05-17] MEDS ORDERED: DiphenhydrAMINE 50mg/ml Inj IVP PRN (12:15)
[2018-05-17] MEDS ORDERED: Hydromorphone 0.5mg/0.5ml inj IVP PRN (12:15)
[2018-05-17] MEDS ORDERED: Neostigmine 1mg/ml 10ml Inj ONE (12:27)
[2018-05-17] MEDS ORDERED: Glycopyrrolate 0.2mg/ml 1ml Vial ONE (12:27)
--- NOTE | 2018-05-17 12:27 | NUR ---
CASE MANAGEMENT:REVIEW 05/17/18 SI: SEPSIS. OBSTRUCTIVE JAUNDICE. CYSTIC LESION SACRAL DECUB ULCER 97.1 57 19 162/77 99% ON K-3.0 IS: IV MEROPENEM Q8HRS IV VANCOMYCIN Q24 IVF@100/HR : TELEMETRY STATUS DCP: FROM [facility] PLAN: TO SURGERY FOR LAP GAVIN
--- NOTE | 2018-05-17 12:44 | Brief Operative Note ---
Immediate Post Operative Note Operative Note Pre-op Diagnosis: choledocholithiasis acute cholecystitis Procedure: lap ran Post-op Diagnosis: same as pre-op Surgeon: miguel Anesthesiologist: dionna Anesthesia: general, local Specimen: yes Complications: none Condition: stable Fluids: see records Estimated Blood Loss: minimal Drains: none Implant(s) used?: No Zafar Echeverria May 17, 2018 12:44
[2018-05-17] MEDS ORDERED: Morphine Sulfate 2mg/ml Inj(IV/IM USE ONLY) IVP PRN ×2 (13:00)
[2018-05-17] MEDS ORDERED: Morphine Sulfate 4mg/ml Inj (IV USE ONLY) IVP PRN (13:00)
--- NOTE | 2018-05-17 13:11 | Immediate Post-Op Evaluation ---
Immediate Post-Op Evalulation Immediate Post-Op Evalulation Procedure: Laparoscopic cholecystectomy Date of Evaluation: May 17, 2018 Time of Evaluation: 13:10 IV Fluids: 1000 Blood Products: none Estimated Blood Loss: 100 Urinary Output: n/a Blood Pressure Systolic: 102 Blood Pressure Diastolic: 56 Pulse Rate: 74 Respiratory Rate: 22 O2 Sat by Pulse Oximetry: 98 Temperature (Fahrenheit): 97.2 Nausea: No Vomiting: No Complications none Patient Status: reacts, patent, extubated, none Hydration Status: adequate Rufino Nick MD May 17, 2018 13:11
[2018-05-17] MEDS: Vancomycin 1250mg/D5W 275ml IVPB SCH (16:03)
--- NOTE | 2018-05-17 16:40 | Infectious Diseases Prog Note ---
Assessment/Plan Assessment/Plan ASSESSMENT AND PLAN: 1. esbl e.coli uti, mrsa right hip wound infection, cholelithiasis/GS, mri noted , right hip x-ray without osteomyelitis - meropenem and vancomycin - day # 5 - s/p lap cholecystectomy - wound care per surgery and protocol - monitor labs 2. history of organic brain syndrome. 3. Parkinson's. 4. Dementia. 5. Chronic kidney disease. 6. Hypothyroidism. 7. Malnutrition. 8. COPD. 9. BPH. 10. Hypertension. 11. Anemia. 12. No known family history. 13. Family history noncontributory. 14. Social history negative for smoking, alcohol, or drug abuse. 15. MAR is noted. 16. Case discussed with RN. 17. Continue treatment per primary consultants. 18. Notes and records were noted. 19. Orders were entered. 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 Subjective Constitutional: Reports: other - more alert ; Denies: fever HEENT: Denies: congestion Respiratory: Denies: shortness of breath Cardiovascular: Denies: chest pain Gastrointestinal/Abdominal: Denies: nausea, vomiting, diarrhea Genitourinary: Reports: other - no garcia Neurologic: Denies: headache Psychiatric: Denies: depression Skin: Denies: rash Hematologic: Denies: bleeding Musculoskeletal: Denies: pain Allergies: Coded Allergies: No Known Allergies (Unverified , 09/08/17) Objective Vital Signs Last 24 Hour Vital Signs Date Time Temp Pulse Resp B/P (MAP) Pulse Ox O2 Delivery O2 Flow Rate FiO2 05/17/18 16:00 98.3 84 19 110/70 (83) 96 05/17/18 14:00 97.8 72 21 106/67 98 Nasal Cannula 3 05/17/18 13:50 72 20 109/70 98 Nasal Cannula 3 05/17/18 13:35 73 21 107/64 98 Nasal Cannula 3 05/17/18 13:25 73 22 108/63 97 Nasal Cannula 3 05/17/18 13:12 74 22 102/65 98 Simple Mask 8 05/17/18 13:11 74 22 98 05/17/18 13:07 74 22 102/65 98 Simple Mask 8 05/17/18 13:02 97.8 74 22 102/65 98 Simple Mask 8 05/17/18 09:00 Nasal Cannula 2.0 05/17/18 08:00 54 05/17/18 08:00 97.1 57 19 162/77 (105) 99 05/17/18 04:00 97.8 56 20 147/76 (99) 99 05/17/18 03:29 56 05/17/18 00:00 98.3 56 20 121/95 (104) 100 05/16/18 23:25 50 05/16/18 21:00 Nasal Cannula 4.0 05/16/18 20:00 57 05/16/18 20:00 97.1 57 20 149/77 (101) 100 Height (Feet): 5 Height (Inches): 8.00 Weight (Pounds): 192 General Appearance: no acute distress HEENT: normocephalic, atraumatic, anicteric, mucous membranes moist Respiratory/Chest: lungs clear, normal breath sounds, no respiratory distress, no accessory muscle use Cardiovascular: normal rate, regular rhythm, no gallop/murmur, no JVD Abdomen: normal bowel sounds, soft, non tender, no organomegaly, non distended Genitourinary: other - no garcia Extremities: no cyanosis Skin: no rash Neurologic/Psychiatric: computer technologist II-XII grossly normal, alert, oriented x 3, responsive Lymphatic: no neck adenopathy Musculoskeletal: no effusion Objective x-ray - no osteomyelitis mentioned, report noted MRI abdomen - report noted Microbiology Date/Time Source Procedure Growth Status 05/11/18 16:45 Blood Blood Culture - Final NO GROWTH AFTER 5 DAYS Complete 05/11/18 16:10 Nasal Nares MRSA Culture - Final NO METHICILLIN RESISTANT STAPH AUREUS... Complete 05/11/18 16:35 Urine,Clean Catch Urine Culture - Final Escherichia Coli - Esbl Complete 05/12/18 07:10 Hip Right Gram Stain - Final Complete 05/12/18 07:10 Wound Culture - Final Staphylococcus Aureus - Mrsa Diphtheroids Complete Laboratory Tests Test 05/17/18 06:10 White Blood Count 9.0 K/UL (4.8-10.8) Red Blood Count 3.67 M/UL (4.70-6.10) L Hemoglobin 11.3 G/DL (14.2-18.0) L Hematocrit 34.9 % (42.0-52.0) L Mean Corpuscular Volume 95 FL (80-99) Mean Corpuscular Hemoglobin 30.8 PG (27.0-31.0) Mean Corpuscular Hemoglobin Concent 32.4 G/DL (32.0-36.0) Red Cell Distribution Width 13.7 % (11.6-14.8) Platelet Count 327 K/UL (150-450) Mean Platelet Volume 6.8 FL (6.5-10.1) Neutrophils (%) (Auto) 78.6 % (45.0-75.0) H Lymphocytes (%) (Auto) 11.0 % (20.0-45.0) L Monocytes (%) (Auto) 4.9 % (1.0-10.0) Eosinophils (%) (Auto) 4.9 % (0.0-3.0) H Basophils (%) (Auto) 0.7 % (0.0-2.0) Prothrombin Time 10.7 SEC (9.30-11.50) Prothromb Time International Ratio 1.0 (0.9-1.1) Activated Partial Thromboplast Time 31 SEC (23-33) Sodium Level 140 MMOL/L (136-145) Potassium Level 3.0 MMOL/L (3.5-5.1) L Chloride Level 105 MMOL/L (98-107) Carbon Dioxide Level 30 MMOL/L (21-32) Anion Gap 6 mmol/L (5-15) Blood Urea Nitrogen 9 mg/dL (7-18) Creatinine 0.9 MG/DL (0.55-1.30) Estimat Glomerular Filtration Rate mL/min (>60) Glucose Level 113 MG/DL (74-106) H Calcium Level 8.2 MG/DL (8.5-10.1) L Total Bilirubin 1.6 MG/DL (0.2-1.0) H Direct Bilirubin 1.0 MG/DL (0.0-0.3) H Aspartate Amino Transf (AST/SGOT) 41 U/L (15-37) H Alanine Aminotransferase (ALT/SGPT) 35 U/L (12-78) Alkaline Phosphatase 306 U/L (46-116) H Total Protein 6.8 G/DL (6.4-8.2) Albumin 2.0 G/DL (3.4-5.0) L Globulin 4.8 g/dL Albumin/Globulin Ratio 0.4 (1.0-2.7) L Current Medications Medications (Trade) Dose Ordered Sig/Adrian Route PRN Reason Start Time Stop Time Status Last Admin Dose Admin Acetaminophen (Tylenol) 650 mg Q4H PRN GT Mild Pain/Temp > 100.5 05/12/18 14:30 06/11/18 14:29 Acetaminophen/ Hydrocodone Bitart ([place] 5/325) 1 tab Q6H PRN GT PAIN 4-10 05/12/18 14:30 05/19/18 14:29 Carbidopa/Levodopa (Sinemet 25/100) 1 tab Q8HR GT 05/12/18 22:00 06/11/18 21:59 05/17/18 16:03 Dextrose/Sodium Chloride 1,000 ml @ 100 mls/hr Q10H IV 05/12/18 18:45 06/11/18 18:44 05/17/18 08:31 Diphenhydramine HCl (Benadryl) 25 mg Q15M PRN IVP Itching 05/17/18 12:15 05/17/18 20:00 Ferrous Sulfate (Feosol) 300 mg THREE TIMES A DAY GT 05/12/18 18:00 06/11/18 17:59 05/17/18 08:30 Finasteride (Proscar) 5 mg DAILY ORAL 05/13/18 09:00 06/12/18 08:59 05/17/18 08:30 Folic Acid (Folate) 1 mg DAILY GT 05/13/18 09:00 06/12/18 08:59 05/17/18 08:30 Heparin Sodium (Porcine) (Heparin 5000 units/ml) 5,000 units EVERY 12 HOURS SUBQ 05/12/18 09:00 06/11/18 08:59 05/13/18 20:58 Hydromorphone HCl (Dilaudid) 0.5 mg Q5M PRN IVP Severe Pain (Pain Scale 7-10) 05/17/18 12:15 05/17/18 20:00 Levothyroxine Sodium (Synthroid) 100 mcg DAILY@0630 GT 05/13/18 06:30 06/12/18 06:29 05/17/18 06:09 Meropenem 1 gm/ Sodium Chloride 100 ml @ 200 mls/hr Q8HR IVPB 05/14/18 14:00 05/19/18 13:59 05/17/18 16:03 Morphine Sulfate (Morphine Sulfate) 1 mg Q4H PRN IVP pain scale 1-3 05/17/18 13:00 05/24/18 12:59 Morphine Sulfate (Morphine Sulfate) 2 mg Q4H PRN IVP pain scale 4-6 05/17/18 13:00 05/24/18 12:59 Morphine Sulfate (Morphine Sulfate) 4 mg Q4H PRN IVP pain score 7-10 05/17/18 13:00 05/24/18 12:59 Ondansetron HCl (Zofran) 4 mg Q1H PRN IVP Nausea & Vomiting 05/17/18 12:15 05/17/18 20:00 Ondansetron HCl (Zofran) 4 mg Q6H PRN IVP Nausea & Vomiting 05/12/18 14:30 06/11/18 14:29 Vancomycin HCl (Vanco rx to dose) 1 ea DAILY PRN MISC Per rx protocol 05/13/18 13:30 06/12/18 13:29 Vancomycin HCl/ Dextrose 275 ml @ 183.333 mls/hr Q24H IVPB 05/13/18 15:00 05/19/18 14:59 05/17/18 16:03 Junior Loza MD May 17, 2018 16:40
--- NOTE | 2018-05-17 18:30 | Operative Note - Dictated ---
DATE OF OPERATION: 05/17/2018 PREOPERATIVE DIAGNOSES: 1. Acute cholecystitis. 2. Choledocholithiasis. POSTOPERATIVE DIAGNOSES: 1. Acute cholecystitis. 2. Choledocholithiasis. OPERATION PERFORMED: Laparoscopic cholecystectomy. ATTENDING SURGEON: Zafar Echeverria M.D. CENTRAL COMMUNICATIONS SPECIALIST: None. ANESTHESIOLOGIST: Rufino Nick M.D. ANESTHESIA: General POWERHOUSE MECHANIC. ESTIMATED BLOOD LOSS: 50 mL. IV FLUIDS: Please see anesthesia records. COMPLICATIONS: None. DRAINS: None. SPECIMENS: Gallbladder and stones sent to pathology for review and cultures taken of purulent gallbladder fluid. WOUND CLASSIFICATION: Class III. COUNTS: Sponge and needle counts correct x2. ANTIBIOTICS: The patient is on scheduled IV antibiotics for acute active inflammatory process. INDICATIONS FOR PROCEDURE: This is an 82-year-old male who presented to [facility] significantly jaundiced and found to have an obstructive jaundice with elevated bilirubin, with elevated LFTs. Workup demonstrated cholelithiasis as etiology and MRCP was completed and fortunately the patient had passed stones and labs began to improve. The patient is an older gentleman, whose care is dependent at long-term, but does have a POLST demonstrating Full Code and care. Given the patient's limitations and history and recent events with being jaundiced for some time without being identified until significantly jaundiced and not being able to express his complaints, a decision was made that definitive surgery was in the patient's best interest and medically necessary given the above. Lengthy discussion was had with medical teams and after a long discussion, decision was made to proceed with surgery in the patient's best interest. OPERATIVE NOTE: The patient was taken to the operating room and placed on the operating room table in supine position with left arm tucked. All bony prominences well padded. SCDs were placed. No Roman catheter was inserted given the patient voided recently. Preoperative time-out was taken identifying the patient, procedure, operative staff, and surgical staff. The patient was already on scheduled IV antibiotics. General anesthesia was induced and the patient was intubated. The abdomen was clipped, prepped, draped in standard surgical fashion. An infraumbilical incision was made using a fresh #11 scalpel and carried down to the fascia, which was elevated and incised. Entry into the abdomen was obtained using the open Kiki technique. A 12 mm Kiki trocar was inserted and the abdomen was inspected. No injury from initial trocar placement identified. Secondary trocars were placed under direct visualization beginning with a right epigastric subxiphoid 12 mm port followed by two 5 mm right subcostal ports. Local anesthetic was used for all skin incisions and port site for the patient's comfort. The patient was placed in reverse Trendelenburg position with left side down. There was a significant amount of omental adhesions to the area of the gallbladder on the liver. Omental adhesions were taken down with electrocautery and blunt dissection. The dome of the gallbladder was identified and distended as noted on the prior MRCP. The omental attachments were gently dissected off the gallbladder until the infundibulum could be seen. Given the distention, the gallbladder could not be grasped and therefore decompression was necessary. A laparoscopic decompressed needle was placed and the gallbladder was decompressed. The fluid obtained from the gallbladder was murky, cloudy and almost purulent in nature and therefore cultured. At this time, once decompressed, the dome of the gallbladder was grasped and retracted over the liver. The infundibulum was identified and gently dissected down to the cystic artery. Cystic artery and the cystic duct could be identified. The cystic artery was doubly clipped and divided. The only remaining structure entering into the gallbladder was the cystic duct and was in a fairly inflamed hilum. The cystic duct was clipped high and divided near the infundibulum. The gallbladder was then taken off the liver attachments with electrocautery. Following this, the gallbladder was placed in endoscopic retrieval bag and removed from the abdomen using the umbilical port site. Following this, the abdomen was irrigated and inspected. The clips were identified in good positioning. There was no bleeding or leakage of bile. Two pieces of Surgicel was placed in the liver bed and at this time we concluded the procedure. Secondary trocars were removed under direct visualization followed by the umbilical trocar site, and the abdomen was desufflated. The epigastric and infraumbilical fascial port sites were reapproximated using [id number] 0 Vicryl suture. The remaining skin incisions were cleansed and reapproximated using 4-0 Monocryl subcuticular interrupted sutures. The patient tolerated the procedure well, was extubated and taken to the postanesthetic care unit in stable condition. Zafar Echeverria M.D. DR: CAM JOB#: [id number] CC:
--- NOTE | 2018-05-17 19:51 | NUR ---
NURSE NOTES: Spoke with Rosales, pt will not be having EGD/ERCP tomorrow.
--- NOTE | 2018-05-17 20:05 | NUR ---
NURSE NOTES: Patient in bed eyes opened, no s/s acute distress noted. On gtube feeding, kept HOB elevated, no residual noted. Turned and repositioned. Will continue plan of care.
[2018-05-18] VITALS (7 sets, daily range): BP systolic 107–140; BP diastolic 65–76
[2018-05-18] MEDS: D5 1/2NS 1,000 ML IV SCH ×2 (05:10→16:04)
[2018-05-18] MEDS: Levodopa/Carbidopa 25/100 tab GT SCH ×3 (05:50→22:01)
--- NOTE | 2018-05-18 07:15 | NUR ---
HAND-OFF: Report given to Irving MARQUEZ.
--- NOTE | 2018-05-18 07:24 | 48 Hour Post Anesthesia Eval ---
Post Anesthesia Evaluation Procedure: Laparoscopic cholecystectomy Date of Evaluation: May 18, 2018 Time of Evaluation: 07:22 Blood Pressure Systolic: 108 0: 56 Pulse Rate: 64 Respiratory Rate: 22 Temperature (Fahrenheit): 97.6 O2 Sat by Pulse Oximetry: 98 Airway: patent Nausea: No Vomiting: No Pain Intensity: 0 Hydration Status: adequate Cardiopulmonary Status: stable Mental Status/LOC: patient returned to baseline Follow-up Care/Observations: n/a Post-Anesthesia Complications: none Follow-up care needed: N/A Rufino Nick MD May 18, 2018 07:24
--- NOTE | 2018-05-18 07:57 | NUR ---
NURSE NOTES: Pt in bed in low position, HOB in semi fowlers, pt on a Sp200 mattress for wound care, call light at bedside, bed alarm on, IV site LT F 20 running D5 1/2Ns at 100, pt Ox1 maybe 2, lips dry, pt calm and cooperative, English speaking, Pt from [facility], Pt needs to be turned Q2hrs or less, G tube feeding running Vital AF 1.2 at 60ml/hr and to hold if residual is 100 and flush 150ml, no s/s of distress or sob noted.
[2018-05-18 08:06] LABS: HEMOGLOBIN 9.3 G/DL (14.2-18.0); MEAN CORPUSCULAR VOLUME 98 FL (80-99); PLATELET COUNT 252 K/UL (150-450); RED BLOOD COUNT 2.98 M/UL (4.70-6.10); RED CELL DISTRIBUTION WIDTH 14.6 % (11.6-14.8); WHITE BLOOD COUNT 12.2 K/UL (4.8-10.8)
[2018-05-18 08:40] LABS: ALANINE AMINOTRANSFERASE 71 U/L (12-78); ALBUMIN 1.7 G/DL (3.4-5.0); ALBUMIN/GLOBULIN RATIO 0.4 (1.0-2.7); ALKALINE PHOSPHATASE 226 U/L (46-116); ANION GAP 9 mmol/L (5-15); ASPARTATE AMINO TRANSFERASE 68 U/L (15-37); BILIRUBIN,TOTAL 1.5 MG/DL (0.2-1.0); BLOOD UREA NITROGEN 10 mg/dL (7-18); CALCIUM 7.9 MG/DL (8.5-10.1); CARBON DIOXIDE 24 MMOL/L (21-32); CHLORIDE 101 MMOL/L (98-107); POTASSIUM 2.9 MMOL/L (3.5-5.1); SODIUM 134 MMOL/L (136-145)
[2018-05-18 08:49] LABS: BILIRUBIN,DIRECT 0.7 MG/DL (0.0-0.3)
--- NOTE | 2018-05-18 09:28 | NUR ---
REHAB MED PT NOTE CONSULT RECEIVED, GABY TERRELLKia, PATIENT AT BASELINE LEVEL OF CARE NO SKILLED NEEDS, NOT APPROPRIATE FOR IN PATIENT SKILLED PT. DEPENDENT FOR ALL FUNCTIONAL MOBILITY. DC TO PRIOR LOCATION. RECOMMEND NURSING STAFF TO FOLLOW UP WITH COMFORT AND CARE, THANK YOU. TOMMIE VAUGHN PT DPT Addendum: 05/18/18 at 0933 by TOMMIE VAUGHN PT Amended: Links added.
--- NOTE | 2018-05-18 09:37 | NUR ---
RADIOLOGY DEPT CHEST X-RAY DONE.-P.DYE
--- NOTE | 2018-05-18 09:58 | GI Progress Note ---
Assessment/Plan Problems: (1) Anemia ICD Codes: D64.9 - Anemia, unspecified SNOMED: 059368694 (2) Cholelithiasis ICD Codes: K80.20 - Calculus of gallbladder without cholecystitis without obstruction SNOMED: 972574540 (3) Obstructive jaundice ICD Codes: K83.8 - Other specified diseases of biliary tract SNOMED: 19495348 Status: unchanged Status Narrative Discussed with Dr. Colin Assessment/Plan Occult blood stool positive MRCP reviewed -No evidence of choledocholithiasis or biliary ductal dilatation. -Multiple gallstones. -Incidental 1 cm cystic focus in the body of the pancreas, nonspecific and not adequately evaluated on this study. s/p laparoscopic cholecystectomy given improving LFTS and no dilated CBD on ERCP will hold ERCP, Outpatient EUS fu tumor markers replace K anemia work up monitor H&H, prn transfusions bowel regime ppi fu labs, trend LFTs The patient was seen and examined at bedside and all new and available data was reviewed in the patients chart. I agree with the above findings, impression and plan. (Patient seen earlier today. Signature stamp does not reflect patient encounter time.). - Aldo Colin MD Subjective Subjective Limited Objective Last 24 Hour Vital Signs Date Time Temp Pulse Resp B/P (MAP) Pulse Ox O2 Delivery O2 Flow Rate FiO2 05/18/18 07:24 64 22 98 05/18/18 04:00 98.1 71 20 130/74 (92) 96 05/18/18 04:00 67 05/18/18 00:00 98.7 77 20 112/66 (81) 97 05/18/18 00:00 70 05/17/18 21:00 Nasal Cannula 2.0 05/17/18 20:09 Nasal Cannula 2.0 28 05/17/18 20:09 98 2.0 28 05/17/18 20:00 82 05/17/18 20:00 99.6 82 20 103/64 (77) 97 05/17/18 16:00 88 05/17/18 16:00 98.3 84 19 110/70 (83) 96 05/17/18 14:00 97.8 72 21 106/67 98 Nasal Cannula 3 05/17/18 13:50 72 20 109/70 98 Nasal Cannula 3 05/17/18 13:35 73 21 107/64 98 Nasal Cannula 3 05/17/18 13:25 73 22 108/63 97 Nasal Cannula 3 05/17/18 13:12 74 22 102/65 98 Simple Mask 8 05/17/18 13:11 74 22 98 05/17/18 13:07 74 22 102/65 98 Simple Mask 8 05/17/18 13:02 97.8 74 22 102/65 98 Simple Mask 8 Intake and Output 05/17/18 05/18/18 19:00 07:00 Intake Total 1150 ml 1760 ml Output Total 100 ml Balance 1050 ml 1760 ml Intake Free Water 100 ml IV Total 1100 ml 1000 ml Tube Feeding 50 ml 660 ml Estimated Blood Loss 100 ml # Voids 3 2 Laboratory Tests Test 05/18/18 06:14 White Blood Count 12.2 K/UL (4.8-10.8) H Red Blood Count 2.98 M/UL (4.70-6.10) L Hemoglobin 9.3 G/DL (14.2-18.0) L Hematocrit 29.0 % (42.0-52.0) L Mean Corpuscular Volume 98 FL (80-99) Mean Corpuscular Hemoglobin 31.2 PG (27.0-31.0) H Mean Corpuscular Hemoglobin Concent 31.9 G/DL (32.0-36.0) L Red Cell Distribution Width 14.6 % (11.6-14.8) Platelet Count 252 K/UL (150-450) Mean Platelet Volume 7.0 FL (6.5-10.1) Neutrophils (%) (Auto) % (45.0-75.0) Lymphocytes (%) (Auto) % (20.0-45.0) Monocytes (%) (Auto) % (1.0-10.0) Eosinophils (%) (Auto) % (0.0-3.0) Basophils (%) (Auto) % (0.0-2.0) Neutrophils % (Manual) Pending Lymphocytes % (Manual) Pending Platelet Estimate Pending Platelet Morphology Pending Sodium Level 134 MMOL/L (136-145) L Potassium Level 2.9 MMOL/L (3.5-5.1) L Chloride Level 101 MMOL/L (98-107) Carbon Dioxide Level 24 MMOL/L (21-32) Anion Gap 9 mmol/L (5-15) Blood Urea Nitrogen 10 mg/dL (7-18) Creatinine 1.0 MG/DL (0.55-1.30) Estimat Glomerular Filtration Rate mL/min (>60) Glucose Level 371 MG/DL (74-106) #H Calcium Level 7.9 MG/DL (8.5-10.1) L Total Bilirubin 1.5 MG/DL (0.2-1.0) H Direct Bilirubin 0.7 MG/DL (0.0-0.3) H Aspartate Amino Transf (AST/SGOT) 68 U/L (15-37) H Alanine Aminotransferase (ALT/SGPT) 71 U/L (12-78) Alkaline Phosphatase 226 U/L (46-116) H Total Protein 6.0 G/DL (6.4-8.2) L Albumin 1.7 G/DL (3.4-5.0) L Globulin 4.3 g/dL Albumin/Globulin Ratio 0.4 (1.0-2.7) L Microbiology Date/Time Source Procedure Growth Status 05/17/18 11:54 Gallbladder Fluid Gram Stain - Final Resulted 05/17/18 11:54 Gallbladder Fluid Aerobic Culture Pending Resulted 05/17/18 11:54 Gallbladder Fluid Anaerobic Culture Pending Resulted Height (Feet): 5 Height (Inches): 8.00 Weight (Pounds): 192 General Appearance: WD/WN, no apparent distress, alert Cardiovascular: normal rate Respiratory/Chest: normal breath sounds, no respiratory distress Abdominal Exam: normal bowel sounds, non tender, soft Extremities: non-tender Cait Calderon NP May 18, 2018 09:58
[2018-05-18] MEDS: Ferrous Sulfate 300 MG/5 ML UDC GT SCH ×3 (10:21→18:19)
[2018-05-18] MEDS: Heparin 5000 units/ml inj SUBQ SCH ×2 (10:22→21:00)
--- NOTE | 2018-05-18 12:09 | Diagnostic Imaging Report ---
Indication: Dyspnea Comparison: 05/11/2018 A single view chest radiograph was obtained. Findings: There is free air under the diaphragm. Patient had a cholecystectomy yesterday. The heart is prominent. There is a probable mild interstitial edema although lungs are very underexpanded. The bones are osteopenic. IMPRESSION: Suspect mild interstitial edema. Pneumoperitoneum compatible with recent cholecystectomy
--- NOTE | 2018-05-18 14:55 | General Progress Note ---
Progress Note Progress Note s/p brandy tong doing well. labs okay stable wounds c/d. dressings removed abd soft, nd, bs+ recovering cont current care Zafar Echeverria May 18, 2018 14:55
--- NOTE | 2018-05-18 14:58 | NUR ---
RD ASSESSMENT & RECOMMENDATIONS SEE CARE ACTIVITY FOR COMPLETE ASSESSMENT DAILY ESTIMATED NEEDS: Needs based on Wounds, bed bound/ 71.6kg 27-32 kcals/kg 3138-7737 total kcals 1.25-2 g protein/kg 90-144 g total protein 25-30 mL/kg 4761-1262 total fluid mLs NUTRITION DIAGNOSIS: 1) Swallowing difficulty r/t dysphagia as evidenced by pt is PEG dep. 2) Increased kcal and protein needs r/t wound healing as evidenced by pt w/ full thickness wound @ sacrum and DTI wounds @ L lateral Malleolus lateral L foot medial R heel. CURRENT TF:Vital AF 1.2 @ 60ml/hr x 22 hrs ENTERAL NUTRITION RECOMMENDATIONS: Osmolite 1.5 @65ml x22 hrs + PROSOURCE x1 daily to provide 1430ml, 2145 kcal, 90g prot + 11g prot, 1090ml free H2O * Rec TF change to Osmolite 1.5- elemental formula of Vital AF 1.2 if not indicated. * Initiate Osmolite 1.5 @ 25ml/hr x 6 hrs * Advance 10ml q 4-6 hrs as tolerated to goal rate. * Add Prosource x1 daily to better meet est prot needs * Flush per MD/ HOB over 30 degrees ADDITIONAL RECOMMENDATIONS: * Recalibrate bed scale wt for accurate CBW * WOUND CARE: Add PORTIA BID and Vit C 500mg BID * Monitor lytes, replete as needed * Oral grat as appropriate per ATTENDANT LODGING FACILITIES-> pt on oral grat one meal a day MEDICAL FACILITIES SECTION DIRECTOR . .
[2018-05-18] MEDS: Vancomycin 1.25gm Premix 275 ML IVPB SCH (15:00)
--- NOTE | 2018-05-18 17:00 | NUR ---
NURSE NOTES: Called md left a message regarding low potassium
--- NOTE | 2018-05-18 20:09 | NUR ---
HAND-OFF: Report given to staci Díaz.
--- NOTE | 2018-05-18 20:10 | NUR ---
NURSE NOTES: Got report from Irving MARQUEZ. Pt in stable condition. No s/s of distress noted. Pt resting in bed comfortably. Bed in low and locked position,call light within reach, bedside table within reach. Continue to monitor.
[2018-05-18] MEDS ORDERED: NS 275ml ONE (20:31)
[2018-05-18] MEDS ORDERED: Tubing IV Secondary IV ONE (20:31)
[2018-05-18] MEDS ORDERED: D5 1/2NS 1000ml IV ONE (20:31)
[2018-05-19] VITALS: BP 120/68
[2018-05-19] MEDS: D5 1/2NS 1,000 ML IV SCH (01:09)
[2018-05-19 04:25] VITALS: BP 120/65
[2018-05-19] MEDS: Levodopa/Carbidopa 25/100 tab GT SCH ×3 (06:00→22:14)
--- NOTE | 2018-05-19 07:30 | NUR ---
HAND-OFF: Report given to Dong MARQUEZ. Endorsed plan of care.
--- NOTE | 2018-05-19 07:30 | NUR ---
NURSE NOTES: Got report from laura Trivedi RN. Pt in stable condition. No s/s of distress noted. Pt resting in bed comfortably. Bed in low and locked position,call light within reach, bedside table within reach. Continue to monitor.
[2018-05-19 08:28] VITALS: BP 154/66
[2018-05-19 08:47] LABS: HEMATOCRIT 26.9 % (42.0-52.0); MEAN CORPUSCULAR VOLUME 93 FL (80-99); PLATELET COUNT 273 K/UL (150-450); RED BLOOD COUNT 2.88 M/UL (4.70-6.10); RED CELL DISTRIBUTION WIDTH 13.8 % (11.6-14.8); WHITE BLOOD COUNT 11.8 K/UL (4.8-10.8)
[2018-05-19 08:56] LABS: ANION GAP 4 mmol/L (5-15); BLOOD UREA NITROGEN 12 mg/dL (7-18); CALCIUM 7.9 MG/DL (8.5-10.1); CARBON DIOXIDE 28 MMOL/L (21-32); CHLORIDE 104 MMOL/L (98-107); CREATININE 0.9 MG/DL (0.55-1.30); POTASSIUM 3.2 MMOL/L (3.5-5.1); SODIUM 136 MMOL/L (136-145)
[2018-05-19] MEDS: Ferrous Sulfate 300 MG/5 ML UDC GT SCH ×4 (09:00→18:15)
[2018-05-19 09:03] LABS: ALANINE AMINOTRANSFERASE 64 U/L (12-78); ALBUMIN 1.7 G/DL (3.4-5.0); ALKALINE PHOSPHATASE 205 U/L (46-116); ASPARTATE AMINO TRANSFERASE 36 U/L (15-37); BILIRUBIN,DIRECT 0.9 MG/DL (0.0-0.3); BILIRUBIN,TOTAL 1.4 MG/DL (0.2-1.0)
[2018-05-19] MEDS: Heparin 5000 units/ml inj SUBQ SCH ×2 (09:19→22:15)
--- NOTE | 2018-05-19 10:04 | NUR ---
NURSE NOTES: 9:45 am: Upon giving medication, noticed patient exhibiting inspiratory and expiratory wheezing. Hold medications and feeding. Paged Dr. Ash at [phone]. 10:04 am: Spoke to Dr. Ash of assessment. Received orders. To resume Ng tube meds and feeding in 3 hours. Discontinued IV fluids. And entered appropriate medications.
--- NOTE | 2018-05-19 10:15 | NUR ---
NURSE NOTES: Potassium is 3.2. paged dr. Ash about potassium level first page at 10:15am Second page to Dr. Ash at 10:45am. Awaiting call back to verify lasix order or possible new orders. Addendum: 05/19/18 at 1121 by Dong Ornelas RN Spoke to Dr. Ash about potassium 3.2. Dr. Ash is aware and orders will be entered by him.
--- NOTE | 2018-05-19 11:26 | General Progress Note ---
Assessment/Plan Assessment/Plan Obstructive Jaundice resolving. s/p Lap Kristine. Urinary ESBL, infected decubiti. Polymicrobial complicated sepsis. ID following. Pul. Edema - IVF dc'ed. IV Lasix. Subjective Allergies: Coded Allergies: No Known Allergies (Unverified , 09/08/17) Subjective Confused. + SOB. s/p Lap Kristine. Objective Last 24 Hour Vital Signs Date Time Temp Pulse Resp B/P (MAP) Pulse Ox O2 Delivery O2 Flow Rate FiO2 05/19/18 09:00 Nasal Cannula 2.0 05/19/18 08:40 Nasal Cannula 2.0 28 05/19/18 08:40 97 Nasal Cannula 2.0 28 05/19/18 08:28 98.1 73 23 154/66 (95) 98 05/19/18 08:00 71 05/19/18 04:25 97.2 69 18 120/65 (83) 96 05/19/18 04:00 65 05/19/18 00:00 65 05/19/18 00:00 98.4 72 19 120/68 (85) 97 05/18/18 21:00 Nasal Cannula 2.0 05/18/18 20:00 98.8 78 20 140/76 (97) 97 05/18/18 20:00 70 05/18/18 19:25 96 Nasal Cannula 2.0 28 05/18/18 19:25 Nasal Cannula 2.0 28 05/18/18 16:00 98.1 70 18 130/65 (86) 99 05/18/18 15:44 71 05/18/18 12:00 97.6 81 19 120/72 (88) 96 05/18/18 11:42 65 Intake and Output 05/18/18 05/19/18 18:59 06:59 Intake Total 1070 ml 210 ml Balance 1070 ml 210 ml Intake Free Water 350 ml 150 ml Tube Feeding 720 ml 60 ml # Bowel Movements 1 1 Laboratory Tests 05/19/18 07:45: White Blood Count 11.8H, Red Blood Count 2.88L, Hemoglobin 9.0L, Hematocrit 26.9L, Mean Corpuscular Volume 93, Mean Corpuscular Hemoglobin 31.3H, Mean Corpuscular Hemoglobin Concent 33.6, Red Cell Distribution Width 13.8, Platelet Count 273, Mean Platelet Volume 7.0, Neutrophils (%) (Auto) , Lymphocytes (%) ( Auto) , Monocytes (%) (Auto) , Eosinophils (%) (Auto) , Basophils (%) (Auto) , Differential Total Cells Counted 100, Neutrophils % (Manual) 89H, Lymphocytes % (Manual) 7L, Monocytes % (Manual) 3, Eosinophils % (Manual) 1, Basophils % ( Manual) 0, Band Neutrophils 0, Platelet Estimate Adequate, Platelet Morphology Normal, Red Blood Cell Morphology Normal, Sodium Level 136, Potassium Level 3.2L , Chloride Level 104, Carbon Dioxide Level 28, Anion Gap 4L, Blood Urea Nitrogen 12, Creatinine 0.9, Estimat Glomerular Filtration Rate , Glucose Level 133#H, Calcium Level 7.9L, Total Bilirubin 1.4H, Direct Bilirubin 0.9H, Aspartate Amino Transf (AST/SGOT) 36, Alanine Aminotransferase (ALT/SGPT) 64, Alkaline Phosphatase 205H, Total Protein 5.7L, Albumin 1.7L Height (Feet): 5 Height (Inches): 8.00 Weight (Pounds): 192 Objective CV RR Lungs B Ronchi Skin Sacral decub stage 4. B heel decubs. Abd SNT. BS + E No CCE Joanne Desir MD May 19, 2018 11:26
[2018-05-19 12:00] VITALS: BP 128/71
[2018-05-19] MEDS: Albuterol/Ipratropium 3ml neb HHN SCH ×2 (13:29→20:15)
--- NOTE | 2018-05-19 14:04 | Infectious Diseases Prog Note ---
Assessment/Plan Assessment/Plan ASSESSMENT AND PLAN: 1. esbl e.coli uti, mrsa right hip wound infection, cholelithiasis/GS, mri noted , right hip x-ray without osteomyelitis s/p lap cholecystectomy, sob/wheeze - meropenem and vancomycin - day # 7 - check sc, labs and chest x-ray - wound care per surgery and protocol - monitor labs 2. history of organic brain syndrome. 3. Parkinson's. 4. Dementia. 5. Chronic kidney disease. 6. Hypothyroidism. 7. Malnutrition. 8. COPD. 9. BPH. 10. Hypertension. 11. Anemia. 12. No known family history. 13. Family history noncontributory. 14. Social history negative for smoking, alcohol, or drug abuse. 15. MAR is noted. 16. Case discussed with RN. 17. Continue treatment per primary consultants. 18. Notes and records were noted. 19. Orders were entered. 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 Subjective Constitutional: Reports: fatigue; Denies: fever HEENT: Reports: congestion Respiratory: Reports: shortness of breath Cardiovascular: Denies: chest pain Gastrointestinal/Abdominal: Denies: nausea, vomiting, diarrhea Genitourinary: Reports: other - no garcia Neurologic: Reports: weakness; Denies: headache Psychiatric: Denies: depression Skin: Denies: rash Hematologic: Denies: bleeding Musculoskeletal: Denies: pain Allergies: Coded Allergies: No Known Allergies (Unverified , 09/08/17) Objective Vital Signs Last 24 Hour Vital Signs Date Time Temp Pulse Resp B/P (MAP) Pulse Ox O2 Delivery O2 Flow Rate FiO2 05/19/18 13:29 28 05/19/18 13:29 77 20 99 Nasal Cannula 2.0 28 05/19/18 13:29 76 20 98 Nasal Cannula 2.0 28 05/19/18 13:29 76 20 Nasal Cannula 2.0 28 05/19/18 12:00 97.0 64 19 128/71 (90) 95 05/19/18 11:40 65 05/19/18 09:00 Nasal Cannula 2.0 05/19/18 08:40 Nasal Cannula 2.0 28 05/19/18 08:40 97 Nasal Cannula 2.0 28 05/19/18 08:28 98.1 73 23 154/66 (95) 98 05/19/18 08:00 71 05/19/18 04:25 97.2 69 18 120/65 (83) 96 05/19/18 04:00 65 05/19/18 00:00 65 05/19/18 00:00 98.4 72 19 120/68 (85) 97 05/18/18 21:00 Nasal Cannula 2.0 05/18/18 20:00 98.8 78 20 140/76 (97) 97 05/18/18 20:00 70 05/18/18 19:25 96 Nasal Cannula 2.0 28 05/18/18 19:25 Nasal Cannula 2.0 28 05/18/18 16:00 98.1 70 18 130/65 (86) 99 05/18/18 15:44 71 Height (Feet): 5 Height (Inches): 8.00 Weight (Pounds): 192 General Appearance: no acute distress HEENT: normocephalic, atraumatic, anicteric, mucous membranes moist Respiratory/Chest: no accessory muscle use, crackles/rales, rhonchi - bilaterally Cardiovascular: normal rate, regular rhythm, no gallop/murmur, no JVD Abdomen: normal bowel sounds, soft, non tender, no organomegaly, non distended Genitourinary: other - + garcia - urine slt cloudy Extremities: no cyanosis Skin: no rash 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 Patient had a cholecystectomy yesterday. The heart is prominent. There is a probable mild interstitial edema although lungs are very underexpanded. The bones are osteopenic. IMPRESSION: Suspect mild interstitial edema. Pneumoperitoneum compatible with recent cholecystectomy Microbiology Date/Time Source Procedure Growth Status 05/11/18 16:45 Blood Blood Culture - Final NO GROWTH AFTER 5 DAYS Complete 05/17/18 11:54 Gallbladder Fluid Gram Stain - Final Resulted 05/17/18 11:54 Aerobic Culture - Preliminary Gram Negative Bacillus 1 Gram Positive Cocci Resulted 05/17/18 11:54 Gallbladder Fluid Anaerobic Culture - Preliminary Resulted 05/11/18 16:10 Nasal Nares MRSA Culture - Final NO METHICILLIN RESISTANT STAPH AUREUS... Complete 05/11/18 16:35 Urine,Clean Catch Urine Culture - Final Escherichia Coli - Esbl Complete 05/12/18 07:10 Hip Right Gram Stain - Final Complete 05/12/18 07:10 Wound Culture - Final Staphylococcus Aureus - Mrsa Diphtheroids Complete Microbiology Date/Time Source Procedure Growth Status 05/17/18 11:54 Gallbladder Fluid Gram Stain - Final Resulted 05/17/18 11:54 Aerobic Culture - Preliminary Gram Negative Bacillus 1 Gram Positive Cocci Resulted 05/17/18 11:54 Gallbladder Fluid Anaerobic Culture - Preliminary Resulted Laboratory Tests Test 05/19/18 07:45 White Blood Count 11.8 K/UL (4.8-10.8) H Red Blood Count 2.88 M/UL (4.70-6.10) L Hemoglobin 9.0 G/DL (14.2-18.0) L Hematocrit 26.9 % (42.0-52.0) L Mean Corpuscular Volume 93 FL (80-99) Mean Corpuscular Hemoglobin 31.3 PG (27.0-31.0) H Mean Corpuscular Hemoglobin Concent 33.6 G/DL (32.0-36.0) Red Cell Distribution Width 13.8 % (11.6-14.8) Platelet Count 273 K/UL (150-450) Mean Platelet Volume 7.0 FL (6.5-10.1) Neutrophils (%) (Auto) % (45.0-75.0) Lymphocytes (%) (Auto) % (20.0-45.0) Monocytes (%) (Auto) % (1.0-10.0) Eosinophils (%) (Auto) % (0.0-3.0) Basophils (%) (Auto) % (0.0-2.0) Differential Total Cells Counted 100 Neutrophils % (Manual) 89 % (45-75) H Lymphocytes % (Manual) 7 % (20-45) L Monocytes % (Manual) 3 % (1-10) Eosinophils % (Manual) 1 % (0-3) Basophils % (Manual) 0 % (0-2) Band Neutrophils 0 % (0-8) Platelet Estimate Adequate Platelet Morphology Normal Red Blood Cell Morphology Normal Sodium Level 136 MMOL/L (136-145) Potassium Level 3.2 MMOL/L (3.5-5.1) L Chloride Level 104 MMOL/L (98-107) Carbon Dioxide Level 28 MMOL/L (21-32) Anion Gap 4 mmol/L (5-15) L Blood Urea Nitrogen 12 mg/dL (7-18) Creatinine 0.9 MG/DL (0.55-1.30) Estimat Glomerular Filtration Rate mL/min (>60) Glucose Level 133 MG/DL (74-106) #H Calcium Level 7.9 MG/DL (8.5-10.1) L Total Bilirubin 1.4 MG/DL (0.2-1.0) H Direct Bilirubin 0.9 MG/DL (0.0-0.3) H Aspartate Amino Transf (AST/SGOT) 36 U/L (15-37) Alanine Aminotransferase (ALT/SGPT) 64 U/L (12-78) Alkaline Phosphatase 205 U/L (46-116) H Total Protein 5.7 G/DL (6.4-8.2) L Albumin 1.7 G/DL (3.4-5.0) L Current Medications Medications (Trade) Dose Ordered Sig/Adrian Route PRN Reason Start Time Stop Time Status Last Admin Dose Admin Acetaminophen (Tylenol) 650 mg Q4H PRN GT Mild Pain/Temp > 100.5 05/12/18 14:30 06/11/18 14:29 Acetaminophen/ Hydrocodone Bitart (Primrose 5/325) 1 tab Q6H PRN GT PAIN 4-10 05/12/18 14:30 05/19/18 14:29 Albuterol/ Ipratropium (Albuterol/ Ipratropium) 3 ml Q6HRT HHN 05/19/18 13:00 05/24/18 12:59 05/19/18 13:29 Carbidopa/Levodopa (Sinemet 25/100) 1 tab Q8HR GT 05/12/18 22:00 06/11/18 21:59 05/19/18 12:52 Ferrous Sulfate (Feosol) 300 mg THREE TIMES A DAY GT 05/12/18 18:00 06/11/18 17:59 05/19/18 12:52 Finasteride (Proscar) 5 mg DAILY ORAL 05/13/18 09:00 06/12/18 08:59 05/18/18 10:21 Folic Acid (Folate) 1 mg DAILY GT 05/13/18 09:00 06/12/18 08:59 05/18/18 10:21 Heparin Sodium (Porcine) (Heparin 5000 units/ml) 5,000 units EVERY 12 HOURS SUBQ 05/12/18 09:00 06/11/18 08:59 05/19/18 09:19 Levothyroxine Sodium (Synthroid) 100 mcg DAILY@0630 GT 05/13/18 06:30 06/12/18 06:29 05/18/18 05:50 Meropenem 1 gm/ Sodium Chloride 100 ml @ 200 mls/hr Q8HR IVPB 05/17/18 22:00 05/22/18 21:59 05/19/18 06:00 Morphine Sulfate (Morphine Sulfate) 1 mg Q4H PRN IVP pain scale 1-3 05/17/18 13:00 05/24/18 12:59 Morphine Sulfate (Morphine Sulfate) 2 mg Q4H PRN IVP pain scale 4-6 05/17/18 13:00 05/24/18 12:59 Morphine Sulfate (Morphine Sulfate) 4 mg Q4H PRN IVP pain score 7-10 05/17/18 13:00 05/24/18 12:59 Ondansetron HCl (Zofran) 4 mg Q6H PRN IVP Nausea & Vomiting 05/12/18 14:30 06/11/18 14:29 Potassium Chloride 100 ml @ 100 mls/hr Q1HR IVPB 05/19/18 12:00 05/19/18 13:59 05/19/18 12:52 Vancomycin HCl (Vanco rx to dose) 1 ea DAILY PRN MISC Per rx protocol 05/17/18 16:45 06/16/18 16:44 Vancomycin HCl/ Dextrose 275 ml @ 183.333 mls/hr Q24H IVPB 05/18/18 15:00 05/24/18 14:59 05/18/18 15:00 Junior Loza MD May 19, 2018 14:04
[2018-05-19] MEDS: Vancomycin 1.25gm Premix 275 ML IVPB SCH (15:36)
[2018-05-19 16:00] VITALS: BP 115/59
--- NOTE | 2018-05-19 19:39 | NUR ---
NURSE NOTES: Report received from JIMMY Umana. Pt is lying comfortably in semi fowlers with no signs of distress. Pt is A+Ox3, showing no signs of pain/ SOB. IV site is patent, intact, and saline locked. Respirations are even and unlabored on 2 L NC. G-tube is in place, patent, and running feeding at prescribed rate. Bed is at lowest position, brakes engaged, siderails x2, bed alarm on, and call light within reach. Pt is in stable condition at this time; will continue to monitor.
--- NOTE | 2018-05-19 19:58 | NUR ---
HAND-OFF: Report given to JIMMY Irby.
[2018-05-19 20:00] VITALS: BP 129/74
[2018-05-20] VITALS: BP 120/60
[2018-05-20] MEDS: Albuterol/Ipratropium 3ml neb HHN SCH ×4 (01:41→20:52)
[2018-05-20 04:00] VITALS: BP 108/68
[2018-05-20] MEDS: Levodopa/Carbidopa 25/100 tab GT SCH ×3 (06:09→21:11)
--- NOTE | 2018-05-20 07:15 | NUR ---
NURSE NOTES: Report received from JIMMY Davenport. Pt is lying comfortably in semi fowlers with no signs of distress. Pt is AAOx3, showing no signs of pain/ SOB. IV site is patent, intact, and saline locked. Respirations are even and unlabored on 2 L NC. G-tube is in place, patent, and running feeding of Selena AF 1.2 at 60 ml/hr. Bed is at lowest position, brakes engaged, siderails x2, bed alarm on, and call light within reach. Pt is in stable condition at this time; will continue to monitor.
--- NOTE | 2018-05-20 07:17 | NUR ---
HAND-OFF: Report given to JIMMY Umana. Pt is in stable condition; plan of care endorsed.
[2018-05-20 07:32] LABS: HEMOGLOBIN 8.5 G/DL (14.2-18.0); MEAN CORPUSCULAR VOLUME 94 FL (80-99); PLATELET COUNT 292 K/UL (150-450); RED BLOOD COUNT 2.77 M/UL (4.70-6.10); RED CELL DISTRIBUTION WIDTH 13.9 % (11.6-14.8); WHITE BLOOD COUNT 12.7 K/UL (4.8-10.8)
[2018-05-20 07:51] LABS: ANION GAP 3 mmol/L (5-15); BLOOD UREA NITROGEN 21 mg/dL (7-18); CALCIUM 8.2 MG/DL (8.5-10.1); CARBON DIOXIDE 29 MMOL/L (21-32); CHLORIDE 102 MMOL/L (98-107); CREATININE 0.9 MG/DL (0.55-1.30); POTASSIUM 2.9 MMOL/L (3.5-5.1); SODIUM 134 MMOL/L (136-145)
[2018-05-20 08:00] VITALS: BP 118/68
[2018-05-20] MEDS: Ferrous Sulfate 300 MG/5 ML UDC GT SCH ×3 (08:43→18:34)
[2018-05-20] MEDS: Heparin 5000 units/ml inj SUBQ SCH ×2 (08:44→21:13)
--- NOTE | 2018-05-20 09:30 | NUR ---
NURSE NOTES: 9am- Hanged Selena AF 1.2 @60ml/hr. no residual. Addendum: 05/20/18 at 0931 by Dong Ornelas RN Peg site dressing is intact with no exudate/redness noted.
--- NOTE | 2018-05-20 09:39 | NUR ---
NURSE NOTES: Paged. Dr. Ash @9:15 and @9:39. Need to report labs of 12.7 WBC, 8.5 Hgb (trending down), 134 Na, and 2.9 Potassium. Awaiting callback. Addendum: 05/20/18 at 0947 by Dong Ornelas RN @9:46am. Spoke to Dr. Ash about lab results. Dr. Ash is now aware and will enter orders at a later time.
--- NOTE | 2018-05-20 10:53 | General Progress Note ---
Assessment/Plan Assessment/Plan Obstructive Jaundice resolving. s/p Lap Kristine. Urinary ESBL, infected decubiti. Polymicrobial complicated sepsis. ID following. Pul. Edema - IVF dc'ed. IV Lasix. Hypokalemia, Hypomagnesemia -correct. Subjective Allergies: Coded Allergies: No Known Allergies (Unverified , 09/08/17) Subjective Confused. + SOB. s/p Lap Kristine. Objective Last 24 Hour Vital Signs Date Time Temp Pulse Resp B/P (MAP) Pulse Ox O2 Delivery O2 Flow Rate FiO2 05/20/18 09:00 Nasal Cannula 2.0 05/20/18 08:00 97.0 82 20 118/68 (85) 95 05/20/18 07:47 84 05/20/18 07:00 69 18 98 Nasal Cannula 2.0 28 05/20/18 07:00 Nasal Cannula 2.0 28 05/20/18 07:00 96 Nasal Cannula 2.0 28 05/20/18 07:00 69 18 95 Nasal Cannula 2.0 28 05/20/18 07:00 28 05/20/18 04:00 80 05/20/18 04:00 98.0 85 19 108/68 (81) 98 05/20/18 01:51 66 18 98 Nasal Cannula 2.0 28 05/20/18 01:41 64 18 95 Nasal Cannula 2.0 28 05/20/18 01:41 28 05/20/18 00:00 69 05/20/18 00:00 98.0 70 19 120/60 (80) 96 05/19/18 21:00 Nasal Cannula 2.0 05/19/18 20:25 64 18 99 Nasal Cannula 2.0 28 05/19/18 20:15 95 Nasal Cannula 2.0 28 05/19/18 20:15 Nasal Cannula 2.0 28 05/19/18 20:15 28 05/19/18 20:15 65 20 95 Nasal Cannula 2.0 28 05/19/18 20:00 98.6 64 20 129/74 (92) 97 05/19/18 20:00 82 05/19/18 16:00 98.1 82 21 115/59 (77) 96 05/19/18 15:55 82 05/19/18 13:29 28 05/19/18 13:29 77 20 99 Nasal Cannula 2.0 28 05/19/18 13:29 76 20 98 Nasal Cannula 2.0 28 05/19/18 13:29 76 20 Nasal Cannula 2.0 28 05/19/18 12:00 97.0 64 19 128/71 (90) 95 05/19/18 11:40 65 Intake and Output 05/19/18 05/20/18 18:59 06:59 Intake Total 750 ml Output Total 1900 ml Balance -1900 ml 750 ml Intake Free Water 150 ml Tube Feeding 600 ml Output Urine Total 1900 ml # Voids 2 # Bowel Movements 1 Laboratory Tests 05/20/18 05:53: White Blood Count 12.7H, Red Blood Count 2.77L, Hemoglobin 8.5L, Hematocrit 26.0L, Mean Corpuscular Volume 94, Mean Corpuscular Hemoglobin 30.8, Mean Corpuscular Hemoglobin Concent 32.8, Red Cell Distribution Width 13.9, Platelet Count 292, Mean Platelet Volume 6.4L, Neutrophils (%) (Auto) , Lymphocytes (%) ( Auto) , Monocytes (%) (Auto) , Eosinophils (%) (Auto) , Basophils (%) (Auto) , Differential Total Cells Counted 100, Neutrophils % (Manual) 85H, Lymphocytes % (Manual) 5L, Monocytes % (Manual) 9, Eosinophils % (Manual) 1, Basophils % ( Manual) 0, Band Neutrophils 0, Platelet Estimate Adequate, Platelet Morphology Normal, Hypochromasia 1+, Sodium Level 134L, Potassium Level 2.9L, Chloride Level 102, Carbon Dioxide Level 29, Anion Gap 3L, Blood Urea Nitrogen 21H, Creatinine 0.9, Estimat Glomerular Filtration Rate , Glucose Level 172H, Calcium Level 8.2L, Magnesium Level 1.6L Height (Feet): 5 Height (Inches): 8.00 Weight (Pounds): 192 Objective CV RR Lungs B Ronchi Skin Sacral decub stage 4. B heel decubs. Abd SNT. BS + E No CCE Joanne Desir MD May 20, 2018 10:53
[2018-05-20 12:00] VITALS: BP 123/67
[2018-05-20] MEDS: Spironolactone 25mg tab ORAL SCH (14:49)
[2018-05-20 16:00] VITALS: BP 102/64
[2018-05-20] MEDS: Vancomycin 1.25gm Premix 275 ML IVPB SCH (17:16)
--- NOTE | 2018-05-20 19:14 | NUR ---
HAND-OFF: Report given to JIMMY Davenport.
--- NOTE | 2018-05-20 19:14 | NUR ---
NURSE NOTES: Report received from JIMMY Umana. Pt is lying comfortably in semi fowlers with no signs of distress. Pt is A+Ox2, showing no signs of pain/ SOB. IV sites are patent, intact, and saline locked. Respirations are even and unlabored on 2 L NC. G-tube is in place, patent, and running feeding at prescribed rate. Bed is at lowest position, brakes engaged, siderails x2, bed alarm on, and call light within reach. Pt is in stable condition at this time; will continue to monitor.
[2018-05-20 20:00] VITALS: BP 112/60
[2018-05-21] VITALS: BP 122/70
[2018-05-21] MEDS: Albuterol/Ipratropium 3ml neb HHN SCH ×4 (03:27→21:42)
[2018-05-21 04:00] VITALS: BP 105/62
[2018-05-21] MEDS: Levodopa/Carbidopa 25/100 tab GT SCH ×3 (05:36→21:37)
--- NOTE | 2018-05-21 07:27 | NUR ---
NURSE NOTES: I received the patient resting in bed. Patient awake and alert and oriented x2. Patient does not display any signs of distress or SOB. Bed in the lowest position and call light within reach. I will continue to monitor the patient and implement care.
--- NOTE | 2018-05-21 07:39 | NUR ---
HAND-OFF: Report given to JIMMY Saenz. Pt is in stable condition; plan of care endorsed.
[2018-05-21 08:00] VITALS: BP 119/69
[2018-05-21 08:05] LABS: BASOPHILS % (AUTO) 0.9 % (0.0-2.0); HEMATOCRIT 25.6 % (42.0-52.0); HEMOGLOBIN 8.2 G/DL (14.2-18.0); LYMPHOCYTES % (AUTO) 8.5 % (20.0-45.0); MEAN CORPUSCULAR VOLUME 95 FL (80-99); MONOCYTES % (AUTO) 6.3 % (1.0-10.0); NEUTROPHILS % (AUTO) 80.4 % (45.0-75.0); PLATELET COUNT 309 K/UL (150-450); RED BLOOD COUNT 2.69 M/UL (4.70-6.10); RED CELL DISTRIBUTION WIDTH 13.7 % (11.6-14.8); WHITE BLOOD COUNT 10.4 K/UL (4.8-10.8)
[2018-05-21 08:24] LABS: ANION GAP 7 mmol/L (5-15); BLOOD UREA NITROGEN 23 mg/dL (7-18); CALCIUM 8.5 MG/DL (8.5-10.1); CARBON DIOXIDE 29 MMOL/L (21-32); CHLORIDE 103 MMOL/L (98-107); CREATININE 0.9 MG/DL (0.55-1.30); POTASSIUM 3.6 MMOL/L (3.5-5.1); SODIUM 139 MMOL/L (136-145)
[2018-05-21] MEDS: Spironolactone 25mg tab ORAL SCH (08:54)
[2018-05-21] MEDS: Ferrous Sulfate 300 MG/5 ML UDC GT SCH ×3 (08:54→17:49)
[2018-05-21] MEDS: Heparin 5000 units/ml inj SUBQ SCH ×2 (08:57→21:38)
--- NOTE | 2018-05-21 10:55 | General Progress Note ---
Assessment/Plan Assessment/Plan Obstructive Jaundice resolving. s/p Lap Kristine. Urinary ESBL, infected decubiti. Polymicrobial complicated sepsis. ID following. Pul. Edema - IVF dc'ed. IV Lasix. Hypokalemia, Hypomagnesemia -correct. Still in CHF. Check Stat ABGs Subjective Allergies: Coded Allergies: No Known Allergies (Unverified , 09/08/17) Subjective Confused. + SOB. s/p Lap Kristine. Objective Last 24 Hour Vital Signs Date Time Temp Pulse Resp B/P (MAP) Pulse Ox O2 Delivery O2 Flow Rate FiO2 05/21/18 09:00 Nasal Cannula 2.0 05/21/18 08:00 98.2 78 23 119/69 (86) 95 05/21/18 07:53 67 05/21/18 07:51 72 18 99 Nasal Cannula 2.0 28 05/21/18 07:41 73 18 94 Nasal Cannula 2.0 28 05/21/18 07:40 Nasal Cannula 2.0 28 05/21/18 07:40 94 Nasal Cannula 2.0 28 05/21/18 04:00 98.1 63 17 105/62 (76) 93 05/21/18 04:00 64 05/21/18 03:27 Nasal Cannula 2.0 28 05/21/18 03:27 Nasal Cannula 05/21/18 00:00 72 05/21/18 00:00 96.0 69 17 122/70 (87) 95 05/20/18 21:02 75 18 96 Nasal Cannula 2.0 28 05/20/18 21:00 Nasal Cannula 2.0 05/20/18 20:52 95 Nasal Cannula 2.0 28 05/20/18 20:52 72 20 5 Nasal Cannula 2.0 28 05/20/18 20:52 Nasal Cannula 2.0 28 05/20/18 20:00 77 05/20/18 20:00 98.1 75 18 112/60 (77) 96 05/20/18 16:00 98.6 88 22 102/64 (77) 99 05/20/18 15:38 89 05/20/18 13:42 28 05/20/18 13:42 68 18 98 Nasal Cannula 2.0 28 05/20/18 13:41 65 18 95 Nasal Cannula 2.0 28 05/20/18 12:00 98.6 76 22 123/67 (85) 95 05/20/18 11:35 74 Intake and Output 05/20/18 05/21/18 19:00 07:00 Intake Total 200 ml 800 ml Output Total 200 ml Balance 0 ml 800 ml IV Total 200 ml 200 ml Tube Feeding 600 ml Output Urine Total 200 ml # Voids 1 Laboratory Tests 05/21/18 06:53: White Blood Count 10.4, Red Blood Count 2.69L, Hemoglobin 8.2L, Hematocrit 25.6L , Mean Corpuscular Volume 95, Mean Corpuscular Hemoglobin 30.7, Mean Corpuscular Hemoglobin Concent 32.2, Red Cell Distribution Width 13.7, Platelet Count 309, Mean Platelet Volume 6.2L, Neutrophils (%) (Auto) 80.4H, Lymphocytes (%) (Auto) 8.5L, Monocytes (%) (Auto) 6.3, Eosinophils (%) (Auto) 4.0H, Basophils (%) (Auto) 0.9, Sodium Level 139, Potassium Level 3.6, Chloride Level 103, Carbon Dioxide Level 29, Anion Gap 7, Blood Urea Nitrogen 23H, Creatinine 0.9, Estimat Glomerular Filtration Rate , Glucose Level 115H, Calcium Level 8.5 Height (Feet): 5 Height (Inches): 8.00 Weight (Pounds): 192 Objective CV RR Lungs B Ronchi Skin Sacral decub stage 4. B heel decubs. Abd SNT. BS + E No CCE Joanne Desir MD May 21, 2018 10:55
[2018-05-21] MEDS ORDERED: Tubing IV Secondary IV ONE (11:00)
[2018-05-21] MEDS ORDERED: NS 500ML ONE (11:00)
--- NOTE | 2018-05-21 11:22 | GI Progress Note ---
Assessment/Plan Problems: (1) Anemia ICD Codes: D64.9 - Anemia, unspecified SNOMED: 220064154 (2) Cholelithiasis ICD Codes: K80.20 - Calculus of gallbladder without cholecystitis without obstruction SNOMED: 731297149 (3) Obstructive jaundice ICD Codes: K83.8 - Other specified diseases of biliary tract SNOMED: 72974258 Status: stable, unchanged Status Narrative Discussed with Dr. Colin. Assessment/Plan Occult blood stool positive MRCP reviewed -No evidence of choledocholithiasis or biliary ductal dilatation. -Multiple gallstones. -Incidental 1 cm cystic focus in the body of the pancreas, nonspecific and not adequately evaluated on this study. s/p laparoscopic cholecystectomy fu surgical recommendations given improving LFTS and no dilated CBD on ERCP will hold ERCP, Outpatient EUS fu tumor markers replace K anemia work up monitor H&H, prn transfusions bowel regime ppi fu labs, trend LFTs The patient was seen and examined at bedside and all new and available data was reviewed in the patients chart. I agree with the above findings, impression and plan. (Patient seen earlier today. Signature stamp does not reflect patient encounter time.). - Aldo Colin MD Subjective Subjective Limited Objective Last 24 Hour Vital Signs Date Time Temp Pulse Resp B/P (MAP) Pulse Ox O2 Delivery O2 Flow Rate FiO2 05/21/18 09:00 Nasal Cannula 2.0 05/21/18 08:00 98.2 78 23 119/69 (86) 95 05/21/18 07:53 67 05/21/18 07:51 72 18 99 Nasal Cannula 2.0 28 05/21/18 07:41 73 18 94 Nasal Cannula 2.0 28 05/21/18 07:40 Nasal Cannula 2.0 28 05/21/18 07:40 94 Nasal Cannula 2.0 28 05/21/18 04:00 98.1 63 17 105/62 (76) 93 05/21/18 04:00 64 05/21/18 03:27 Nasal Cannula 2.0 28 05/21/18 03:27 Nasal Cannula 05/21/18 00:00 72 05/21/18 00:00 96.0 69 17 122/70 (87) 95 05/20/18 21:02 75 18 96 Nasal Cannula 2.0 28 05/20/18 21:00 Nasal Cannula 2.0 05/20/18 20:52 95 Nasal Cannula 2.0 28 05/20/18 20:52 72 20 5 Nasal Cannula 2.0 28 05/20/18 20:52 Nasal Cannula 2.0 28 05/20/18 20:00 77 05/20/18 20:00 98.1 75 18 112/60 (77) 96 05/20/18 16:00 98.6 88 22 102/64 (77) 99 05/20/18 15:38 89 05/20/18 13:42 28 05/20/18 13:42 68 18 98 Nasal Cannula 2.0 28 05/20/18 13:41 65 18 95 Nasal Cannula 2.0 28 05/20/18 12:00 98.6 76 22 123/67 (85) 95 05/20/18 11:35 74 Intake and Output 05/20/18 05/21/18 19:00 07:00 Intake Total 200 ml 800 ml Output Total 200 ml Balance 0 ml 800 ml IV Total 200 ml 200 ml Tube Feeding 600 ml Output Urine Total 200 ml # Voids 1 Laboratory Tests Test 05/21/18 06:53 White Blood Count 10.4 K/UL (4.8-10.8) Red Blood Count 2.69 M/UL (4.70-6.10) L Hemoglobin 8.2 G/DL (14.2-18.0) L Hematocrit 25.6 % (42.0-52.0) L Mean Corpuscular Volume 95 FL (80-99) Mean Corpuscular Hemoglobin 30.7 PG (27.0-31.0) Mean Corpuscular Hemoglobin Concent 32.2 G/DL (32.0-36.0) Red Cell Distribution Width 13.7 % (11.6-14.8) Platelet Count 309 K/UL (150-450) Mean Platelet Volume 6.2 FL (6.5-10.1) L Neutrophils (%) (Auto) 80.4 % (45.0-75.0) H Lymphocytes (%) (Auto) 8.5 % (20.0-45.0) L Monocytes (%) (Auto) 6.3 % (1.0-10.0) Eosinophils (%) (Auto) 4.0 % (0.0-3.0) H Basophils (%) (Auto) 0.9 % (0.0-2.0) Sodium Level 139 MMOL/L (136-145) Potassium Level 3.6 MMOL/L (3.5-5.1) Chloride Level 103 MMOL/L (98-107) Carbon Dioxide Level 29 MMOL/L (21-32) Anion Gap 7 mmol/L (5-15) Blood Urea Nitrogen 23 mg/dL (7-18) H Creatinine 0.9 MG/DL (0.55-1.30) Estimat Glomerular Filtration Rate mL/min (>60) Glucose Level 115 MG/DL (74-106) H Calcium Level 8.5 MG/DL (8.5-10.1) Height (Feet): 5 Height (Inches): 8.00 Weight (Pounds): 192 General Appearance: WD/WN, no apparent distress, alert Cardiovascular: normal rate Respiratory/Chest: normal breath sounds, no respiratory distress Abdominal Exam: normal bowel sounds, non tender, soft, incision site Extremities: non-tender Cait Calderon NP May 21, 2018 11:22
--- NOTE | 2018-05-21 11:41 | NUR ---
2// SI: SEPSIS. OBSTRUCTIVE JAUNDICE. POD #4 S/P LAP GAVIN 97.1 57 19 162/77 99% ON K-3.0 IS: IV MEROPENEM Q8HRS IV VANCOMYCIN Q24 DUONEB HHN Q6HRS RTC IVF@100/HR : TELEMETRY STATUS DCP: FROM [facility] PLAN: TO SURGERY FOR LAP GAVIN
[2018-05-21 12:00] VITALS: BP 124/63
[2018-05-21] MEDS: Vancomycin 1.25gm Premix 275 ML IVPB SCH (15:28)
[2018-05-21 16:00] VITALS: BP 124/69
--- NOTE | 2018-05-21 16:39 | Infectious Diseases Prog Note ---
Assessment/Plan Assessment/Plan ASSESSMENT AND PLAN: 1. esbl e.coli uti, mrsa right hip wound infection, esbl e.coli/enterococcus cholecystitis, cholelithiasis/GS, right hip x-ray without osteomyelitis s/p lap cholecystectomy, fevers, ? fungemi, ? nosocomial infection - meropenem and vancomycin - day # 9 - add diflucan for fungemia coverage - recheck cultures because of fevers - monitor labs and chest x-ray - wound care per surgery and protocol - monitor labs 2. history of organic brain syndrome. 3. Parkinson's. 4. Dementia. 5. Chronic kidney disease. 6. Hypothyroidism. 7. Malnutrition. 8. COPD. 9. BPH. 10. Hypertension. 11. Anemia. 12. No known family history. 13. Family history noncontributory. 14. Social history negative for smoking, alcohol, or drug abuse. 15. MAR is noted. 16. Case discussed with RN. 17. Continue treatment per primary consultants. 18. Notes and records were noted. 19. Orders were entered. 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 Subjective Constitutional: Reports: fever HEENT: Reports: congestion - mild Respiratory: Reports: shortness of breath - mild Cardiovascular: Denies: chest pain Gastrointestinal/Abdominal: Denies: vomiting, diarrhea, constipation Genitourinary: Reports: other - no garcia Neurologic: Reports: weakness, other - responsive Psychiatric: Reports: other - na Skin: Denies: rash Hematologic: Denies: bleeding Musculoskeletal: Denies: pain Allergies: Coded Allergies: No Known Allergies (Unverified , 09/08/17) Objective Vital Signs Last 24 Hour Vital Signs Date Time Temp Pulse Resp B/P (MAP) Pulse Ox O2 Delivery O2 Flow Rate FiO2 05/21/18 16:28 98.2 05/21/18 16:00 101.7 72 22 124/69 (87) 96 05/21/18 13:05 74 18 96 Nasal Cannula 2.0 28 05/21/18 12:54 71 18 97 Nasal Cannula 2.0 28 05/21/18 12:00 98.4 71 22 124/63 (83) 95 05/21/18 09:00 Nasal Cannula 2.0 05/21/18 08:00 98.2 78 23 119/69 (86) 95 05/21/18 07:53 67 05/21/18 07:51 72 18 99 Nasal Cannula 2.0 28 05/21/18 07:41 73 18 94 Nasal Cannula 2.0 28 05/21/18 07:40 Nasal Cannula 2.0 28 05/21/18 07:40 94 Nasal Cannula 2.0 28 05/21/18 04:00 98.1 63 17 105/62 (76) 93 05/21/18 04:00 64 05/21/18 03:27 Nasal Cannula 2.0 28 05/21/18 03:27 Nasal Cannula 05/21/18 00:00 72 05/21/18 00:00 96.0 69 17 122/70 (87) 95 05/20/18 21:02 75 18 96 Nasal Cannula 2.0 28 05/20/18 21:00 Nasal Cannula 2.0 05/20/18 20:52 95 Nasal Cannula 2.0 28 05/20/18 20:52 72 20 5 Nasal Cannula 2.0 28 05/20/18 20:52 Nasal Cannula 2.0 28 05/20/18 20:00 77 05/20/18 20:00 98.1 75 18 112/60 (77) 96 Height (Feet): 5 Height (Inches): 8.00 Weight (Pounds): 192 General Appearance: no acute distress HEENT: normocephalic, atraumatic, anicteric Respiratory/Chest: crackles/rales, rhonchi - bilaterally Cardiovascular: normal rate, regular rhythm, no gallop/murmur, no JVD Abdomen: normal bowel sounds, soft, non tender, no organomegaly, non distended Genitourinary: other - no garcia, no cva pain Extremities: no cyanosis Skin: no rash Neurologic/Psychiatric: grades 7 8 tutor II-XII grossly normal, alert, responsive Lymphatic: no neck adenopathy Musculoskeletal: no effusion Objective x-ray - no osteomyelitis mentioned, report noted MRI abdomen - report noted Chest x-ray - 05/18/18 - Findings: There is free air under the diaphragm. Patient had a cholecystectomy yesterday. The heart is prominent. There is a probable mild interstitial edema although lungs are very underexpanded. The bones are osteopenic. IMPRESSION: Suspect mild interstitial edema. Pneumoperitoneum compatible with recent cholecystectomy Microbiology Date/Time Source Procedure Growth Status 05/11/18 16:45 Blood Blood Culture - Final NO GROWTH AFTER 5 DAYS Complete 05/17/18 11:54 Gallbladder Fluid Gram Stain - Final Complete 05/17/18 11:54 Aerobic Culture - Final Escherichia Coli - Esbl Enterococcus Faecalis Complete 05/17/18 11:54 Gallbladder Fluid Anaerobic Culture - Final NO ANAEROBES ISOLATED Complete 05/20/18 21:30 Sputum Induced Gram Stain - Final Resulted 05/20/18 21:30 Sputum Induced Sputum Culture Pending Resulted 05/11/18 16:35 Urine,Clean Catch Urine Culture - Final Escherichia Coli - Esbl Complete 05/12/18 07:10 Hip Right Gram Stain - Final Complete 05/12/18 07:10 Wound Culture - Final Staphylococcus Aureus - Mrsa Diphtheroids Complete Microbiology Date/Time Source Procedure Growth Status 05/20/18 21:30 Sputum Induced Gram Stain - Final Resulted 05/20/18 21:30 Sputum Induced Sputum Culture Pending Resulted Laboratory Tests Test 05/21/18 06:53 05/21/18 13:00 White Blood Count 10.4 K/UL (4.8-10.8) Red Blood Count 2.69 M/UL (4.70-6.10) L Hemoglobin 8.2 G/DL (14.2-18.0) L Hematocrit 25.6 % (42.0-52.0) L Mean Corpuscular Volume 95 FL (80-99) Mean Corpuscular Hemoglobin 30.7 PG (27.0-31.0) Mean Corpuscular Hemoglobin Concent 32.2 G/DL (32.0-36.0) Red Cell Distribution Width 13.7 % (11.6-14.8) Platelet Count 309 K/UL (150-450) Mean Platelet Volume 6.2 FL (6.5-10.1) L Neutrophils (%) (Auto) 80.4 % (45.0-75.0) H Lymphocytes (%) (Auto) 8.5 % (20.0-45.0) L Monocytes (%) (Auto) 6.3 % (1.0-10.0) Eosinophils (%) (Auto) 4.0 % (0.0-3.0) H Basophils (%) (Auto) 0.9 % (0.0-2.0) Sodium Level 139 MMOL/L (136-145) Potassium Level 3.6 MMOL/L (3.5-5.1) Chloride Level 103 MMOL/L (98-107) Carbon Dioxide Level 29 MMOL/L (21-32) Anion Gap 7 mmol/L (5-15) Blood Urea Nitrogen 23 mg/dL (7-18) H Creatinine 0.9 MG/DL (0.55-1.30) Estimat Glomerular Filtration Rate mL/min (>60) Glucose Level 115 MG/DL (74-106) H Calcium Level 8.5 MG/DL (8.5-10.1) Arterial Blood pH 7.536 (7.350-7.450) Arterial Blood Partial Pressure CO2 37.9 mmHg (35.0-45.0) Arterial Blood Partial Pressure O2 79.1 mmHg (75.0-100.0) Arterial Blood HCO3 31.4 mmol/L (22.0-26.0) H Arterial Blood Oxygen Saturation 95.9 % (95-100) Arterial Blood Base Excess 8.2 (-2-2) H Andrew Test Positive Current Medications Medications (Trade) Dose Ordered Sig/Adrian Route PRN Reason Start Time Stop Time Status Last Admin Dose Admin Acetaminophen (Tylenol) 650 mg Q4H PRN GT Mild Pain/Temp > 100.5 05/12/18 14:30 06/11/18 14:29 Albuterol/ Ipratropium (Albuterol/ Ipratropium) 3 ml Q6HRT HHN 05/19/18 13:00 05/24/18 12:59 05/21/18 12:54 Carbidopa/Levodopa (Sinemet 25/100) 1 tab Q8HR GT 05/12/18 22:00 06/11/18 21:59 05/21/18 13:17 Ferrous Sulfate (Feosol) 300 mg THREE TIMES A DAY GT 05/12/18 18:00 06/11/18 17:59 05/21/18 13:17 Finasteride (Proscar) 5 mg DAILY ORAL 05/13/18 09:00 06/12/18 08:59 05/21/18 08:54 Folic Acid (Folate) 1 mg DAILY GT 05/13/18 09:00 06/12/18 08:59 05/21/18 08:54 Heparin Sodium (Porcine) (Heparin 5000 units/ml) 5,000 units EVERY 12 HOURS SUBQ 05/12/18 09:00 06/11/18 08:59 05/21/18 08:57 Levothyroxine Sodium (Synthroid) 100 mcg DAILY@0630 GT 05/13/18 06:30 06/12/18 06:29 05/21/18 05:35 Meropenem 1 gm/ Sodium Chloride 100 ml @ 200 mls/hr Q8HR IVPB 05/17/18 22:00 05/22/18 21:59 05/21/18 14:37 Morphine Sulfate (Morphine Sulfate) 1 mg Q4H PRN IVP pain scale 1-3 05/17/18 13:00 05/24/18 12:59 Morphine Sulfate (Morphine Sulfate) 2 mg Q4H PRN IVP pain scale 4-6 05/17/18 13:00 05/24/18 12:59 Morphine Sulfate (Morphine Sulfate) 4 mg Q4H PRN IVP pain score 7-10 05/17/18 13:00 05/24/18 12:59 Ondansetron HCl (Zofran) 4 mg Q6H PRN IVP Nausea & Vomiting 05/12/18 14:30 06/11/18 14:29 Spironolactone (Aldactone) 25 mg DAILY ORAL 05/20/18 14:00 06/19/18 13:59 05/21/18 08:54 Vancomycin HCl (Vanco rx to dose) 1 ea DAILY PRN MISC Per rx protocol 05/17/18 16:45 06/16/18 16:44 Vancomycin HCl/ Dextrose 275 ml @ 183.333 mls/hr Q24H IVPB 05/18/18 15:00 05/24/18 14:59 05/21/18 15:28 Junior Loza MD May 21, 2018 16:39
--- NOTE | 2018-05-21 18:24 | NUR ---
CASE MANAGEMENT:REVIEW 05/21/2018 SI: SEPSIS. OBSTRUCTIVE JAUNDICE. CYSTIC LESION SACRAL DECUB ULCER T 101.7 HR 72 RR 22 B/P 124/69 SATS 96% ON 2L/NC BUN 23 GLU 115 ABGs pH 7.536 HCO3 31.4 BE 8.2 IS: IV MEROPENEM Q8HRS IV VANCOMYCIN Q24 IVF@100 mL/HR : TELEMETRY STATUS DCP: FROM [facility]
--- NOTE | 2018-05-21 19:21 | NUR ---
HAND-OFF: Report given to Rain Tesfaye RN.
--- NOTE | 2018-05-21 19:42 | NUR ---
NURSE NOTES: Report received from JIMMY Saenz. Pt is lying comfortably in semi fowlers with no signs of distress. Pt is A+Ox2, showing no signs of pain/ SOB. IV site is patent, intact, and saline locked. Respirations are even and unlabored on 2 L NC. G-tube is in place, patent, and running feeding at prescribed rate. Bed is at lowest position, brakes engaged, siderails x2, bed alarm on, and call light within reach. Pt is in stable condition at this time; will continue to monitor.
[2018-05-21 20:00] VITALS: BP 125/67
--- NOTE | 2018-05-21 22:53 | NUR ---
HAND-OFF: Report given to JIMMY Trivedi. Pt is in stable condition; plan of care endorsed.
--- NOTE | 2018-05-21 23:00 | NUR ---
NURSE NOTES: Got report from Ethel Díaz. Pt in stable condition.Continue to monitor.
[2018-05-22] VITALS: BP 136/72
[2018-05-22] MEDS: Albuterol/Ipratropium 3ml neb HHN SCH ×4 (03:55→19:11)
[2018-05-22 04:22] VITALS: BP 117/66
[2018-05-22] MEDS: Levodopa/Carbidopa 25/100 tab GT SCH ×3 (05:50→22:00)
[2018-05-22 05:58] LABS: BILIRUBIN, URINE NEGATIVE (NEGATIVE); GLUCOSE, URINE (UA) NEGATIVE (NEGATIVE); KETONES,URINE NEGATIVE (NEGATIVE); LEUKOCYTE ESTERASE ,URINE 2+ (NEGATIVE); NITRITE,URINE NEGATIVE (NEGATIVE); PH,URINE 5 (4.5-8.0); PROTEIN,URINE 2+ (NEGATIVE); UROBILINOGEN,URINE 1 MG/DL (0.0-1.0)
[2018-05-22 06:06] LABS: APPEARANCE,URINE CLOUDY; COLOR,URINE YELLOW
--- NOTE | 2018-05-22 07:25 | NUR ---
NURSE NOTES: I received the patient awake and resting in bed. Patient alert and oriented x2. Patient does not display any signs of distress or SOB. Bed in the lowest position and call light within reach. I will continue to monitor the patient and implement care.
--- NOTE | 2018-05-22 07:35 | NUR ---
HAND-OFF: Report given to Letty MARQUEZ. endorsed plan of care.
[2018-05-22 08:00] VITALS: BP 134/74
--- NOTE | 2018-05-22 08:34 | NUR ---
NURSE NOTES:WOUND CARE FOLLOW-UP NOTES: Dry scab noted to R ear ,l ear is pink. Oxygen tubing padded with gauze. Full thickness wound R hip resolving. Wound bed is moist with undermining.Small amt non-odorous serous exudate noted .Periwound is pink.(L)2.4cm x (W)0.4cm x (D)1.1cm ,undermining 1-5 by 4.1@5o'clock. Adhesive denudement noted to medial /upper L thigh. Moisture barrier paste applied. Sacrum without erythema or evidence of skin breakdown. Bilat heels and malleoli are intact and blanchable.No new skin concerns noted .All wound prevention protocols and Tx orders continued as ordered.
[2018-05-22 08:37] LABS: HEMATOCRIT 24.8 % (42.0-52.0); HEMOGLOBIN 7.8 G/DL (14.2-18.0); MEAN CORPUSCULAR VOLUME 97 FL (80-99); PLATELET COUNT 318 K/UL (150-450); RED BLOOD COUNT 2.56 M/UL (4.70-6.10); WHITE BLOOD COUNT 10.2 K/UL (4.8-10.8)
[2018-05-22] MEDS: Ferrous Sulfate 300 MG/5 ML UDC GT SCH ×3 (09:00→17:36)
[2018-05-22] MEDS: Spironolactone 25mg tab ORAL SCH (09:00)
[2018-05-22] MEDS: Heparin 5000 units/ml inj SUBQ SCH ×2 (09:01→21:00)
[2018-05-22 09:08] LABS: ALANINE AMINOTRANSFERASE 35 U/L (12-78); ALBUMIN 1.6 G/DL (3.4-5.0); ALBUMIN/GLOBULIN RATIO 0.4 (1.0-2.7); ALKALINE PHOSPHATASE 193 U/L (46-116); ANION GAP 4 mmol/L (5-15); ASPARTATE AMINO TRANSFERASE 37 U/L (15-37); BILIRUBIN,TOTAL 0.8 MG/DL (0.2-1.0); BLOOD UREA NITROGEN 29 mg/dL (7-18); CALCIUM 8.3 MG/DL (8.5-10.1); CARBON DIOXIDE 31 MMOL/L (21-32); CHLORIDE 105 MMOL/L (98-107); CREATININE 0.8 MG/DL (0.55-1.30); POTASSIUM 3.9 MMOL/L (3.5-5.1); SODIUM 140 MMOL/L (136-145)
--- NOTE | 2018-05-22 10:43 | GI Progress Note ---
Assessment/Plan Problems: (1) Anemia ICD Codes: D64.9 - Anemia, unspecified SNOMED: 787757413 (2) Cholelithiasis ICD Codes: K80.20 - Calculus of gallbladder without cholecystitis without obstruction SNOMED: 374237043 (3) Obstructive jaundice ICD Codes: K83.8 - Other specified diseases of biliary tract SNOMED: 98329655 Status: unchanged Status Narrative Discussed with Dr. Colin Assessment/Plan Occult blood stool positive MRCP reviewed -No evidence of choledocholithiasis or biliary ductal dilatation. -Multiple gallstones. -Incidental 1 cm cystic focus in the body of the pancreas, nonspecific and not adequately evaluated on this study. s/p laparoscopic cholecystectomy fu surgical recommendations given improving LFTS and no dilated CBD on ERCP will hold ERCP, Outpatient EUS fu tumor markers monitor H&H, prn transfusions bowel regime ppi fu labs, trend LFTs The patient was seen and examined at bedside and all new and available data was reviewed in the patients chart. I agree with the above findings, impression and plan. (Patient seen earlier today. Signature stamp does not reflect patient encounter time.). - Aldo Colin MD Subjective Subjective Limited Objective Last 24 Hour Vital Signs Date Time Temp Pulse Resp B/P (MAP) Pulse Ox O2 Delivery O2 Flow Rate FiO2 05/22/18 09:00 Nasal Cannula 2.0 Nasal Cannula 2.0 05/22/18 08:26 71 20 98 Nasal Cannula 2.0 28 05/22/18 08:17 94 Nasal Cannula 2.0 28 05/22/18 08:17 Nasal Cannula 2.0 28 05/22/18 08:17 67 20 94 Nasal Cannula 2.0 28 05/22/18 08:00 98.3 67 20 134/74 (94) 96 05/22/18 07:27 65 05/22/18 04:22 72 05/22/18 04:22 98.0 66 18 117/66 (83) 95 05/22/18 03:55 Nasal Cannula 2.0 28 05/22/18 03:55 Nasal Cannula 2.0 28 05/22/18 00:28 72 05/22/18 00:00 98.5 73 20 136/72 (93) 95 05/21/18 21:51 89 20 96 Nasal Cannula 2.0 28 05/21/18 21:41 Nasal Cannula 2.0 28 05/21/18 21:41 84 22 97 Nasal Cannula 2.0 28 05/21/18 21:41 92 Nasal Cannula 2.0 28 05/21/18 21:00 Nasal Cannula 2.0 05/21/18 20:00 71 05/21/18 20:00 97.7 70 22 125/67 (86) 93 05/21/18 16:28 98.2 05/21/18 16:06 72 05/21/18 16:00 101.7 72 22 124/69 (87) 96 05/21/18 13:05 74 18 96 Nasal Cannula 2.0 28 05/21/18 12:54 71 18 97 Nasal Cannula 2.0 28 05/21/18 12:00 98.4 71 22 124/63 (83) 95 05/21/18 11:48 74 Intake and Output 05/21/18 05/22/18 19:00 07:00 Intake Total 7500 ml Output Total 300 ml 375 ml Balance 7200 ml -375 ml Intake Free Water 200 ml IV Total 100 ml Tube Feeding 7200 ml Output Urine Total 200 ml 375 ml Estimated Blood Loss 100 ml # Voids 12 # Bowel Movements 1 Laboratory Tests Test 05/21/18 13:00 05/22/18 02:40 05/22/18 07:30 05/22/18 09:45 Arterial Blood pH 7.536 (7.350-7.450) Arterial Blood Partial Pressure CO2 37.9 mmHg (35.0-45.0) Arterial Blood Partial Pressure O2 79.1 mmHg (75.0-100.0) Arterial Blood HCO3 31.4 mmol/L (22.0-26.0) H Arterial Blood Oxygen Saturation 95.9 % (95-100) Arterial Blood Base Excess 8.2 (-2-2) H Andrew Test Positive Urine Color Yellow Urine Appearance Cloudy Urine pH 5 (4.5-8.0) Urine Specific [place] 1.010 (1.005-1.035) Urine Protein 2+ (NEGATIVE) H Urine Glucose (UA) Negative (NEGATIVE) Urine Ketones Negative (NEGATIVE) Urine Blood 4+ (NEGATIVE) H Urine Nitrite Negative (NEGATIVE) Urine Bilirubin Negative (NEGATIVE) Urine Urobilinogen 1 MG/DL (0.0-1.0) H Urine Leukocyte Esterase 2+ (NEGATIVE) H Urine RBC 20-30 /HPF (0 - 0) H Urine WBC Tntc /HPF (0 - 0) H Urine Squamous Epithelial Cells None /LPF (NONE/OCC) Urine Bacteria Moderate /HPF (NONE) H Urine Yeast Many /HPF (NONE) H White Blood Count 10.2 K/UL (4.8-10.8) Red Blood Count 2.56 M/UL (4.70-6.10) L Hemoglobin 7.8 G/DL (14.2-18.0) L Hematocrit 24.8 % (42.0-52.0) L Mean Corpuscular Volume 97 FL (80-99) Mean Corpuscular Hemoglobin 30.6 PG (27.0-31.0) Mean Corpuscular Hemoglobin Concent 31.6 G/DL (32.0-36.0) L Red Cell Distribution Width 14.0 % (11.6-14.8) Platelet Count 318 K/UL (150-450) Mean Platelet Volume 6.2 FL (6.5-10.1) L Neutrophils (%) (Auto) % (45.0-75.0) Lymphocytes (%) (Auto) % (20.0-45.0) Monocytes (%) (Auto) % (1.0-10.0) Eosinophils (%) (Auto) % (0.0-3.0) Basophils (%) (Auto) % (0.0-2.0) Neutrophils % (Manual) Pending Lymphocytes % (Manual) Pending Platelet Estimate Pending Platelet Morphology Pending Sodium Level 140 MMOL/L (136-145) Potassium Level 3.9 MMOL/L (3.5-5.1) Chloride Level 105 MMOL/L (98-107) Carbon Dioxide Level 31 MMOL/L (21-32) Anion Gap 4 mmol/L (5-15) L Blood Urea Nitrogen 29 mg/dL (7-18) H Creatinine 0.8 MG/DL (0.55-1.30) Estimat Glomerular Filtration Rate mL/min (>60) Glucose Level 117 MG/DL (74-106) H Calcium Level 8.3 MG/DL (8.5-10.1) L Total Bilirubin 0.8 MG/DL (0.2-1.0) Aspartate Amino Transf (AST/SGOT) 37 U/L (15-37) Alanine Aminotransferase (ALT/SGPT) 35 U/L (12-78) Alkaline Phosphatase 193 U/L (46-116) H Total Protein 5.9 G/DL (6.4-8.2) L Albumin 1.6 G/DL (3.4-5.0) L Globulin 4.3 g/dL Albumin/Globulin Ratio 0.4 (1.0-2.7) L Ammonia 42 umol/L (11-32) H Height (Feet): 5 Height (Inches): 8.00 Weight (Pounds): 192 General Appearance: WD/WN, no apparent distress, alert Cardiovascular: normal rate Respiratory/Chest: normal breath sounds, no respiratory distress Abdominal Exam: normal bowel sounds, non tender, soft Extremities: non-tender Cait Calderon NP May 22, 2018 10:43
[2018-05-22 12:00] VITALS: BP 116/61
--- NOTE | 2018-05-22 12:18 | NUR ---
RD ASSESSMENT & RECOMMENDATIONS SEE CARE ACTIVITY FOR COMPLETE ASSESSMENT DAILY ESTIMATED NEEDS: Needs based on Wounds, bed bound/ 71.6kg 27-32 kcals/kg 0030-6620 total kcals 1.25-2 g protein/kg 90-144 g total protein 25-30 mL/kg 5731-4864 total fluid mLs NUTRITION DIAGNOSIS: 1) Swallowing difficulty r/t dysphagia as evidenced by pt is PEG dep. 2) Increased kcal and protein needs r/t wound healing as evidenced by pt w/ full thickness wound @ sacrum and DTI wounds @ L lateral Malleolus lateral L foot medial R heel. 3) Altered nutrition related lab values R/T clinical condition as evidenced by elev BGs (117 115 172 133 371) CURRENT TF:Vital AF 1.2 @ 60ml/hr x 22 hrs ENTERAL NUTRITION RECOMMENDATIONS: Glucerna 1.5 @ 65ml x22 hrs to provide 1430ml, 2145kcal, 118g prot, 1085ml free water * Rec TF change to Glucerna 1.5- elemental formula of Vital AF 1.2 if not indicated, carb control * Initiate Glucerna 1.5 @ 25ml/hr x 6 hrs, advance 10ml q 4-6 hrs as tolerated to goal rate. 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
--- NOTE | 2018-05-22 12:34 | NUR ---
RADIOLOGY DEPT CHEST X-RAY DONE.-P.DYE
--- NOTE | 2018-05-22 12:57 | General Progress Note ---
Assessment/Plan Assessment/Plan Obstructive Jaundice resolving. s/p Lap Kristine. Urinary ESBL, infected decubiti. Polymicrobial complicated sepsis. ID following. Pul. Edema - IVF dc'ed. IV Lasix. Hypokalemia, Hypomagnesemia -correct. Still in CHF. Check Stat ABGs . Done. Not called. OK. DC to SNF. Subjective Allergies: Coded Allergies: No Known Allergies (Unverified , 09/08/17) Subjective Confused. + SOB. s/p Lap Kristine. Objective Last 24 Hour Vital Signs Date Time Temp Pulse Resp B/P (MAP) Pulse Ox O2 Delivery O2 Flow Rate FiO2 05/22/18 09:00 Nasal Cannula 2.0 Nasal Cannula 2.0 05/22/18 08:26 71 20 98 Nasal Cannula 2.0 28 05/22/18 08:17 94 Nasal Cannula 2.0 28 05/22/18 08:17 Nasal Cannula 2.0 28 05/22/18 08:17 67 20 94 Nasal Cannula 2.0 28 05/22/18 08:00 98.3 67 20 134/74 (94) 96 05/22/18 07:27 65 05/22/18 04:22 72 05/22/18 04:22 98.0 66 18 117/66 (83) 95 05/22/18 03:55 Nasal Cannula 2.0 28 05/22/18 03:55 Nasal Cannula 2.0 28 05/22/18 00:28 72 05/22/18 00:00 98.5 73 20 136/72 (93) 95 05/21/18 21:51 89 20 96 Nasal Cannula 2.0 28 05/21/18 21:41 Nasal Cannula 2.0 28 05/21/18 21:41 84 22 97 Nasal Cannula 2.0 28 05/21/18 21:41 92 Nasal Cannula 2.0 28 05/21/18 21:00 Nasal Cannula 2.0 05/21/18 20:00 71 05/21/18 20:00 97.7 70 22 125/67 (86) 93 05/21/18 16:28 98.2 05/21/18 16:06 72 05/21/18 16:00 101.7 72 22 124/69 (87) 96 05/21/18 13:05 74 18 96 Nasal Cannula 2.0 28 Intake and Output 05/21/18 05/22/18 19:00 07:00 Intake Total 7500 ml Output Total 300 ml 375 ml Balance 7200 ml -375 ml Intake Free Water 200 ml IV Total 100 ml Tube Feeding 7200 ml Output Urine Total 200 ml 375 ml Estimated Blood Loss 100 ml # Voids 12 # Bowel Movements 1 Laboratory Tests 05/21/18 13:00: Arterial Blood pH 7.536H, Arterial Blood Partial Pressure CO2 37.9, Arterial Blood Partial Pressure O2 79.1, Arterial Blood HCO3 31.4H, Arterial Blood Oxygen Saturation 95.9, Arterial Blood Base Excess 8.2H, Andrew Test Positive 05/22/18 02:40: Urine Color Yellow, Urine Appearance Cloudy, Urine pH 5, Urine Specific [place] 1.010, Urine Protein 2+H, Urine Glucose (UA) Negative, Urine Ketones Negative, Urine Blood 4+H, Urine Nitrite Negative, Urine Bilirubin Negative, Urine Urobilinogen 1H, Urine Leukocyte Esterase 2+H, Urine RBC 20-30H, Urine WBC TntcH , Urine Squamous Epithelial Cells None, Urine Bacteria ModerateH, Urine Yeast ManyH 05/22/18 07:30: White Blood Count 10.2, Red Blood Count 2.56L, Hemoglobin 7.8L, Hematocrit 24.8L , Mean Corpuscular Volume 97, Mean Corpuscular Hemoglobin 30.6, Mean Corpuscular Hemoglobin Concent 31.6L, Red Cell Distribution Width 14.0, Platelet Count 318, Mean Platelet Volume 6.2L, Neutrophils (%) (Auto) , Lymphocytes (%) (Auto) , Monocytes (%) (Auto) , Eosinophils (%) (Auto) , Basophils (%) (Auto) , Differential Total Cells Counted 100, Neutrophils % ( Manual) 79H, Lymphocytes % (Manual) 8L, Monocytes % (Manual) 6, Eosinophils % ( Manual) 6H, Basophils % (Manual) 1, Band Neutrophils 0, Platelet Estimate Adequate, Platelet Morphology Normal, Hypochromasia 1+, Sodium Level 140, Potassium Level 3.9, Chloride Level 105, Carbon Dioxide Level 31, Anion Gap 4L, Blood Urea Nitrogen 29H, Creatinine 0.8, Estimat Glomerular Filtration Rate , Glucose Level 117H, Calcium Level 8.3L, Total Bilirubin 0.8, Aspartate Amino Transf (AST/SGOT) 37, Alanine Aminotransferase (ALT/SGPT) 35, Alkaline Phosphatase 193H, Total Protein 5.9L, Albumin 1.6L, Globulin 4.3, Albumin/ Globulin Ratio 0.4L 05/22/18 09:45: Ammonia 42H Height (Feet): 5 Height (Inches): 8.00 Weight (Pounds): 192 Objective CV RR Lungs B Ronchi Skin Sacral decub stage 4. B heel decubs. Abd SNT. BS + E No CCE Joanne Desir MD May 22, 2018 12:57
[2018-05-22] MEDS ORDERED: Levodopa/Carbidopa 25/100 GT (12:59)
[2018-05-22] MEDS ORDERED: FERROUS SU300 MG/5 M GT (12:59)
[2018-05-22] MEDS ORDERED: FINASTERIDE5 MG ORAL (12:59)
[2018-05-22] MEDS ORDERED: SYNTHROID100 MCG GT (12:59)
[2018-05-22] MEDS ORDERED: HEPARIN SO5000 UNIT2 SUBQ (12:59)
[2018-05-22] MEDS ORDERED: FOLIC ACID1 MG GT (12:59)
[2018-05-22] MEDS ORDERED: Acetaminophen GT (12:59)
[2018-05-22] MEDS ORDERED: DUONEB 0.5-3(2.53 ML HHN (12:59)
[2018-05-22] MEDS ORDERED: SPIRONOLACTONE25 MG ORAL (12:59)
--- NOTE | 2018-05-22 13:57 | NUR ---
DISCHARGE PLAN DISCHARGE ORDER NOTED CLINICALS FAXED TO ALIZA SWARTZ T: [phone] F: [phone] AWAIT ROOM ASSIGNMENT
--- NOTE | 2018-05-22 14:08 | Diagnostic Imaging Report ---
Indication: Cough Technique: One view of the chest Comparison: 05/20/2018 Findings: There is bilateral interstitial and airspace edema again demonstrated, unchanged. Left sided pleural effusion is unchanged. The heart remains enlarged. Pneumoperitoneum, previously reported as postoperative due to recent cholecystectomy, is again noted. Impression: Unchanged, over 4 days, findings as above.
--- NOTE | 2018-05-22 15:23 | NUR ---
DISCHARGE PLANNED RECEIVE CALL FROM KIMBER AT SNF THEY CAN ACCEPT PATIENT AFTER DINNER PATIENT WILL DISCHARGE TO [facility] ROOM [address] [facility] T: [phone] FOR NURSE TO NURSE REPORT [facility] HAS BEEN ARRANGED WITH [facility] FOR [address] AND FILLING MACHINE OPERATOR BEDSIDE RN TO DISCUSS LABS WITH DR MUSE PRIOR TO DISCHARGE
[2018-05-22 15:51] VITALS: BP 108/59
[2018-05-22] MEDS: Vancomycin 1.25gm Premix 275 ML IVPB SCH (16:24)
--- NOTE | 2018-05-22 17:54 | NUR ---
NURSE NOTES: Report given to JIMMY Verde at [facility].
--- NOTE | 2018-05-22 19:27 | NUR ---
HAND-OFF: Report given to JIMMY Green.
--- NOTE | 2018-05-22 19:30 | NUR ---
NURSE NOTES: Got report from Letty MARQUEZ. Pt in stable condition. Per report pt is going to be discharged to [facility] and everything is done and pt is ready to go. No s/s of distress noted. Pt resting in bed comfortably. Bed in low and locked position, call light within reach, bedside table within reach. continue to monitor.
[2018-05-22 20:00] VITALS: BP 105/58
--- NOTE | 2018-05-22 20:00 | NUR ---
HAND-OFF: Report given to [facility] transporter. Endorsed plan of care.
--- NOTE | 2018-05-23 12:29 | Discharge Summary ---
Discharge Summary Discharge Summary _ DATE OF ADMISSION: 05/11/2018 DATE OF DISCHARGE: 05/22/2018 DISCHARGED BY: Dr. Desir REASON FOR ADMISSION: 82 years old male with past medical history of Parkinson disease, chronic kidney disease, COPD, hypothyroidism, BPH, malnutrition, organic brain syndrome , stage IV sacral decubitus ulcer, resident of [facility] facility, was transferred to emergency room for evaluation after he became unresponsive pale and jaundiced. Upon evaluation in emergency department vital signs were stable. Pulse oximetry was stable on oxygen via nasal cannula. Laboratory workup revealed no leukocytosis, hemoglobin 11.7, hematocrit 35.6. Elevated LFT :AST 72 ALT 175, alkaline phosphatase 320. Elevated bilirubin BUN 45, creatinine 1.2. Troponin -0.261. EKG reveals sinus rhythm, no acute ischemic changes. Albumin 2.3. Urinalysis revealed evidence of UTI and +[address] of the abdomen and pelvis revealed cholelithiasis with mildly distended gallbladder. Nonspecific gallbladder wall thickening. Acute cholecystitis was not excluded. Mild prominence of the rectal wall, proctitis not excluded. Patient was admitted for further management due to obstructive jaundice. CONSULTANTS: ID specialist GI specialist Dr. Colin surgery [facility] COURSE: Patient admitted to telemetry floor and started on IV hydration and empiric antibiotics.. Patient was kept n.p.o. GI consult was requested. MRCP revealed multiple gallstones. No evidence of choledocholithiasis or biliary ductal dilatation. Multiply bilateral renal cysts. Suggestion of basilar infiltrates versus atelectasis. Hiatal hernia, gastrostomy. Small umbilical hernia. GI specialist closely followed. LFT were closely monitored. Given that LFT were improving and no dilated common bile duct, ERCP was placed on hold. GI specialist recommended outpatient endoscopic ultrasound. Hemoglobin and hematocrit were closely monitored with goal to keep hemoglobin above 7. Bowel regimen instituted. Patient started on PPI. Stool for occult blood was positive. CA-19-9 was elevated -123 . Amylase and lipase remained stable. Surgeon closely followed. Per surgeon, MRCP without common bile duct stone, but pancreatic cystic lesion noted; LFT were improving, likely choledocholithiasis which passed stone. Surgeon recommended cholecystectomy , given recent events and to prevent more future complication and/or more harmful presentation in future/cholangitis. Per surgeon patient can potentially have more harmful presentation / cholangitis in future. Patient subsequently undergone on 05/17 laparoscopic cholecystectomy. Pathology of the gallbladder was consistent with acute cholecystitis with cholelithiasis. Infectious disease specialist followed. Blood cultures were negative. Urine culture revealed E. coli ESBL. Wound culture of the right hip reveal MRSA. Culture of gallbladder fluid revealed ESBL E. coli and enterococci. Sputum culture showed Lucero Repeated blood cultures were negative. Repeated urine culture were negative Right hip x-ray revealed no evidence of osteomyelitis. Antibiotics were administered as per ID recommendations. Wound care for sacral decub, present on admission, provided as per surgeon recommendation. Continue wound care at the facility. Renal parameters and electrolytes were closely monitored, electrolytes corrected as needed . Nephrotoxins were avoided. BUN from initial 45 down to 29 and creatinine from 1.2 down to 0.8. Repeated troponin trending down from initial 0.261 down to 0.065. Elevated troponin was likely due to troponin leak secondary to renal failure. Supplemental oxygen provided as needed to keep pulse oximetry above 92%. Pulmonary toilet provided as needed. Home medication were continued. DVT prophylaxis provided. Pain management was addressed. Chest x-ray showed interstitial congestion. IV fluids discontinued. Diuresis provided with close monitoring of volumes and cardiorenal parameters. Strict aspiration precautions were maintained. G-tube feeding was continued. Bedside swallow evaluation recommended continue with non-oral feeding. Pattern Marker recommendation regarding protein supplements implemented in plan of care. Patient clinically stabilized and was ready for transfer back to [facility] for continuation of care. Outpatient workup for elevated CA 19-9 with GI specialist. FINAL DIAGNOSES: Obstructive jaundice due to acute cholecystitis with cholelithiasis E. coli ESBL, enterococcal acute cholecystitis Choledocholithiasis Status post laparoscopic cholecystectomy 05/17 E. coli ESBL UTI Right hip MRSA wound infection Pulmonary edema Electrolyte imbalance Organic brain syndrome Parkinson disease Stage IV sacral decub, present on admission Chronic kidney disease Protein calorie malnutrition Hypothyroidism COPD BPH Anemia Elevated CA-19-9 DISCHARGE MEDICATIONS: See Medication Reconciliation list. DISCHARGE INSTRUCTIONS: Patient was discharged to the [facility] facility[facility]. Follow up with medical doctor at the facility. I have been assigned to dictate discharge summary for this account. I was not involved in the patient's manageme Chela Banuelos NP May 23, 2018 12:29
== END 2018-05-22 20:00 | DRG 853 ==
LOC: EDBD 15:37 → EMR 16:31 → 2W 18:10 → EDBEDREQ 22:28 → 2W 22:53 → 2E 05-13 07:16
PROC: 0FT44ZZ Resection of Gallbladder, Percutaneous Endoscopic Approach (ICD-10-PCS; principal; 2018-05-17 11:30)
DX: A41.9 Sepsis, unspecified organism (principal); L89.154 Pressure ulcer of sacral region, stage 4; N39.0 Urinary tract infection, site not specified; K80.00 Calculus of gallbladder with acute cholecystitis without obstruction; K80.43 Calculus of bile duct with acute cholecystitis with obstruction; I13.0 Hypertensive heart and chronic kidney disease with heart failure and stage 1 through stage 4 chronic kidney disease, or unspecified chronic kidney disease; E46 Unspecified protein-calorie malnutrition; B96.89 Other specified bacterial agents as the cause of diseases classified elsewhere; Z16.12 Extended spectrum beta lactamase (ESBL) resistance; E87.6 Hypokalemia; B96.20 Unspecified Escherichia coli [E. coli] as the cause of diseases classified elsewhere; G20 Parkinson's disease; F02.80 Dementia in other diseases classified elsewhere, unspecified severity, without behavioral disturbance, psychotic disturbance, mood disturbance, and anxiety; N18.9 Chronic kidney disease, unspecified; I50.9 Heart failure, unspecified; E03.9 Hypothyroidism, unspecified; J44.9 Chronic obstructive pulmonary disease, unspecified; N40.0 Benign prostatic hyperplasia without lower urinary tract symptoms; Z68.29 Body mass index [BMI] 29.0-29.9, adult; D64.9 Anemia, unspecified; E83.42 Hypomagnesemia
CPT/HCPCS: 36415; 36600; 71045; 74176; 74181; 76700; 80048; 80053; 80076; 80202; 81003; 82140; 82150; 82248; 82270; 82550; 82553; 82803; 82962; 83605; 83690; 83735; 84100; 84484; 85007; 85025; 85610; 85730; 87040; 87070; 87075; 87081; 87086; 87181; 87205; 93005; 94003; 94150; 94640; 94664; 94760; 99285; J2710; J7620; J8499

== ENCOUNTER 2018-08-03 02:26 | Inpatient (IN) | payer MEDICARE, MEDICAID ==
[~2018-08-03] VITALS: Ht 165.1 cm; Wt 63.5 kg
[~2018-08-03 02:26] MED LIST changes: +DUONEB 0.5-3(2.53 ML HHN; +FINASTERIDE5 MG ORAL; +FOLIC ACID1 MG GT; +SPIRONOLACTONE25 MG ORAL; +ZOFRAN4 M1 GT
[2018-08-03 02:30] VITALS: BP 93/67
--- NOTE | 2018-08-03 02:35 | NUR ---
ED Nurse Note: Patient was brought by RA from snf due to N/V/D. Per EMT patient had 2 times vomiting coffe ground. AAO x1, VSS at this time. Patient has 2 wounds: first one on his right hip, second one on his left foot.
[2018-08-03] MEDS ORDERED: Pantoprazole Inj IV ONE (02:45)
[2018-08-03] MEDS ORDERED: Isovue-300 100ml vial INJ PRN (02:45)
--- NOTE | 2018-08-03 03:26 | Emergency Room Report ---
History of Present Illness General Chief Complaint: Vomiting Source: Patient, Medical Record Present Illness HPI Patient is an 82-year-old male brought in by EMS after increased coffee-ground emesis. Patient had onset of symptoms less than 24 hours ago. Patient vomited twice. Patient noted to be G-tube dependent. He was sent in from nursing facility. History is limited by patient's mental status. He is chronically debilitated. Allergies: Coded Allergies: No Known Allergies (Unverified , 09/08/17) Patient History Reviewed Nursing Documentation: PMH: Agreed; PSxH: Agreed Nursing Documentation-PMH Hx Cardiac Problems: Yes Hx Hypertension: Yes Hx COPD: Yes Hx Cancer: No Hx Gastrointestinal Problems: No - g-tube, BPH History Of Psychiatric Problem: Yes - DEMENTIA Hx Neurological Problems: Yes - POLYNEUROPATHY (UNSPECIFIED), OTHER D/O PNS Hx Dementia: Yes Hx Parkinson's Disease: Yes Hx Seizures: No - HYPOTHYROIDISM ANEMIA DEMENTIA BPH Review of Systems All Other Systems: limited - by mental status Physical Exam Vital Signs Date Time Temp Pulse Resp B/P (MAP) Pulse Ox O2 Delivery O2 Flow Rate FiO2 08/03/18 02:12 97.9 93 19 97 Nasal Cannula 4.0 General Appearance: alert, thin, Chronically Ill ENT: normal voice, moist mucus membranes Neck: limited range of motion Respiratory: normal inspection, lungs clear Cardiovascular #1: normal inspection, regular rate, rhythm, no edema Gastrointestinal: hernia, other - gtube Musculoskeletal: normal inspection, back normal Neurologic: alert, responsive, motor weakness Skin: other - multiple skin ulcers Medical Decision Making Diagnostic Impression: Primary Impression: Sepsis Additional Impressions: Sacral decubitus ulcer Leukocytosis Urinary tract infection Hyperkalemia Dehydration Upper GI bleed Inguinal hernia Fecal impaction in rectum Intra-abdominal hematoma ER Course Patient presented for coffee-ground emesis. Differential diagnosis include was not limited to bowel obstruction, ischemic bowel, gastritis, among others. Because of complexity of patient's case laboratory testing and imaging studies were ordered. CT the abdomen pelvis was ordered due to patient's coffee-ground emesis and G-tube. Patient was given IV acid blockers as well as IV antibiotics. Urinalysis showed evidence of urinary infection. Laboratory testing was notable for elevated white blood count as well as elevated BUN/ creatinine consistent with possible GI bleeding versus dehydration. Patient was noted to have a vacuum dressing to a wound. to right hip. Patient was noted to be verbal with slow speech.. Ct imaging showed multiple findings including intraabdominal hematoma, fecal impaction and inguinal hernia. See full report. Patient was noted to have some improvement after medications. Dr. De Anda was contacted for inpatient management due to primary care physician. Labs Test 08/03/18 03:05 08/03/18 03:36 White Blood Count 18.7 K/UL (4.8-10.8) Red Blood Count 4.34 M/UL (4.70-6.10) Hemoglobin 13.2 G/DL (14.2-18.0) Hematocrit 40.9 % (42.0-52.0) Mean Corpuscular Volume 94 FL (80-99) Mean Corpuscular Hemoglobin 30.5 PG (27.0-31.0) Mean Corpuscular Hemoglobin Concent 32.3 G/DL (32.0-36.0) Red Cell Distribution Width 15.7 % (11.6-14.8) Platelet Count 424 K/UL (150-450) Mean Platelet Volume 6.2 FL (6.5-10.1) Neutrophils (%) (Auto) % (45.0-75.0) Lymphocytes (%) (Auto) % (20.0-45.0) Monocytes (%) (Auto) % (1.0-10.0) Eosinophils (%) (Auto) % (0.0-3.0) Basophils (%) (Auto) % (0.0-2.0) Differential Total Cells Counted 100 Neutrophils % (Manual) 83 % (45-75) Lymphocytes % (Manual) 6 % (20-45) Monocytes % (Manual) 11 % (1-10) Eosinophils % (Manual) 0 % (0-3) Basophils % (Manual) 0 % (0-2) Band Neutrophils 0 % (0-8) Platelet Estimate Adequate Platelet Morphology Normal Prothrombin Time 10.2 SEC (9.30-11.50) Prothromb Time International Ratio 1.0 (0.9-1.1) Activated Partial Thromboplast Time 27 SEC (23-33) Sodium Level 135 MMOL/L (136-145) Potassium Level 5.5 MMOL/L (3.5-5.1) Chloride Level 98 MMOL/L (98-107) Carbon Dioxide Level 30 MMOL/L (21-32) Anion Gap 8 mmol/L (5-15) Blood Urea Nitrogen 56 mg/dL (7-18) Creatinine 1.3 MG/DL (0.55-1.30) Estimat Glomerular Filtration Rate mL/min (>60) Glucose Level 241 MG/DL (74-106) Calcium Level 9.6 MG/DL (8.5-10.1) Total Bilirubin 0.5 MG/DL (0.2-1.0) Aspartate Amino Transf (AST/SGOT) 33 U/L (15-37) Alanine Aminotransferase (ALT/SGPT) 21 U/L (12-78) Alkaline Phosphatase 168 U/L (46-116) Total Protein 8.4 G/DL (6.4-8.2) Albumin 2.5 G/DL (3.4-5.0) Globulin 5.9 g/dL Albumin/Globulin Ratio 0.4 (1.0-2.7) Lipase 389 U/L (73-393) Urine Color Brown Urine Appearance Cloudy Urine pH 8 (4.5-8.0) Urine Specific [place] 1.010 (1.005-1.035) Urine Protein 2+ (NEGATIVE) Urine Glucose (UA) Negative (NEGATIVE) Urine Ketones 1+ (NEGATIVE) Urine Blood 3+ (NEGATIVE) Urine Nitrite Negative (NEGATIVE) Urine Bilirubin Negative (NEGATIVE) Urine Urobilinogen 4 MG/DL (0.0-1.0) Urine Leukocyte Esterase 3+ (NEGATIVE) Urine RBC 15-20 /HPF (0 - 0) Urine WBC Tntc /HPF (0 - 0) Urine Squamous Epithelial Cells Few /LPF (NONE/OCC) Urine Bacteria Many /HPF (NONE) Last Vital Signs Date Time Temp Pulse Resp B/P (MAP) Pulse Ox O2 Delivery O2 Flow Rate FiO2 08/03/18 02:12 97.9 93 19 97 Nasal Cannula 4.0 Status: unchanged Disposition: ADMITTED INPATIENT Condition: Serious Referrals: Joanne Desir MD (PCP) Theo Villanueva MD August 03, 2018 03:26
[2018-08-03 03:42] LABS: APPEARANCE,URINE CLOUDY; BILIRUBIN, URINE NEGATIVE (NEGATIVE); COLOR,URINE BROWN; GLUCOSE, URINE (UA) NEGATIVE (NEGATIVE); KETONES,URINE 1+ (NEGATIVE); LEUKOCYTE ESTERASE ,URINE 3+ (NEGATIVE); NITRITE,URINE NEGATIVE (NEGATIVE); PH,URINE 8 (4.5-8.0); PROTEIN,URINE 2+ (NEGATIVE); UROBILINOGEN,URINE 4 MG/DL (0.0-1.0)
[2018-08-03] MEDS ORDERED: cefTRIAXone 1 GM in NS 55 ML IVPB ONE (03:45)
[2018-08-03 03:46] LABS: HEMATOCRIT 40.9 % (42.0-52.0); HEMOGLOBIN 13.2 G/DL (14.2-18.0); MEAN CORPUSCULAR VOLUME 94 FL (80-99); PLATELET COUNT 424 K/UL (150-450); RED BLOOD COUNT 4.34 M/UL (4.70-6.10); RED CELL DISTRIBUTION WIDTH 15.7 % (11.6-14.8); WHITE BLOOD COUNT 18.7 K/UL (4.8-10.8)
[2018-08-03 03:58] LABS: ANION GAP 8 mmol/L (5-15); BLOOD UREA NITROGEN 56 mg/dL (7-18); CALCIUM 9.6 MG/DL (8.5-10.1); CARBON DIOXIDE 30 MMOL/L (21-32); CHLORIDE 98 MMOL/L (98-107); CREATININE 1.3 MG/DL (0.55-1.30); POTASSIUM 5.5 MMOL/L (3.5-5.1); SODIUM 135 MMOL/L (136-145)
--- NOTE | 2018-08-03 04:03 | NUR ---
ED Nurse Note: Fluids hung, patient BP responsive to hydration. Antibiotic hung. Patient vital signs are within normal range.
[2018-08-03 04:04] LABS: ALANINE AMINOTRANSFERASE 21 U/L (12-78); ALBUMIN 2.5 G/DL (3.4-5.0); ALBUMIN/GLOBULIN RATIO 0.4 (1.0-2.7); ALKALINE PHOSPHATASE 168 U/L (46-116); ASPARTATE AMINO TRANSFERASE 33 U/L (15-37); BILIRUBIN,TOTAL 0.5 MG/DL (0.2-1.0)
--- NOTE | 2018-08-03 04:16 | NUR ---
ED Nurse Note: came back from the break, removed Ceftriaxone by mistake. Will return to the pixes.
[2018-08-03] MEDS ORDERED: Piperacillin/Tazobactam 3.375 GM in NS 110 ML IVPB ONE (04:45)
[2018-08-03 06:20] VITALS: BP 88/60
--- NOTE | 2018-08-03 06:23 | NUR ---
ED Nurse Note: Patient was admited to Tele due to vomiting blood. AAOx1, VSS at this time. Patient has only wound vac, and it was transfered with him. Pastient was transferted by ACLS protocol.
--- NOTE | 2018-08-03 06:59 | NUR ---
NURSE NOTES: NEW ADMISSION. Recvd pt at 0620 from ER, recvd report from JIMMY Ortiz. Admitting Dr. Vieira, admitting Dx: Upper GI bleed. Pt is on isolation for hx of MRSA, VRE and ESBL. Pt is AOx3 (name, place and situation) Pt speaks Yakut and Belarusian. Full code, nla from [facility]. Pt has 2 episodes of coffee ground emesis. He has right FA 20 g c/d/i. He came in with wound vac, wound vac was removed, picture taken by ER nurse and will be uploaded. wound vac remains off and is at bedside, He had BM 5, only belongings is wound vac. bed in lowest position, call light within reach, will continue with plan of care. VSS 82/59, hr 78 98.1, 98%
--- NOTE | 2018-08-03 07:25 | NUR ---
NURSE NOTES: Pt received from JIMMY Gill alert and oriented x2 with no s/s of acute distress noted. Currently on 3L NC, no s/s of respiratory distress. IV site asymptomatic and patent. Bed alarm on. Bed in lowest position, call light and belongings within reach.
[2018-08-03 08:00] VITALS: BP 92/61
[2018-08-03] MEDS ORDERED: Acetaminophen 650mg/20.3ml GT PRN (08:15)
--- NOTE | 2018-08-03 08:30 | NUR ---
NURSE NOTES: Received admission orders from Dr. Desir: - full code - continue SNF meds - start 1/2 NS @ 50 ml/hr - Protonix 40 mg IVP q12hrs Per Dr. Desir, he will be back later in the day to enter the other orders.
--- NOTE | 2018-08-03 09:16 | NUR ---
NURSE NOTES: RN called [facility] to obtain history of pneumonia and flu vaccination for patient. Per Beronica from medical records, pt refused Pneumo and Flu Vaccination. Will update chart accordingly.
--- NOTE | 2018-08-03 09:43 | Diagnostic Imaging Report ---
Indication: Abdominal pain Technique: Continuous helical transaxial imaging of the abdomen and pelvis was obtained from the lung bases to the pubic symphysis. No intravenous contrast was administered. Coronal 2-D reformats were also obtained. Automatic Exposure Control was utilized. Total Dose length Product (DLP): [address] Dose Index Volume (CTDIvol): 18.16, 0.15 mGy Comparison: 05/11/2018 Findings: Moderate hiatal hernia noted. There is bronchiectasis at the left lung base associated with the ill-defined parenchymal densities likely scarring. Interval cholecystectomy is noted. There is a suggestion of a small residual collection or hematoma in the gallbladder fossa measuring approximately 3.4 x 1.6 cm. The stomach is moderately distended. There are bilateral renal cysts again demonstrated unchanged with a fairly large cyst in the left kidney noted. There is a suggestion of a tiny nonobstructive stones in both kidneys. Aortoiliac calcifications are present. Gastrostomy is in good position. Gynecomastia noted. There is a fecal retention within the sigmoid rectum with a 8 cm distended rectum noted. There is a left inguinal hernia containing part of the descending colon and sigmoid colon. There is thickening of the wall the urinary bladder. Diverticula noted within the colon. No evidence of diverticulitis. Hypertrophic bone formation noted about both hips with severe arthrosis. Femoral graham and hip hardware on the right noted. IMPRESSION: Status post interval cholecystectomy. 2.4 x 1.6 cm gallbladder hyperdensity likely a small postoperative hematoma. Rectosigmoid fecal retention and impaction. Left inguinal hernia containing colon and mesenteric fat. This is unchanged. Chronic cystitis with thickened bladder wall. Diverticulosis of the colon. Bilateral renal cysts. Suggestion of tiny nonobstructive stones in both kidneys. Gastrostomy Gynecomastia. Chronic lung disease with bronchiectasis and scarring at the left lung base. Moderate size hiatal hernia. Severe degenerative arthrosis of both hips. Evidence of previous right hip surgery. The CT scanner at [facility] is accredited by the [employer] and the scans are performed using dose optimization techniques as appropriate to a performed exam including Automatic Exposure control.
[2018-08-03] MEDS: Ferrous Sulfate 300 MG/5 ML UDC GT SCH ×3 (11:08→17:50)
[2018-08-03] MEDS: Spironolactone 25mg tab ORAL SCH (11:08)
[2018-08-03] MEDS: Levodopa/Carbidopa 25/100 tab GT SCH ×3 (11:08→17:50)
[2018-08-03] MEDS: Lactulose 20gm/30ml UDC ORAL SCH ×2 (11:08→17:50)
[2018-08-03] MEDS: Ascorbic Acid 500mg tab GT SCH ×2 (11:09→17:50)
[2018-08-03] MEDS: Multivitamins W/Minerals 15 ML UDC GT SCH (11:09)
[2018-08-03] MEDS: Pantoprazole Inj IVP SCH ×2 (11:09→21:11)
--- NOTE | 2018-08-03 11:46 | NUR ---
RD ASSESSMENT & RECOMMENDATIONS SEE CARE ACTIVITY FOR COMPLETE ASSESSMENT DAILY ESTIMATED NEEDS: Needs based on Wounds, sepsis, bed bound/66.8kg 27-32 kcals/kg 5627-9145 total kcals 1.25-2 g protein/kg 84-134 g total protein 25-30 mL/kg 9267-9921 total fluid mLs NUTRITION DIAGNOSIS: 1) Increased kcal and protein needs r/t wound healing as evidenced by pt w/ R hip open wound, appears advanced per photo, pending eval. 2) Swallowing difficulty r/t dysphagia as evidenced by pt is PEG dep. 3) Altered nutrition related lab values R/T clinical condition as evidenced by elev BGs (241), elev K (5.5). ENTERAL NUTRITION RECOMMENDATIONS: NEPRO @47ml/hr x22 hrs + PROSOURCE x1 pack daily to provide 1034ml, 1861 kcal, 84g + 11g pro, 752ml free H2O * MEDICALLY APPROPRIATE TO START TF, rec NEPRO * Start @17ml/hr for 6 hrs, advance 10ml q 4-6 hrs as tolerated to goal rate. * Hold 1 hr before and after Synthroid med * Flush per MD/ HOB over 30 degrees --- ADDITIONAL RECOMMENDATIONS: * PER SNF-> 67inches, 147# (66.8kg) * WOUND CARE: Add PORTIA BID via GT F/up w/ WC eval * Consider SSI for glycemic control * Monitor K, lytes, renal fxn for possible TF change .
[2018-08-03 12:00] VITALS: BP 90/48
[2018-08-03] MEDS: Albuterol/Ipratropium 3ml neb HHN SCH ×2 (12:09→19:34)
--- NOTE | 2018-08-03 14:10 | NUR ---
CASE MANAGEMENT:REVIEW 82 YR OLD MALE [facility] CC: COFFEE GROUND EMESIS SI: UGIB. SEPSIS. DEHYDRATION 97.9 93 19 93/67 97% ON 4L/NC WBC+18.7 K+5.5 BUN+56 IS: IV ZOFRAN IV PROTONIX IV ZOSYN IV PROTONIX 500CC NS BOLUS CT ABDOMEN/PELVIS : TO TELEMETRY INTERQUAL CRITERIA MET
--- NOTE | 2018-08-03 14:16 | Cardiology Report ---
APPROVED REPORT EKG Measurement Heart [id number] MN 210P50 [id number] Sinus rhythm with sinus arrhythmia with 1st degree AV block Nonspecific T wave abnormality Abnormal ECG
--- NOTE | 2018-08-03 15:00 | NUR ---
NURSE NOTES:WOUND CARE NOTES:Pt presented on admission with contractures,multiple pressure injuries. Non-blanchable erythema cleft of R ear. Full thickness pressure injury cleft of L ear. base of wound moist viable. Small amt sanguineous exudate.(L)1.5cm x(W)1cm x (D)0.4cm. Dark skin tone without erythema or induration sacrum . Resolving Full thickness pressure injury R trochanter with undermining.Small amt seropurulent exudate with mild odor noted.Base of wound is pink with biofilm. Bone is palpable.(L)2cm x (W)2.5cm x(D)1cm ,undermining1-6 by 3.1@5o'clock.Scarring noted to periwound. Base of scrotum is intact .L trochanter, R and L ischial areas are blanchable. DTPI noted to L lateral malleolus.Base of wound is maroon with dark borders.(L)1cm x (W)3cm. Non-blanchable erythema L hallux(L)2.7cm x (W)3cm. Non-blanchable erythema without fluctuance/induration lateral L foot . At most distal/lateral aspect of L foot a full thickness ulcer noted .Base of wound with approx 50% griffin slough ,surrounding erythema.,undermining noted.Loose edges with fluctuance and , non-blanchable erythema periwound Addendum: 08/03/18 at 1544 by Radha Haddad LVN ADDENDUM TO ABOVE WOUND NOTES:(L)2.1cm x (W)2.2cm x (D)0.5cm ,undermining 12-12 by 0.7cm @9o'clock. Non-blanchable erythema without fluctuance/induration noted to bony prominence that is in close proximity to medial L malleolus(L)1.5cm x (W)2cm. Reabsorbing blood blister medial L heel.base of wound is dry ,edges area adherent .periwound without erythema,induration or fluctuance (L)0.4cm x (W)0.5cm. Non-blanchable erythema medial R heel .Base of wound is fluctuant with delineated margins. Periwound is blanchable without fluctuance or induration.(L)1.3cm x (W) 3cm. Non-blanchable erythema without fluctuance or induration lateral R malleolus (L)2.5cm x (W)2cm. Non-blanchable erythema without fluctuance/induration noted to lateral R foot .(L)1cm x (W1.5cm. Tx.Plan:Treutlen Skin Knox (1 application) to Cleft of L ear.(done 08/03/18). Apply Coloplast barrier ring to L ear. Change PRN if loose . Apply Coloplast Barrier ring to cleft of R ear. Change PRN. Cleanse R trochanter with Saline. Apply Therahoney infused packing strip.Apply Triad Paste periwound. Cover with Optifoam.Change Daily and PRN.Apply Cavilon Skin BArrier to R Heel ,lateral aspect of R foot ,R hallux,Medial and lateral Malleoli.Cover each bony prominence with Optifoam drsg. Change every 7 days and prn. Cleanse wound distal/lateral L foot with Saline. Apply Therahoney. Apply Cavilon Skin Barrier periwound. Cover with Optifoam drsg. Change every 3 days and prn. Apply Cavilon Skin Barrier to bony prominences L heel ,medial/lateral malleoli, L hallux,medial and lateral L foot. Cover each site with Optifoam drsgs. Change every 7 days and prn. Apply Triad paste to Sacrum. Cover with Optifoam drsg. Change every 3 days and prn. Apply Triad Paste to scrotum and both ischial areas with each perineal care. Air Fluidized Mattress. Reposition at least every 2hours or as tolerated. Place pillows between knees and behind knees to off-load pressure from heels.
[2018-08-03 16:00] VITALS: BP 96/61
--- NOTE | 2018-08-03 17:03 | NUR ---
NURSE NOTES: RN endorsed to Dr. Reynolds that his SBP has been in the 90s, per Dr. reynolds please increase fluids to 100 ml/hr from 50 ml/hr.
[2018-08-03] MEDS: Meropenem 1 GM in NS 55 ML IVPB SCH (17:54)
--- NOTE | 2018-08-03 19:26 | NUR ---
HAND-OFF: Report given to JIMMY Patiño. No acute s/s of distress noted.
[2018-08-03 20:00] VITALS: BP_SYST 134; BP_SYST 93; BP_DIAS 58; BP_DIAS 74
--- NOTE | 2018-08-03 22:45 | History and Physical Report ---
DATE OF ADMISSION: 08/03/2018 CHIEF COMPLAINT: Nausea and vomiting. HISTORY OF PRESENT ILLNESS: This is an 82-year-old male who is one of my patients in a [facility]. The patient was transferred due to recurrent vomiting. The patient is demented and unable to give any further information. PAST MEDICAL HISTORY: 1. Organic brain syndrome. 2. Stage IV sacral decubitus ulcer. 3. Chronic kidney disease. 4. Hypothyroidism. 5. Malnutrition. 6. COPD. 7. Anemia of chronic disease. 8. Benign prostatic hypertrophy. 9. Status post gastrostomy. HOME MEDICATIONS: Tylenol as needed, multivitamin, amino acid, vitamin C, Sinemet, Invanz,finasteride, folic acid, subcutaneous heparin, DuoNeb, Synthroid, Namenda, nystatin, Zofran p.r.n., Aldactone, tamsulosin. ALLERGIES: No known drug allergies. SOCIAL HISTORY: Unable to obtain due to mental status. FAMILY HISTORY: Unable to obtain due to mental status. REVIEW OF SYSTEMS: Unable to obtain due to mental status. PHYSICAL EXAMINATION: GENERAL: This is an elderly, chronically ill appearing male, who is in no acute distress. VITAL SIGNS: Blood pressure 90/48, pulse 73 regular, respirations 23, temperature 97.5 oral. HEENT: The head is normocephalic and atraumatic. Pupils are equal, round, and reactive to light and accommodation consensually. NECK: Supple. Trachea midline. There was no lymphadenopathy or thyromegaly. LUNGS: Bilateral wheezes and rhonchi. HEART: Tachycardia. S1 and S2. No rubs, murmurs, or gallops. ABDOMEN: Soft and nontender. Bowel sounds were active. There was no organomegaly. He has a G-tube. EXTREMITIES: He has multiple contractures. SKIN: He has stage III sacral decubitus. He also has ankle decubitus ulcers. NEUROLOGIC: He is alert, but contracted. There were no gross focal findings. LABORATORY AND ANCILLARY DATA: CBC, white count 80,700. Serum chemistry, sodium 135, potassium 5.5, BUN 56, creatinine 1.3. Urinalysis, 15 to 20 rbcs, 3+ leukocyte esterase, too numerous to count white blood cells ASSESSMENT: 1. Urosepsis. 2. Organic brain syndrome. 3. Stage IV sacral decubitus ulcer. 4. Chronic kidney disease. 5. Hypothyroidism. 6. Malnutrition. 7. COPD. 8. Anemia of chronic disease. 9. Benign prostatic hypertrophy. 10. Status post gastrostomy. PLAN: 1. IV fluids. 2. ID consult. 3. Continue home medications. Joanne Desir M.D. DR: JESSE JOB#: [id number] CC: ROSITA
[2018-08-04] VITALS: BP 136/75
[2018-08-04] MEDS: Albuterol/Ipratropium 3ml neb HHN SCH ×4 (01:07→19:25)
[2018-08-04 04:00] VITALS: BP 129/62
[2018-08-04] MEDS: Meropenem 1 GM in NS 55 ML IVPB SCH ×2 (05:56→17:38)
[2018-08-04 06:06] LABS: BASOPHILS % (AUTO) 0.5 % (0.0-2.0); EOSINOPHILS % (AUTO) 2.8 % (0.0-3.0); HEMOGLOBIN 9.8 G/DL (14.2-18.0); LYMPHOCYTES % (AUTO) 13.6 % (20.0-45.0); MEAN CORPUSCULAR VOLUME 95 FL (80-99); MONOCYTES % (AUTO) 7.2 % (1.0-10.0); NEUTROPHILS % (AUTO) 75.9 % (45.0-75.0); PLATELET COUNT 276 K/UL (150-450); RED BLOOD COUNT 3.26 M/UL (4.70-6.10); RED CELL DISTRIBUTION WIDTH 15.9 % (11.6-14.8); WHITE BLOOD COUNT 10.5 K/UL (4.8-10.8)
[2018-08-04 06:16] LABS: ANION GAP 7 mmol/L (5-15); BLOOD UREA NITROGEN 46 mg/dL (7-18); CALCIUM 8.1 MG/DL (8.5-10.1); CARBON DIOXIDE 26 MMOL/L (21-32); CHLORIDE 105 MMOL/L (98-107); CREATININE 1.1 MG/DL (0.55-1.30); POTASSIUM 4.5 MMOL/L (3.5-5.1); SODIUM 138 MMOL/L (136-145)
--- NOTE | 2018-08-04 07:26 | NUR ---
HAND-OFF: Report given to JIMMY Villatoro and JIMMY Felipe.
--- NOTE | 2018-08-04 07:27 | NUR ---
NURSE NOTES: Received report from JIMMY Patiño. The patient is stable without acute distress or shortness of breath. The patient's bed is in the lowest position, call light in reach, and fall and aspiration precaution reinforced. Will continue plan of care.
[2018-08-04 08:00] VITALS: BP 90/50
[2018-08-04] MEDS: Spironolactone 25mg tab ORAL SCH (09:00)
[2018-08-04] MEDS: Ferrous Sulfate 300 MG/5 ML UDC GT SCH ×3 (09:22→17:38)
[2018-08-04] MEDS: Pantoprazole Inj IVP SCH ×2 (09:22→20:57)
[2018-08-04] MEDS: Ascorbic Acid 500mg tab GT SCH ×2 (09:22→17:38)
[2018-08-04] MEDS: Levodopa/Carbidopa 25/100 tab GT SCH ×3 (09:22→17:38)
[2018-08-04] MEDS: Multivitamins W/Minerals 15 ML UDC GT SCH (09:22)
--- NOTE | 2018-08-04 10:54 | General Progress Note ---
Assessment/Plan Assessment/Plan: ESBL URosepsis - Abx per ID AMS 2nd to above Decubiti - GS Subjective Allergies: Coded Allergies: No Known Allergies (Unverified , 09/08/17) Subjective Confused Objective Last 24 Hour Vital Signs Date Time Temp Pulse Resp B/P (MAP) Pulse Ox O2 Delivery O2 Flow Rate FiO2 08/04/18 09:00 Nasal Cannula 4.0 08/04/18 08:00 98.6 74 17 90/50 (63) 97 08/04/18 07:25 69 18 100 Nasal Cannula 2.0 28 08/04/18 07:12 Nasal Cannula 2.0 28 08/04/18 07:12 66 18 99 Nasal Cannula 2.0 28 08/04/18 07:12 99 Nasal Cannula 2.0 28 08/04/18 07:12 28 08/04/18 04:00 97.7 74 18 129/62 (84) 99 08/04/18 04:00 74 08/04/18 01:17 70 18 100 Nasal Cannula 2.0 28 08/04/18 01:07 28 08/04/18 01:07 67 18 99 Nasal Cannula 2.0 28 08/04/18 00:00 98.4 72 18 136/75 (95) 98 08/04/18 00:00 72 08/03/18 21:42 82 18 99 Nasal Cannula 2.0 28 08/03/18 21:00 Nasal Cannula 4.0 08/03/18 20:00 98.0 88 20 134/74 (94) 96 08/03/18 20:00 88 08/03/18 19:34 99 Nasal Cannula 2.0 28 08/03/18 19:34 87 18 99 Nasal Cannula 2.0 28 08/03/18 19:34 28 08/03/18 19:34 Nasal Cannula 2.0 28 08/03/18 16:00 73 08/03/18 16:00 97.9 73 24 96/61 (73) 96 08/03/18 12:20 69 20 98 Nasal Cannula 4.0 36 08/03/18 12:09 76 20 98 Nasal Cannula 2.0 28 08/03/18 12:09 28 08/03/18 12:00 97.5 73 23 90/48 (62) 99 08/03/18 12:00 72 08/03/18 12:00 4.0 Intake and Output 5/10/19 5/11/19 19:00 07:00 Intake Total 1105 ml Output Total 700 ml 600 ml Balance -700 ml 505 ml Intake IV Total 1105 ml Output Urine Total 700 ml 600 ml # Voids 1 # Bowel Movements 4 2 Laboratory Tests 08/04/18 05:00: White Blood Count 10.5, Red Blood Count 3.26L, Hemoglobin 9.8L, Hematocrit 31.0L , Mean Corpuscular Volume 95, Mean Corpuscular Hemoglobin 29.9, Mean Corpuscular Hemoglobin Concent 31.5L, Red Cell Distribution Width 15.9H, Platelet Count 276, Mean Platelet Volume 6.2L, Neutrophils (%) (Auto) 75.9H, Lymphocytes (%) (Auto) 13.6L, Monocytes (%) (Auto) 7.2, Eosinophils (%) (Auto) 2.8, Basophils (%) (Auto) 0.5, Sodium Level 138, Potassium Level 4.5, Chloride Level 105, Carbon Dioxide Level 26, Anion Gap 7, Blood Urea Nitrogen 46H, Creatinine 1.1, Estimat Glomerular Filtration Rate , Glucose Level 96#, Calcium Level 8.1L Height (Feet): 5 Height (Inches): 5.00 Weight (Pounds): 140 Objective CV RR Lungs CTA Abd SNT BS + E No CCE Joanne Desir MD August 04, 2018 10:54
[2018-08-04 12:00] VITALS: BP 98/66
--- NOTE | 2018-08-04 14:15 | Consultation ---
DATE OF CONSULTATION: 08/04/2018 INFECTIOUS DISEASES CONSULTATION CONSULTING PHYSICIAN: Luis Bravo M.D. REASON FOR CONSULTATION: Gram-negative urinary tract infection. HISTORY OF PRESENTING ILLNESS: This is an 82-year-old gentleman with history of COPD, hypothyroidism, benign prostatic hypertrophy, dementia, who came in because he had vomiting. He was found to have a gram-negative urinary tract infection and an Infectious Diseases consultation has been obtained for antibiotics. PAST MEDICAL HISTORY: 1. History of hypothyroidism. 2. Chronic kidney disease. 3. Sacral decubitus ulcer. 4. Dementia. 5. COPD. 6. Benign prostatic hypertrophy. 7. Status post G-tube placement. SOCIAL HISTORY: Unknown. FAMILY HISTORY: Unknown. REVIEW OF SYSTEMS: Unable to obtain currently. MEDICATIONS: As an inpatient, the patient is on lactulose, levothyroxine, meropenem, albuterol, ipratropium, Protonix, ascorbic acid, Sinemet, ferrous sulfate, folic acid, multivitamins, spironolactone, Tylenol, and iopamidol. ALLERGIES: No known drug allergies. PHYSICAL EXAMINATION: VITAL SIGNS: Temperature of 98.6, T-max of 98.6, pulse of 74, respiratory rate of 17, blood pressure 90/50, and O2 saturation of 97%. HEENT: Pupils equally reactive to light and accommodation. Mouth appears clean without thrush. NECK: Supple. No adenopathy. No JVD. CARDIOVASCULAR: Regular rate and rhythm. No murmurs. LUNGS: Clear to auscultation bilaterally. No crackles. No wheezes. ABDOMEN: Soft and nontender. G-tube site appears clean. EXTREMITIES: No cyanosis, no clubbing, no edema, is contracted. LABORATORY AND DIAGNOSTIC DATA: White count of 18.7 on 08/03/2018; 08/04/2018 white count of 10.5, hemoglobin 9.8, hematocrit 31, MCV 95, platelet count of 276, neutrophils of 75%. Sodium 138, potassium 4.5, chloride 105, bicarb 26, BUN 46, creatinine 1.1, glucose 96, calcium 8.1. On 08/03/2018, total bilirubin 0.5. AST 33, ALT 21, and alkaline phosphatase 168. Total protein 8.4. Albumin 2.5. Lipase of 389. UA showing too numerous to count white cells. Urine culture is showing gram-negative rods. CT abdomen and pelvis showing status post cholecystectomy, small postoperative hematoma noted, rectosigmoid fecal retention and impaction noted, left inguinal hernia noted, chronic cystitis with thickened bladder wall, diverticulosis of the colon noted, bilateral renal cysts noted, tiny nonobstructive stones in both kidneys noted, chronic lung disease with bronchiectasis and scarring, and moderate hiatal hernia noted. ASSESSMENT: This is an 82-year-old gentleman with history of hypothyroidism, COPD, dementia, benign prostatic hypertrophy, who comes in with vomiting and was found to have: 1. Gram-negative urinary tract infection. 2. Leukocytosis is improving. 3. Hypothyroidism. 4. COPD. 5. Bilateral renal stones. PLAN: 1. Continue meropenem. 2. We will follow up cultures and adjust antibiotics accordingly. I would like to thank, Dr. Desir, for this consultation. Luis Bravo M.D. DR: JEANNETTE JOB#: [id number] CC: Joanne Desir M.D.; Fax#: [phone]
--- NOTE | 2018-08-04 14:30 | NUR ---
NURSE NOTES: Nephro tube feeding started at rate of 15ml/hr and will be monitored for residual.
--- NOTE | 2018-08-04 15:37 | Consultation ---
History of Present Illness General Date patient seen: August 04, 2018 Reason for Hospitalization: Vomiting Present Illness HPI 82 year old male well known to me from prior admissions presented with abdominal pain, nausea, emesis. Patient skilled nursing resident care dependant who is a poor historian. On admission noted to have multiple wounds requiring care. surgery called to evaluate and help assist with care and management of patient. patient seen, chart reviewed, patient examined. Allergies: Coded Allergies: No Known Allergies (Unverified , 09/08/17) Medication History Scheduled Amino Acids/Protein Hydrolys (Pro-Stat Liquid), 30 ML GT DAILY, (Reported) Ascorbic Acid* (Ascorbic Acid*), 500 MG GT TWICE A DAY Carbidopa/Levodopa 25-100 Mg* (Sinemet 25-100 Mg Tablet*), 1 TAB GT TID, ( Reported) Ertapenem Sodium* (INVanz*), 1 GM IVPB Q24H, (Reported) Ferrous Sulfate (Ferrous Sulfate), 1 TAB ORAL TWICE A DAY, (Reported) Ferrous Sulfate (Ferrous Sulfate), 300 MG GT TWICE A DAY Ferrous Sulfate (Ferrous Sulfate), 300 MG GT THREE TIMES A DAY Finasteride (Finasteride), 5 MG ORAL DAILY Folic Acid (Folic Acid), 1 MG PO DAILY, (Reported) Folic Acid* (Folic Acid*), 1 MG GT DAILY Heparin Sod (Porcine) (Heparin Sodium*), 5,000 UNITS SUBQ EVERY 12 HOURS Heparin Sod (Porcine) (Heparin Sodium*), 5,000 UNITS SUBQ EVERY 12 HOURS Ipratropium/Albuterol Sulfate (DuoNeb 0.5-3(2.5)mg/3ml), 3 ML HHN Q6HRT Levothyroxine Sodium* (Synthroid*), 100 MCG GT ACBREAKFAST Levothyroxine Sodium* (Synthroid*), 100 MCG GT DAILY@0630 Memantine Hcl* (Namenda*), 5 MG ORAL BEDTIME, (Reported) Memantine Hcl* (Namenda*), 5 MG GT BEDTIME Multivits W-Min/Ferrous Gluc (Multivitamin-Mineral Liquid), 15 ML GT DAILY Nystatin* (Nystatin*), 5 ML ORAL QID Spironolactone* (Aldactone*), 25 MG ORAL DAILY Tamsulosin HCl (Flomax), 0.4 MG ORAL BEDTIME [Levodopa/Carbidopa 25/100], 1 TAB GT THREE TIMES A DAY [Levodopa/Carbidopa 25/100], 1 TAB GT Q8HR Scheduled PRN Acetaminophen* (Acetaminophen 325MG Tablet*), 650 MG GT Q4H PRN for For Pain, ( Reported) Hydrocodone Bit/Acetaminophen 5-325* (Edmonson 5-325*), 1 TAB GT Q6H PRN Ondansetron (Zofran), 4 MG GT Q6H PRN for Nausea & Vomiting, (Reported) [Acetaminophen], 650 MG GT Q4H PRN [Acetaminophen], 650 MG GT Q4H PRN Miscellaneous Medications Lactose-Reduced Food/Fiber (Isosource 1.5 Pietro Liquid), 240 ML GT, (Reported) Patient History Limited by: medical condition History Provided By: Patient, Medical Record, PMD Healthcare decision maker Resuscitation status Full Code Advanced Directive on File Past Medical/Surgical History Past Medical/Surgical History: (1) The administrative codes within the [employer] content you are accessing may have as of 12/25/2017. Please contact your IT Dept/Help Desk and request the latest Regulatory release be installed. IT Dept/Help Desk- Please refer to our FAQ page ([email or web address]) or contact [employer] Customer Support at [email or web address] (2) Decubitus ulcer (3) Heel ulcer (4) Wounds, multiple open, lower extremity (5) Encounter for generalized patient complaints (6) Obstructive jaundice (7) juandice (8) Anemia (9) Vomiting (10) Inguinal hernia (11) Intra-abdominal hematoma (12) Fecal impaction in rectum (13) Dehydration (14) Hyperkalemia (15) Urinary tract infection (16) Leukocytosis (17) Sepsis (18) Upper GI bleed (19) Sacral decubitus ulcer Review of Systems Review of Symptoms General ROS: no weight loss or fever Psychological ROS: no depression or mood changes, no memory loss Ophthalmic ROS: no visual changes or eye irritation ENT ROS: no nasal congestion, hearing loss, dizziness Allergy and Immunology ROS: no allergic symptoms or urticaria Hematological and Lymphatic ROS: no swollen glands, unusual bleeding or bruising Endocrine ROS: no polyuria, polydipsia, weight changes, temperature intolerance Respiratory ROS: no cough, shortness of breath, or wheezing Cardiovascular ROS: no chest pain or dyspnea on exertion Gastrointestinal ROS: abdominal pain,no bright red blood in stool. Musculoskeletal ROS: no myalgias or arthralgias Neurological ROS: no TIA or stroke symptoms Dermatological ROS: no new or changing skin lesions, rashes or pruritis Physical Exam Physical Exam General appearance: alert, cooperative, no distress, appears stated age Head: Normocephalic, without obvious abnormality, atraumatic Eyes: conjunctivae/corneas clear. PERRL, EOM's intact. Fundi benign Throat: Lips, mucosa, and tongue normal. Teeth and gums normal Neck: supple, symmetrical, trachea midline, no adenopathy, thyroid: not enlarged, symmetric, no tenderness/mass/nodules, no carotid bruit and no JVD Lungs: clear to auscultation bilaterally Heart: regular rate and rhythm, S1, S2 normal, no murmur, click, rub or gallop Abdomen: soft, non-tender. Bowel sounds normal. No masses, no organomegaly Extremities: extremities see below, atraumatic, no cyanosis or edema Pulses: 2+ and symmetric Skin: Skin color, texture, turgor normal. No rashes or lesions Neurologic: Grossly normal Last 24 Hour Vital Signs Date Time Temp Pulse Resp B/P (MAP) Pulse Ox O2 Delivery O2 Flow Rate FiO2 08/04/18 13:17 67 18 100 Nasal Cannula 2.0 08/04/18 13:08 70 18 99 Nasal Cannula 2.0 08/04/18 13:08 28 08/04/18 12:00 97.9 72 18 98/66 (77) 97 08/04/18 12:00 74 08/04/18 10:59 Nasal Cannula 2.0 08/04/18 09:00 Nasal Cannula 4.0 08/04/18 08:00 98.6 74 17 90/50 (63) 97 08/04/18 08:00 74 08/04/18 07:25 69 18 100 Nasal Cannula 2.0 28 08/04/18 07:12 Nasal Cannula 2.0 28 08/04/18 07:12 66 18 99 Nasal Cannula 2.0 28 08/04/18 07:12 99 Nasal Cannula 2.0 08/04/18 07:12 28 08/04/18 04:00 97.7 74 18 129/62 (84) 99 08/04/18 04:00 74 08/04/18 01:17 70 18 100 Nasal Cannula 2.0 28 08/04/18 01:07 28 08/04/18 01:07 67 18 99 Nasal Cannula 2.0 28 08/04/18 00:00 98.4 72 18 136/75 (95) 98 08/04/18 00:00 72 08/03/18 21:42 82 18 99 Nasal Cannula 2.0 28 08/03/18 21:00 Nasal Cannula 4.0 08/03/18 20:00 98.0 88 20 134/74 (94) 96 08/03/18 20:00 88 08/03/18 19:34 99 Nasal Cannula 2.0 28 08/03/18 19:34 87 18 99 Nasal Cannula 2.0 28 08/03/18 19:34 28 08/03/18 19:34 Nasal Cannula 2.0 28 08/03/18 16:00 73 08/03/18 16:00 97.9 73 24 96/61 (73) 96 Intake and Output 08/03/18 08/04/18 19:00 07:00 Intake Total 1105 ml Output Total 700 ml 600 ml Balance -700 ml 505 ml Intake IV Total 1105 ml Output Urine Total 700 ml 600 ml # Voids 1 # Bowel Movements 4 2 Laboratory Tests Test 08/04/18 05:00 White Blood Count 10.5 K/UL (4.8-10.8) Red Blood Count 3.26 M/UL (4.70-6.10) L Hemoglobin 9.8 G/DL (14.2-18.0) L Hematocrit 31.0 % (42.0-52.0) L Mean Corpuscular Volume 95 FL (80-99) Mean Corpuscular Hemoglobin 29.9 PG (27.0-31.0) Mean Corpuscular Hemoglobin Concent 31.5 G/DL (32.0-36.0) L Red Cell Distribution Width 15.9 % (11.6-14.8) H Platelet Count 276 K/UL (150-450) Mean Platelet Volume 6.2 FL (6.5-10.1) L Neutrophils (%) (Auto) 75.9 % (45.0-75.0) H Lymphocytes (%) (Auto) 13.6 % (20.0-45.0) L Monocytes (%) (Auto) 7.2 % (1.0-10.0) Eosinophils (%) (Auto) 2.8 % (0.0-3.0) Basophils (%) (Auto) 0.5 % (0.0-2.0) Sodium Level 138 MMOL/L (136-145) Potassium Level 4.5 MMOL/L (3.5-5.1) Chloride Level 105 MMOL/L (98-107) Carbon Dioxide Level 26 MMOL/L (21-32) Anion Gap 7 mmol/L (5-15) Blood Urea Nitrogen 46 mg/dL (7-18) H Creatinine 1.1 MG/DL (0.55-1.30) Estimat Glomerular Filtration Rate mL/min (>60) Glucose Level 96 MG/DL (74-106) # Calcium Level 8.1 MG/DL (8.5-10.1) L Height (Feet): 5 Height (Inches): 5.00 Weight (Pounds): 140 Medications Current Medications Medications (Trade) Dose Ordered Sig/Adrian Route PRN Reason Start Time Stop Time Status Last Admin Dose Admin Acetaminophen (Tylenol) 650 mg Q4H PRN GT Mild Pain/Temp > 100.5 08/03/18 08:15 09/02/18 08:14 Albuterol/ Ipratropium (Albuterol/ Ipratropium) 3 ml Q6HRT HHN 08/03/18 13:00 08/08/18 12:59 08/04/18 13:07 Ascorbic Acid (Vitamin C) 500 mg TWICE A DAY GT 08/03/18 09:00 09/02/18 08:59 08/04/18 09:22 Carbidopa/Levodopa (Sinemet 25/100) 1 tab TID GT 08/03/18 09:00 09/02/18 08:59 08/04/18 12:18 Ferrous Sulfate (Feosol) 300 mg THREE TIMES A DAY GT 08/03/18 09:00 09/02/18 08:59 08/04/18 12:18 Folic Acid (Folate) 1 mg DAILY GT 08/03/18 09:00 09/02/18 08:59 08/04/18 09:22 Iopamidol (Isovue-300 100ml) 100 ml NOW PRN INJ Radiology Procedure 08/03/18 02:45 08/05/18 02:44 Lactulose (Cephulac) 20 gm BID GT 08/04/18 18:00 09/02/18 08:59 Levothyroxine Sodium (Synthroid) 100 mcg DAILY@0630 GT 08/04/18 06:30 09/03/18 06:29 08/04/18 05:57 Meropenem 1 gm/ Sodium Chloride 55 ml @ 110 mls/hr Q12HR@0600,1800 IVPB 08/03/18 18:00 08/09/18 17:59 08/04/18 05:56 Multivitamins (Multivitamins W/ Minerals 15ml Liquid) 15 ml DAILY GT 08/03/18 09:00 09/02/18 08:59 08/04/18 09:22 Pantoprazole (Protonix) 40 mg EVERY 12 HOURS IVP 08/03/18 09:00 09/02/18 08:59 08/04/18 09:22 Sodium Chloride 1,000 ml @ 50 mls/hr Q20H IV 08/04/18 13:00 09/02/18 12:59 08/04/18 13:20 Spironolactone (Aldactone) 25 mg DAILY ORAL 08/03/18 09:00 09/02/18 08:59 08/03/18 11:08 Assessment/Plan Problem List: (1) Inguinal hernia Assessment & Plan: reducible and stable. will monitor outpatient eval if desired for repair ICD Codes: K40.90 - Unilateral inguinal hernia, without obstruction or gangrene , not specified as recurrent SNOMED: 919406312 (2) Intra-abdominal hematoma ICD Codes: S36.92XA - Contusion of unspecified intra-abdominal organ, initial encounter SNOMED: 118543998 (3) Fecal impaction in rectum ICD Codes: K56.41 - Fecal impaction SNOMED: 15275410 (4) Dehydration ICD Codes: E86.0 - Dehydration SNOMED: 06565780 (5) Hyperkalemia ICD Codes: E87.5 - Hyperkalemia SNOMED: 14774278 (6) Urinary tract infection ICD Codes: N39.0 - Urinary tract infection, site not specified SNOMED: 46374431 (7) Leukocytosis ICD Codes: D72.829 - Elevated white blood cell count, unspecified SNOMED: 732794808, 257205795 (8) Sepsis ICD Codes: A41.9 - Sepsis, unspecified organism SNOMED: 78832046 (9) Upper GI bleed ICD Codes: K92.2 - Gastrointestinal hemorrhage, unspecified SNOMED: 14650524 (10) Sacral decubitus ulcer ICD Codes: L89.159 - Pressure ulcer of sacral region, unspecified stage SNOMED: 673587672 (11) The administrative codes within the [employer] content you are accessing may have as of 12/25/2017. Please contact your IT Dept/Help Desk and request the latest Regulatory release be installed. IT Dept/Help Desk- Please refer to our FAQ page ([email or web address]) or contact [employer] Customer Support at [email or web address] ICD Codes: - The administrative codes within the [employer] content you are accessing may have as of 12/25/2017. Please contact your IT Dept/Help Desk and request the latest Regulatory release be installed. IT Dept/Help Desk- Please refer to our FAQ page ([email or web address]) or contact [employer] Customer Support at [email or web address] SNOMED: (12) Decubitus ulcer Assessment & Plan: Patient presented on admission with contractures of extremities and multiple pressure injuries. Full thickness pressure injury cleft of L ear. base of wound moist viable. Small amt sanguineous exudate.(L)1.5cm x(W)1cm x (D)0.4cm. Resolving Full thickness pressure injury R trochanter with undermining.Small amt seropurulent exudate with mild odor noted.Base of wound is pink with biofilm. Bone is palpable.(L)2cm x (W)2.5cm x(D)1cm ,undermining1-6 by 3.1@5o' clock.Scarring noted to periwound. DTPI noted to L lateral malleolus.Base of wound is maroon with dark borders.(L) 1cm x (W)3cm. Non-blanchable erythema L hallux(L)2.7cm x (W)3cm. Non-blanchable erythema without fluctuance/induration lateral L foot . At most distal/lateral aspect of L foot a full thickness ulcer noted .Base of wound with approx 50% griffin slough ,surrounding erythema.,undermining noted.Loose edges with fluctuance and , non-blanchable erythema periwound (L) 2.1cm x (W)2.2cm x (D)0.5cm ,undermining 12-12 by 0.7cm @9o'clock. Non-blanchable erythema without fluctuance/induration noted to bony prominence that is in close proximity to medial L malleolus(L)1.5cm x (W)2cm. Reabsorbing blood blister medial L heel.base of wound is dry ,edges area adherent .periwound without erythema,induration or fluctuance (L)0.4cm x (W) 0.5cm. Non-blanchable erythema medial R heel .Base of wound is fluctuant with delineated margins. Periwound is blanchable without fluctuance or induration.(L) 1.3cm x (W) 3cm. Non-blanchable erythema without fluctuance or induration lateral R malleolus (L) 2.5cm x (W)2cm. Non-blanchable erythema without fluctuance/induration noted to lateral R foot . (L)1cm x (W1.5cm. Tx.Plan: [place] Skin [place] (1 application) to Cleft of L ear.(done 08/03/18). Apply Coloplast barrier ring to L ear. Change PRN if loose . Apply Coloplast Barrier ring to cleft of R ear. Change PRN. Cleanse R trochanter with Saline. Apply Therahoney infused packing strip.Apply Triad Paste periwound. Cover with Optifoam.Change Daily and PRN. Apply Cavilon Skin BArrier to R Heel ,lateral aspect of R foot ,R hallux,Medial and lateral Malleoli. Cover each bony prominence with Optifoam drsg. Change every 7 days and prn. Cleanse wound distal/lateral L foot with Saline. Apply Therahoney. Apply Cavilon Skin Barrier periwound. Cover with Optifoam drsg. Change every 3 days and prn. Apply Cavilon Skin Barrier to bony prominences L heel ,medial/lateral malleoli, L hallux,medial and lateral L foot. Cover each site with Optifoam drsgs. Change every 7 days and prn. Apply Triad paste to Sacrum. Cover with Optifoam drsg. Change every 3 days and prn. Apply Triad Paste to scrotum and both ischial areas with each perineal care. Air Fluidized Mattress. Reposition at least every 2hours or as tolerated. Place pillows between knees and behind knees to off-load pressure from heels. ICD Codes: L89.90 - Pressure ulcer of unspecified site, unspecified stage SNOMED: 425050461 (13) Anemia ICD Codes: D64.9 - Anemia, unspecified SNOMED: 331010301 (14) Obstructive jaundice ICD Codes: K83.8 - Other specified diseases of biliary tract SNOMED: 06361839 (15) Vomiting ICD Codes: R11.10 - Vomiting, unspecified SNOMED: 637911032 (16) Heel ulcer ICD Codes: L97.409 - Non-pressure chronic ulcer of unspecified heel and midfoot with unspecified severity SNOMED: 845621406 (17) Wounds, multiple open, lower extremity ICD Codes: S81.809A - Unspecified open wound, unspecified lower leg, initial encounter SNOMED: 31218571 (18) Encounter for generalized patient complaints ICD Codes: Z00.8 - Encounter for other general examination SNOMED: 224843235 (19) Zafar Donis August 04, 2018 15:37
[2018-08-04 16:00] VITALS: BP 113/64
[2018-08-04] MEDS: Lactulose 20gm/30ml UDC GT SCH (17:37)
--- NOTE | 2018-08-04 19:15 | NUR ---
HAND-OFF: Report given to JIMMY Patiño. The patient is in stable condition without acute distress or shortness of breath. Endorsed plan of care.
--- NOTE | 2018-08-04 19:20 | NUR ---
NURSE NOTES: Received report from JIMMY Villatoro. Pt is resting in bed. In no acute distress. Bed in lowest position, call light within reach. Will continue plan of care.
[2018-08-04] MEDS ORDERED: 1/2 NS 1000ml IV ONE (19:55)
[2018-08-04 20:00] VITALS: BP 135/55
[2018-08-05] VITALS: BP 94/55
[2018-08-05] MEDS: Albuterol/Ipratropium 3ml neb HHN SCH ×4 (01:02→19:24)
[2018-08-05 04:00] VITALS: BP 107/51
[2018-08-05] MEDS: Meropenem 1 GM in NS 55 ML IVPB SCH ×2 (06:22→17:15)
--- NOTE | 2018-08-05 07:05 | NUR ---
HAND-OFF: Report given to JIMMY Felipe.
--- NOTE | 2018-08-05 07:10 | NUR ---
NURSE NOTES: Received report from JIMMY Patiño. The patient resting on the bed without acute distress or shortness of breath. The patient denies of nausea or vomiting at this time. The patient's bed is in the lowest position, call light in reach, and fall and aspiration precaution reinforced. Will continue plan of care.
[2018-08-05 08:00] VITALS: BP 108/67
--- NOTE | 2018-08-05 08:09 | NUR ---
RD ASSESSMENT & RECOMMENDATIONS SEE CARE ACTIVITY FOR COMPLETE ASSESSMENT DAILY ESTIMATED NEEDS: Needs based on Wounds, sepsis, bed bound/66.8kg 27-32 kcals/kg 5457-5256 total kcals 1.5-2 g protein/kg 100-134 g total protein 25-30 mL/kg 7397-8333 total fluid mLs NUTRITION DIAGNOSIS: 1) Increased kcal and protein needs r/t wound healing as evidenced by pt w/ multiple wounds, refer to WC eval, including full thickness x2 2) Swallowing difficulty r/t dysphagia as evidenced by pt is PEG dep. 3) Altered nutrition related lab values R/T clinical condition as evidenced by elev BGs (241), elev K (5.5-> now wnl). CURRENT TF:Nepro @30ml ENTERAL NUTRITION RECOMMENDATIONS: NEPRO @47ml/hr x22 hrs + PROSOURCE BID to provide 1034ml, 1861 kcal, 84g + 22g pro, 752ml free H2O * MEDICALLY APPROPRIATE TO START TF, rec NEPRO * Start @17ml/hr for 6 hrs, advance 10ml q 4-6 hrs as tolerated to goal rate. * Hold 1 hr before and after Synthroid med * Add Prosource 1 pack BID to better meet est pro needs. * Flush per MD/ HOB over 30 degrees ---- ADDITIONAL RECOMMENDATIONS: * PER SNF-> 67inches, 147# (66.8kg) * WOUND CARE: Add PORTIA BID Maintain MVI + Vit C via GT * Consider SSI for glycemic control * Monitor K, lytes, renal fxn for possible TF change K wnl, creat wnl, BUN trending down-> will cont to monitor
[2018-08-05] MEDS: Spironolactone 25mg tab ORAL SCH (09:00)
[2018-08-05] MEDS: Ferrous Sulfate 300 MG/5 ML UDC GT SCH ×3 (09:20→17:14)
[2018-08-05] MEDS: Lactulose 20gm/30ml UDC GT SCH ×2 (09:20→17:14)
[2018-08-05] MEDS: Pantoprazole Inj IVP SCH ×2 (09:21→20:53)
[2018-08-05] MEDS: Levodopa/Carbidopa 25/100 tab GT SCH ×3 (09:21→17:15)
[2018-08-05] MEDS: Multivitamins W/Minerals 15 ML UDC GT SCH (09:21)
[2018-08-05] MEDS: Ascorbic Acid 500mg tab GT SCH ×2 (09:21→17:15)
--- NOTE | 2018-08-05 09:57 | Infectious Diseases Prog Note ---
Assessment/Plan Assessment/Plan A; E. coli UTI Intraabdominal hematoma Fecal impaction R inguinal hernia CKD Dementia P: Continue Meropenem Subjective ROS Limited/Unobtainable: Yes Constitutional: Reports: no symptoms Respiratory: Reports: no symptoms Gastrointestinal/Abdominal: Reports: no symptoms Genitourinary: Reports: no symptoms Allergies: Coded Allergies: No Known Allergies (Unverified , 09/08/17) Objective Vital Signs Last 24 Hour Vital Signs Date Time Temp Pulse Resp B/P (MAP) Pulse Ox O2 Delivery O2 Flow Rate FiO2 08/05/18 08:00 97.4 81 20 108/67 (81) 98 08/05/18 06:52 28 08/05/18 06:52 75 17 97 Nasal Cannula 2.0 28 08/05/18 06:38 Nasal Cannula 2.0 28 08/05/18 06:38 93 Nasal Cannula 2.0 28 08/05/18 06:38 72 16 93 Nasal Cannula 2.0 28 08/05/18 04:00 98.2 81 19 107/51 (69) 95 08/05/18 04:00 81 08/05/18 01:14 69 18 100 Nasal Cannula 2.0 28 08/05/18 01:13 28 08/05/18 01:02 68 18 99 Nasal Cannula 2.0 28 08/05/18 00:00 98.0 77 20 94/55 (68) 97 08/05/18 00:00 77 08/04/18 21:00 Nasal Cannula 4.0 08/04/18 20:00 71 08/04/18 20:00 97.5 71 18 135/55 (81) 97 08/04/18 19:37 28 08/04/18 19:37 70 18 100 Nasal Cannula 2.0 28 08/04/18 19:27 98 Nasal Cannula 2.0 28 08/04/18 19:27 Nasal Cannula 2.0 28 08/04/18 19:25 72 18 98 Nasal Cannula 2.0 28 08/04/18 16:00 98.3 78 19 113/64 (80) 08/04/18 15:18 71 08/04/18 13:17 67 18 100 Nasal Cannula 2.0 28 08/04/18 13:08 70 18 99 Nasal Cannula 2.0 28 08/04/18 13:08 28 08/04/18 12:00 97.9 72 18 98/66 (77) 97 08/04/18 12:00 74 08/04/18 10:59 Nasal Cannula 2.0 Height (Feet): 5 Height (Inches): 5.00 Weight (Pounds): 140 General Appearance: no acute distress HEENT: mucous membranes moist Respiratory/Chest: lungs clear Cardiovascular: normal rate Abdomen: soft, non tender, other - GT feeding Extremities: no edema Neurologic/Psychiatric: alert, responsive Microbiology Date/Time Source Procedure Growth Status 08/03/18 04:45 Nasal Nares MRSA Culture - Final Staphylococcus Aureus - Mrsa Complete 08/03/18 03:36 Urine,Clean Catch Urine Culture - Final Escherichia Coli - Esbl Complete 08/03/18 04:45 Rectum - Final NO CARBAPENEM-RESISTANT ENTEROBACTERI... Complete 08/03/18 04:45 Rectum VRE Culture - Final NO VANCOMYCIN RESISTANT ENTEROCOCCUS ... Complete Current Medications Medications (Trade) Dose Ordered Sig/Adrian Route PRN Reason Start Time Stop Time Status Last Admin Dose Admin Acetaminophen (Tylenol) 650 mg Q4H PRN GT Mild Pain/Temp > 100.5 08/03/18 08:15 09/02/18 08:14 Albuterol/ Ipratropium (Albuterol/ Ipratropium) 3 ml Q6HRT HHN 08/03/18 13:00 08/08/18 12:59 08/05/18 06:38 Ascorbic Acid (Vitamin C) 500 mg TWICE A DAY GT 08/03/18 09:00 09/02/18 08:59 08/05/18 09:21 Carbidopa/Levodopa (Sinemet 25/100) 1 tab TID GT 08/03/18 09:00 09/02/18 08:59 08/05/18 09:21 Ferrous Sulfate (Feosol) 300 mg THREE TIMES A DAY GT 08/03/18 09:00 09/02/18 08:59 08/05/18 09:20 Folic Acid (Folate) 1 mg DAILY GT 08/03/18 09:00 09/02/18 08:59 08/05/18 09:20 Lactulose (Cephulac) 20 gm BID GT 08/04/18 18:00 09/02/18 08:59 08/05/18 09:20 Levothyroxine Sodium (Synthroid) 100 mcg DAILY@0630 GT 08/04/18 06:30 09/03/18 06:29 08/05/18 06:22 Meropenem 1 gm/ Sodium Chloride 55 ml @ 110 mls/hr Q12HR@0600,1800 IVPB 08/03/18 18:00 08/09/18 17:59 08/05/18 06:22 Multivitamins (Multivitamins W/ Minerals 15ml Liquid) 15 ml DAILY GT 08/03/18 09:00 09/02/18 08:59 08/05/18 09:21 Pantoprazole (Protonix) 40 mg EVERY 12 HOURS IVP 08/03/18 09:00 09/02/18 08:59 08/05/18 09:21 Sodium Chloride 1,000 ml @ 50 mls/hr Q20H IV 08/04/18 13:00 09/02/18 12:59 08/05/18 06:22 Spironolactone (Aldactone) 25 mg DAILY ORAL 08/03/18 09:00 09/02/18 08:59 08/03/18 11:08 Bj Moya MD August 05, 2018 09:57
--- NOTE | 2018-08-05 10:49 | General Progress Note ---
Assessment/Plan Assessment/Plan: ESBL URosepsis - Abx per ID AMS 2nd to above Decubiti - GS Subjective Allergies: Coded Allergies: No Known Allergies (Unverified , 09/08/17) Subjective Confused Objective Last 24 Hour Vital Signs Date Time Temp Pulse Resp B/P (MAP) Pulse Ox O2 Delivery O2 Flow Rate FiO2 08/05/18 09:00 Nasal Cannula 2.0 08/05/18 08:00 97.4 81 20 108/67 (81) 98 08/05/18 06:52 28 08/05/18 06:52 75 17 97 Nasal Cannula 2.0 28 08/05/18 06:38 Nasal Cannula 2.0 28 08/05/18 06:38 93 Nasal Cannula 2.0 28 08/05/18 06:38 72 16 93 Nasal Cannula 2.0 28 08/05/18 04:00 98.2 81 19 107/51 (69) 95 08/05/18 04:00 81 08/05/18 01:14 69 18 100 Nasal Cannula 2.0 28 08/05/18 01:13 28 08/05/18 01:02 68 18 99 Nasal Cannula 2.0 28 08/05/18 00:00 98.0 77 20 94/55 (68) 97 08/05/18 00:00 77 08/04/18 21:00 Nasal Cannula 4.0 08/04/18 20:00 71 08/04/18 20:00 97.5 71 18 135/55 (81) 97 08/04/18 19:37 28 08/04/18 19:37 70 18 100 Nasal Cannula 2.0 28 08/04/18 19:27 98 Nasal Cannula 2.0 28 08/04/18 19:27 Nasal Cannula 2.0 28 08/04/18 19:25 72 18 98 Nasal Cannula 2.0 28 08/04/18 16:00 98.3 78 19 113/64 (80) 08/04/18 15:18 71 08/04/18 13:17 67 18 100 Nasal Cannula 2.0 28 08/04/18 13:08 70 18 99 Nasal Cannula 2.0 28 08/04/18 13:08 28 08/04/18 12:00 97.9 72 18 98/66 (77) 97 08/04/18 12:00 74 08/04/18 10:59 Nasal Cannula 2.0 Intake and Output 08/04/18 08/05/18 19:00 07:00 Intake Total 531.6 ml 1060 ml Output Total 400 ml Balance 131.6 ml 1060 ml Intake Free Water 40 ml 120 ml IV Total 441.6 ml 605 ml Tube Feeding 50 ml 335 ml Output Urine Total 400 ml # Voids 2 Height (Feet): 5 Height (Inches): 5.00 Weight (Pounds): 140 Objective CV RR Lungs CTA Abd SNT BS + E No CCE Joanne Desir MD August 05, 2018 10:49
--- NOTE | 2018-08-05 11:05 | NUR ---
CASE MANAGEMENT: REVIEW 08/05/2018 SI: SEPSIS. UTI. T 97.4 HR 81 RR 20 B/P 108/67 SATS 98% ON 2L/NC NO LABS TODAY IS: IVF @ 50 mL/HR PROTONIX PO Q12H CEPHULAC GT BID FOLATE GT QD ALDACTONE PO QD MEROPENEM IV Q12H : TO TELEMETRY
[2018-08-05 12:00] VITALS: BP 99/61
[2018-08-05] MEDS ORDERED: 1/2 NS 1000ml IV ONE (15:50)
[2018-08-05 16:00] VITALS: BP 107/64
[2018-08-05] MEDS ORDERED: FERROUS SU220 MG/53 PO (17:49)
--- NOTE | 2018-08-05 17:53 | Physician Query ---
Clarification is required for compliance, coding accuracy, and to reflect severity of illness for this patient Dear Dr. Desir Date: 08/05/2018 CDS: [facility] Please click EDIT and place X in appropriate box "Urosepsis" is documented in H&P and progress notes. WBC: 18.7 HR: 93 Rx: IV Meropnem Please clarify if you mean: [ ] Urinary Tract Infection (UTI) only [ X ] Sepsis due to UTI [ ] Severe Sepsis due to UTI [ ] Septicemia due to UTI [ ] Other Present on Admission: [ X] Yes [ ] No [ ] Clinically Undetermined Physician signature Date Please also document in your Progress Notes and/or Discharge Summary and indicate if the condition was present on admission. MARY JOD
[2018-08-05] MEDS ORDERED: LACTULOSE20 GM/301 ORAL (17:58)
[2018-08-05] MEDS ORDERED: ACETAMINOP160 MG/5 M GT (18:03)
[2018-08-05] MEDS ORDERED: ASCORBIC ACID500 MG GT (18:17)
--- NOTE | 2018-08-05 18:26 | Surgery Progress Note ---
Surgery Progress Note Subjective Additional Comments no acute events. exam unchanged. stable. Objective Last 24 Hour Vital Signs Date Time Temp Pulse Resp B/P (MAP) Pulse Ox O2 Delivery O2 Flow Rate FiO2 08/05/18 16:00 97.7 70 20 107/64 (78) 99 08/05/18 16:00 70 08/05/18 13:32 71 18 99 Nasal Cannula 2.0 28 08/05/18 13:20 66 17 97 Nasal Cannula 2.0 28 08/05/18 12:00 97.4 78 20 99/61 (74) 100 08/05/18 11:53 79 08/05/18 09:00 Nasal Cannula 2.0 08/05/18 08:00 97.4 81 20 108/67 (81) 98 08/05/18 07:51 83 08/05/18 06:52 08/05/18 06:52 75 17 97 Nasal Cannula 2.0 28 08/05/18 06:38 Nasal Cannula 2.0 28 08/05/18 06:38 93 Nasal Cannula 2.0 28 08/05/18 06:38 72 16 93 Nasal Cannula 2.0 28 08/05/18 04:00 98.2 81 19 107/51 (69) 95 08/05/18 04:00 81 08/05/18 01:14 69 18 100 Nasal Cannula 2.0 28 08/05/18 01:13 28 08/05/18 01:02 68 18 99 Nasal Cannula 2.0 28 08/05/18 00:00 98.0 77 20 94/55 (68) 97 08/05/18 00:00 77 08/04/18 21:00 Nasal Cannula 4.0 08/04/18 20:00 71 08/04/18 20:00 97.5 71 18 135/55 (81) 97 08/04/18 19:37 28 08/04/18 19:37 70 18 100 Nasal Cannula 2.0 28 08/04/18 19:27 98 Nasal Cannula 2.0 28 08/04/18 19:27 Nasal Cannula 2.0 28 08/04/18 19:25 72 18 98 Nasal Cannula 2.0 28 I&O Intake and Output 08/04/18 08/05/18 18:59 06:59 Intake Total 473.3 ml 1118.3 ml Output Total 400 ml Balance 73.3 ml 1118.3 ml Intake Free Water 40 ml 120 ml IV Total 408.3 ml 638.3 ml Tube Feeding 25 ml 360 ml Output Urine Total 400 ml # Voids 2 Dressing: saturated Wound: other Drains: other Cardiovascular: RSR Respiratory: decreased breath sounds Abdomen: soft, present bowel sounds, other, non-distended Extremities: no cyanosis Plan Problems: (1) Inguinal hernia Assessment & Plan: reducible and stable. will monitor outpatient eval if desired for repair (2) Intra-abdominal hematoma (3) Fecal impaction in rectum (4) Dehydration (5) Hyperkalemia (6) Urinary tract infection (7) Leukocytosis (8) Sepsis (9) Upper GI bleed (10) Sacral decubitus ulcer (11) The administrative codes within the [employer] content you are accessing may have as of 12/25/2017. Please contact your IT Dept/Help Desk and request the latest Regulatory release be installed. IT Dept/Help Desk- Please refer to our FAQ page ([email or web address] or contact [facility] [place] Support at [email or web address] (12) Decubitus ulcer Assessment & Plan: Patient presented on admission with contractures of extremities and multiple pressure injuries. Full thickness pressure injury cleft of L ear. base of wound moist viable. Small amt sanguineous exudate.(L)1.5cm x(W)1cm x (D)0.4cm. Resolving Full thickness pressure injury R trochanter with undermining.Small amt seropurulent exudate with mild odor noted.Base of wound is pink with biofilm. Bone is palpable.(L)2cm x (W)2.5cm x(D)1cm ,undermining1-6 by 3.1@5o' clock.Scarring noted to periwound. DTPI noted to L lateral malleolus.Base of wound is maroon with dark borders.(L) 1cm x (W)3cm. Non-blanchable erythema L hallux(L)2.7cm x (W)3cm. Non-blanchable erythema without fluctuance/induration lateral L foot . At most distal/lateral aspect of L foot a full thickness ulcer noted .Base of wound with approx 50% griffin slough ,surrounding erythema.,undermining noted.Loose edges with fluctuance and , non-blanchable erythema periwound (L) 2.1cm x (W)2.2cm x (D)0.5cm ,undermining 12-12 by 0.7cm @9o'clock. Non-blanchable erythema without fluctuance/induration noted to bony prominence that is in close proximity to medial L malleolus(L)1.5cm x (W)2cm. Reabsorbing blood blister medial L heel.base of wound is dry ,edges area adherent .periwound without erythema,induration or fluctuance (L)0.4cm x (W) 0.5cm. Non-blanchable erythema medial R heel .Base of wound is fluctuant with delineated margins. Periwound is blanchable without fluctuance or induration.(L) 1.3cm x (W) 3cm. Non-blanchable erythema without fluctuance or induration lateral R malleolus (L) 2.5cm x (W)2cm. Non-blanchable erythema without fluctuance/induration noted to lateral R foot . (L)1cm x (W1.5cm. Tx.Plan: [place]on Skin Knox (1 application) to Cleft of L ear.(done 08/03/18). Apply Coloplast barrier ring to L ear. Change PRN if loose . Apply Coloplast Barrier ring to cleft of R ear. Change PRN. Cleanse R trochanter with Saline. Apply Therahoney infused packing strip.Apply Triad Paste periwound. Cover with Optifoam.Change Daily and PRN. Apply Cavilon Skin BArrier to R Heel ,lateral aspect of R foot ,R hallux,Medial and lateral Malleoli. Cover each bony prominence with Optifoam drsg. Change every 7 days and prn. Cleanse wound distal/lateral L foot with Saline. Apply Therahoney. Apply Cavilon Skin Barrier periwound. Cover with Optifoam drsg. Change every 3 days and prn. Apply Cavilon Skin Barrier to bony prominences L heel ,medial/lateral malleoli, L hallux,medial and lateral L foot. Cover each site with Optifoam drsgs. Change every 7 days and prn. Apply Triad paste to Sacrum. Cover with Optifoam drsg. Change every 3 days and prn. Apply Triad Paste to scrotum and both ischial areas with each perineal care. Air Fluidized Mattress. Reposition at least every 2hours or as tolerated. Place pillows between knees and behind knees to off-load pressure from heels. (13) Anemia (14) Obstructive jaundice (15) Vomiting (16) Heel ulcer (17) Wounds, multiple open, lower extremity (18) Encounter for generalized patient complaints (19) Zafar Donis August 05, 2018 18:26
--- NOTE | 2018-08-05 19:40 | NUR ---
NURSE NOTES: Received pt. and report from JIMMY Felipe. Observe pt. resting in bed with both eyes open. Pt. is A/Ox2. operations specialist is in placed, IV site intact, asymptomatic, and patent; currently running 1/2 NS @ 50cc/hr. Pt. is on G-tube feeding of Nephro @ 30cc/hr (goal) continuous. No feeding residual noted at this time. Fall and aspiration precaution noted. HOB is at 30 degree, bed is in the lowest position, locked, and alarmed. No signs/symptoms of acute distress noted at this time. Will continue plan of care.
--- NOTE | 2018-08-05 19:49 | NUR ---
HAND-OFF: Report given to JIMMY Schumacher. The patient is resting on the bed without acute distress or shortness of breath. The patient's bed in the lowest position, call light in reach, and fall and aspiration precaution reinforced. Endorsed plan of care.
[2018-08-05 20:00] VITALS: BP 140/75
[2018-08-06] VITALS: BP 139/86
[2018-08-06] MEDS: Albuterol/Ipratropium 3ml neb HHN SCH ×4 (01:20→19:36)
[2018-08-06 04:17] VITALS: BP 130/74
[2018-08-06] MEDS: Meropenem 1 GM in NS 55 ML IVPB SCH ×2 (05:37→17:46)
--- NOTE | 2018-08-06 07:30 | NUR ---
NURSE NOTES: Received report from JIMMY Schumacher. The patient is sleeping on the bed without acute distress or shortness of breath. The patient's bed in the lowest position, call light in reach, break engaged, and fall and aspiration precaution reinforced. Will continue plan of care.
[2018-08-06 08:00] VITALS: BP 108/62
--- NOTE | 2018-08-06 08:02 | NUR ---
HAND-OFF: Report given to JIMMY Felipe.
--- NOTE | 2018-08-06 08:18 | General Progress Note ---
Assessment/Plan Assessment/Plan: ESBL URosepsis - Abx per ID AMS 2nd to above Decubiti - GS Subjective Allergies: Coded Allergies: No Known Allergies (Unverified , 09/08/17) Subjective Confused Objective Last 24 Hour Vital Signs Date Time Temp Pulse Resp B/P (MAP) Pulse Ox O2 Delivery O2 Flow Rate FiO2 08/06/18 07:50 71 16 99 Nasal Cannula 2.0 28 08/06/18 07:39 96 Nasal Cannula 2.0 28 08/06/18 07:39 28 08/06/18 07:39 Nasal Cannula 2.0 28 08/06/18 07:39 65 16 96 Nasal Cannula 2.0 28 08/06/18 04:17 97.2 78 20 130/74 (92) 97 08/06/18 04:00 74 08/06/18 01:31 79 18 97 Nasal Cannula 2.0 28 08/06/18 01:20 70 18 94 Nasal Cannula 2.0 28 08/06/18 00:00 98.4 87 18 139/86 (103) 99 08/06/18 00:00 78 08/05/18 21:00 Nasal Cannula 2.0 08/05/18 20:00 79 08/05/18 20:00 98.2 70 18 140/75 (96) 98 08/05/18 19:41 77 18 96 Nasal Cannula 2.0 28 08/05/18 19:26 96 Nasal Cannula 2.0 28 08/05/18 19:26 Nasal Cannula 2.0 28 08/05/18 19:24 71 18 96 Nasal Cannula 2.0 28 08/05/18 16:00 97.7 70 20 107/64 (78) 99 08/05/18 16:00 70 08/05/18 13:32 71 18 99 Nasal Cannula 2.0 28 08/05/18 13:20 66 17 97 Nasal Cannula 2.0 28 08/05/18 12:00 97.4 78 20 99/61 (74) 100 08/05/18 11:53 79 08/05/18 09:00 Nasal Cannula 2.0 Intake and Output 08/05/18 08/06/18 19:00 07:00 Intake Total 1215 ml 500 ml Output Total 900 ml 800 ml Balance 315 ml -300 ml Intake Free Water 120 ml IV Total 655 ml 500 ml Tube Feeding 440 ml Output Urine Total 900 ml 800 ml Height (Feet): 5 Height (Inches): 5.00 Weight (Pounds): 140 Objective CV RR Lungs CTA Abd SNT BS + E No CCE Joanne Desir MD August 06, 2018 08:17
[2018-08-06] MEDS: Spironolactone 25mg tab ORAL SCH (09:00)
[2018-08-06] MEDS: Lactulose 20gm/30ml UDC GT SCH ×2 (09:31→17:45)
[2018-08-06] MEDS: Ferrous Sulfate 300 MG/5 ML UDC GT SCH ×3 (09:31→17:45)
[2018-08-06] MEDS: Pantoprazole Inj IVP SCH ×2 (09:32→21:33)
[2018-08-06] MEDS: Multivitamins W/Minerals 15 ML UDC GT SCH (09:32)
[2018-08-06] MEDS: Levodopa/Carbidopa 25/100 tab GT SCH ×3 (09:32→17:45)
[2018-08-06] MEDS: Ascorbic Acid 500mg tab GT SCH ×2 (09:32→17:46)
--- NOTE | 2018-08-06 10:00 | NUR ---
NURSE NOTES: Tube feeding Nephro continuously. The patient was not tolerating well, and the rate of feeding is still 30ml/hr. Will advance rate of tube feeding as tolerated.
[2018-08-06 12:00] VITALS: BP_SYST 106; BP_SYST 109; BP_DIAS 60; BP_DIAS 65
--- NOTE | 2018-08-06 13:20 | NUR ---
CASE MANAGEMENT:REVIEW 08/06/18 SI: E COLI UTI. INTRAABDOMINAL HEMATOMA 97.9 76 18 108/62 97% ON 2L/NC IS: IV MEROPENEM Q12 LACTULOSE GT BID IVF @ 50/HR DUONEB HHN Q6HRS RTC IV PROTONIX Q12 ALDACTONE PO QD : TELEMETRY STATUS DCP: FROM [facility]
--- NOTE | 2018-08-06 13:29 | Infectious Diseases Prog Note ---
Assessment/Plan Assessment/Plan A; E. coli UTI Intraabdominal hematoma Fecal impaction R inguinal hernia CKD Dementia P: Continue Meropenem Subjective ROS Limited/Unobtainable: Yes Constitutional: Reports: no symptoms Allergies: Coded Allergies: No Known Allergies (Unverified , 09/08/17) Objective Vital Signs Last 24 Hour Vital Signs Date Time Temp Pulse Resp B/P (MAP) Pulse Ox O2 Delivery O2 Flow Rate FiO2 08/06/18 12:40 Nasal Cannula 08/06/18 12:40 Nasal Cannula 08/06/18 09:00 Nasal Cannula 2.0 08/06/18 08:00 97.9 76 18 108/62 (77) 97 08/06/18 08:00 65 08/06/18 07:50 71 16 99 Nasal Cannula 2.0 28 08/06/18 07:39 96 Nasal Cannula 2.0 28 08/06/18 07:39 28 08/06/18 07:39 Nasal Cannula 2.0 28 08/06/18 07:39 65 16 96 Nasal Cannula 2.0 28 08/06/18 04:17 97.2 78 20 130/74 (92) 97 08/06/18 04:00 74 08/06/18 01:31 79 18 97 Nasal Cannula 2.0 28 08/06/18 01:20 70 18 94 Nasal Cannula 2.0 28 08/06/18 00:00 98.4 87 18 139/86 (103) 99 08/06/18 00:00 78 08/05/18 21:00 Nasal Cannula 2.0 08/05/18 20:00 79 08/05/18 20:00 98.2 70 18 140/75 (96) 98 08/05/18 19:41 77 18 96 Nasal Cannula 2.0 28 08/05/18 19:26 96 Nasal Cannula 2.0 28 08/05/18 19:26 Nasal Cannula 2.0 28 08/05/18 19:24 71 18 96 Nasal Cannula 2.0 28 08/05/18 16:00 97.7 70 20 107/64 (78) 99 08/05/18 16:00 70 08/05/18 13:32 71 18 99 Nasal Cannula 2.0 28 Height (Feet): 5 Height (Inches): 5.00 Weight (Pounds): 140 General Appearance: no acute distress HEENT: mucous membranes moist Respiratory/Chest: lungs clear, other - oxygen by nasal cannula Cardiovascular: normal rate Abdomen: soft, non tender, other - GT feeding Skin: ulcers, other - onychomycosis of toes Neurologic/Psychiatric: alert, responsive Musculoskeletal: atrophy Current Medications Medications (Trade) Dose Ordered Sig/Adrian Route PRN Reason Start Time Stop Time Status Last Admin Dose Admin Acetaminophen (Tylenol) 650 mg Q4H PRN GT Mild Pain/Temp > 100.5 08/03/18 08:15 09/02/18 08:14 Albuterol/ Ipratropium (Albuterol/ Ipratropium) 3 ml Q6HRT HHN 08/03/18 13:00 08/08/18 12:59 08/06/18 07:39 Ascorbic Acid (Vitamin C) 500 mg TWICE A DAY GT 08/03/18 09:00 09/02/18 08:59 08/06/18 09:32 Carbidopa/Levodopa (Sinemet 25/100) 1 tab TID GT 08/03/18 09:00 09/02/18 08:59 08/06/18 09:32 Ferrous Sulfate (Feosol) 300 mg THREE TIMES A DAY GT 08/03/18 09:00 09/02/18 08:59 08/06/18 09:31 Folic Acid (Folate) 1 mg DAILY GT 08/03/18 09:00 09/02/18 08:59 08/06/18 09:31 Lactulose (Cephulac) 20 gm BID GT 08/04/18 18:00 09/02/18 08:59 08/06/18 09:31 Levothyroxine Sodium (Synthroid) 100 mcg DAILY@0630 GT 08/04/18 06:30 09/03/18 06:29 08/06/18 06:00 Meropenem 1 gm/ Sodium Chloride 55 ml @ 110 mls/hr Q12HR@0600,1800 IVPB 08/03/18 18:00 08/09/18 17:59 08/06/18 05:37 Multivitamins (Multivitamins W/ Minerals 15ml Liquid) 15 ml DAILY GT 08/03/18 09:00 09/02/18 08:59 08/06/18 09:32 Pantoprazole (Protonix) 40 mg EVERY 12 HOURS IVP 08/03/18 09:00 09/02/18 08:59 08/06/18 09:32 Sodium Chloride 1,000 ml @ 50 mls/hr Q20H IV 08/04/18 13:00 09/02/18 12:59 08/06/18 04:06 Spironolactone (Aldactone) 25 mg DAILY ORAL 08/03/18 09:00 09/02/18 08:59 08/03/18 11:08 Bj Moya MD August 06, 2018 13:29
--- NOTE | 2018-08-06 13:30 | NUR ---
NURSE NOTES: Daily wound care completed with wound care nurse. New dressings are clean and intact.
--- NOTE | 2018-08-06 15:56 | Surgery Progress Note ---
Surgery Progress Note Subjective Additional Comments leukocytosis resolved. labs improved. looks better overall Objective Last 24 Hour Vital Signs Date Time Temp Pulse Resp B/P (MAP) Pulse Ox O2 Delivery O2 Flow Rate FiO2 08/06/18 12:40 Nasal Cannula 08/06/18 12:40 Nasal Cannula 08/06/18 12:00 97.4 77 20 106/60 (75) 95 08/06/18 12:00 72 08/06/18 09:00 Nasal Cannula 2.0 08/06/18 08:00 97.9 76 18 108/62 (77) 97 08/06/18 08:00 65 08/06/18 07:50 71 16 99 Nasal Cannula 2.0 28 08/06/18 07:39 96 Nasal Cannula 2.0 28 08/06/18 07:39 28 08/06/18 07:39 Nasal Cannula 2.0 28 08/06/18 07:39 65 16 96 Nasal Cannula 2.0 28 08/06/18 04:17 97.2 78 20 130/74 (92) 97 08/06/18 04:00 74 08/06/18 01:31 79 18 97 Nasal Cannula 2.0 28 08/06/18 01:20 70 18 94 Nasal Cannula 2.0 28 08/06/18 00:00 98.4 87 18 139/86 (103) 99 08/06/18 00:00 78 08/05/18 21:00 Nasal Cannula 2.0 08/05/18 20:00 79 08/05/18 20:00 98.2 70 18 140/75 (96) 98 08/05/18 19:41 77 18 96 Nasal Cannula 2.0 28 08/05/18 19:26 96 Nasal Cannula 2.0 28 08/05/18 19:26 Nasal Cannula 2.0 28 08/05/18 19:24 71 18 96 Nasal Cannula 2.0 28 08/05/18 16:00 97.7 70 20 107/64 (78) 99 08/05/18 16:00 70 I&O Intake and Output 08/05/18 08/06/18 19:00 07:00 Intake Total 1215 ml 500 ml Output Total 900 ml 800 ml Balance 315 ml -300 ml Intake Free Water 120 ml IV Total 655 ml 500 ml Tube Feeding 440 ml Output Urine Total 900 ml 800 ml Dressing: saturated Wound: other Drains: other Cardiovascular: RSR Respiratory: decreased breath sounds Abdomen: soft, present bowel sounds, non-distended Extremities: no cyanosis Plan Problems: (1) Inguinal hernia Assessment & Plan: reducible and stable. will monitor outpatient eval if desired for repair (2) Intra-abdominal hematoma (3) Fecal impaction in rectum (4) Dehydration (5) Hyperkalemia (6) Urinary tract infection (7) Leukocytosis (8) Sepsis (9) Upper GI bleed (10) Sacral decubitus ulcer (11) The administrative codes within the IMO content you are accessing may have as of 12/25/2017. Please contact your IT Dept/Help Desk and request the latest Regulatory release be installed. IT Dept/Help Desk- Please refer to our FAQ page ([email or web address] or contact O Customer Support at [email or web address] (12) Decubitus ulcer Assessment & Plan: Patient presented on admission with contractures of extremities and multiple pressure injuries. Full thickness pressure injury cleft of L ear. base of wound moist viable. Small amt sanguineous exudate.(L)1.5cm x(W)1cm x (D)0.4cm. Resolving Full thickness pressure injury R trochanter with undermining.Small amt seropurulent exudate with mild odor noted.Base of wound is pink with biofilm. Bone is palpable.(L)2cm x (W)2.5cm x(D)1cm ,undermining1-6 by 3.1@5o' clock.Scarring noted to periwound. DTPI noted to L lateral malleolus.Base of wound is maroon with dark borders.(L) 1cm x (W)3cm. Non-blanchable erythema L hallux(L)2.7cm x (W)3cm. Non-blanchable erythema without fluctuance/induration lateral L foot . At most distal/lateral aspect of L foot a full thickness ulcer noted .Base of wound with approx 50% griffin slough ,surrounding erythema.,undermining noted.Loose edges with fluctuance and , non-blanchable erythema periwound (L) 2.1cm x (W)2.2cm x (D)0.5cm ,undermining 12-12 by 0.7cm @9o'clock. Non-blanchable erythema without fluctuance/induration noted to bony prominence that is in close proximity to medial L malleolus(L)1.5cm x (W)2cm. Reabsorbing blood blister medial L heel.base of wound is dry ,edges area adherent .periwound without erythema,induration or fluctuance (L)0.4cm x (W) 0.5cm. Non-blanchable erythema medial R heel .Base of wound is fluctuant with delineated margins. Periwound is blanchable without fluctuance or induration.(L) 1.3cm x (W) 3cm. Non-blanchable erythema without fluctuance or induration lateral R malleolus (L) 2.5cm x (W)2cm. Non-blanchable erythema without fluctuance/induration noted to lateral R foot . (L)1cm x (W1.5cm. Tx.Plan: [place] Skin Knox (1 application) to Cleft of L ear.(done 08/03/18). Apply Coloplast barrier ring to L ear. Change PRN if loose . Apply Coloplast Barrier ring to cleft of R ear. Change PRN. Cleanse R trochanter with Saline. Apply Therahoney infused packing strip.Apply Triad Paste periwound. Cover with Optifoam.Change Daily and PRN. Apply Cavilon Skin BArrier to R Heel ,lateral aspect of R foot ,R hallux,Medial and lateral Malleoli. Cover each bony prominence with Optifoam drsg. Change every 7 days and prn. Cleanse wound distal/lateral L foot with Saline. Apply Therahoney. Apply Cavilon Skin Barrier periwound. Cover with Optifoam drsg. Change every 3 days and prn. Apply Cavilon Skin Barrier to bony prominences L heel ,medial/lateral malleoli, L hallux,medial and lateral L foot. Cover each site with Optifoam drsgs. Change every 7 days and prn. Apply Triad paste to Sacrum. Cover with Optifoam drsg. Change every 3 days and prn. Apply Triad Paste to scrotum and both ischial areas with each perineal care. Air Fluidized Mattress. Reposition at least every 2hours or as tolerated. Place pillows between knees and behind knees to off-load pressure from heels. (13) Anemia (14) Obstructive jaundice (15) Vomiting (16) Heel ulcer (17) Wounds, multiple open, lower extremity (18) Encounter for generalized patient complaints (19) Zafar Donis August 06, 2018 15:56
[2018-08-06 16:00] VITALS: BP 109/63
--- NOTE | 2018-08-06 19:21 | NUR ---
HAND-OFF: Report given to JIMMY Huddleston. The patient is resting on the bed without acute distress or shortness of breath. The patient's bed is in the lowest position, call light in reach, breaks engaged, and fall and aspiration precaution reinforced. Endorsed plan of care.
--- NOTE | 2018-08-06 19:40 | NUR ---
NURSE NOTES: Received patient from Destinee MARQUEZ. Patient asleep in bed. HOB elevated >30 degrees. No residual from PEG, on nepro at 35 ml/hr, will increase as tolerated. On 2L NC, no signs of respiratory distress. Bed in low position, locked, alarm on, call light within reach. 1/2 NS infusing through PIV on right forearm 20gauge at 50ml/hr. No signs of infection or infiltration. Low air loss mattress on, bilateral heels elevated and offloading.
[2018-08-06 20:00] VITALS: BP 93/57
[2018-08-07] VITALS (9 sets, daily range): BP systolic 82–120; BP diastolic 50–71
[2018-08-07] MEDS: Albuterol/Ipratropium 3ml neb HHN SCH ×4 (01:00→19:41)
[2018-08-07] MEDS: Meropenem 1 GM in NS 55 ML IVPB SCH ×2 (05:34→17:50)
--- NOTE | 2018-08-07 07:20 | NUR ---
NURSE NOTES: Received report from JIMMY Huddleston. The patient is sleeping on the bed without acute distress or shortness of breath. The patient's bed in the lowest position, call light in reach, and fall and aspiration precaution reinforced. Will continue plan of care.
--- NOTE | 2018-08-07 07:33 | NUR ---
HAND-OFF: Report given to Destinee MARQUEZ. Patient in bed, asleep. On 2L NC, no signs of respiratory distress. Bed in low position, locked, bed alarm on, call light within reach. Patient in stable condition, plan of care endorsed.
[2018-08-07] MEDS: Spironolactone 25mg tab ORAL SCH (09:00)
[2018-08-07] MEDS: Lactulose 20gm/30ml UDC GT SCH ×2 (09:44→17:49)
[2018-08-07] MEDS: Ferrous Sulfate 300 MG/5 ML UDC GT SCH ×3 (09:44→17:49)
[2018-08-07] MEDS: Pantoprazole Inj IVP SCH ×2 (09:45→22:24)
[2018-08-07] MEDS: Ascorbic Acid 500mg tab GT SCH ×2 (09:45→17:50)
[2018-08-07] MEDS: Levodopa/Carbidopa 25/100 tab GT SCH ×3 (09:45→17:50)
[2018-08-07] MEDS: Multivitamins W/Minerals 15 ML UDC GT SCH (09:45)
--- NOTE | 2018-08-07 11:01 | Infectious Diseases Prog Note ---
Assessment/Plan Assessment/Plan antibiotics : meropenem A 1. e.coli esbl UTI 2. bilateral renal stones 3. leucocytosis resolved 4. nasal MRSA colonization 5. BPH 6. COPD P 1. continue meropenem 2 more days 2. will follow up cultures Subjective ROS Limited/Unobtainable: Yes Allergies: Coded Allergies: No Known Allergies (Unverified , 09/08/17) Objective Vital Signs Last 24 Hour Vital Signs Date Time Temp Pulse Resp B/P (MAP) Pulse Ox O2 Delivery O2 Flow Rate FiO2 08/07/18 07:11 84 16 100 Nasal Cannula 2.0 28 08/07/18 07:01 96 Nasal Cannula 2.0 28 08/07/18 07:01 Nasal Cannula 2.0 28 08/07/18 07:01 28 08/07/18 07:01 9 18 96 Nasal Cannula 2.0 28 08/07/18 04:00 98.9 70 20 116/60 (78) 98 08/07/18 03:47 62 08/07/18 02:16 Nasal Cannula 08/07/18 02:15 Nasal Cannula 08/07/18 00:00 97.9 77 20 100/58 (72) 98 08/06/18 23:45 78 08/06/18 21:00 Nasal Cannula 2.0 08/06/18 20:00 98.2 73 20 93/57 (69) 98 08/06/18 19:52 81 08/06/18 19:49 78 16 98 Nasal Cannula 2.0 28 08/06/18 19:39 28 08/06/18 19:39 96 Nasal Cannula 2.0 28 08/06/18 19:39 76 18 96 Nasal Cannula 2.0 28 08/06/18 19:39 Nasal Cannula 2.0 28 08/06/18 16:00 68 08/06/18 16:00 97.9 63 18 109/63 (78) 99 08/06/18 12:40 Nasal Cannula 08/06/18 12:40 Nasal Cannula 08/06/18 12:00 97.4 71 20 109/65 (80) 95 08/06/18 12:00 72 Height (Feet): 5 Height (Inches): 5.00 Weight (Pounds): 140 Respiratory/Chest: lungs clear Cardiovascular: normal rate, regular rhythm, no gallop/murmur Abdomen: soft, non tender, other - GT Extremities: no edema Current Medications Medications (Trade) Dose Ordered Sig/Adrian Route PRN Reason Start Time Stop Time Status Last Admin Dose Admin Acetaminophen (Tylenol) 650 mg Q4H PRN GT Mild Pain/Temp > 100.5 08/03/18 08:15 09/02/18 08:14 Albuterol/ Ipratropium (Albuterol/ Ipratropium) 3 ml Q6HRT HHN 08/03/18 13:00 08/08/18 12:59 08/07/18 07:00 Ascorbic Acid (Vitamin C) 500 mg TWICE A DAY GT 08/03/18 09:00 09/02/18 08:59 08/07/18 09:45 Carbidopa/Levodopa (Sinemet 25/100) 1 tab TID GT 08/03/18 09:00 09/02/18 08:59 08/07/18 09:45 Ferrous Sulfate (Feosol) 300 mg THREE TIMES A DAY GT 08/03/18 09:00 09/02/18 08:59 08/07/18 09:44 Folic Acid (Folate) 1 mg DAILY GT 08/03/18 09:00 09/02/18 08:59 08/07/18 09:44 Lactulose (Cephulac) 20 gm BID GT 08/04/18 18:00 09/02/18 08:59 08/07/18 09:44 Levothyroxine Sodium (Synthroid) 100 mcg DAILY@0630 GT 08/04/18 06:30 09/03/18 06:29 08/07/18 06:06 Meropenem 1 gm/ Sodium Chloride 55 ml @ 110 mls/hr Q12HR@0600,1800 IVPB 08/03/18 18:00 08/09/18 17:59 08/07/18 05:34 Multivitamins (Multivitamins W/ Minerals 15ml Liquid) 15 ml DAILY GT 08/03/18 09:00 09/02/18 08:59 08/07/18 09:45 Pantoprazole (Protonix) 40 mg EVERY 12 HOURS IVP 08/03/18 09:00 09/02/18 08:59 08/07/18 09:45 Sodium Chloride 1,000 ml @ 50 mls/hr Q20H IV 08/04/18 13:00 09/02/18 12:59 08/07/18 01:00 Spironolactone (Aldactone) 25 mg DAILY ORAL 08/03/18 09:00 09/02/18 08:59 08/03/18 11:08 Luis Bravo MD August 07, 2018 11:01
--- NOTE | 2018-08-07 12:00 | NUR ---
NURSE NOTES: The patient's residual with Nephro 30mL/hr was 110mL. Held tube feeding. Will resume tube feeding as tolerated after checking residual.
--- NOTE | 2018-08-07 13:26 | General Progress Note ---
Assessment/Plan Assessment/Plan: ESBL URosepsis - Abx per ID AMS 2nd to above Decubiti - GS following. High Gastric residuals, high Post void residuals -see orders. Subjective Allergies: Coded Allergies: No Known Allergies (Unverified , 09/08/17) Subjective Confused. High Gastric residuals. High Post void residuals. Objective Last 24 Hour Vital Signs Date Time Temp Pulse Resp B/P (MAP) Pulse Ox O2 Delivery O2 Flow Rate FiO2 08/07/18 12:00 97.3 67 19 100/61 (74) 99 08/07/18 09:15 20 120/71 (87) 98 08/07/18 09:00 Nasal Cannula 2.0 08/07/18 08:35 20 96/59 (71) 97 08/07/18 08:20 20 89/58 (68) 97 08/07/18 08:00 72 08/07/18 08:00 98.7 77 20 82/50 (61) 96 08/07/18 07:11 84 16 100 Nasal Cannula 2.0 28 08/07/18 07:01 96 Nasal Cannula 2.0 28 08/07/18 07:01 Nasal Cannula 2.0 28 08/07/18 07:01 28 08/07/18 07:01 9 18 96 Nasal Cannula 2.0 28 08/07/18 04:00 98.9 70 20 116/60 (78) 98 08/07/18 03:47 62 08/07/18 02:16 Nasal Cannula 08/07/18 02:15 Nasal Cannula 08/07/18 00:00 97.9 77 20 100/58 (72) 98 08/06/18 23:45 78 08/06/18 21:00 Nasal Cannula 2.0 08/06/18 20:00 98.2 73 20 93/57 (69) 98 08/06/18 19:52 81 08/06/18 19:49 78 16 98 Nasal Cannula 2.0 28 08/06/18 19:39 28 08/06/18 19:39 96 Nasal Cannula 2.0 28 08/06/18 19:39 76 18 96 Nasal Cannula 2.0 28 08/06/18 19:39 Nasal Cannula 2.0 28 08/06/18 16:00 68 08/06/18 16:00 97.9 63 18 109/63 (78) 99 Intake and Output 08/06/18 08/07/18 19:00 07:00 Intake Total 1115 ml 1145 ml Output Total 700 ml 2500 ml Balance 415 ml -1355 ml Intake Free Water 120 ml 80 ml IV Total 655 ml 655 ml Tube Feeding 340 ml 410 ml Output Urine Total 700 ml 2500 ml Height (Feet): 5 Height (Inches): 5.00 Weight (Pounds): 140 Objective CV RR Lungs CTA Abd SNT BS + E No CCE Joanne Desir MD August 07, 2018 13:26
--- NOTE | 2018-08-07 13:30 | NUR ---
NURSE NOTES: Urinary retention noted and bladder scan done. Initially there was residual of 454mL. The patient urinated after first bladder scan and residual amount of 382mL noted. Per Dr. Desir, Roman insertion order given. Inserted 18F Roman Catheter without resistance. Will monitor the patient closely.
--- NOTE | 2018-08-07 15:00 | NUR ---
NURSE NOTES: Held the tube feeding due to residual of 110mL.
--- NOTE | 2018-08-07 15:25 | Surgery Progress Note ---
Surgery Progress Note Subjective Additional Comments no acute events. doing well. comfortable. exam unchanged. Objective Last 24 Hour Vital Signs Date Time Temp Pulse Resp B/P (MAP) Pulse Ox O2 Delivery O2 Flow Rate FiO2 08/07/18 13:30 Nasal Cannula 2.0 08/07/18 13:25 80 18 100 Nasal Cannula 2.0 28 08/07/18 13:15 28 08/07/18 13:15 74 18 97 Nasal Cannula 2.0 28 08/07/18 12:00 67 08/07/18 12:00 97.3 67 19 100/61 (74) 99 08/07/18 09:15 20 120/71 (87) 98 08/07/18 09:00 Nasal Cannula 2.0 08/07/18 08:35 20 96/59 (71) 97 08/07/18 08:20 20 89/58 (68) 97 08/07/18 08:00 72 08/07/18 08:00 98.7 77 20 82/50 (61) 96 08/07/18 07:11 84 16 100 Nasal Cannula 2.0 28 08/07/18 07:01 96 Nasal Cannula 2.0 28 08/07/18 07:01 Nasal Cannula 2.0 28 08/07/18 07:01 28 08/07/18 07:01 69 18 96 Nasal Cannula 2.0 28 08/07/18 04:00 98.9 70 20 116/60 (78) 98 08/07/18 03:47 62 08/07/18 02:16 Nasal Cannula 08/07/18 02:15 Nasal Cannula 08/07/18 00:00 97.9 77 20 100/58 (72) 98 08/06/18 23:45 78 08/06/18 21:00 Nasal Cannula 2.0 08/06/18 20:00 98.2 73 20 93/57 (69) 98 08/06/18 19:52 81 08/06/18 19:49 78 16 98 Nasal Cannula 2.0 28 08/06/18 19:39 28 08/06/18 19:39 96 Nasal Cannula 2.0 28 08/06/18 19:39 76 18 96 Nasal Cannula 2.0 28 08/06/18 19:39 Nasal Cannula 2.0 28 08/06/18 16:00 68 08/06/18 16:00 97.9 63 18 109/63 (78) 99 I&O Intake and Output 08/06/18 08/07/18 19:00 07:00 Intake Total 1115 ml 1145 ml Output Total 700 ml 2500 ml Balance 415 ml -1355 ml Intake Free Water 120 ml 80 ml IV Total 655 ml 655 ml Tube Feeding 340 ml 410 ml Output Urine Total 700 ml 2500 ml Dressing: saturated Wound: other Drains: other Cardiovascular: RSR Respiratory: clear, decreased breath sounds Abdomen: soft, present bowel sounds, non-distended Extremities: tenderness, no cyanosis Plan Problems: (1) Inguinal hernia Assessment & Plan: reducible and stable. will monitor outpatient eval if desired for repair (2) Intra-abdominal hematoma (3) Fecal impaction in rectum (4) Dehydration Assessment & Plan: DAILY ESTIMATED NEEDS: Needs based on Wounds, sepsis, bed bound/66.8kg 27-32 kcals/kg 7746-3699 total kcals 1.5-2 g protein/kg 100-134 g total protein 25-30 mL/kg 3797-2398 total fluid mLs NUTRITION DIAGNOSIS: 1) Increased kcal and protein needs r/t wound healing as evidenced by pt w/ multiple wounds, refer to WC eval, including full thickness x2 2) Swallowing difficulty r/t dysphagia as evidenced by pt is PEG dep. 3) Altered nutrition related lab values R/T clinical condition as evidenced by elev BGs (241), elev K (5.5-> now wnl). CURRENT TF:Nepro @30ml ENTERAL NUTRITION RECOMMENDATIONS: NEPRO @47ml/hr x22 hrs + PROSOURCE BID to provide 1034ml, 1861 kcal, 84g + 22g pro, 752ml free H2O * MEDICALLY APPROPRIATE TO START TF, rec NEPRO * Start @17ml/hr for 6 hrs, advance 10ml q 4-6 hrs as tolerated to goal rate. * Hold 1 hr before and after Synthroid med * Add Prosource 1 pack BID to better meet est pro needs. * Flush per MD/ HOB over 30 degrees ---- ADDITIONAL RECOMMENDATIONS: * PER SNF-> 67inches, 147# (66.8kg) * WOUND CARE: Add PORTIA BID Maintain MVI + Vit C via GT * Consider SSI for glycemic control * Monitor K, lytes, renal fxn for possible TF change K wnl, creat wnl, BUN trending down-> will cont to monitor (5) Hyperkalemia (6) Urinary tract infection (7) Leukocytosis (8) Sepsis (9) Upper GI bleed (10) Sacral decubitus ulcer (11) The administrative codes within the IMO content you are accessing may have as of 12/25/2017. Please contact your IT Dept/Help Desk and request the latest Regulatory release be installed. IT Dept/Help Desk- Please refer to our FAQ page ([email or web address] or contact O Customer Support at [email or web address] (12) Decubitus ulcer Assessment & Plan: Patient presented on admission with contractures of extremities and multiple pressure injuries. Full thickness pressure injury cleft of L ear. base of wound moist viable. Small amt sanguineous exudate.(L)1.5cm x(W)1cm x (D)0.4cm. Resolving Full thickness pressure injury R trochanter with undermining.Small amt seropurulent exudate with mild odor noted.Base of wound is pink with biofilm. Bone is palpable.(L)2cm x (W)2.5cm x(D)1cm ,undermining1-6 by 3.1@5o' clock.Scarring noted to periwound. DTPI noted to L lateral malleolus.Base of wound is maroon with dark borders.(L) 1cm x (W)3cm. Non-blanchable erythema L hallux(L)2.7cm x (W)3cm. Non-blanchable erythema without fluctuance/induration lateral L foot . At most distal/lateral aspect of L foot a full thickness ulcer noted .Base of wound with approx 50% griffin slough ,surrounding erythema.,undermining noted.Loose edges with fluctuance and , non-blanchable erythema periwound (L) 2.1cm x (W)2.2cm x (D)0.5cm ,undermining 12-12 by 0.7cm @9o'clock. Non-blanchable erythema without fluctuance/induration noted to bony prominence that is in close proximity to medial L malleolus(L)1.5cm x (W)2cm. Reabsorbing blood blister medial L heel.base of wound is dry ,edges area adherent .periwound without erythema,induration or fluctuance (L)0.4cm x (W) 0.5cm. Non-blanchable erythema medial R heel .Base of wound is fluctuant with delineated margins. Periwound is blanchable without fluctuance or induration.(L) 1.3cm x (W) 3cm. Non-blanchable erythema without fluctuance or induration lateral R malleolus (L) 2.5cm x (W)2cm. Non-blanchable erythema without fluctuance/induration noted to lateral R foot . (L)1cm x (W1.5cm. Tx.Plan: [place] Skin Knox (1 application) to Cleft of L ear.(done 08/03/18). Apply Coloplast barrier ring to L ear. Change PRN if loose . Apply Coloplast Barrier ring to cleft of R ear. Change PRN. Cleanse R trochanter with Saline. Apply Therahoney infused packing strip.Apply Triad Paste periwound. Cover with Optifoam.Change Daily and PRN. Apply Cavilon Skin BArrier to R Heel ,lateral aspect of R foot ,R hallux,Medial and lateral Malleoli. Cover each bony prominence with Optifoam drsg. Change every 7 days and prn. Cleanse wound distal/lateral L foot with Saline. Apply Therahoney. Apply Cavilon Skin Barrier periwound. Cover with Optifoam drsg. Change every 3 days and prn. Apply Cavilon Skin Barrier to bony prominences L heel ,medial/lateral malleoli, L hallux,medial and lateral L foot. Cover each site with Optifoam drsgs. Change every 7 days and prn. Apply Triad paste to Sacrum. Cover with Optifoam drsg. Change every 3 days and prn. Apply Triad Paste to scrotum and both ischial areas with each perineal care. Air Fluidized Mattress. Reposition at least every 2hours or as tolerated. Place pillows between knees and behind knees to off-load pressure from heels. (13) Anemia (14) Obstructive jaundice (15) Vomiting Assessment & Plan: high residuals on Rx cont with feeds. (16) Heel ulcer (17) Wounds, multiple open, lower extremity (18) Encounter for generalized patient complaints (19) Zafar Donis August 07, 2018 15:25
--- NOTE | 2018-08-07 16:30 | NUR ---
HAND-OFF: Report given to JIMMY Villatoro. The patient is sleeping on the bed without acute distress or shortness of breath. The patient's bed in the lowest position, call light in reach, and fall and aspiration precaution reinforced. Endorsed about new insertion of Roman and about tube feeding. Endorsed plan of care.
[2018-08-07] MEDS: Metoclopramide 10mg/10ml Liq GT SCH (17:49)
[2018-08-07 18:15] LABS: ANION GAP 4 mmol/L (5-15); BLOOD UREA NITROGEN 38 mg/dL (7-18); CALCIUM 8.2 MG/DL (8.5-10.1); CARBON DIOXIDE 29 MMOL/L (21-32); CHLORIDE 102 MMOL/L (98-107); CREATININE 0.6 MG/DL (0.55-1.30); POTASSIUM 3.9 MMOL/L (3.5-5.1); SODIUM 134 MMOL/L (136-145)
[2018-08-07 18:23] LABS: BASOPHILS % (AUTO) 0.6 % (0.0-2.0); HEMATOCRIT 26.7 % (42.0-52.0); HEMOGLOBIN 8.8 G/DL (14.2-18.0); LYMPHOCYTES % (AUTO) 15.3 % (20.0-45.0); MEAN CORPUSCULAR VOLUME 92 FL (80-99); MONOCYTES % (AUTO) 7.2 % (1.0-10.0); NEUTROPHILS % (AUTO) 72.9 % (45.0-75.0); PLATELET COUNT 250 K/UL (150-450); RED BLOOD COUNT 2.91 M/UL (4.70-6.10); RED CELL DISTRIBUTION WIDTH 14.9 % (11.6-14.8); WHITE BLOOD COUNT 7.5 K/UL (4.8-10.8)
--- NOTE | 2018-08-07 19:34 | NUR ---
HAND-OFF: Report given to Chance Díaz.
--- NOTE | 2018-08-07 19:35 | NUR ---
NURSE NOTES: Received report from JIMMY Villatoro. Patient in bed awake showing no signs of acute distress. Respiration even and non labored on room air. No SOB noted. GT patent and intact. 0 residual. Aspiration precaution observed. IV line patent and intact. Roman patent, intact and draining. Bed in lowest position, wheels locked, and alarm on. Call light within reach. All needs attended and met. Will continue plan of care.
[2018-08-08] VITALS: BP 85/58
[2018-08-08] MEDS: Metoclopramide 10mg/10ml Liq GT SCH ×4 (00:44→17:42)
[2018-08-08] MEDS: Albuterol/Ipratropium 3ml neb HHN SCH ×2 (01:12→07:50)
[2018-08-08 04:00] VITALS: BP 93/51
[2018-08-08] MEDS: Meropenem 1 GM in NS 55 ML IVPB SCH ×2 (05:30→17:49)
[2018-08-08 06:24] LABS: BASOPHILS % (AUTO) 0.6 % (0.0-2.0); EOSINOPHILS % (AUTO) 3.2 % (0.0-3.0); HEMOGLOBIN 9.4 G/DL (14.2-18.0); LYMPHOCYTES % (AUTO) 14.5 % (20.0-45.0); MEAN CORPUSCULAR VOLUME 96 FL (80-99); MONOCYTES % (AUTO) 5.8 % (1.0-10.0); PLATELET COUNT 276 K/UL (150-450); RED BLOOD COUNT 3.14 M/UL (4.70-6.10); RED CELL DISTRIBUTION WIDTH 15.6 % (11.6-14.8); WHITE BLOOD COUNT 8.4 K/UL (4.8-10.8)
[2018-08-08 06:36] LABS: ALANINE AMINOTRANSFERASE 19 U/L (12-78); ALBUMIN 1.9 G/DL (3.4-5.0); ALBUMIN/GLOBULIN RATIO 0.4 (1.0-2.7); ALKALINE PHOSPHATASE 141 U/L (46-116); ANION GAP 5 mmol/L (5-15); ASPARTATE AMINO TRANSFERASE 17 U/L (15-37); BILIRUBIN,TOTAL 0.2 MG/DL (0.2-1.0); BLOOD UREA NITROGEN 34 mg/dL (7-18); CALCIUM 8.9 MG/DL (8.5-10.1); CARBON DIOXIDE 30 MMOL/L (21-32); CHLORIDE 103 MMOL/L (98-107); CREATININE 0.7 MG/DL (0.55-1.30); POTASSIUM 3.9 MMOL/L (3.5-5.1); SODIUM 138 MMOL/L (136-145)
--- NOTE | 2018-08-08 07:48 | NUR ---
HAND-OFF: Report given to JIMMY Fay.
[2018-08-08 08:00] VITALS: BP 96/60
--- NOTE | 2018-08-08 08:18 | NUR ---
NURSE NOTES: pt awake alert, no distress. nonverbal, hob elevated , gtf running no residual. no sob call light within reach. bed in lowest position locked.
[2018-08-08] MEDS: Pantoprazole Inj IVP SCH (08:19)
[2018-08-08] MEDS: Ascorbic Acid 500mg tab GT SCH ×2 (08:19→17:41)
[2018-08-08] MEDS: Levodopa/Carbidopa 25/100 tab GT SCH ×3 (08:19→17:42)
[2018-08-08] MEDS: Spironolactone 25mg tab ORAL SCH (08:19)
[2018-08-08] MEDS: Ferrous Sulfate 300 MG/5 ML UDC GT SCH ×3 (08:19→17:42)
[2018-08-08] MEDS: Lactulose 20gm/30ml UDC GT SCH ×2 (08:19→17:42)
[2018-08-08] MEDS: Multivitamins W/Minerals 15 ML UDC GT SCH (08:19)
--- NOTE | 2018-08-08 09:44 | General Progress Note ---
Assessment/Plan Assessment/Plan: ESBL Urosepsis - Abx per ID AMS 2nd to above improving Decubiti - GS following. High Gastric residuals, high Post void residuals -see orders. DC tomorrow to SNF if stable. Subjective Allergies: Coded Allergies: No Known Allergies (Unverified , 09/08/17) Subjective Confused. High Gastric residuals. High Post void residuals. Objective Last 24 Hour Vital Signs Date Time Temp Pulse Resp B/P (MAP) Pulse Ox O2 Delivery O2 Flow Rate FiO2 08/08/18 08:09 Nasal Cannula 2.0 08/08/18 08:00 64 18 94 Nasal Cannula 2.0 28 08/08/18 07:52 96 Nasal Cannula 2.0 28 08/08/18 07:52 64 18 96 Nasal Cannula 2.0 28 08/08/18 07:52 Nasal Cannula 2.0 28 08/08/18 04:00 68 08/08/18 04:00 97.6 79 17 93/51 (65) 97 08/08/18 01:22 66 18 98 Nasal Cannula 2.0 28 08/08/18 01:12 97 18 95 Nasal Cannula 2.0 28 08/08/18 01:12 28 08/08/18 00:00 70 08/08/18 00:00 97.2 81 17 85/58 (67) 95 08/07/18 21:00 Nasal Cannula 2.0 08/07/18 20:00 97.8 80 17 84/57 (66) 91 08/07/18 20:00 67 08/07/18 19:51 69 18 99 Nasal Cannula 2.0 28 08/07/18 19:41 28 08/07/18 19:41 66 18 95 Nasal Cannula 2.0 28 08/07/18 19:41 Nasal Cannula 2.0 28 08/07/18 19:41 95 Nasal Cannula 2.0 28 08/07/18 16:00 72 08/07/18 16:00 97.8 79 19 108/60 (76) 91 08/07/18 13:30 Nasal Cannula 2.0 08/07/18 13:25 80 18 100 Nasal Cannula 2.0 28 08/07/18 13:15 28 08/07/18 13:15 74 18 97 Nasal Cannula 2.0 28 08/07/18 12:00 67 08/07/18 12:00 97.3 67 19 100/61 (74) 99 Intake and Output 08/07/18 08/08/18 19:00 07:00 Intake Total 980 ml 454 ml Output Total 400 ml 1200 ml Balance 580 ml -746 ml Intake Free Water 140 ml IV Total 600 ml 454 ml Tube Feeding 240 ml Output Urine Total 400 ml 1200 ml Laboratory Tests 08/07/18 17:59: White Blood Count 7.5, Red Blood Count 2.91L, Hemoglobin 8.8L, Hematocrit 26.7L , Mean Corpuscular Volume 92, Mean Corpuscular Hemoglobin 30.3, Mean Corpuscular Hemoglobin Concent 33.0, Red Cell Distribution Width 14.9H, Platelet Count 250, Mean Platelet Volume 5.5L, Neutrophils (%) (Auto) 72.9, Lymphocytes (%) (Auto) 15.3L, Monocytes (%) (Auto) 7.2, Eosinophils (%) (Auto) 4.0H, Basophils (%) (Auto) 0.6, Sodium Level 134L, Potassium Level 3.9, Chloride Level 102, Carbon Dioxide Level 29, Anion Gap 4L, Blood Urea Nitrogen 38H, Creatinine 0.6, Estimat Glomerular Filtration Rate , Glucose Level 103, Calcium Level 8.2L 08/08/18 05:40: White Blood Count 8.4, Red Blood Count 3.14L, Hemoglobin 9.4L, Hematocrit 30.0L , Mean Corpuscular Volume 96, Mean Corpuscular Hemoglobin 30.0, Mean Corpuscular Hemoglobin Concent 31.4L, Red Cell Distribution Width 15.6H, Platelet Count 276, Mean Platelet Volume 6.3L, Neutrophils (%) (Auto) 76.0H, Lymphocytes (%) (Auto) 14.5L, Monocytes (%) (Auto) 5.8, Eosinophils (%) (Auto) 3.2H, Basophils (%) (Auto) 0.6, Sodium Level 138, Potassium Level 3.9, Chloride Level 103, Carbon Dioxide Level 30, Anion Gap 5, Blood Urea Nitrogen 34H, Creatinine 0.7, Estimat Glomerular Filtration Rate , Glucose Level 124H, Calcium Level 8.9, Total Bilirubin 0.2, Aspartate Amino Transf (AST/SGOT) 17, Alanine Aminotransferase (ALT/SGPT) 19, Alkaline Phosphatase 141H, Total Protein 6.6, Albumin 1.9L, Globulin 4.7, Albumin/Globulin Ratio 0.4L Height (Feet): 5 Height (Inches): 5.00 Weight (Pounds): 140 Objective CV RR Lungs CTA Abd SNT BS + E No CCE Joanne Desir MD August 08, 2018 09:43
[2018-08-08 12:00] VITALS: BP 99/55
--- NOTE | 2018-08-08 12:10 | NUR ---
CASE MANAGEMENT:REVIEW 08/08/18 SI: AMS. UTI. DECUB *HIGH GASTRIC RESIDUALS 97.6 79 17 96/60 97% ON 2L/NC IS: IV MEROPENEM Q12 REGLAN GT Q6 LACTULOSE GT BID IVF@50/HR DUONEB HHN Q6HRS RTC IV PROTONIX Q12 : TELEMETRY STATUS DCP: [facility] PLAN: DC TOMORROW TO SNF IF STABLE
--- NOTE | 2018-08-08 12:25 | Infectious Diseases Prog Note ---
Assessment/Plan Assessment/Plan A; E. coli UTI Intraabdominal hematoma Fecal impaction R inguinal hernia CKD Dementia P: Continue Meropenem X 1 day Subjective ROS Limited/Unobtainable: Yes Allergies: Coded Allergies: No Known Allergies (Unverified , 09/08/17) Objective Vital Signs Last 24 Hour Vital Signs Date Time Temp Pulse Resp B/P (MAP) Pulse Ox O2 Delivery O2 Flow Rate FiO2 08/08/18 08:09 Nasal Cannula 2.0 08/08/18 08:00 97.6 79 17 96/60 (72) 97 08/08/18 08:00 64 18 94 Nasal Cannula 2.0 28 08/08/18 07:52 96 Nasal Cannula 2.0 28 08/08/18 07:52 64 18 96 Nasal Cannula 2.0 28 08/08/18 07:52 Nasal Cannula 2.0 28 08/08/18 04:00 68 08/08/18 04:00 97.6 79 17 93/51 (65) 97 08/08/18 01:22 66 18 98 Nasal Cannula 2.0 28 08/08/18 01:12 97 18 95 Nasal Cannula 2.0 28 08/08/18 01:12 28 08/08/18 00:00 70 08/08/18 00:00 97.2 81 17 85/58 (67) 95 08/07/18 21:00 Nasal Cannula 2.0 08/07/18 20:00 97.8 80 17 84/57 (66) 91 08/07/18 20:00 67 08/07/18 19:51 69 18 99 Nasal Cannula 2.0 28 08/07/18 19:41 28 08/07/18 19:41 66 18 95 Nasal Cannula 2.0 28 08/07/18 19:41 Nasal Cannula 2.0 28 08/07/18 19:41 95 Nasal Cannula 2.0 28 08/07/18 16:00 72 08/07/18 16:00 97.8 79 19 108/60 (76) 91 08/07/18 13:30 Nasal Cannula 2.0 08/07/18 13:25 80 18 100 Nasal Cannula 2.0 28 08/07/18 13:15 28 08/07/18 13:15 74 18 97 Nasal Cannula 2.0 28 Height (Feet): 5 Height (Inches): 5.00 Weight (Pounds): 140 General Appearance: no acute distress HEENT: mucous membranes moist Respiratory/Chest: lungs clear Cardiovascular: normal rate Abdomen: soft, non tender, other - GT feeding Extremities: no edema Neurologic/Psychiatric: other - sleeping Laboratory Tests Test 08/07/18 17:59 08/08/18 05:40 White Blood Count 7.5 K/UL (4.8-10.8) 8.4 K/UL (4.8-10.8) Red Blood Count 2.91 M/UL (4.70-6.10) L 3.14 M/UL (4.70-6.10) L Hemoglobin 8.8 G/DL (14.2-18.0) L 9.4 G/DL (14.2-18.0) L Hematocrit 26.7 % (42.0-52.0) L 30.0 % (42.0-52.0) L Mean Corpuscular Volume 92 FL (80-99) 96 FL (80-99) Mean Corpuscular Hemoglobin 30.3 PG (27.0-31.0) 30.0 PG (27.0-31.0) Mean Corpuscular Hemoglobin Concent 33.0 G/DL (32.0-36.0) 31.4 G/DL (32.0-36.0) L Red Cell Distribution Width 14.9 % (11.6-14.8) H 15.6 % (11.6-14.8) H Platelet Count 250 K/UL (150-450) 276 K/UL (150-450) Mean Platelet Volume 5.5 FL (6.5-10.1) L 6.3 FL (6.5-10.1) L Neutrophils (%) (Auto) 72.9 % (45.0-75.0) 76.0 % (45.0-75.0) H Lymphocytes (%) (Auto) 15.3 % (20.0-45.0) L 14.5 % (20.0-45.0) L Monocytes (%) (Auto) 7.2 % (1.0-10.0) 5.8 % (1.0-10.0) Eosinophils (%) (Auto) 4.0 % (0.0-3.0) H 3.2 % (0.0-3.0) H Basophils (%) (Auto) 0.6 % (0.0-2.0) 0.6 % (0.0-2.0) Sodium Level 134 MMOL/L (136-145) L 138 MMOL/L (136-145) Potassium Level 3.9 MMOL/L (3.5-5.1) 3.9 MMOL/L (3.5-5.1) Chloride Level 102 MMOL/L (98-107) 103 MMOL/L (98-107) Carbon Dioxide Level 29 MMOL/L (21-32) 30 MMOL/L (21-32) Anion Gap 4 mmol/L (5-15) L 5 mmol/L (5-15) Blood Urea Nitrogen 38 mg/dL (7-18) H 34 mg/dL (7-18) H Creatinine 0.6 MG/DL (0.55-1.30) 0.7 MG/DL (0.55-1.30) Estimat Glomerular Filtration Rate mL/min (>60) mL/min (>60) Glucose Level 103 MG/DL (74-106) 124 MG/DL (74-106) H Calcium Level 8.2 MG/DL (8.5-10.1) L 8.9 MG/DL (8.5-10.1) Total Bilirubin 0.2 MG/DL (0.2-1.0) Aspartate Amino Transf (AST/SGOT) 17 U/L (15-37) Alanine Aminotransferase (ALT/SGPT) 19 U/L (12-78) Alkaline Phosphatase 141 U/L (46-116) H Total Protein 6.6 G/DL (6.4-8.2) Albumin 1.9 G/DL (3.4-5.0) L Globulin 4.7 g/dL Albumin/Globulin Ratio 0.4 (1.0-2.7) L Current Medications Medications (Trade) Dose Ordered Sig/Adrian Route PRN Reason Start Time Stop Time Status Last Admin Dose Admin Acetaminophen (Tylenol) 650 mg Q4H PRN GT Mild Pain/Temp > 100.5 08/03/18 08:15 09/02/18 08:14 Albuterol/ Ipratropium (Albuterol/ Ipratropium) 3 ml Q6HRT HHN 08/03/18 13:00 08/08/18 12:59 08/08/18 07:50 Ascorbic Acid (Vitamin C) 500 mg TWICE A DAY GT 08/03/18 09:00 09/02/18 08:59 08/08/18 08:19 Carbidopa/Levodopa (Sinemet 25/100) 1 tab TID GT 08/03/18 09:00 09/02/18 08:59 08/08/18 08:19 Ferrous Sulfate (Feosol) 300 mg THREE TIMES A DAY GT 08/03/18 09:00 09/02/18 08:59 08/08/18 08:19 Folic Acid (Folate) 1 mg DAILY GT 08/03/18 09:00 09/02/18 08:59 08/08/18 08:19 Lactulose (Cephulac) 20 gm BID GT 08/04/18 18:00 09/02/18 08:59 08/08/18 08:19 Levothyroxine Sodium (Synthroid) 100 mcg DAILY@0630 GT 08/04/18 06:30 09/03/18 06:29 08/08/18 05:30 Meropenem 1 gm/ Sodium Chloride 55 ml @ 110 mls/hr Q12HR@0600,1800 IVPB 08/03/18 18:00 08/09/18 17:59 08/08/18 05:30 Metoclopramide HCl (Reglan) 5 mg EVERY 6 HOURS GT 08/07/18 18:00 09/06/18 17:59 08/08/18 05:30 Multivitamins (Multivitamins W/ Minerals 15ml Liquid) 15 ml DAILY GT 08/03/18 09:00 09/02/18 08:59 08/08/18 08:19 Ondansetron HCl (Zofran) 4 mg Q6H PRN IVP Nausea & Vomiting 08/07/18 19:45 09/06/18 19:44 08/07/18 22:24 Pantoprazole (Protonix) 40 mg EVERY 12 HOURS IVP 08/03/18 09:00 09/02/18 08:59 08/08/18 08:19 Sodium Chloride 1,000 ml @ 50 mls/hr Q20H IV 08/04/18 13:00 09/02/18 12:59 08/07/18 22:24 Spironolactone (Aldactone) 25 mg DAILY ORAL 08/03/18 09:00 09/02/18 08:59 08/08/18 08:19 Bj Moya MD August 08, 2018 12:25
[2018-08-08] MEDS ORDERED: 1/2 NS 1000ml IV ONE (13:30)
[2018-08-08] MEDS ORDERED: NS 275ml ONE (13:30)
--- NOTE | 2018-08-08 14:22 | NUR ---
NURSE NOTES: paged and received a call back from dr Thang prather pt no bm yet, received order for mom prn and enema prn
[2018-08-08] MEDS ORDERED: Milk of Magnesia 30ml Ud ORAL PRN (14:30)
[2018-08-08] MEDS ORDERED: Fleet's Mineral Oil Enema RECTAL SCH (14:30)
[2018-08-08] MEDS ORDERED: Milk of Magnesia 30ml Ud GT PRN (14:30)
--- NOTE | 2018-08-08 15:13 | NUR ---
RD ASSESSMENT & RECOMMENDATIONS SEE CARE ACTIVITY FOR COMPLETE ASSESSMENT DAILY ESTIMATED NEEDS: Needs based on Wounds, sepsis, bed bound/66.8kg 27-32 kcals/kg 7594-9498 total kcals 1.5-2 g protein/kg 100-134 g total protein 25-30 mL/kg 4671-6931 total fluid mLs NUTRITION DIAGNOSIS: 1) Increased kcal and protein needs r/t wound healing as evidenced by pt w/ multiple wounds, refer to WC eval, including full thickness x2 2) Swallowing difficulty r/t dysphagia as evidenced by pt is PEG dep. 3) Altered nutrition related lab values R/T clinical condition as evidenced by elev BGs (241 ->124 103 improved), elev K (5.5-> now wnl). CURRENT TF:NEPRO @47ml/hr x22 hrs + PROSOURCE BID ENTERAL NUTRITION RECOMMENDATIONS: NEPRO @47ml/hr x22 hrs + PROSOURCE BID to provide 1034ml, 1861 kcal, 84g + 22g pro, 752ml free H2O * Maintain current TF order + Prosource BID * Hold 1 hr before and after Synthroid med * Flush per MD/ HOB over 30 degrees ADDITIONAL RECOMMENDATIONS: * PER SNF-> 67inches, 147# (66.8kg) * WOUND CARE: Maintain PORTIA BID + MVI + Vit C via GT * Consider SSI for glycemic control * Monitor K, lytes, renal fxn for possible TF change K wnl, creat wnl, BUN trending down-> will cont to monitor * Monitor BM regularity- last BM on 08/04, s/p enema x 1 today .
[2018-08-08 16:00] VITALS: BP 89/52
--- NOTE | 2018-08-08 16:31 | Surgery Progress Note ---
Surgery Progress Note Subjective Additional Comments doing well. no acute events. dressing changed. exam stable Objective Last 24 Hour Vital Signs Date Time Temp Pulse Resp B/P (MAP) Pulse Ox O2 Delivery O2 Flow Rate FiO2 08/08/18 15:13 66 08/08/18 12:00 97.9 76 17 99/55 (70) 97 08/08/18 11:51 76 08/08/18 08:09 Nasal Cannula 2.0 08/08/18 08:00 97.6 79 17 96/60 (72) 97 08/08/18 08:00 64 18 94 Nasal Cannula 2.0 28 08/08/18 07:52 96 Nasal Cannula 2.0 28 08/08/18 07:52 64 18 96 Nasal Cannula 2.0 28 08/08/18 07:52 Nasal Cannula 2.0 28 08/08/18 07:47 67 08/08/18 04:00 68 08/08/18 04:00 97.6 79 17 93/51 (65) 97 08/08/18 01:22 66 18 98 Nasal Cannula 2.0 28 08/08/18 01:12 97 18 95 Nasal Cannula 2.0 28 08/08/18 01:12 28 08/08/18 00:00 70 08/08/18 00:00 97.2 81 17 85/58 (67) 95 08/07/18 21:00 Nasal Cannula 2.0 08/07/18 20:00 97.8 80 17 84/57 (66) 91 08/07/18 20:00 67 08/07/18 19:51 69 18 99 Nasal Cannula 2.0 28 08/07/18 19:41 28 08/07/18 19:41 66 18 95 Nasal Cannula 2.0 28 08/07/18 19:41 Nasal Cannula 2.0 28 08/07/18 19:41 95 Nasal Cannula 2.0 28 I&O Intake and Output 08/07/18 08/08/18 19:00 07:00 Intake Total 980 ml 504 ml Output Total 400 ml 1200 ml Balance 580 ml -696 ml Intake Free Water 140 ml IV Total 600 ml 504 ml Tube Feeding 240 ml Output Urine Total 400 ml 1200 ml Dressing: saturated Wound: other Drains: other Cardiovascular: RSR Respiratory: decreased breath sounds Abdomen: soft, present bowel sounds, non-distended Extremities: no tenderness, no cyanosis Laboratory Tests Test 08/07/18 17:59 08/08/18 05:40 White Blood Count 7.5 K/UL (4.8-10.8) 8.4 K/UL (4.8-10.8) Red Blood Count 2.91 M/UL (4.70-6.10) L 3.14 M/UL (4.70-6.10) L Hemoglobin 8.8 G/DL (14.2-18.0) L 9.4 G/DL (14.2-18.0) L Hematocrit 26.7 % (42.0-52.0) L 30.0 % (42.0-52.0) L Mean Corpuscular Volume 92 FL (80-99) 96 FL (80-99) Mean Corpuscular Hemoglobin 30.3 PG (27.0-31.0) 30.0 PG (27.0-31.0) Mean Corpuscular Hemoglobin Concent 33.0 G/DL (32.0-36.0) 31.4 G/DL (32.0-36.0) L Red Cell Distribution Width 14.9 % (11.6-14.8) H 15.6 % (11.6-14.8) H Platelet Count 250 K/UL (150-450) 276 K/UL (150-450) Mean Platelet Volume 5.5 FL (6.5-10.1) L 6.3 FL (6.5-10.1) L Neutrophils (%) (Auto) 72.9 % (45.0-75.0) 76.0 % (45.0-75.0) H Lymphocytes (%) (Auto) 15.3 % (20.0-45.0) L 14.5 % (20.0-45.0) L Monocytes (%) (Auto) 7.2 % (1.0-10.0) 5.8 % (1.0-10.0) Eosinophils (%) (Auto) 4.0 % (0.0-3.0) H 3.2 % (0.0-3.0) H Basophils (%) (Auto) 0.6 % (0.0-2.0) 0.6 % (0.0-2.0) Sodium Level 134 MMOL/L (136-145) L 138 MMOL/L (136-145) Potassium Level 3.9 MMOL/L (3.5-5.1) 3.9 MMOL/L (3.5-5.1) Chloride Level 102 MMOL/L (98-107) 103 MMOL/L (98-107) Carbon Dioxide Level 29 MMOL/L (21-32) 30 MMOL/L (21-32) Anion Gap 4 mmol/L (5-15) L 5 mmol/L (5-15) Blood Urea Nitrogen 38 mg/dL (7-18) H 34 mg/dL (7-18) H Creatinine 0.6 MG/DL (0.55-1.30) 0.7 MG/DL (0.55-1.30) Estimat Glomerular Filtration Rate mL/min (>60) mL/min (>60) Glucose Level 103 MG/DL (74-106) 124 MG/DL (74-106) H Calcium Level 8.2 MG/DL (8.5-10.1) L 8.9 MG/DL (8.5-10.1) Total Bilirubin 0.2 MG/DL (0.2-1.0) Aspartate Amino Transf (AST/SGOT) 17 U/L (15-37) Alanine Aminotransferase (ALT/SGPT) 19 U/L (12-78) Alkaline Phosphatase 141 U/L (46-116) H Total Protein 6.6 G/DL (6.4-8.2) Albumin 1.9 G/DL (3.4-5.0) L Globulin 4.7 g/dL Albumin/Globulin Ratio 0.4 (1.0-2.7) L Plan Problems: (1) Inguinal hernia Assessment & Plan: reducible and stable. will monitor outpatient eval if desired for repair (2) Intra-abdominal hematoma (3) Fecal impaction in rectum (4) Dehydration Assessment & Plan: DAILY ESTIMATED NEEDS: Needs based on Wounds, sepsis, bed bound/66.8kg 27-32 kcals/kg 9779-7311 total kcals 1.5-2 g protein/kg 100-134 g total protein 25-30 mL/kg 3051-5366 total fluid mLs NUTRITION DIAGNOSIS: 1) Increased kcal and protein needs r/t wound healing as evidenced by pt w/ multiple wounds, refer to WC eval, including full thickness x2 2) Swallowing difficulty r/t dysphagia as evidenced by pt is PEG dep. 3) Altered nutrition related lab values R/T clinical condition as evidenced by elev BGs (241), elev K (5.5-> now wnl). CURRENT TF:Nepro @30ml ENTERAL NUTRITION RECOMMENDATIONS: NEPRO @47ml/hr x22 hrs + PROSOURCE BID to provide 1034ml, 1861 kcal, 84g + 22g pro, 752ml free H2O * MEDICALLY APPROPRIATE TO START TF, rec NEPRO * Start @17ml/hr for 6 hrs, advance 10ml q 4-6 hrs as tolerated to goal rate. * Hold 1 hr before and after Synthroid med * Add Prosource 1 pack BID to better meet est pro needs. * Flush per MD/ HOB over 30 degrees ---- ADDITIONAL RECOMMENDATIONS: * PER SNF-> 67inches, 147# (66.8kg) * WOUND CARE: Add PORTIA BID Maintain MVI + Vit C via GT * Consider SSI for glycemic control * Monitor K, lytes, renal fxn for possible TF change K wnl, creat wnl, BUN trending down-> will cont to monitor (5) Hyperkalemia (6) Urinary tract infection (7) Leukocytosis (8) Sepsis (9) Upper GI bleed (10) Sacral decubitus ulcer (11) The administrative codes within the [employer] content you are accessing may have as of 12/25/2017. Please contact your IT Dept/Help Desk and request the latest Regulatory release be installed. IT Dept/Help Desk- Please refer to our FAQ page ([email or web address] or contact [employer] Customer Support at [email or web address] ([email or web address]) Decubitus ulcer Assessment & Plan: Patient presented on admission with contractures of extremities and multiple pressure injuries. Full thickness pressure injury cleft of L ear. base of wound moist viable. Small amt sanguineous exudate.(L)1.5cm x(W)1cm x (D)0.4cm. Resolving Full thickness pressure injury R trochanter with undermining.Small amt seropurulent exudate with mild odor noted.Base of wound is pink with biofilm. Bone is palpable.(L)2cm x (W)2.5cm x(D)1cm ,undermining1-6 by 3.1@5o' clock.Scarring noted to periwound. DTPI noted to L lateral malleolus.Base of wound is maroon with dark borders.(L) 1cm x (W)3cm. Non-blanchable erythema L hallux(L)2.7cm x (W)3cm. Non-blanchable erythema without fluctuance/induration lateral L foot . At most distal/lateral aspect of L foot a full thickness ulcer noted .Base of wound with approx 50% griffin slough ,surrounding erythema.,undermining noted.Loose edges with fluctuance and , non-blanchable erythema periwound (L) 2.1cm x (W)2.2cm x (D)0.5cm ,undermining 12-12 by 0.7cm @9o'clock. Non-blanchable erythema without fluctuance/induration noted to bony prominence that is in close proximity to medial L malleolus(L)1.5cm x (W)2cm. Reabsorbing blood blister medial L heel.base of wound is dry ,edges area adherent .periwound without erythema,induration or fluctuance (L)0.4cm x (W) 0.5cm. Non-blanchable erythema medial R heel .Base of wound is fluctuant with delineated margins. Periwound is blanchable without fluctuance or induration.(L) 1.3cm x (W) 3cm. Non-blanchable erythema without fluctuance or induration lateral R malleolus (L) 2.5cm x (W)2cm. Non-blanchable erythema without fluctuance/induration noted to lateral R foot . (L)1cm x (W1.5cm. Tx.Plan: O'Brien Skin Knox (1 application) to Cleft of L ear.(done 08/03/18). Apply Coloplast barrier ring to L ear. Change PRN if loose . Apply Coloplast Barrier ring to cleft of R ear. Change PRN. Cleanse R trochanter with Saline. Apply Therahoney infused packing strip.Apply Triad Paste periwound. Cover with Optifoam.Change Daily and PRN. Apply Cavilon Skin BArrier to R Heel ,lateral aspect of R foot ,R hallux,Medial and lateral Malleoli. Cover each bony prominence with Optifoam drsg. Change every 7 days and prn. Cleanse wound distal/lateral L foot with Saline. Apply Therahoney. Apply Cavilon Skin Barrier periwound. Cover with Optifoam drsg. Change every 3 days and prn. Apply Cavilon Skin Barrier to bony prominences L heel ,medial/lateral malleoli, L hallux,medial and lateral L foot. Cover each site with Optifoam drsgs. Change every 7 days and prn. Apply Triad paste to Sacrum. Cover with Optifoam drsg. Change every 3 days and prn. Apply Triad Paste to scrotum and both ischial areas with each perineal care. Air Fluidized Mattress. Reposition at least every 2hours or as tolerated. Place pillows between knees and behind knees to off-load pressure from heels. (13) Anemia (14) Obstructive jaundice (15) Vomiting Assessment & Plan: high residuals on Rx cont with feeds. (16) Heel ulcer (17) Wounds, multiple open, lower extremity (18) Encounter for generalized patient complaints (19) [email or web address] Additional Comments d/c planning for tomorrow Zafar Echeverria August 08, 2018 16:31
--- NOTE | 2018-08-08 16:50 | NUR ---
NURSE NOTES: pt fleet enema given pt still noted w fecal impaction, digital disimpaction done with effectiveness, pt had large semi-formed bm. dark green colored (pt is taking iron), cleaned pt , kept pt clean dry and comfortable. gt no residual, hob elevated , gtf infusing
--- NOTE | 2018-08-08 19:13 | NUR ---
HAND-OFF: Report given to CLAUDINE MARQUEZ.
--- NOTE | 2018-08-08 19:20 | NUR ---
NURSE NOTES: Received report from JIMMY Fay. Patient in bed asleep showing no signs of acute distress. Respiration even and non labored on 2L O2. No SOB noted. GT patent and intact. 0 residual. Aspiration precaution observed. IV line patent and intact. Roman patent, intact and draining. Bed in lowest position, wheels locked, and alarm on. Call light within reach. All needs attended and met. Will continue plan of care.
[2018-08-08 20:00] VITALS: BP 96/60
[2018-08-09] VITALS (7 sets, daily range): BP systolic 82–105; BP diastolic 46–79
[2018-08-09] MEDS: Metoclopramide 10mg/10ml Liq GT SCH ×5 (00:01→23:15)
[2018-08-09] MEDS: Meropenem 1 GM in NS 55 ML IVPB SCH ×2 (05:32→17:27)
--- NOTE | 2018-08-09 07:26 | NUR ---
HAND-OFF: Report given to JIMMY Mace.
--- NOTE | 2018-08-09 07:30 | NUR ---
NURSE NOTES: Received report from JIMMY Murphy. Patient is fatigue and holding basin with nausea.. Patient denies any pain/discomfort at this time. Will continue plan of care.
[2018-08-09] MEDS: Ascorbic Acid 500mg tab GT SCH ×2 (08:43→17:20)
[2018-08-09] MEDS: Ferrous Sulfate 300 MG/5 ML UDC GT SCH ×3 (08:43→17:20)
[2018-08-09] MEDS: Levodopa/Carbidopa 25/100 tab GT SCH ×3 (08:43→17:20)
[2018-08-09] MEDS: Lactulose 20gm/30ml UDC GT SCH ×2 (08:43→17:20)
[2018-08-09] MEDS: Multivitamins W/Minerals 15 ML UDC GT SCH (08:43)
[2018-08-09] MEDS: Spironolactone 25mg tab ORAL SCH (08:51)
--- NOTE | 2018-08-09 10:15 | General Progress Note ---
Assessment/Plan Assessment/Plan: ESBL Urosepsis - Abx per ID AMS 2nd to above improving Decubiti - GS following. High Gastric residuals, high Post void residuals -see orders. GI consulted. DC tomorrow to SNF if stable. Subjective Allergies: Coded Allergies: No Known Allergies (Unverified , 09/08/17) Subjective Confused. High Gastric residuals. High Post void residuals. Objective Last 24 Hour Vital Signs Date Time Temp Pulse Resp B/P (MAP) Pulse Ox O2 Delivery O2 Flow Rate FiO2 08/09/18 09:00 Nasal Cannula 2.0 08/09/18 08:54 97.2 81 19 97/62 (74) 97 08/09/18 08:00 97.2 81 19 82/46 (58) 97 08/09/18 08:00 73 08/09/18 04:00 67 08/09/18 04:00 98.1 67 18 92/50 (64) 99 08/09/18 00:00 97.7 66 18 100/79 (86) 96 08/09/18 00:00 69 08/08/18 21:00 Nasal Cannula 2.0 08/08/18 20:02 Nasal Cannula 2.0 28 08/08/18 20:02 96 Nasal Cannula 2.0 28 08/08/18 20:00 97.9 72 19 96/60 (72) 98 08/08/18 20:00 78 08/08/18 16:00 98.3 66 17 89/52 (64) 97 08/08/18 15:13 66 08/08/18 12:00 97.9 76 17 99/55 (70) 97 08/08/18 11:51 76 Intake and Output 08/08/18 08/09/18 18:59 06:59 Intake Total 1604 ml 467.43 ml Output Total 800 ml 720 ml Balance 804 ml -252.57 ml Intake Free Water 480 ml IV Total 560 ml 467.43 ml Tube Feeding 564 ml Output Urine Total 800 ml 720 ml # Bowel Movements 1 Height (Feet): 5 Height (Inches): 5.00 Weight (Pounds): 140 Objective CV RR Lungs CTA Abd SNT BS + E No CCE Joanne Desir MD August 09, 2018 10:15
--- NOTE | 2018-08-09 10:21 | NUR ---
NURSE NOTES: Notified Dr. Desir that patient BP was 82/46 @0800 and 97/62 @0900 after giving meds and fluids. No new orders at this time. Will continue plan of care.
--- NOTE | 2018-08-09 11:49 | Infectious Diseases Prog Note ---
Assessment/Plan Assessment/Plan A; E. coli UTI Intraabdominal hematoma Fecal impaction R inguinal hernia CKD Dementia P: Continue Meropenem until expiration tonight Subjective ROS Limited/Unobtainable: Yes Allergies: Coded Allergies: No Known Allergies (Unverified , 09/08/17) Objective Vital Signs Last 24 Hour Vital Signs Date Time Temp Pulse Resp B/P (MAP) Pulse Ox O2 Delivery O2 Flow Rate FiO2 08/09/18 09:00 Nasal Cannula 2.0 08/09/18 08:54 97.2 81 19 97/62 (74) 97 08/09/18 08:00 97.2 81 19 82/46 (58) 97 08/09/18 08:00 73 08/09/18 04:00 67 08/09/18 04:00 98.1 67 18 92/50 (64) 99 08/09/18 00:00 97.7 66 18 100/79 (86) 96 08/09/18 00:00 69 08/08/18 21:00 Nasal Cannula 2.0 08/08/18 20:02 Nasal Cannula 2.0 28 08/08/18 20:02 96 Nasal Cannula 2.0 28 08/08/18 20:00 97.9 72 19 96/60 (72) 98 08/08/18 20:00 78 08/08/18 16:00 98.3 66 17 89/52 (64) 97 08/08/18 15:13 66 08/08/18 12:00 97.9 76 17 99/55 (70) 97 08/08/18 11:51 76 Height (Feet): 5 Height (Inches): 5.00 Weight (Pounds): 140 HEENT: mucous membranes moist Respiratory/Chest: lungs clear Cardiovascular: normal rate Abdomen: soft, non tender, other - GT feeding Extremities: no edema Neurologic/Psychiatric: other - opens eyes Current Medications Medications (Trade) Dose Ordered Sig/Adrian Route PRN Reason Start Time Stop Time Status Last Admin Dose Admin Acetaminophen (Tylenol) 650 mg Q4H PRN GT Mild Pain/Temp > 100.5 08/03/18 08:15 09/02/18 08:14 Ascorbic Acid (Vitamin C) 500 mg TWICE A DAY GT 08/03/18 09:00 09/02/18 08:59 08/09/18 08:43 Carbidopa/Levodopa (Sinemet 25/100) 1 tab TID GT 08/03/18 09:00 09/02/18 08:59 08/09/18 08:43 Ferrous Sulfate (Feosol) 300 mg THREE TIMES A DAY GT 08/03/18 09:00 09/02/18 08:59 08/09/18 08:43 Folic Acid (Folate) 1 mg DAILY GT 08/03/18 09:00 09/02/18 08:59 08/09/18 08:43 Lactulose (Cephulac) 20 gm BID GT 08/04/18 18:00 09/02/18 08:59 08/09/18 08:43 Lansoprazole (Prevacid) 30 mg BID GT 08/08/18 18:00 09/07/18 17:59 08/09/18 08:43 Levothyroxine Sodium (Synthroid) 100 mcg DAILY@0630 GT 08/04/18 06:30 09/03/18 06:29 08/09/18 05:32 Magnesium Hydroxide (Mom) 30 ml DAILYPRN PRN GT Constipation 08/08/18 14:30 09/07/18 14:29 Meropenem 1 gm/ Sodium Chloride 55 ml @ 110 mls/hr Q12HR@0600,1800 IVPB 08/03/18 18:00 08/09/18 23:59 08/09/18 05:32 Metoclopramide HCl (Reglan) 5 mg EVERY 6 HOURS GT 08/07/18 18:00 09/06/18 17:59 08/09/18 05:33 Multivitamins (Multivitamins W/ Minerals 15ml Liquid) 15 ml DAILY GT 08/03/18 09:00 09/02/18 08:59 08/09/18 08:43 Ondansetron HCl (Zofran) 4 mg Q6H PRN IVP Nausea & Vomiting 08/07/18 19:45 09/06/18 19:44 08/09/18 04:06 Sodium Chloride 1,000 ml @ 50 mls/hr Q20H IV 08/04/18 13:00 09/02/18 12:59 08/09/18 03:52 Spironolactone (Aldactone) 25 mg DAILY ORAL 08/03/18 09:00 09/02/18 08:59 08/08/18 08:19 Bj Moya MD August 09, 2018 11:49
--- NOTE | 2018-08-09 14:47 | Surgery Progress Note ---
Surgery Progress Note Subjective Additional Comments albumin 1.9. nutritionally depleted. exam stable but he is weak cont with feeds as tolerated Rx written for supplements. Objective Last 24 Hour Vital Signs Date Time Temp Pulse Resp B/P (MAP) Pulse Ox O2 Delivery O2 Flow Rate FiO2 08/09/18 12:00 98.0 66 18 95/62 (73) 95 08/09/18 12:00 64 08/09/18 09:00 Nasal Cannula 2.0 08/09/18 08:54 97.2 81 19 97/62 (74) 97 08/09/18 08:00 97.2 81 19 82/46 (58) 97 08/09/18 08:00 73 08/09/18 04:00 67 08/09/18 04:00 98.1 67 18 92/50 (64) 99 08/09/18 00:00 97.7 66 18 100/79 (86) 96 08/09/18 00:00 69 08/08/18 21:00 Nasal Cannula 2.0 08/08/18 20:02 Nasal Cannula 2.0 28 08/08/18 20:02 96 Nasal Cannula 2.0 28 08/08/18 20:00 97.9 72 19 96/60 (72) 98 08/08/18 20:00 78 08/08/18 16:00 98.3 66 17 89/52 (64) 97 08/08/18 15:13 66 I&O Intake and Output 08/08/18 08/09/18 19:00 07:00 Intake Total 1507 ml 467.43 ml Output Total 800 ml 720 ml Balance 707 ml -252.57 ml Intake Free Water 480 ml IV Total 510 ml 467.43 ml Tube Feeding 517 ml Output Urine Total 800 ml 720 ml # Bowel Movements 1 Dressing: saturated Wound: other Drains: other Cardiovascular: RSR Respiratory: decreased breath sounds Abdomen: soft, present bowel sounds Extremities: no tenderness, no cyanosis Plan Problems: (1) Inguinal hernia Assessment & Plan: reducible and stable. will monitor outpatient eval if desired for repair (2) Intra-abdominal hematoma (3) Fecal impaction in rectum (4) Dehydration Assessment & Plan: DAILY ESTIMATED NEEDS: Needs based on Wounds, sepsis, bed bound/66.8kg 27-32 kcals/kg 2241-4318 total kcals 1.5-2 g protein/kg 100-134 g total protein 25-30 mL/kg 7994-9383 total fluid mLs NUTRITION DIAGNOSIS: 1) Increased kcal and protein needs r/t wound healing as evidenced by pt w/ multiple wounds, refer to WC eval, including full thickness x2 2) Swallowing difficulty r/t dysphagia as evidenced by pt is PEG dep. 3) Altered nutrition related lab values R/T clinical condition as evidenced by elev BGs (241), elev K (5.5-> now wnl). CURRENT TF:Nepro @30ml ENTERAL NUTRITION RECOMMENDATIONS: NEPRO @47ml/hr x22 hrs + PROSOURCE BID to provide 1034ml, 1861 kcal, 84g + 22g pro, 752ml free H2O * MEDICALLY APPROPRIATE TO START TF, rec NEPRO * Start @17ml/hr for 6 hrs, advance 10ml q 4-6 hrs as tolerated to goal rate. * Hold 1 hr before and after Synthroid med * Add Prosource 1 pack BID to better meet est pro needs. * Flush per MD/ HOB over 30 degrees ---- ADDITIONAL RECOMMENDATIONS: * PER SNF-> 67inches, 147# (66.8kg) * WOUND CARE: Add PORTIA BID Maintain MVI + Vit C via GT * Consider SSI for glycemic control * Monitor K, lytes, renal fxn for possible TF change K wnl, creat wnl, BUN trending down-> will cont to monitor (5) Hyperkalemia (6) Urinary tract infection (7) Leukocytosis (8) Sepsis (9) Upper GI bleed (10) Sacral decubitus ulcer (11) The administrative codes within the [employer] content you are accessing may have as of 12/25/2017. Please contact your IT Dept/Help Desk and request the latest Regulatory release be installed. IT Dept/Help Desk- Please refer to our FAQ page ([email or web address]) or contact [facility] Customer Support at [email or web address] (12) Decubitus ulcer Assessment & Plan: Patient presented on admission with contractures of extremities and multiple pressure injuries. Full thickness pressure injury cleft of L ear. base of wound moist viable. Small amt sanguineous exudate.(L)1.5cm x(W)1cm x (D)0.4cm. Resolving Full thickness pressure injury R trochanter with undermining.Small amt seropurulent exudate with mild odor noted.Base of wound is pink with biofilm. Bone is palpable.(L)2cm x (W)2.5cm x(D)1cm ,undermining1-6 by 3.1@5o' clock.Scarring noted to periwound. DTPI noted to L lateral malleolus.Base of wound is maroon with dark borders.(L) 1cm x (W)3cm. Non-blanchable erythema L hallux(L)2.7cm x (W)3cm. Non-blanchable erythema without fluctuance/induration lateral L foot . At most distal/lateral aspect of L foot a full thickness ulcer noted .Base of wound with approx 50% griffin slough ,surrounding erythema.,undermining noted.Loose edges with fluctuance and , non-blanchable erythema periwound (L) 2.1cm x (W)2.2cm x (D)0.5cm ,undermining 12-12 by 0.7cm @9o'clock. Non-blanchable erythema without fluctuance/induration noted to bony prominence that is in close proximity to medial L malleolus(L)1.5cm x (W)2cm. Reabsorbing blood blister medial L heel.base of wound is dry ,edges area adherent .periwound without erythema,induration or fluctuance (L)0.4cm x (W) 0.5cm. Non-blanchable erythema medial R heel .Base of wound is fluctuant with delineated margins. Periwound is blanchable without fluctuance or induration.(L) 1.3cm x (W) 3cm. Non-blanchable erythema without fluctuance or induration lateral R malleolus (L) 2.5cm x (W)2cm. Non-blanchable erythema without fluctuance/induration noted to lateral R foot . (L)1cm x (W1.5cm. Tx.Plan: [place] Skin Knox (1 application) to Cleft of L ear.(done 08/03/18). Apply Coloplast barrier ring to L ear. Change PRN if loose . Apply Coloplast Barrier ring to cleft of R ear. Change PRN. Cleanse R trochanter with Saline. Apply Therahoney infused packing strip.Apply Triad Paste periwound. Cover with Optifoam.Change Daily and PRN. Apply Cavilon Skin BArrier to R Heel ,lateral aspect of R foot ,R hallux,Medial and lateral Malleoli. Cover each bony prominence with Optifoam drsg. Change every 7 days and prn. Cleanse wound distal/lateral L foot with Saline. Apply Therahoney. Apply Cavilon Skin Barrier periwound. Cover with Optifoam drsg. Change every 3 days and prn. Apply Cavilon Skin Barrier to bony prominences L heel ,medial/lateral malleoli, L hallux,medial and lateral L foot. Cover each site with Optifoam drsgs. Change every 7 days and prn. Apply Triad paste to Sacrum. Cover with Optifoam drsg. Change every 3 days and prn. Apply Triad Paste to scrotum and both ischial areas with each perineal care. Air Fluidized Mattress. Reposition at least every 2hours or as tolerated. Place pillows between knees and behind knees to off-load pressure from heels. (13) Anemia (14) Obstructive jaundice (15) Vomiting Assessment & Plan: high residuals on Rx cont with feeds. (16) Heel ulcer (17) Wounds, multiple open, lower extremity (18) Encounter for generalized patient complaints (19) Zafar Donis August 09, 2018 14:47
[2018-08-09] MEDS: Erythromycin Ethylsuccinate 200mg/5ml Susp ORAL SCH ×2 (17:19→23:15)
--- NOTE | 2018-08-09 18:30 | Consultation ---
DATE OF CONSULTATION: 08/09/2018 GASTROENTEROLOGY CONSULTATION: CONSULTING PHYSICIAN: Aldo Colin M.D. REFERRING PHYSICIAN: Joanne Desir M.D. CHIEF COMPLAINT: Anemia, dysphagia, elevated residuals. HISTORY OF PRESENT ILLNESS: Most of the history per chart. This is an 83-year-old patient with numerous medical problems, currently lives in a usp was transferred to the hospital with recurrent vomiting. PAST MEDICAL HISTORY: 1. History of organic brain syndrome. 2. Stage IV decubital ulcerations. 3. Chronic kidney disease. 4. Hypothyroidism. 5. Malnutrition. 6. COPD. 7. Anemia. 8. BPH. 9. History of dysphagia requiring G-tube placement. ALLERGIES: No known drug allergies. MEDICATIONS: Please see medication reconciliation list. SOCIAL HISTORY: Currently lives in a usp. No history of tobacco, alcohol, or drug abuse. PAST SURGICAL HISTORY: Unknown. REVIEW OF SYSTEMS: Limited. PHYSICAL EXAMINATION: VITAL SIGNS: Temperature is 98, pulse 66, respirations 18, blood pressure is 95/62. HEENT: Normocephalic and atraumatic. Mild pale conjunctivae. NECK: Supple. No evidence of lymphadenopathy. CARDIOVASCULAR: Regular rate and rhythm. Plus S1 and S2. LUNGS: Decreased breath sounds bilaterally based on supine exam. ABDOMEN: Soft and nontender. G-tube in place. No rebound. No guarding. No peritoneal sign. EXTREMITIES: No cyanosis. No clubbing. LABORATORY DATA: White count is 8.4, hemoglobin 9.4, hematocrit 30, platelet count is 276. Sodium is 138, potassium 2.9, BUN is 34, creatinine 0.7, glucose is 124. Alkaline phosphatase is 141. Albumin is low at 1.9. ASSESSMENT: This is an 83-year-old patient with current GI problems. 1. Normocytic anemia. 2. Dysphagia with G-tube in place. 3. Hypoalbuminemia, malnutrition. 4. Elevated alkaline phosphatase. PLAN: The patient is currently getting Nepro, which is for dialysis patients. We are going to change that to Nutren 2.0 oral formula with 1.5. The patient had elevated residuals, but talking to the nurses at this time, apparently residuals are better. The patient is getting levodopa/carbidopa (Sinemet), so we are going to discontinue Reglan because it has contraindication with that medication. When started the patient on erythromycin, unfortunately we do not have IV erythromycin, so we are going to use the suspension through the G-tube for GI motility. We are going to also order anemia workup, but the anemia most probably secondary to chronic disease seems to be normocytic. We are going to hold off GI procedure at this time. Consider converting the G-tube to J-tube if the patient continues to have elevated residuals. I want to thank, Dr. Desir, for this kind referral. Aldo Colin M.D. DR: LILLY JOB#: [id number] CC: Joanne Desir M.D.; Fax#: [phone]
--- NOTE | 2018-08-09 19:20 | NUR ---
NURSE NOTES: Received pt. and report from JIMMY Mace. Observed pt. resting in bed with both eyes open. 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 Pt is on G-tube feeding Two Pietro @ 40cc/hr. Bed is in the lowest position, locked, and alarmed. Call light within reach. No signs/symptoms of acute distress noted at this time. Will continue plan of care.
--- NOTE | 2018-08-09 19:29 | NUR ---
HAND-OFF: Report given to JIMMY Schumacher. Patient is in stable condition. Endorsed plan of care.
[2018-08-10] VITALS: BP 107/46
[2018-08-10 04:00] VITALS: BP 113/62
[2018-08-10] MEDS: Erythromycin Ethylsuccinate 200mg/5ml Susp ORAL SCH ×3 (06:15→18:47)
[2018-08-10] MEDS: Metoclopramide 10mg/10ml Liq GT SCH ×3 (06:15→18:47)
[2018-08-10 06:49] LABS: BASOPHILS % (AUTO) 0.5 % (0.0-2.0); HEMATOCRIT 29.1 % (42.0-52.0); HEMOGLOBIN 9.5 G/DL (14.2-18.0); LYMPHOCYTES % (AUTO) 17.7 % (20.0-45.0); MEAN CORPUSCULAR VOLUME 94 FL (80-99); MONOCYTES % (AUTO) 5.1 % (1.0-10.0); NEUTROPHILS % (AUTO) 72.8 % (45.0-75.0); PLATELET COUNT 274 K/UL (150-450); RED CELL DISTRIBUTION WIDTH 15.1 % (11.6-14.8); WHITE BLOOD COUNT 7.9 K/UL (4.8-10.8)
--- NOTE | 2018-08-10 07:39 | NUR ---
HAND-OFF: Report given to JIMMY Fallon.
[2018-08-10 08:00] VITALS: BP 107/68
[2018-08-10 08:18] LABS: % IRON SATURATION 13 % (15-50); IRON 23 ug/dL (50-175); TOTAL IRON BINDING CAPACITY 179 ug/dL (250-450)
--- NOTE | 2018-08-10 09:02 | NUR ---
NURSE NOTES: received report from Winsome MARQUEZ. Pt sleeping in bed . 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 Pt on Gtube feeding. Bed locked in lowest position. Will continue plan of care.
--- NOTE | 2018-08-10 09:40 | GI Progress Note ---
Assessment/Plan Problems: (1) Fecal impaction in rectum ICD Codes: K56.41 - Fecal impaction SNOMED: 37633283 (2) Upper GI bleed ICD Codes: K92.2 - Gastrointestinal hemorrhage, unspecified SNOMED: 16900090 (3) Anemia ICD Codes: D64.9 - Anemia, unspecified SNOMED: 605756372 (4) Wounds, multiple open, lower extremity ICD Codes: S81.809A - Unspecified open wound, unspecified lower leg, initial encounter SNOMED: 87120488 Status: unchanged Status Narrative Discussed with Dr. Colin. Assessment/Plan Hold Reglan given interaction with Sinemet, erythromycin suspension for GI motility Defer any GI procedures at this time, consider converting G-tube to J-tube if patient continues to have elevated residuals anemia work up OB stool r/o GI bleed monitor H&H, prn transfusions bowel regime venofer ppi fu labs The patient was seen and examined at bedside and all new and available data was reviewed in the patients chart. I agree with the above findings, impression and plan. (Patient seen earlier today. Signature stamp does not reflect patient encounter time.). - Aldo Colin MD Subjective Subjective Limited Objective Last 24 Hour Vital Signs Date Time Temp Pulse Resp B/P (MAP) Pulse Ox O2 Delivery O2 Flow Rate FiO2 08/10/18 09:03 Nasal Cannula 2.0 28 08/10/18 09:03 95 Nasal Cannula 2.0 28 08/10/18 04:00 98.2 63 18 113/62 (79) 99 08/10/18 04:00 58 08/10/18 00:00 98.9 85 20 107/46 (66) 100 08/10/18 00:00 81 08/09/18 21:00 Nasal Cannula 2.0 08/09/18 20:00 81 08/09/18 20:00 97.7 83 20 95/51 (66) 98 08/09/18 16:00 62 08/09/18 16:00 97.2 64 20 105/60 (75) 95 08/09/18 12:00 98.0 66 18 95/62 (73) 95 08/09/18 12:00 64 Intake and Output 08/09/18 08/10/18 18:59 06:59 Intake Total 728 ml 250 ml Output Total 800 ml 700 ml Balance -72 ml -450 ml IV Total 728 ml 250 ml Output Urine Total 800 ml 700 ml Laboratory Tests Test 08/10/18 05:45 White Blood Count 7.9 K/UL (4.8-10.8) Red Blood Count 3.10 M/UL (4.70-6.10) L Hemoglobin 9.5 G/DL (14.2-18.0) L Hematocrit 29.1 % (42.0-52.0) L Mean Corpuscular Volume 94 FL (80-99) Mean Corpuscular Hemoglobin 30.8 PG (27.0-31.0) Mean Corpuscular Hemoglobin Concent 32.7 G/DL (32.0-36.0) Red Cell Distribution Width 15.1 % (11.6-14.8) H Platelet Count 274 K/UL (150-450) Mean Platelet Volume 6.1 FL (6.5-10.1) L Neutrophils (%) (Auto) 72.8 % (45.0-75.0) Lymphocytes (%) (Auto) 17.7 % (20.0-45.0) L Monocytes (%) (Auto) 5.1 % (1.0-10.0) Eosinophils (%) (Auto) 4.0 % (0.0-3.0) H Basophils (%) (Auto) 0.5 % (0.0-2.0) Iron Level 23 ug/dL (50-175) L Total Iron Binding Capacity 179 ug/dL (250-450) L Percent Iron Saturation 13 % (15-50) L Unsaturated Iron Binding 156 ug/dL (112-346) Vitamin B12 Level 603 PG/ML (193-986) Folate 18.8 NG/ML (8.6-58.9) Height (Feet): 5 Height (Inches): 5.00 Weight (Pounds): 140 General Appearance: no apparent distress Cardiovascular: normal rate Respiratory/Chest: normal breath sounds, no respiratory distress Abdominal Exam: normal bowel sounds, non tender, soft, GT site - Clean dry and intact Extremities: non-tender Cait Calderon NP August 10, 2018 09:40
[2018-08-10] MEDS: Ascorbic Acid 500mg tab GT SCH ×2 (10:12→18:46)
[2018-08-10] MEDS: Ferrous Sulfate 300 MG/5 ML UDC GT SCH ×3 (10:12→18:46)
[2018-08-10] MEDS: Levodopa/Carbidopa 25/100 tab GT SCH ×3 (10:12→18:46)
[2018-08-10] MEDS: Lactulose 20gm/30ml UDC GT SCH ×2 (10:13→18:47)
[2018-08-10] MEDS: Multivitamins W/Minerals 15 ML UDC GT SCH (10:13)
[2018-08-10] MEDS: Spironolactone 25mg tab ORAL SCH (10:13)
--- NOTE | 2018-08-10 11:06 | Surgery Progress Note ---
Surgery Progress Note Subjective Additional Comments awake, alert, responsive, states he is well without complaints. GI eval noted. Rx written labs improved. exam unchanged. Objective Last 24 Hour Vital Signs Date Time Temp Pulse Resp B/P (MAP) Pulse Ox O2 Delivery O2 Flow Rate FiO2 08/10/18 09:03 Nasal Cannula 2.0 28 08/10/18 09:03 95 Nasal Cannula 2.0 28 08/10/18 04:00 98.2 63 18 113/62 (79) 99 08/10/18 04:00 58 08/10/18 00:00 98.9 85 20 107/46 (66) 100 08/10/18 00:00 81 08/09/18 21:00 Nasal Cannula 2.0 08/09/18 20:00 81 08/09/18 20:00 97.7 83 20 95/51 (66) 98 08/09/18 16:00 62 08/09/18 16:00 97.2 64 20 105/60 (75) 95 08/09/18 12:00 98.0 66 18 95/62 (73) 95 08/09/18 12:00 64 I&O Intake and Output 08/09/18 08/10/18 18:59 06:59 Intake Total 728 ml 250 ml Output Total 800 ml 700 ml Balance -72 ml -450 ml IV Total 728 ml 250 ml Output Urine Total 800 ml 700 ml Dressing: saturated Wound: other Drains: other Cardiovascular: RSR Respiratory: decreased breath sounds Abdomen: soft, present bowel sounds, non-distended Extremities: no cyanosis Laboratory Tests Test 08/10/18 05:45 White Blood Count 7.9 K/UL (4.8-10.8) Red Blood Count 3.10 M/UL (4.70-6.10) L Hemoglobin 9.5 G/DL (14.2-18.0) L Hematocrit 29.1 % (42.0-52.0) L Mean Corpuscular Volume 94 FL (80-99) Mean Corpuscular Hemoglobin 30.8 PG (27.0-31.0) Mean Corpuscular Hemoglobin Concent 32.7 G/DL (32.0-36.0) Red Cell Distribution Width 15.1 % (11.6-14.8) H Platelet Count 274 K/UL (150-450) Mean Platelet Volume 6.1 FL (6.5-10.1) L Neutrophils (%) (Auto) 72.8 % (45.0-75.0) Lymphocytes (%) (Auto) 17.7 % (20.0-45.0) L Monocytes (%) (Auto) 5.1 % (1.0-10.0) Eosinophils (%) (Auto) 4.0 % (0.0-3.0) H Basophils (%) (Auto) 0.5 % (0.0-2.0) Iron Level 23 ug/dL (50-175) L Total Iron Binding Capacity 179 ug/dL (250-450) L Percent Iron Saturation 13 % (15-50) L Unsaturated Iron Binding 156 ug/dL (112-346) Vitamin B12 Level 603 PG/ML (193-986) Folate 18.8 NG/ML (8.6-58.9) Plan Problems: (1) Inguinal hernia Assessment & Plan: reducible and stable. will monitor outpatient eval if desired for repair (2) Intra-abdominal hematoma (3) Fecal impaction in rectum (4) Dehydration Assessment & Plan: DAILY ESTIMATED NEEDS: Needs based on Wounds, sepsis, bed bound/66.8kg 27-32 kcals/kg 2862-2045 total kcals 1.5-2 g protein/kg 100-134 g total protein 25-30 mL/kg 6754-5397 total fluid mLs NUTRITION DIAGNOSIS: 1) Increased kcal and protein needs r/t wound healing as evidenced by pt w/ multiple wounds, refer to WC eval, including full thickness x2 2) Swallowing difficulty r/t dysphagia as evidenced by pt is PEG dep. 3) Altered nutrition related lab values R/T clinical condition as evidenced by elev BGs (241), elev K (5.5-> now wnl). CURRENT TF:Nepro @30ml ENTERAL NUTRITION RECOMMENDATIONS: NEPRO @47ml/hr x22 hrs + PROSOURCE BID to provide 1034ml, 1861 kcal, 84g + 22g pro, 752ml free H2O * MEDICALLY APPROPRIATE TO START TF, rec NEPRO * Start @17ml/hr for 6 hrs, advance 10ml q 4-6 hrs as tolerated to goal rate. * Hold 1 hr before and after Synthroid med * Add Prosource 1 pack BID to better meet est pro needs. * Flush per MD/ HOB over 30 degrees ---- ADDITIONAL RECOMMENDATIONS: * PER SNF-> 67inches, 147# (66.8kg) * WOUND CARE: Add PORTIA BID Maintain MVI + Vit C via GT * Consider SSI for glycemic control * Monitor K, lytes, renal fxn for possible TF change K wnl, creat wnl, BUN trending down-> will cont to monitor (5) Hyperkalemia (6) Urinary tract infection (7) Leukocytosis (8) Sepsis (9) Upper GI bleed (10) Sacral decubitus ulcer (11) The administrative codes within the [employer] content you are accessing may have as of 12/25/2017. Please contact your IT Dept/Help Desk and request the latest Regulatory release be installed. IT Dept/Help Desk- Please refer to our FAQ page ([email or web address]) or contact [employer] Customer Support at [email or web address] (12) Decubitus ulcer Assessment & Plan: Patient presented on admission with contractures of extremities and multiple pressure injuries. Full thickness pressure injury cleft of L ear. base of wound moist viable. Small amt sanguineous exudate.(L)1.5cm x(W)1cm x (D)0.4cm. Resolving Full thickness pressure injury R trochanter with undermining.Small amt seropurulent exudate with mild odor noted.Base of wound is pink with biofilm. Bone is palpable.(L)2cm x (W)2.5cm x(D)1cm ,undermining1-6 by 3.1@5o' clock.Scarring noted to periwound. DTPI noted to L lateral malleolus.Base of wound is maroon with dark borders.(L) 1cm x (W)3cm. Non-blanchable erythema L hallux(L)2.7cm x (W)3cm. Non-blanchable erythema without fluctuance/induration lateral L foot . At most distal/lateral aspect of L foot a full thickness ulcer noted .Base of wound with approx 50% griffin slough ,surrounding erythema.,undermining noted.Loose edges with fluctuance and , non-blanchable erythema periwound (L) 2.1cm x (W)2.2cm x (D)0.5cm ,undermining 12-12 by 0.7cm @9o'clock. Non-blanchable erythema without fluctuance/induration noted to bony prominence that is in close proximity to medial L malleolus(L)1.5cm x (W)2cm. Reabsorbing blood blister medial L heel.base of wound is dry ,edges area adherent .periwound without erythema,induration or fluctuance (L)0.4cm x (W) 0.5cm. Non-blanchable erythema medial R heel .Base of wound is fluctuant with delineated margins. Periwound is blanchable without fluctuance or induration.(L) 1.3cm x (W) 3cm. Non-blanchable erythema without fluctuance or induration lateral R malleolus (L) 2.5cm x (W)2cm. Non-blanchable erythema without fluctuance/induration noted to lateral R foot . (L)1cm x (W1.5cm. Tx.Plan: [place] Skin Knox (1 application) to Cleft of L ear.(done 08/03/18). Apply Coloplast barrier ring to L ear. Change PRN if loose . Apply Coloplast Barrier ring to cleft of R ear. Change PRN. Cleanse R trochanter with Saline. Apply Therahoney infused packing strip.Apply Triad Paste periwound. Cover with Optifoam.Change Daily and PRN. Apply Cavilon Skin BArrier to R Heel ,lateral aspect of R foot ,R hallux,Medial and lateral Malleoli. Cover each bony prominence with Optifoam drsg. Change every 7 days and prn. Cleanse wound distal/lateral L foot with Saline. Apply Therahoney. Apply Cavilon Skin Barrier periwound. Cover with Optifoam drsg. Change every 3 days and prn. Apply Cavilon Skin Barrier to bony prominences L heel ,medial/lateral malleoli, L hallux,medial and lateral L foot. Cover each site with Optifoam drsgs. Change every 7 days and prn. Apply Triad paste to Sacrum. Cover with Optifoam drsg. Change every 3 days and prn. Apply Triad Paste to scrotum and both ischial areas with each perineal care. Air Fluidized Mattress. Reposition at least every 2hours or as tolerated. Place pillows between knees and behind knees to off-load pressure from heels. (13) Anemia (14) Obstructive jaundice (15) Vomiting Assessment & Plan: high residuals on Rx cont with feeds. GI input appreciated (16) Heel ulcer (17) Wounds, multiple open, lower extremity (18) Encounter for generalized patient complaints (19) Zafar Donis August 10, 2018 11:06
[2018-08-10 12:00] VITALS: BP 99/62
--- NOTE | 2018-08-10 13:19 | NUR ---
CASE MANAGEMENT:REVIEW 08/10/18 SI: AMS. UTI. DECUB *HIGH GASTRIC RESIDUALS 98.2 58 18 113/62 99% ON 2L/NC H/H-9.5/29.1 IS: ERYTHROMYCIN GT Q6HRS REGLAN GT Q6 LACTULOSE GT BID IVF@50/HR DUONEB HHN Q6HRS RTC IV PROTONIX Q12 ALDACTONE GT QD : TELEMETRY STATUS DCP: [facility]
--- NOTE | 2018-08-10 14:09 | NUR ---
RD ASSESSMENT & RECOMMENDATIONS SEE CARE ACTIVITY FOR COMPLETE ASSESSMENT DAILY ESTIMATED NEEDS: Needs based on Wounds, sepsis, bed bound/66.8kg 27-32 kcals/kg 4561-3786 total kcals 1.5-2 g protein/kg 100-134 g total protein 25-30 mL/kg 5586-4360 total fluid mLs NUTRITION DIAGNOSIS: 1) Increased kcal and protein needs r/t wound healing as evidenced by pt w/ multiple wounds, refer to WC eval, including full thickness x2 2) Swallowing difficulty r/t dysphagia as evidenced by pt is PEG dep. 3) Altered nutrition related lab values R/T clinical condition as evidenced by elev BGs (241 ->124 103 improved), elev K (5.5-> now wnl). CURRENT TF:TwoCal @40 x22 hrs ENTERAL NUTRITION RECOMMENDATIONS: Osmolite 1.5 @57ml x22 hrs + Prosource BID to provide 1254ml, 1881kcal, 79g + 22g pro, 956ml free H2O * TF change to Osmolite 1.5 + Prosource BID * Hold 1 hr before and after Synthroid med * Flush per MD/ HOB over 30 degrees ----- ADDITIONAL RECOMMENDATIONS: * PER SNF-> 67inches, 147# (66.8kg) * WOUND CARE: Maintain PORTIA BID + MVI + Vit C via GT * Consider SSI for glycemic control * Monitor K, lytes, renal fxn for possible TF change K wnl, creat wnl, BUN trending down-> will cont to monitor * Monitor BM regularity- last BM on 08/08 .
--- NOTE | 2018-08-10 14:26 | General Progress Note ---
Assessment/Plan Status: unchanged Assessment/Plan: ESBL Urosepsis - Abx per ID AMS 2nd to above improving Decubiti - GS following. DC to SNF Subjective Allergies: Coded Allergies: No Known Allergies (Unverified , 09/08/17) Subjective Confused. All noted Objective Last 24 Hour Vital Signs Date Time Temp Pulse Resp B/P (MAP) Pulse Ox O2 Delivery O2 Flow Rate FiO2 08/10/18 09:03 Nasal Cannula 2.0 28 08/10/18 09:03 95 Nasal Cannula 2.0 28 08/10/18 04:00 98.2 63 18 113/62 (79) 99 08/10/18 04:00 58 08/10/18 00:00 98.9 85 20 107/46 (66) 100 08/10/18 00:00 81 08/09/18 21:00 Nasal Cannula 2.0 08/09/18 20:00 81 08/09/18 20:00 97.7 83 20 95/51 (66) 98 08/09/18 16:00 62 08/09/18 16:00 97.2 64 20 105/60 (75) 95 Intake and Output 08/09/18 08/10/18 18:59 06:59 Intake Total 728 ml 250 ml Output Total 800 ml 700 ml Balance -72 ml -450 ml IV Total 728 ml 250 ml Output Urine Total 800 ml 700 ml Laboratory Tests 08/10/18 05:45: White Blood Count 7.9, Red Blood Count 3.10L, Hemoglobin 9.5L, Hematocrit 29.1L , Mean Corpuscular Volume 94, Mean Corpuscular Hemoglobin 30.8, Mean Corpuscular Hemoglobin Concent 32.7, Red Cell Distribution Width 15.1H, Platelet Count 274, Mean Platelet Volume 6.1L, Neutrophils (%) (Auto) 72.8, Lymphocytes (%) (Auto) 17.7L, Monocytes (%) (Auto) 5.1, Eosinophils (%) (Auto) 4.0H, Basophils (%) (Auto) 0.5, Iron Level 23L, Total Iron Binding Capacity 179L , Percent Iron Saturation 13L, Unsaturated Iron Binding 156, Vitamin B12 Level 603, Folate 18.8 Height (Feet): 5 Height (Inches): 5.00 Weight (Pounds): 140 Objective CV RR Lungs CTA Abd SNT BS + E No CCE Joanne Desir MD August 10, 2018 14:26
[2018-08-10] MEDS ORDERED: ERYTHROMYC200 MG/51 ORAL (14:30)
[2018-08-10] MEDS ORDERED: METOCLOPRAM5 MG/5 M1 GT (14:30)
[2018-08-10] MEDS ORDERED: LANSOPRAZOLE30 MG GT (14:30)
--- NOTE | 2018-08-10 15:28 | NUR ---
DISCHARGE PLANNING DISCHARGE ORDER NOTED Patient has been accepted back to; [facility] [address] [place] [address] Bed: 110-B Skilled [phone] for Nurse to Nurse report [facility] ETA for transportation: 17:30
[2018-08-10 16:00] VITALS: BP 106/71
[2018-08-10] MEDS ORDERED: NS 275ml ONE (19:59)
[2018-08-10] MEDS ORDERED: 1/2 NS 1000ml IV ONE ×2 (19:59)
[2018-08-10] MEDS ORDERED: Iron Sucrose 100 MG in NS 55 ML IVPB SCH (21:00)
--- NOTE | 2018-08-10 21:00 | NUR ---
NURSE NOTES: Gave report to [facility] spoke to Artie. Pt left to [facility] via gurney, Pt in stable condition off manager cardiac cath. IV was DC, no signs of bleeding. Ambulance personal signed for belongings.
--- NOTE | 2018-08-12 12:00 | Discharge Summary ---
Discharge Summary Discharge Summary _ DATE OF ADMISSION: 08/03/2018 DATE OF DISCHARGE: 08/10/2018 DISCHARGED BY: Dr. De Anda REASON FOR ADMISSION: 83 years old male with past medical history of stage IV sacral decubitus ulcer, chronic kidney disease, hypothyroidism, malnutrition, COPD, BPH, anemia of chronic disease, organic brain syndrome, status post gastrostomy, [facility] due to coffee-ground emesis vomiting. Patient by himself was unable to provide any history due to dementia. Upon evaluation laboratory work-up revealed significant leukocytosis with WBC 18.7 ,hemoglobin 13.2, hematocrit 40.9. BUN 56 , creatinine 1.3. Stable LFT . Urinalysis revealed evidence of probable UTI. CT of the abdomen and pelvis revealed rectosigmoid fecal retention and impaction. Left inguinal hernia containing colon and mesenteric defect , unchanged from previous findings. Chronic cystitis with thickened bladder wall. Status post cholecystectomy. 2.4 x 2 Y 0.6 cm gallbladder hyperdensity, likely small postoperative hematoma . In emergency department patient received H2-thelma and started on empiric antibiotic for possible UTI after being pancultured. Patient subsequently admitted to telemetry floor for further management. CONSULTANTS: ID specialist Dr. Garza GI specialist Dr. Colin surgery Dr. Echeverria [facility] COURSE: Patient admitted to telemetry floor. Patient started on IV fluids and empiric antibiotic. ID specialist followed. Urine culture revealed E. coli ESBL. Patient completed a course of meropenem while in the hospital. Leukocytosis resolved. Renal parameters and electrolytes were closely monitored, electrolytes further corrected as needed. Patient with known history of chronic kidney disease . Prior to discharge BUN from 56 down to 34, creatinine from 1.3 down to 0.7. GI specialist followed. Hemoglobin and hematocrit were closely monitored with goal to keep hemoglobin above 7. Anemia work-up was consistent with anemia of chronic disease. Low iron noted as well. Patient received Venofer. while in the hospital. Prior to discharge hemoglobin 9.4 , hematocrit 29.1. Bowel regimen instituted. GI prophylaxis with PPI provided. Pain management was addressed as needed. Supportive care provided. Per GI specialist recommendations, patient started on erythromycin suspension to improved GI motility, and Reglan was stopped given its interaction with Sinemet. Strict aspiration precautions were maintained. G-tube feeding resumed as per GI specialist. GI specialist recommended to defer any GI procedure and consider converting G- tube to J-tube if patient continued to have elevated residuals. Surgeon closely followed . Patient presented with contracture of extremities and multiple pressure injuries. Wound care provided as per pain specialist as per surgeon recommendation for sacral decubitus ulcer stage 4, present on admission as well as multiple wound lower extremities. Continue wound care at the facility/ Protein supplement administered as per registered dietitian recommendation. Levothyroxine was continued. Supplemental oxygen provided as needed to keep pulse oximetry above 92%. Pulmonary toilet was on standby as needed. Sinemet was continued. Supportive care provided Patient clinically stabilized and was ready for transfer back to [facility] for continuation of care. FINAL DIAGNOSES: Sepsis due to UTI E. coli ESBL UTI Dehydration Chronic kidney disease Fecal impaction Upper GI bleeding Stage IV sacral decubitus ulcer , present on admission Malnutrition Hypothyroidism COPD Intra-abdominal hematoma Organic brain syndrome Anemia BPH Multiply open wound lower extremity DISCHARGE MEDICATIONS: See Medication Reconciliation list. DISCHARGE INSTRUCTIONS: Patient was discharged to the [facility]. Follow up with medical doctor at the facility. I have been assigned to dictate discharge summary for this account. I was not involved in the patient's management. Chela Banuelos NP August 12, 2018 12:00
== END 2018-08-10 20:00 | DRG 871 ==
LOC: EDBD 02:26 → EMR 02:49 → EDBEDREQ 03:20 → 2E 03:25 → EDBEDREQ 03:46
DX: A41.9 Sepsis, unspecified organism (principal); L89.154 Pressure ulcer of sacral region, stage 4; N39.0 Urinary tract infection, site not specified; K92.2 Gastrointestinal hemorrhage, unspecified; E46 Unspecified protein-calorie malnutrition; S36.92XA Contusion of unspecified intra-abdominal organ, initial encounter; Z43.1 Encounter for attention to gastrostomy; E87.5 Hyperkalemia; F09 Unspecified mental disorder due to known physiological condition; N18.9 Chronic kidney disease, unspecified; J44.9 Chronic obstructive pulmonary disease, unspecified; D63.8 Anemia in other chronic diseases classified elsewhere; N40.0 Benign prostatic hyperplasia without lower urinary tract symptoms; B96.20 Unspecified Escherichia coli [E. coli] as the cause of diseases classified elsewhere; Z16.12 Extended spectrum beta lactamase (ESBL) resistance; N20.0 Calculus of kidney; K40.90 Unilateral inguinal hernia, without obstruction or gangrene, not specified as recurrent; K56.41 Fecal impaction; E86.0 Dehydration; R13.10 Dysphagia, unspecified; F03.90 Unspecified dementia, unspecified severity, without behavioral disturbance, psychotic disturbance, mood disturbance, and anxiety; L89.629 Pressure ulcer of left heel, unspecified stage; L89.520 Pressure ulcer of left ankle, unstageable; M24.50 Contracture, unspecified joint
CPT/HCPCS: 36415; 74176; 80048; 80053; 81003; 82607; 82746; 83540; 83550; 83690; 85007; 85025; 85610; 85730; 86850; 86900; 86901; 87081; 87086; 87181; 93005; 94640; 94760; 96361; 96365; 96375; 99285; J2405; J7620